=== PATIENT | male | born 1990 | race Hispanic/Latino ===

== ENCOUNTER 2018-04-24 15:06 | Inpatient (IN) | payer OTHER, SELFPAY ==
[~2018-04-24 15:06] MED LIST: ISOVUE-370 76%-LOCM 1 ML ONE
--- NOTE | 2018-04-24 16:54 | ULT ---
BILATERAL TESTICULAR ULTRASOUND WITH DOPPLER: History Right testicular pain. COMPARISON: None. FINDINGS: Real-time, kate scale, color Doppler, and spectral analysis of the testicles was performed. The left testicle measures 4.5 x 2.1 x 2.3 cm. The right testicle is felt to be posteriorly displace d and measures 4.5 x 3.3 x 2.7 cm. There appears to be a mass in the right inguinal canal seen into the scrotum which is felt to represent an incarcerated hernia vs a mass. There are large vessels wit hin this collection. IMPRESSION: Either a mass or incarcerated hernia in the right inguinal canal. CT would be more definitive if cli nically warranted. Surgical consultation is recommended. The patient was scanned in real-time by the radiologist in the emergency room. POS: [facility]
[2018-04-24 17:44] LABS: #Basophils 0.1 thou/uL (0.0-0.2); #Eosinphils 0.1 thou/uL (0.0-0.7); #Lymphocytes 1.5 thou/uL (1.20-3.40); #Monocytes 0.7 thou/uL (0.11-0.59); #Neutrophils 7.7 thou/uL (1.40-6.50); %Eosinophils 0.8 % (0.0-10.0); %Lymphocytes 15.3 % (21.0-51.0); %Monocytes 6.7 % (0.0-10.0); %Neutrophils 76.3 % (42.0-75.0); Mean Corpuscular HGB CONC 33.3 g/dL (32.0-36.0); Mean Corpuscular Hemoglobin 28.9 pg (27.0-31.0); Mean Corpuscular Volume 86.7 fL (78.0-98.0); Mean Platelet Volume 7.5 fL (7.4-10.4); Platelet Count 310 thou/uL (130-400); Red Blood Cell (RBC) Count 4.49 mill/uL (4.70-6.10)
[2018-04-24 18:11] LABS: ALT (SGPT) 14 U/L (8-55); AST (SGOT) 15 U/L (5-34); Albumin 4.1 g/dL (3.5-5.0); Alkaline Phosphatase 85 U/L (40-150); Anion Gap 15 mmol/L (10-20); BUN (Urea Nitrogen) 13 mg/dL (8.9-20.6); Bilirubin, Total 0.4 mg/dL (0.2-1.2); Calc. Creatinine Clearance 0 mL/min (70-130); Calcium 9.2 mg/dL (7.8-10.44); Carbon Dioxide 25 mmol/L (22-29); Chloride 100 mmol/L (98-107); Estimated GFR-MDRD Greater than 90; Globulin 3.6 g/dL (2.4-3.5); Glucose 92 mg/dL (70-105); Potassium 3.7 mmol/L (3.5-5.1); Protein, Total 7.7 g/dL (6.0-8.3); Sodium 136 mmol/L (136-145)
--- NOTE | 2018-04-24 18:26 | PDOC.FPRHP ---
- History of Present Illness Chief Complaint: Swollen testicle History of Present Illness: Mr. Kaur presents to the ED with a swollen testicle For the past 5 month he has had intermittent testicular pain and growth, he thought it was a hernia and was afraid to seek medical care. He reports recent weight loss and back pain 2/2 lifting a heavy object 4 weeks ago. He denies visual changes, focal weakness, memory loss, or syncope. Denies SOB, CP, abdominal pain or other symptoms. - History PMHx: none PSHx: none FHx: none Social: 10 pack year smoking history, daily marijuan use, no recent alcohol - Review of Systems General: reports: weight/appetite/sleep changes. denies: fever/chills, fatigue Eyes: denies: eye pain, vision changes ENT: denies: nasal congestion, rhinorrhea Respiratory: denies: cough, congestion, shortness of breath Cardiovascular: denies: chest pain, palpitation Gastrointestinal: reports: abdominal pain. denies: nausea, vomiting, diarrhea, constipation Genitourinary: reports: other (testicular mass). denies: incontinence, dysuria Skin: denies: rashes, lesions Musculoskeletal: reports: pain, tenderness Neurological: denies: numbness, syncope - Vital signs BP: 133/87 HR: 113 RR: 18 Tmax: 98.3 Pox: 97% on RA Wt: 81.65kg - Physical Exam Constitutional: NAD, awake, alert and oriented HEENT: normocephalic and atraumatic, grossly normal vision, grossly normal hearing, MMM Neck: supple, trachea midline Chest: no-tender to palpation, no lesions Heart: RRR, normal S1/S2, no murmurs/rubs/gallops Lungs: CTAB, no respiratory distress, good air movement Abdomen: soft, non-tender, bowel sounds present Musculoskeletal: normal structure, other (significant pain to palpation over L gluteus) Neurological: no focal deficit, CN II-XII intact Skin: other (engorged testicular veins and erythema) Heme/Lymphatic: no unusual bruising or bleeding, no purpura Additional comment: testicular exam: softball sized right testicle, firm with tense skin possibly adhered, erythema, venous engorgement, no hernia noted. FMR H&P: Results - Labs Result Diagrams: 04/24/18 17:30 04/24/18 17:30 Lab results: WBC 10.0 thou/uL (4.8-10.8) 04/24/18 17:30 Hgb 13.0 g/dL (14.0-18.0) L 04/24/18 17:30 Hct 39.0 % (42.0-52.0) L 04/24/18 17:30 MCV 86.7 fL (78.0-98.0) 04/24/18 17:30 Plt Count 310 thou/uL (130-400) 04/24/18 17:30 Neutrophils % 76.3 % (42.0-75.0) H 04/24/18 17:30 Sodium 136 mmol/L (136-145) 04/24/18 17:30 Potassium 3.7 mmol/L (3.5-5.1) 04/24/18 17:30 Chloride 100 mmol/L (98-107) 04/24/18 17:30 Carbon Dioxide 25 mmol/L (22-29) 04/24/18 17:30 BUN 13 mg/dL (8.9-20.6) 04/24/18 17:30 Creatinine 0.88 mg/dL (0.7-1.3) 04/24/18 17:30 Glucose 92 mg/dL (70-105) 04/24/18 17:30 Calcium 9.2 mg/dL (7.8-10.44) 04/24/18 17:30 Total Bilirubin 0.4 mg/dL (0.2-1.2) 04/24/18 17:30 AST 15 U/L (5-34) 04/24/18 17:30 ALT 14 U/L (8-55) 04/24/18 17:30 Alkaline Phosphatase 85 U/L (40-150) 04/24/18 17:30 Serum Total Protein 7.7 g/dL (6.0-8.3) 04/24/18 17:30 Albumin 4.1 g/dL (3.5-5.0) 04/24/18 17:30 FMR H&P: A/P - Problem List (1) Testicular mass Current Visit: Yes Status: Acute (2) Metastasis Current Visit: Yes Status: Acute Code(s): C79.9 - SECONDARY MALIGNANT NEOPLASM OF UNSPECIFIED SITE (3) Tobacco abuse Current Visit: Yes Status: Acute Code(s): Z72.0 - TOBACCO USE - Plan Testicular mass - most likely malignant, no skin necrosis - urology consulted, plan on removal on 04/25 - admit to surgical floor - AM CBC, CMP - case management consulted to evaluate need for support Metastasis - most likely lesions on sacrum, gluteus, iliac crest, and lungs. no brain lesions seen on CT - oncology consulted, appreciate recs - BHCG, AFP pending - norco 5 for pain control tobacco abuse - encourage cessation code: full ppx: hold lovenox for now Disposition/LOS: admit to surgical floor, removal of mass in AM FMR H&P: Upper Level - Pertinent history 27 yr old male with approx 7 month hx of swollen testicle that at times is painful. He reports not seeking medical care because he was scared. The testicle has continued to grow in size. He reports significant and severe back pain as well that has worsened over last couple months. He thought it started after bending over picking up 2 x 4's. He has smoked marijuana daily to help with the pain but does not take pain meds. Denies cough, SOB, chest pain, abdominal pain. Reports some weight loss as determined by looser fitting jeans. - Pertinent findings Abd CT/pelvis- right middle lobe mass (6.2 x 8.2 cm). Left middle lobe masses x 3 (2.6 x 1.4 cm), (1.2 x 1.6 cm), (2.0 x 1.4 cm) right iliac bone lytic lesion (2.4 x 4.7 cm) soft tissue attentuation in right gluteal muscles Chest CT- large necrotic mass occupying right upper hemithorax (6.9 8.8 cm) right upper lobe nodules (1.6 x 1.2 cm), (1.0 x 0.9 cm) subcentimeter nodules in right lower love Brain CT- no acute intracranial process Gen: worried, tearful upon notice of condition Heart: RRR, no M/R/G Lungs: CTAB, no wheezes, rhales, rhonchi, good air movement bilaterally Abd- soft - right scrotum enlarged significantly with vein engorgement MSK- right lumbar region swelling/mass enlargement as compared to left. mass tender to palpation Neuro- cranial nerve 2-12 grossly intact. gait normal - Plan Date/Time: 04/24/181823 I, [Emmie Wren], have evaluated this patient and agree with findings/plan as outlined by it intern resident. Pertinent changes/additions are listed here. Testicular mass -Suspected testicular cancer with soft tissue, bone, and lung metastasis -see imaging noted above -urology has been consulted from ER with plans to operate tomorrow, appreciate recs -will assist with pain control associated with suspected mets -will assist with any medical concerns during hospitalization multiple suspected metastasis -see above Tobacco abuse -smoking cessation provided -will provide nicotine patch PRN Drug use -cessation counseling provided Diet- reg and NPO after midnight DVT ppx- will hold lovenox tonight in anticipation of early childhood education instructor procedure, SCDs GI PPX- none PCP - none, [facility] call Code status: FULL Addendum - Attending - Attending Attestation Date/Time: 04/24/182213 I personally evaluated the patient and discussed the management with Dr. Ramos I agree with the History, Examination, Assessment and Plan documented above with any addition or exceptions noted below. Unfortunate 27 yo male with self intentional delay of care regarding large painful right testicular mass presumed cancer with evidence of osseous metastatic involvement sacrum, right iliac and pulmonary metastatic spread. CT of head negative for mass. Patient with two biological children history of heavy tobacco and marijuana use. Consults for Urology and Oncology placed, tumor markers drawn LDH 501. Patient to be NPO for anticipated surgery in am further tumor classification and staging pending surgery. Patient aware of diagnosis and defer further treatment pending further evaluation. Pain controlled with po medication at present.
--- NOTE | 2018-04-24 19:19 | CT ---
CT ABDOMEN WITH CONTRAST: CT PELVIS WITH CONTRAST: HISTORY: Possible right scrotal hernia. COMPARISON: None. TECHNIQUE: Abdomen and pelvis CT is performed with IV contrast. Enteric contrast is not administered. FINDINGS: There is incomplete evaluation of a chronic mass in the right middle lobe, measuring at least 6.2 x 8 .2 cm. There are three separate masses in the left lower lobe, measuring 2.6 x 1.4, 1.2 x 1.6, and 2 .0 x 1.4 cm. The portal vein and gallbladder are unremarkable. There are no enhancing masses in the liver. The s pleen, pancreas, and adrenal glands are unremarkable. Symmetric enhancement of the kidneys. No obst ructive uropathy. No gastrohepatic, retrocrural, or periportal lymphadenopathy. There is no mesenteric mass, lymphadenopathy, free air, or free fluid. There is no evidence of retro peritoneal mass, lymphadenopathy, free air, or free fluid. Symmetric attenuation of the psoas muscle. Limited evaluation of the alimentary canal by lack of oral contrast. Gastric mucosa, duodenum, and m ultiple normal caliber small bowel loops are noted. The ileocecal junction is normal. Normal calibe r appendix. No evidence of colonic obstruction. There is evidence of destructive change secondary to metastases involving the right lateral aspect of the sacrum, as well as the right iliac bone. There is a lytic focus in the right iliac bone, measur ing 2.4 x 4.7 cm. There is abnormal soft tissue attenuation in the region of the right gluteal muscl es, which may represent hematoma/metastases. There is also abnormal attenuation involving the logging worker ior right paraspinal muscles, at the level of the sacrum. There is an abnormal appearing right hemiscrotum with a large component of fluid and heterogeneous en hancement. Right testicular cancer is suspected until proven otherwise. IMPRESSION: 1. Multiple metastatic lesions in the lung parenchyma are suspected. 2. Probable right testicular cancer with osseous metastases involving the right aspect of the ilium and sacrum. There is also suggestion of possible metastases involving the right gluteal muscles. The results of the study were discussed with Dr. Ramirez on 04/24/2018 at 5:57 p.m. CODE CR POS: [facility]
[2018-04-24 19:25] LABS: Bilirubin Negative (Negative); Blood, Urine Trace (Negative); Clarity CLEAR (Clear); Glucose, Urine (Dipstick) Negative (Negative); Leukocyte Negative (Negative); Nitrite Negative (Negative); Protein, Urine (Dipstick) Negative (Neg-Trace)
[2018-04-24 19:27] LABS: Bacteria/HPF None Seen HPF (None Seen); Hyaline Casts/LPF 0-3 HYALINE CAST LPF (0-3 Hyaline); Pathc Cast-AUWi Flag 0.14 (0-2.49); Squamous Epithelial None Seen HPF (0-3); WBC/HPF None Seen HPF (0-3)
[2018-04-24 19:29] LABS: Specific Gravity, Urine Greater than 1.060 (1.002-1.036)
--- NOTE | 2018-04-24 19:34 | CT ---
CT CHEST WITHOUT CONTRAST: HISTORY: Palpable metastatic testicular cancer. FINDINGS: Slightly limited evaluation of the mediastinum due to lack of IV contrast. No mediastinal lymphadeno sylvester, or hematoma. Heart size is within normal limits. No pericardial effusion. The visualized ao rta has a normal caliber. No periaortic fat stranding. The trachea and central bronchi are patent. There is a large necrotic mass, likely occupying the chicho ority of the right upper hemithorax. Mass abuts the right upper lobe and abuts the right border of t he mediastinum and causes some mass effect upon the right atrium. This necrotic mass measures 6.9 x 8.8 cm. Nodules are noted in the right upper lobe, measuring 1.6 x 1.2 and 1.0 x 0.9 cm. Small subc entimeter nodules in the right lower lobe are noted. There are multiple nodules in the left lower lo be, which have been described above. Additional nodules are noted in the lingula and in the superior segment of the left lower lobe. No lytic or blastic lesions in the osseous structures. IMPRESSION: 1. Large necrotic mass in the right hemithorax, metastatic unthil proven otherwise. 2. Multifocal lung masses, presumed to be metastatic until proven otherwise. POS: EDWIGE
--- NOTE | 2018-04-24 19:45 | CT ---
NONCONTRAST HEAD CT: 04/24/18 HISTORY: Evaluate for possible intracranial metastases. COMPARISON: None. FINDINGS: No parenchymal hemorrhage. No extra-axial hematoma. No midline shift. Basilar cisterns are patent. Br ain volume, age appropriate. Cortical kate-white matter differentiation is preserved. No evidence of hydrocephalus. Calvarium is intact. Adequate aeration of the sinuses and mastoid air c ells. There is a small amount of contrast still present in the intracranial arterial system secondary to re cent IV contrast administration. IMPRESSION: No acute intracranial process. POS: [facility]
[2018-04-24] MEDS ORDERED: Nicotine 14 MG PATCH TOP SCH (21:15)
[2018-04-24] MEDS ORDERED: Ondansetron PF 4 MG/2 ML Vial IVP PRN ×2 (21:27→21:28)
[2018-04-24] MEDS ORDERED: Ondansetron ODT 4 MG TAB PO PRN (21:27)
[2018-04-24] MEDS ORDERED: Acetaminophen 325 MG TAB PO PRN (21:28)
[2018-04-24] MEDS ORDERED: Ondansetron ODT 4 MG TAB SL PRN (21:28)
[2018-04-24 23:34] VITALS: BMI 27.1
--- NOTE | 2018-04-25 06:26 | PDOC.FM ---
Addendum entered and electronically signed by Milli Diaz MD 04/25/18 08:10 : Elevated LDH suggests seminoma. Will repeat post surgery. HIV, syphilis, Hep panel, and TB pending. Original Note: - Subjective Subjective: No events overnight. Patient states that he continues to have back pain. Patient states he has not been seen by urology or oncology but that he is having a surgery today. Otherwise patient has no complaints. - Objective Vital Signs & Weight: Vital Signs (12 hours) Temp Pulse Resp BP Pulse Ox 04/24/18 21:27 98.4 F 91 20 127/78 96 Weight Weight 81 kg Result Diagrams: 04/25/18 05:39 04/25/18 05:39 Phys Exam - Physical Examination Constitutional: NAD HEENT: PERRLA, moist MMs, sclera anicteric Neck: no JVD, supple, full ROM Respiratory: clear to auscultation bilateral Cardiovascular: RRR, no significant murmur, no rub Gastrointestinal: soft, non-tender, no distention, positive bowel sounds Musculoskeletal: no edema Neurological: non-focal Psychiatric: normal affect, A&O x 3 Dx/Plan (1) Metastasis Code(s): C79.9 - SECONDARY MALIGNANT NEOPLASM OF UNSPECIFIED SITE Status: Acute (2) Testicular mass Status: Acute (3) Tobacco abuse Code(s): Z72.0 - TOBACCO USE Status: Acute - Plan Plan: Testicular mass - Suspected testicular cancer with soft tissue, bone, and lung metastasis - urology has been consulted from ER with plans to operate 04/25, appreciate recs - oncology has been consulted, appreciate recs - will assist with pain control associated with suspected mets; Patient on [place] 5/325. Not given meds overnight due to NPO status for surgery. Will give morphine for severe pain PRN. - BHCG, AFP pending - CM consulted to evaluate need for support Multiple suspected metastasis - see above Tobacco abuse - smoking cessation counseling provided - will provide nicotine patch PRN Drug use - cessation counseling provided Diet- patient NPO since midnight for procedure DVT ppx- will hold lovenox tonight in anticipation of plate former procedure, SCDs GI PPX- none PCP - none, city call Code status: FULL Addendum - Attending - Attending Attestation Date/Time: 04/25/18 5021 I personally evaluated the patient and discussed the management with Dr. Diaz I agree with the History, Examination, Assessment and Plan documented above with any addition or exceptions noted below. Appreciate marine engineering consultant recs for tissue diagnosis for further staging and rec note elevated AFP.
[2018-04-25 06:49] LABS: #Eosinphils 0.1 thou/uL (0.0-0.7); #Lymphocytes 1.8 thou/uL (1.20-3.40); #Monocytes 0.6 thou/uL (0.11-0.59); #Neutrophils 6.9 thou/uL (1.40-6.50); %Basophils 0.2 % (0.0-1.0); %Eosinophils 1.3 % (0.0-10.0); %Lymphocytes 18.7 % (21.0-51.0); %Monocytes 6.6 % (0.0-10.0); %Neutrophils 73.3 % (42.0-75.0); Hemoglobin 12.4 g/dL (14.0-18.0); Mean Corpuscular HGB CONC 33.9 g/dL (32.0-36.0); Mean Corpuscular Hemoglobin 29.5 pg (27.0-31.0); Mean Platelet Volume 7.9 fL (7.4-10.4); Platelet Count 297 thou/uL (130-400); White Blood Cell (WBC) Count 9.4 thou/uL (4.8-10.8)
[2018-04-25 07:01] LABS: Anion Gap 13 mmol/L (10-20); BUN (Urea Nitrogen) 10 mg/dL (8.9-20.6); Calc. Creatinine Clearance 159 mL/min (70-130); Calcium 9.4 mg/dL (7.8-10.44); Carbon Dioxide 28 mmol/L (22-29); Chloride 102 mmol/L (98-107); Estimated GFR-MDRD Greater than 90; Glucose 97 mg/dL (70-105); Potassium 3.8 mmol/L (3.5-5.1); Sodium 139 mmol/L (136-145)
[2018-04-25] MEDS ORDERED: Morphine 4 MG/ML VIAL ONE (07:57)
[2018-04-25 09:49] LABS: HBCM Index 0.05 S/CO (0-0.79); HBSAg Index 0.28 S/CO (0-0.99); HIV (1/2) Antibody/Antigen Non-Reactive (NonReactive); HIV 1/2 INDEX 0.17 S/CO (<1.00); Hep A IgM AB Non-Reactive (NonReactive); Hep A IgM S/CO 0.14 S/CO (0-0.79); Hep B Surf Ag Non-Reactive S/CO (NonReactive); Hep C IgG Ab Non-Reactive (NonReactive); Hep C Index 0.19 S/CO (0-0.79); Hepatitis B Core IgM Abs Non-Reactive (NonReactive); Syphilis Antibody Nonreactive (Nonreactive); Syphilis Antibody Index 0.47 S/CO (<1.00 Non-Reactive)
[2018-04-25] MEDS ORDERED: Lidocaine 1% (PF) 30 ML VIAL ONE ×2 (10:55→12:49)
[2018-04-25] MEDS ORDERED: Lidocaine 1% w/Epinephrine 1:200K 30 ML VIAL FS SCH (11:15)
[2018-04-25] MEDS: Morphine 4 MG/ML VIAL SLOW IVP PRN ×3 (11:25→22:26)
[2018-04-25] MEDS ORDERED: Lidocaine 1% (PF) 30 ML VIAL FS SCH (12:15)
[2018-04-25] MEDS: Nicotine 14 MG PATCH TD SCH (12:16)
--- NOTE | 2018-04-25 12:46 | CON ---
DATE OF CONSULTATION: 04/25/2018 REASON FOR CONSULTATION: Consultation was requested for right testicular mass. HISTORY OF PRESENT ILLNESS: The patient is a 27-year-old male, who noticed enlargement of his testicle approximately 5 to 7 months ago, but was too scared to come in and do anything about it. About 2 or 3 months ago, he bent over while working. He felt a pop in his back side and that area has been sore and painful ever since and he has required special maneuvering in order to avoid such pain. He denies any urinary issues to include UTIs, gross hematuria, kidney stones or retention. He normally has frequency q.2 to 3 hours and nocturia x1. PAST MEDICAL HISTORY: Insignificant. PAST SURGICAL HISTORY: None. MEDICATIONS: None. ALLERGIES: NONE. SOCIAL HISTORY: He smokes a pack a day and has for 10 years. He previously smoked marijuana for recreation, but now he has been smoking it daily for his significant pain both in the back and in his testicle if he stands too long and even more recently, he has had trouble with deep breaths and pain. He does not drink alcohol regularly, not even weekly, and he works as [employer] for the past 3 years, but is out of work currently. REVIEW OF SYSTEMS: Reveal he has probably lost about 20 pounds over the last few months. He has had a decreased appetite, but he has been trying to eat a good amount. He does have admits trouble with sleeping with the above-mentioned pain. He has had no fever or chills, and he denies any abdominal pain. He has had no nausea, vomiting, diarrhea, or constipation. He has had a new cough with some phlegm, but he has never coughed up any blood or tissue. A long time ago, he had blood after bowel movements, but that was several years ago and has not happened recently. Reviewed that this was more likely hemorrhoids. He has had recent shortness of breath and had the pace himself. He denies any trouble with diabetes, thyroid trouble, and he has never had a colonoscopy. FAMILY HISTORY: Insignificant for any cancers. PHYSICAL EXAMINATION: VITAL SIGNS: He has been afebrile, heart rate around 90, blood pressure 127/81 , and 98% on room air. His I's and O's have been recorded as urinal. GENERAL: He appears comfortable in the bed. HEENT: He has no scleral icterus. NECK: He has no JVD. HEART: Regular rhythm and rate. No murmurs, gallops, or rubs. LUNGS: Actually clear to auscultation at the bases. ABDOMEN: Soft, nondistended, and nontender with normoactive bowel sounds. GENITOURINARY: Right testicle was clearly significantly enlarged, larger than a grapefruit or softball and firm. Left was normal and soft. Phallus was circumcised without lesions. No meatal stenosis. His gluteus region was not obvious for mass. However, when you compared it to the left side, the right was much more indurated and firm along his iliac wing. DIAGNOSTIC DATA: Laboratory values reveal a normal CBC with H and H has gone down a little bit with hydration to 12.4 and 36.6. BUN and creatinine, which are good with last check of 0.79 for creatinine. LFTs are within normal limits. LDH was 501. Alpha-fetoprotein and beta-hCG are pending. Urinalysis showed no wbc's, 4 to 6 rbc's, no bacteria, and no squamous cells. The scrotal ultrasound on 04/24/2018 , revealed what appeared to be a significant right testicular mass that was difficult to appreciate definitive borders and measure. The left appeared normal. A CT scan of the abdomen, chest, and pelvis revealed multiple metastases including the right lateral sacrum with the right gluteal muscle involved and the right iliac involved, some posterior paraspinal muscle involvement. A large lesion in the right hemithorax and multiple other lung lesions. There was no pelvic lymphadenopathy. There was no retroperitoneal lymphadenopathy. The brain scan showed no lesions. His kidneys were normal without hydronephrosis, masses, or stones. No liver lesions. His bladder is normal and he had a small prostate. ASSESSMENT: We have a 27-year-old male with metastatic disease with an unknown primary, as it is unlikely that testicular cancer would result in obvious types of lesions without involving both the pelvic and retroperitoneal lymph nodes. I reviewed with him and Dr. Romo, however, I would not want to remove his testicle at this time if this is not a primary testicular cancer, which to me it does not appear to be in getting a biopsy from the testicle would be difficult as you would technically need to go to the groin to do it, so I think an easier spot would be the gluteal region and possibly bronchoscopy for the lung mass. I would still await his alpha-fetoprotein and beta-hCG and a definitive tissue sample, but at this time , I think primary testicular cancer is less likely. Dr. Romo spoke with Dr. Mendoza, who will evaluate to determine whether she could get a biopsy of the gluteal area. I will continue to follow along. Job ID: [id number] [facility]ALL[facility]ly[facility]
[2018-04-25] MEDS ORDERED: Bupivacaine 0.25% HCL 30 ML VIAL ONE (12:49)
--- NOTE | 2018-04-25 13:03 | CON ---
DATE OF CONSULTATION: REASON FOR CONSULTATION: Testicular mass and metastatic disease. HISTORY OF PRESENT ILLNESS: A 27-year-old male presenting to the hospital with increasing testicular mass and back pain. The patient says his right testicle started growing approximately 6 months ago and he was afraid to seek medical care. Approximately 3 months ago, he was lifting a heavy object at work and heard something pop in his back and has had severe back pain ever since. He smokes weed approximately 10 times a day to control his pain. He also smokes about a pack a day of cigarettes for most of his life. The patient developed cough and shortness of breath approximately a month ago and cough is productive of clear sputum along with some chest pain when he coughs. The patient also complains of drenching night sweats and unintentional weight loss, but cannot quantitate. He denies any fevers, any headaches, any change in vision, any extremity weakness, and has no nausea, vomiting, diarrhea, constipation, or blood in the stool. He states his back pain radiates to his right leg. He states that his right testicle and scrotum hurts more when he is standing up for long periods of time. He has a family history of colon cancer and lung cancer in his maternal great uncle, but otherwise no known family history of cancer. REVIEW OF SYSTEMS: Ten-point review of systems negative except as per HPI. PAST MEDICAL HISTORY: None. PAST SURGICAL HISTORY: None. FAMILY HISTORY: Colon cancer in maternal great uncle. SOCIAL HISTORY: One pack per day smoking for most of his life. Daily marijuana use. Social alcohol, but none recently. PHYSICAL EXAMINATION: VITAL SIGNS: Temperature 98.6, pulse 90, respirations 16, saturating 98% on room air, and blood pressure 127/81. GENERAL APPEARANCE: The patient lying in bed, in no acute distress and appears comfortable. HEENT: Normocephalic, atraumatic. No scleral icterus noted. NECK: Supple without lymphadenopathy. CARDIOVASCULAR: Normal S1 and S2 without murmurs, rubs, or gallops. Regular rhythm and rate. RESPIRATIONS: Clear to auscultation bilaterally without wheezing, rales, or rhonchi. ABDOMEN: Soft, nondistended, and nontender. LYMPHATICS: No palpable cervical, axillary, or inguinal lymphadenopathy. MUSCULOSKELETAL: No spinal tenderness. Moves all extremities. NEUROLOGIC: Cranial nerves II through XII are grossly intact. Strength is 5/5 in all extremities. GENITOURINARY: Large firm right testicular mass that is nontender to palpation and spreads up to the inguinal canal on the right side. Left testicle is normal. Right gluteus betty has a small 2 to 3-cm firm mass, that is, mildly tender to palpation. LABORATORY DATA: WBC 9.4, Hb 12.4, Plt 297, Sodium 139, Potassium 3.8, BUN 10, Creatinine 0.79, LDH 501, AFP 6730.5, Bilirubin 0.4 IMAGING DATA: Testicular ultrasound shows left testicle 4.5 x 2.1 x 2.3 cm and right testicle is felt to be posteriorly displaced measuring 4.5 x 3.3 x 2.7 cm with a mass in the right inguinal canal into the scrotum, which is felt to represent an incarcerated hernia and less likely a mass. CT abdomen and pelvis with contrast shows a chronic mass in the right middle lobe measuring 6.2 x 8.2 cm and 3 separate masses in the left lower lobe measuring 2.6 x 1.4, 1.2 x 1.6, and 2.0 x 1.4 cm. It also shows destructive change secondary to metastases involving the right lateral aspect of the sacrum as well as the right iliac bone. There is a lytic focus in the right iliac bone measuring 2.4 x 4.7 cm with an abnormal soft tissue attenuation in the region of the right gluteal muscles, which may represent hematoma or metastases. There is also abnormal attenuation involving the posterior right paraspinal muscles at the level of the sacrum. There was a normal-appearing right hemiscrotum with a large component of fluid in heterogeneous enhancement and right testicular cancer is suspected until proven otherwise. CT of the chest without contrast shows a large necrotic mass occupying majority of the right upper hemithorax and abutting the right border of the mediastinum causing some mass effect upon the right atrium. Necrotic mass measures 6.9 x 8.8 cm. Nodules are noted in the right upper lobe measuring 1.6 x 1.2 and 1.0 x 0.9 cm. Small subcentimeter nodules in the right lower lobe are also noted and there are multiple nodules in the left lower lobe. Additional nodules are noted in the lingula and superior segment of the left lower lobe. CT scan of the head without contrast shows no acute intracranial process. ASSESSMENT AND PLAN: A 27-year-old male, presenting with a large right testicular mass, multiple lung masses, lytic bone lesions, and a right gluteal mass. The patient could have a primary testicular cancer versus lymphoma versus other disease process. Testicular cancer typically spreads to the retroperitoneal lymph nodes and he has no lymphadenopathy seen on the CT scan. The patient's LDH is elevated, which can be seen in both lymphoma and testicular cancer. Beta-hCG and AFP are currently pending and will take a couple of days to return. A palpable right gluteal mass is firm and could be a hematoma, though it could also be a MET and I have asked Dr. Mendoza to evaluate for possible biopsy. If this lesion does not test and turn up technician to be cancerous, then I would ask Pulmonology for a bronchoscopy to biopsy the right upper lobe mass. I would not recommend biopsy of the testicular mass and surgery would not be done if this turns out to be a lymphoma. I have discussed this case with Dr. Casper in detail. We will follow up the biopsy results and formulate a plan afterward. The plan was discussed with the patient and his father in detail. Thank you for this consult. Job ID: [id number] [facility]FF[facility] HOSPITALLeslye
[2018-04-25] MEDS ORDERED: Midazolam HCl 2 mg/2 ml Vial ONE ×2 (13:19→13:23)
[2018-04-25] MEDS ORDERED: Fentanyl 100 MCG/2 ML VIAL ONE ×5 (13:19→15:35)
[2018-04-25] MEDS ORDERED: CEFAZOLIN 2 GM/50 ML BAG ONE (13:21)
[2018-04-25] MEDS ORDERED: Promethazine HCl 25 MG/ML VIAL SLOW IVP PRN (15:27)
[2018-04-25] MEDS ORDERED: Ondansetron HCl/PF 4 MG/2 ML Vial IVP PRN (15:27)
[2018-04-25] MEDS ORDERED: Promethazine HCl 25 MG/ML VIAL IM PRN (15:27)
--- NOTE | 2018-04-25 17:09 | PDOC.EVN ---
Event Note - Event Note Event Note: Patient had R orchiectomy with Dr. 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 Romo with visit the patient tomorrow to discuss treatment options
--- NOTE | 2018-04-25 20:53 | OP ---
DATE OF PROCEDURE: 04/25/2018 PREOPERATIVE DIAGNOSIS: Right testicular mass. POSTOPERATIVE DIAGNOSIS: Right testicular mass most consistent with testicular cancer. ANESTHESIA: General with endotracheal tube and local anesthetic using total of 30 mL of Marcaine. ESTIMATED BLOOD LOSS: Minimal. COMPLICATIONS: The testicle itself was significantly adherent to the scrotal wall and required significant dissection in order to remove it appropriately without buttonholing the skin as well as it was just exceedingly large and difficult to get through into the groin, but ultimately was successful in doing this and without compromising the scrotal skin. DRAINS REMAINING: None. SPECIMENS: Testicle and cord. INDICATIONS: The patient is a 27-year-old male who admitted with a testicular mass and obvious metastatic findings in the lung, pelvic bone, and gluteal muscle. So at this point, I was not suspicious for primary testicular cancer and asked them to biopsy the gluteal area. This was done at the bedside and showed something consistent with either a myxoid tumor, possibly sarcoma and also still germ- cell as potential etiology. At this time, his AFP came back and was 6730. In reviewing his CT scan and finding no concern for liver abnormalities, it was much more likely now that this was a primary testicular cancer and so I discussed with the patient and Dr. Romo the benefits of removing the testicle and we were all in agreement for this. I discussed all of this with the patient including how this procedure could decrease his fertility but is not likely to make him infertile. However, if he does have testicular cancer, then the medical treatment would likely make him infertile and he could freeze sperm. He reports he has two children and does not wish to have more--nor bank sperm. DESCRIPTION OF PROCEDURE: The patient was brought to the room by Anesthesia, laid on table in supine position. After receiving general anesthetic, he was prepped and draped in sterile fashion. Using a right inguinal incision, the skin was taken down to the cord. The cord was elevated, isolated, and then ligated. Tourniquet with a Marcel was placed. Then, approximately 30 minutes were spent trying to free the testicle from the scrotal wall before I was able to even get it to present through the incision. The incision had to be enlarged and at one point started to rip, so it was further incised to prevent further tearing. After about 45 minutes, the testicle was able to be delivered but was still significantly adherent to the scrotal skin as it was just inverted, so then care was taken to fully peel away the skin from that mass without buttonholing the skin. This was done with blunt dissection as well as electrocautery. Once this was finally freed, the testicle was elevated and three 0 silk sutures were used for ligation. The cord was then went across with the Bovie. No bleeding from the residual cord stump was noted and the specimen was sent for frozen, which ultimately confirmed testicular cancer as the primary with yolk sac being obviously found, but no other components at this time, but they were still investigating. Attention was turned back to the scrotum, where tedious amounts of electrocautery was used to ensure the scrotal wall was dry. Once this was performed, the cord was inspected again and there was no concern for any bleeding. The copious amounts of irrigation were used and then the Nghia's was closed with 3-0 Vicryl in interrupted fashion. The dermis was closed 3-0 Vicryl in interrupted fashion and skin was closed with 4-0 Monocryl in a subcuticular fashion. Steri-Strips and sterile dressing were applied and a scrotal support and fluffs were used. The patient tolerated the procedure well and was then awakened, transferred to PACU in stable condition. Job ID: [id number] [facility] CENTERLeslye
[2018-04-25] MEDS ORDERED: Ondansetron PF 4 MG/2 ML Vial ONE (20:54)
[2018-04-25] MEDS ORDERED: PROPOFOL 200 MG/20 ML VIAL ONE (20:54)
[2018-04-25] MEDS ORDERED: Glycopyrrolate 0.2 MG/ML 5 ML SYRINGE ONE (20:54)
[2018-04-25] MEDS ORDERED: Lidocaine 1% PF 5 ML VIAL ONE (20:54)
[2018-04-25] MEDS ORDERED: Dexamethasone 20 MG/5 ML VIAL ONE (20:54)
--- NOTE | 2018-04-25 21:46 | CON ---
DATE OF CONSULTATION: REASON FOR CONSULT: Soft-tissue mass biopsy. HISTORY OF PRESENT ILLNESS: Mr. Kaur is a 27-year-old man, who presented to the emergency room with a 4-month history of a painful right testicular mass. He also noted some swelling and pain in his right buttock area for the past 3 months. He does not think that either of them have changed much since he noticed it, although they have gotten slightly bigger. He was admitted to the hospital for workup of malignancy since CT showed multiple large masses through the mediastinum and scattered masses in the lungs as well as the buttock and scrotal mass. Dr. Casper was concerned about possibility of lymphoma or other malignancy, so a core biopsy of the right buttock lesion was requested. The patient reports no other significant past medical history. PAST SURGERY HISTORY: No past surgical history. FAMILY HISTORY: No family history. SOCIAL HISTORY: He does have a smoking history and uses marijuana, but does not drink or use other drugs. REVIEW OF SYSTEMS: Ten system review of systems was negative except per HPI. PHYSICAL EXAMINATION: VITAL SIGNS: The patient has been afebrile with normal vital signs. GENERAL: Reveals a healthy-appearing young man, in no acute distress. He is not flushed, toxic, jaundiced, or icteric. HEENT: Unremarkable. No palpable cervical or supraclavicular lymphadenopathy. HEART: Regular in its rate and rhythm without murmurs, rubs, or gallops. LUNGS: Clear to auscultation bilaterally. No palpable axillary lymphadenopathy. ABDOMEN: Soft, nontender, and nondistended. No palpable hepatosplenomegaly. EXTREMITIES: Warm and well perfused. : He has a firm mass in the right upper gluteal area. On ultrasound, this is heterogeneous with increased blood flow compared to the surrounding tissues. His right testicle is hard and enlarged and somewhat tender to palpation. LABORATORY DATA: White count is normal. Electrolytes normal. Urine clear. CT images are reviewed and I agree with the written report. The procedure of core needle biopsy was discussed with the patient and he wished to proceed. This was performed at the bedside using local anesthesia and direct ultrasound guidance. Five cores were obtained and taken for frozen section and adequacy testing. The patient was found to have a myxoid-appearing tumor which could be consistent with a germ cell tumor or sarcoma. Post biopsy wound check showed no evidence of bleeding or other problems. He can follow up with me on an as-needed basis. Job ID: [id number]
[2018-04-25] MEDS ORDERED: Enoxaparin Sodium 40 MG/0.4 ML SYRINGE SC SCH (22:30)
--- NOTE | 2018-04-26 06:27 | PDOC.FM ---
- Subjective Subjective: No overnight events. Patient complaining of moderate pain in lower back and genital area. Patient received morphine last night. No other complaints. - Objective Vital Signs & Weight: Vital Signs (12 hours) Temp Pulse Resp BP Pulse Ox 04/26/18 04:33 98.6 F 82 20 136/69 99 04/26/18 00:17 98.4 F 92 20 144/83 H 97 04/25/18 20:26 98.3 F 87 20 130/82 96 Weight Admit Weight 80.739 kg Weight 81 kg Result Diagrams: 04/25/18 05:39 04/25/18 05:39 Phys Exam - Physical Examination Constitutional: NAD HEENT: PERRLA, moist MMs, sclera anicteric Neck: supple, full ROM Respiratory: clear to auscultation bilateral Cardiovascular: RRR Gastrointestinal: soft, non-tender, no distention, positive bowel sounds Musculoskeletal: no edema Neurological: non-focal Psychiatric: normal affect, A&O x 3 Skin: no rash Dx/Plan (1) Metastasis Code(s): C79.9 - SECONDARY MALIGNANT NEOPLASM OF UNSPECIFIED SITE Status: Acute (2) Testicular mass Status: Acute (3) Tobacco abuse Code(s): Z72.0 - TOBACCO USE Status: Acute - Plan Plan: Testicular mass, 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 Performed right orchiectomy on with Dr. Casper. - Oncology has been consulted, appreciate recs. Dr. Romo to visit with patient today to discuss treatment options. - Will assist with pain control associated with suspected mets; [place] and morphine for pain. - BHCG pending. AFP and LDH elevated. 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 - CM consulted to evaluate need for support Multiple suspected metastasis - see above Tobacco abuse - smoking cessation counseling provided - will provide nicotine patch PRN Drug use - cessation counseling provided Diet- reg DVT ppx- lovenox GI PPX- none PCP - none, [facility] call Code status: FULL Addendum - Attending - Attending Attestation Date/Time: 04/26/18 3915 I personally evaluated the patient and discussed the management with Dr. Diaz I agree with the History, Examination, Assessment and Plan documented above with any addition or exceptions noted below.POD # 1 progressing well c/o pain for further rec regard CA treatment per Oncology.
[2018-04-26] MEDS: Morphine 4 MG/ML VIAL SLOW IVP PRN ×2 (08:05→17:47)
[2018-04-26] MEDS: HYDROcodone/Acetaminophen 5/325 mg Tablet PO PRN ×3 (08:34→22:13)
[2018-04-26] MEDS: Ketorolac Tromethamine 30 MG/ML VIAL IVP SCH ×3 (11:40→23:08)
[2018-04-26] MEDS ORDERED: Diazepam 5 MG TAB PO SCH (12:00)
[2018-04-26] MEDS ORDERED: CEFAZOLIN 2 GM/50 ML-DEXTROSE 2 GM in Premix Bag 1 BAG IVPB SCH (13:30)
--- NOTE | 2018-04-26 13:34 | PRG ---
DATE OF SERVICE: 04/26/2018 SUBJECTIVE: Mr. Kaur is an unfortunate 27-year-old gentleman who has already been seen by Dr. Mendoza. She apparently performed a biopsy of a buttock lesion. The patient subsequently underwent a right orchiectomy through an inguinal approach per Dr. Casper. His oncologist, Dr. Romo, has asked me to place a MediPort for chemotherapy administration. The patient complains of mild appropriate discomfort following his surgery yesterday. OBJECTIVE: VITAL SIGNS: On examination, he is afebrile. Vital signs within normal limits. LUNGS: Clear to auscultation. ABDOMEN: He has an appropriately healing right inguinal incision. ASSESSMENT: The patient with testicular cancer. Final pathology is still pending. PLAN: MediPort placement for chemotherapy per the request of Dr. Romo. I have discussed this with the patient as well as potential risks. He understands and agrees to proceed with surgery at this time and his surgery is being scheduled for tomorrow. Job ID: [id number]
[2018-04-26] MEDS ORDERED: Gadobenate Dimeglumine 529 MG/1 ML (20ML VIAL) ONE (14:38)
[2018-04-26] MEDS: Nicotine 14 MG PATCH TD SCH (16:41)
--- NOTE | 2018-04-26 17:52 | MRI ---
BRAIN MRI WITH AND WITHOUT CONTRAST: History: Testicular cancer. Recent ostectomy. Evaluate for intracranial metastases. Comparison: None. Correlation: Noncontrast head CT 04-24-18. FINDINGS: No hemorrhage on the axial gradient echo sequence. Calvarium has a normal T1 marrow signal intensity. Midline brain parenchymal structures are unremarka ble. No parenchymal mass, mass effect, or midline shift. Brain volume is age appropriate. Cortical kate wh ite matter differentiation is preserved. Ventricles and sulci are patent and symmetric. Central arterial flow voids are maintained. Absent restricted diffusion. No pathologic enhancement of the brain parenchyma. Adequate aeration of the sinuses and mastoid air cells. IMPRESSION: 1. No pathologic enhancement of the brain parenchyma. No MR evidence of brain parenchymal metastases. POS: OLIVIER
[2018-04-26] MEDS: Enoxaparin Sodium 40 MG/0.4 ML SYRINGE SC SCH (20:27)
[2018-04-26] MEDS: Lactated Ringer's 1,000 ML IV SCH (23:11)
[2018-04-27] MEDS: Ketorolac Tromethamine 30 MG/ML VIAL IVP SCH (06:07)
[2018-04-27] MEDS: Lactated Ringer's 1,000 ML IV SCH ×2 (06:31→17:32)
--- NOTE | 2018-04-27 06:43 | PDOC.FM ---
- Subjective Subjective: No acute overnight events. Patient states pain has been well controlled with the norco. He reports that the plan is for mediport placement today and discharge home later today. Patient states he discussed future treatment plans with Dr. Romo yesterday. - Objective Vital Signs & Weight: Vital Signs (12 hours) Temp Pulse Resp BP Pulse Ox 04/27/18 03:42 98.3 F 71 18 123/73 96 04/26/18 23:39 98.2 F 74 18 124/76 97 04/26/18 20:57 100 04/26/18 19:25 98.4 F 93 20 130/83 100 Weight Admit Weight 80.739 kg Weight 81 kg I&O: 04/25/18 04/26/18 04/27/18 06:59 06:59 06:59 Intake Total 1875 Balance 1875 Result Diagrams: 04/25/18 05:39 04/25/18 05:39 Phys Exam - Physical Examination Constitutional: NAD HEENT: PERRLA, moist MMs, sclera anicteric Neck: full ROM Respiratory: clear to auscultation bilateral Cardiovascular: RRR, no significant murmur, no rub Gastrointestinal: soft, non-tender, no distention, positive bowel sounds Musculoskeletal: no edema Neurological: non-focal Psychiatric: normal affect, A&O x 3 Dx/Plan (1) Metastasis Code(s): C79.9 - SECONDARY MALIGNANT NEOPLASM OF UNSPECIFIED SITE Status: Acute (2) Testicular mass Status: Acute (3) Tobacco abuse Code(s): Z72.0 - TOBACCO USE Status: Acute - Plan Plan: Testicular mass, 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 Performed right orchiectomy on with Dr. Casper. - Oncology has been consulted, appreciate recs. Dr. Romo discussed options with patient on 04/26. Patient agrees to move forward with mediport placement planned for 04/27. - Will assist with pain control associated with suspected mets; [place], toradol, and morphine for pain. - Soft tissue and testicle specimen surgical specimen pending. BHCG pending. AFP and LDH elevated. 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 - CM consulted to evaluate need for support Multiple suspected metastasis - see above - brain MRI on 04/26 showed no brain mets. Tobacco abuse - smoking cessation counseling provided - will provide nicotine patch PRN Drug use - cessation counseling provided DVT ppx- lovenox GI PPX- none PCP - none, [facility] call Code status: FULL DISPO: discharge later today w/ close f/u with oncology Addendum - Attending - Attending Attestation Date/Time: 04/27/18 [id number] I personally evaluated the patient and discussed the management with Dr. Diaz I agree with the History, Examination, Assessment and Plan documented above with any addition or exceptions noted below. Patient appears to be stable for dismissal later today continue NPO pending mediport placement prior to dismissal. Patient for f/u care with Oncology will RX [place] and set up our office as patient PCP.
[2018-04-27] MEDS: Morphine 4 MG/ML VIAL SLOW IVP PRN (09:47)
[2018-04-27] MEDS: HYDROcodone/Acetaminophen 5/325 mg Tablet PO PRN (11:20)
[2018-04-27] MEDS ORDERED: HYDROcodone/Acetaminophen 10/325 mg Tablet PO PRN (11:53)
[2018-04-27] MEDS ORDERED: HYDROcodone/Acetaminophen 5/325 mg Tablet PO PRN ×2 (11:55→16:00)
[2018-04-27] MEDS ORDERED: HYDROcodone/Acetaminophen 5/325 mg Tablet PO SCH (12:00)
--- NOTE | 2018-04-27 12:14 | PRG ---
DATE OF SERVICE: 04/27/2018 SUBJECTIVE: The patient resting, however, states the current pain management is suboptimal. Currently, provided [place] 5/325 one every 6 hours. He has finished his four courses of Toradol postop provided by [facility]. He is scheduled for MediPort today. OBJECTIVE: VITAL SIGNS: Stable. ABDOMEN: Soft, nontender, nondistended. : Steri-Strips are adequately in place. He does have some right scrotal edema as it anticipated as he had a large testicular mass, which was quite adherent to his dartos fascia per sign-out. IMPRESSION AND PLAN: Mr. Kaur is a 27-year-old male, postop day #2, status post right radical orchiectomy. He is scheduled for his MediPort today. His pain management has been adjusted, with [place] 10/325 one to two every 4 to 6 hours p.r.n. I do not recommend further Toradol, as there is a risk of significant scrotal hematoma as he had a large testicular mass. Scrotal support at home is advised. From Urologic perspective, the patient may be discharged later today or tomorrow morning. He states that he does not feel comfortable being discharged today, however, agrees to be discharged tomorrow. discharge patient w [place] 10/325, #30 per primary service He may call our office upon discharge to schedule followup with Dr. Casper. Job ID: [id number] MTDD
[2018-04-27] MEDS ORDERED: CEFAZOLIN 2 GM/50 ML BAG ONE (13:22)
[2018-04-27] MEDS: Ibuprofen 800 MG TAB PO SCH ×2 (13:55→18:42)
[2018-04-27] MEDS ORDERED: Bupivacaine/Epinephrine 0.25% 30 ML VIAL ONE (14:22)
[2018-04-27] MEDS ORDERED: Lidocaine 1% w/Epinephrine 1:100K 30 ML VIAL ONE (14:22)
[2018-04-27] MEDS ORDERED: Heparin 5,000 UNITS/ML VIAL ONE (14:22)
[2018-04-27] MEDS ORDERED: Iothalamate Meglumine 60% 50 ML VIAL FS ONE (14:25)
[2018-04-27] MEDS ORDERED: Fentanyl 100 MCG/2 ML VIAL ONE (14:34)
[2018-04-27] MEDS ORDERED: Midazolam HCl 2 mg/2 ml Vial ONE (14:35)
--- NOTE | 2018-04-27 15:01 | PRG ---
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 I reviewed this with the patient as well as Dr. Romo, who has already spoken with him about getting a port for chemotherapy and being discharged and following up for chemotherapy as an outpatient. With respect to his wound, he said he is having some significant pain, but is otherwise voiding without difficulty. PHYSICAL EXAMINATION: VITAL SIGNS: He has been afebrile at 98.6, heart rate 82, 94% on room air, and blood pressure of 134/92. GENITOURINARY: On exam, I removed the bandage, which had minimal blood on it and steri-strips are still clean, dry, and intact. There is mild swelling in the scrotum, more so consistent with scrotal wall edema as opposed to concern for any hematoma and we reviewed keeping this elevated at all times. LABORATORY DATA: Labs reveal as previously stated, his alpha fetoprotein was 6730.5. beta HCG has come back and is less than 1, so together with LDH of 501 those are his tumor markers. ASSESSMENT: We have a 27-year-old male with a very large testicular primary, status post right orchiectomy with a very unusual presentation and now pathology c/w yolk sac; who is getting set up for outpatient chemotherapy. From my standpoint , he does not require any antibiotics as an outpatient, but he may require a few more days of pain medicine from his incision standpoint as well as his overall metastatic disease. We reviewed how he can follow up with me as an outpatient after he has begun his chemotherapy process, and if there are further concerns as of tomorrow , Dr. Gomez will be available. Job ID: [id number] MTDD
[2018-04-27] MEDS: HYDROcodone/Acetaminophen 10/325 mg Tablet PO PRN ×2 (16:28→20:41)
[2018-04-27] MEDS: Nicotine 14 MG PATCH TD SCH (16:28)
[2018-04-27] MEDS: Enoxaparin Sodium 40 MG/0.4 ML SYRINGE SC SCH (20:41)
[2018-04-28] MEDS: HYDROcodone/Acetaminophen 10/325 mg Tablet PO PRN ×5 (00:58→23:52)
[2018-04-28] MEDS: Lactated Ringer's 1,000 ML IV SCH ×3 (00:59→14:23)
[2018-04-28] MEDS: Ibuprofen 800 MG TAB PO SCH ×2 (00:59→06:10)
--- NOTE | 2018-04-28 07:00 | PDOC.FM ---
- Subjective Subjective: No events overnight. Patient doing well this morning and has no complaints or concerns. States his pain has been mostly controlled but was starting to feel pain this morning in lower back. Patient states he talked with [place] last night and plan for mediport today. Patient states he feels prepared for the procedure today. - Objective Vital Signs & Weight: Vital Signs (12 hours) Temp Pulse Resp BP BP Pulse Ox 04/28/18 04:42 97.3 F L 75 15 109/67 99 04/27/18 23:58 98.1 F 90 18 137/78 97 04/27/18 21:14 100 04/27/18 20:00 98.1 F 89 18 120/87 100 Weight Admit Weight 80.739 kg Weight 81 kg I&O: 04/27/18 04/28/18 04/29/18 06:59 06:59 06:59 Intake Total 1875 1775 Balance 1875 1775 Result Diagrams: 04/25/18 05:39 04/25/18 05:39 Phys Exam - Physical Examination Constitutional: NAD HEENT: PERRLA, moist MMs, sclera anicteric Neck: full ROM Respiratory: clear to auscultation bilateral Cardiovascular: RRR Gastrointestinal: soft, non-tender, no distention, positive bowel sounds Musculoskeletal: no edema Neurological: non-focal, moves all 4 limbs Psychiatric: normal affect, A&O x 3 Skin: no rash Dx/Plan (1) Metastasis Code(s): C79.9 - SECONDARY MALIGNANT NEOPLASM OF UNSPECIFIED SITE Status: Acute (2) Testicular mass Status: Acute (3) Tobacco abuse Code(s): Z72.0 - TOBACCO USE Status: Acute - Plan Plan: Testicular mass, 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 Performed right orchiectomy on with Dr. Casper. - Oncology has been consulted, appreciate recs. Dr. Romo discussed options with patient on 04/26. Patient agrees to move forward with mediport placement planned for 04/28/18. Patient was not able to get mediport yesterday due to surgeon being called into level 1 trauma. Plan to get mediport placed today. - Will assist with pain control associated with suspected mets; pain medication adjusted to [place] 10/325 which patient will be sent home with. Morphine for breakthrough pain. - Soft tissue and testicle specimen surgical specimen pending. BHCG pending. AFP and LDH elevated. 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 - CM consulted to evaluate need for support Multiple suspected metastasis - see above - brain MRI on 04/26 showed no brain mets. Tobacco abuse - smoking cessation counseling provided - will provide nicotine patch PRN Drug use - cessation counseling provided DVT ppx- lovenox GI PPX- none PCP - none, [facility] call Code status: FULL DISPO: discharge later today after mediport placement w/ close f/u with oncology Addendum - Attending - Attending Attestation Date/Time: 04/28/18 0042 I personally evaluated the patient and discussed the management with Dr. Diaz I agree with the History, Examination, Assessment and Plan documented above with any addition or exceptions noted below. Dr Romo requesting PFTS in anticipation further treatment.
[2018-04-28] MEDS ORDERED: Bupivacaine/Epinephrine 0.25% 30 ML VIAL ONE (11:09)
[2018-04-28] MEDS ORDERED: Lidocaine 1% (PF) 30 ML VIAL ONE (11:09)
[2018-04-28] MEDS ORDERED: Sodium Chloride 0.9% 10 ML ONE (11:38)
--- NOTE | 2018-04-28 11:57 | PRG ---
DATE OF SERVICE: 04/28/2018 SUBJECTIVE: The patient is seen in preop for his MediPort. States that he is significantly better as far as pain control with [place] 10/325 was provided. The patient agrees to be discharged home after MediPort. OBJECTIVE: VITAL SIGNS: Stable. ABDOMEN: Soft, nontender, nondistended. : Right radical orchiectomy site incision is clean, dry, and intact, as expected stable scrotal edema. No significant fluctuance or hematoma of concern. IMPRESSION AND PLAN: A 27-year-old male status post right radical orchiectomy. MediPort today, discharged home today. The patient is to call our office to schedule followup appointment with Dr. Casper. will sign off. Job ID: [id number] [facility]
[2018-04-28] MEDS ORDERED: Midazolam HCl 2 mg/2 ml Vial ONE (12:02)
[2018-04-28] MEDS ORDERED: Fentanyl 100 MCG/2 ML VIAL ONE (12:02)
[2018-04-28] MEDS ORDERED: CEFAZOLIN 2 GM/50 ML BAG ONE (12:07)
[2018-04-28] MEDS ORDERED: Meperidine HCl/PF 25 MG/ML VIAL ONE (12:56)
[2018-04-28] MEDS: Nicotine 14 MG PATCH TD SCH (14:23)
--- NOTE | 2018-04-28 14:32 | RAD ---
PORTABLE AP CHEST XRAY: DATE: 04/28/2018. HISTORY: Chest mass, port placement. COMPARISON: 04/24/2018. FINDINGS: A right subclavian MediPort catheter has been placed since CT thorax on 04/24/2018. The tip of the c atheter overlies the expected location of the SVC. There is a large mass seen at the left lung base extending from the level of the right hilum to the right lung base, and a large heterogeneous mass wa s noted on recent CT exam with additional pulmonary nodules with one of the pulmonary nodules vaguely seen within the lateral right id lung zone. There is also a pulmonary nodule seen at the left lung base and in a retrocardiac region. Pulmonary vasculature is within normal limits. No pleural effusi on is seen. Osseous structures appear intact. IMPRESSION: 1. Large mass right mid lung zone and extending to the right lung base in a paramediastinal location . 2. Bilateral pulmonary nodules. 3. Interval placement of a right subclavian MediPort catheter without evidence of a pneumothorax. POS: [facility]
[2018-04-28] MEDS: Enoxaparin Sodium 40 MG/0.4 ML SYRINGE SC SCH (19:56)
[2018-04-28] MEDS ORDERED: Lidocaine 1% PF 5 ML VIAL ONE (21:18)
[2018-04-28] MEDS ORDERED: Ondansetron PF 4 MG/2 ML Vial ONE (21:18)
[2018-04-28] MEDS ORDERED: PROPOFOL 200 MG/20 ML VIAL ONE (21:18)
--- NOTE | 2018-04-29 00:14 | OP ---
DATE OF PROCEDURE: 04/28/2018 PREOPERATIVE DIAGNOSIS: Metastatic testicular cancer. POSTOPERATIVE DIAGNOSIS: Metastatic testicular cancer. OPERATION PERFORMED: Placement of a right subclavian low-profile power compatible MediPort. ANESTHESIA: General with laryngeal mask airway. INDICATIONS: The patient is a 27-year-old male who has recently undergone orchiectomy. He has a large right-sided chest mass consistent with a metastatic lesion. MediPort placement was requested for chemotherapy administration. DESCRIPTION OF OPERATION: Informed consent was obtained. The patient was taken to the operating room where total intravenous anesthesia was obtained with the patient in supine position. Right periclavicular area was prepped with ChloraPrep and draped in sterile fashion. Local anesthetic was infiltrated and a large-gauge needle was passed under the clavicle in the subclavian vein. Guidewire was passed through the needle and fluoroscopically confirmed to enter the superior vena cava. Additional local anesthetic was infiltrated and transverse incision was created based on needle insertion site. A subcutaneous pocket was dissected inferiorly. Introducer dilator was passed over the guidewire under fluoroscopic guidance. The guidewire and dilator were removed, and the catheter was passed through the introducer. The tip of the catheter was positioned at the atriocaval junction and the catheter was trimmed to the appropriate length and secured to the locking hub of the MediPort. The port was then placed in the subcutaneous pocket where it was secured to the pectoral fascia with 2 interrupted sutures of 3-0 Prolene. The incision was then closed in layers with 3-0 and 4-0 Monocryl. Additional local anesthetic was infiltrated. The port was cannulated with a Reyes needle and it aspirated blood freely and was flushed with heparinized saline. Dermabond was placed externally on the skin incision. There were no complications. Blood loss was negligible. The patient tolerated the procedure well and was taken to recovery room in stable condition. FINDINGS: The patient had usual anatomy externally and internally, except for the large mass that was visualized during fluoroscopy. This was inferior, near the diaphragm. A low-profile port was used and was placed in the right subclavian vein. BLOOD LOSS: Negligible blood loss. COMPLICATIONS: None. The patient tolerated the procedure well and was taken to recovery room in stable condition. Job ID: [id number]
[2018-04-29] MEDS: Lactated Ringer's 1,000 ML IV SCH ×2 (01:01→08:24)
--- NOTE | 2018-04-29 06:55 | PDOC.FM ---
- Subjective Subjective: No events overnight. Patient doing well s/p mediport placement yesterday. Patient states he has mild pain this morning - he missed his 0400 pain administration and received dose at 0700 with improvement in pain. Patient states he discussed with Dr. Romo doing lung tests today prior to discharge. - Objective Vital Signs & Weight: Vital Signs (12 hours) Temp Pulse Resp BP Pulse Ox 04/29/18 03:50 98.4 F 75 18 121/78 98 04/29/18 00:35 98.0 F 65 20 129/72 99 04/28/18 20:53 99 04/28/18 19:58 98.2 F 87 12 123/76 99 Weight Admit Weight 80.739 kg Weight 81 kg I&O: 04/27/18 04/28/18 04/29/18 06:59 06:59 06:59 Intake Total 1875 1775 600 Balance 1875 1775 600 Result Diagrams: 04/25/18 05:39 04/25/18 05:39 Phys Exam - Physical Examination Constitutional: NAD HEENT: PERRLA, moist MMs, sclera anicteric Neck: full ROM Respiratory: clear to auscultation bilateral Cardiovascular: RRR Gastrointestinal: soft, non-tender, no distention, positive bowel sounds Musculoskeletal: no edema Neurological: moves all 4 limbs Psychiatric: normal affect, A&O x 3 Dx/Plan (1) Metastasis Code(s): C79.9 - SECONDARY MALIGNANT NEOPLASM OF UNSPECIFIED SITE Status: Acute (2) Testicular mass Status: Acute (3) Tobacco abuse Code(s): Z72.0 - TOBACCO USE Status: Acute - Plan Plan: Testicular mass, 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 Performed right orchiectomy on with Dr. Casper. - Oncology has been consulted, appreciate recs. Dr. Romo discussed options with patient on 04/26. Mediport placed on 04/28/18. Dr. Romo is getting PFTs on patient today and can then be discharged. - Will assist with pain control associated with suspected mets; pain medication adjusted to [place] 10/325 which patient will be sent home with. Morphine for breakthrough pain. - Soft tissue and testicle specimen surgical specimen pending. BHCG pending. AFP and LDH elevated. 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 - CM consulted to evaluate need for support Multiple suspected metastasis - see above - brain MRI on 04/26 showed no brain mets. Tobacco abuse - smoking cessation counseling provided - will provide nicotine patch PRN Drug use - cessation counseling provided PCP - patient given information on health for all as was all [place] [facility] Code status: FULL DISPO: discharge today w/ close f/u with oncology Addendum - Attending - Attending Attestation Date/Time: 04/29/18 1110 I personally evaluated the patient and discussed the management with Dr. Diaz I agree with the History, Examination, Assessment and Plan documented above with any addition or exceptions noted below.
[2018-04-29] MEDS: HYDROcodone/Acetaminophen 10/325 mg Tablet PO PRN ×3 (07:07→15:19)
[2018-04-29] MEDS ORDERED: Polyethylene Glycol 3350 17 GM Packet PO SCH (10:30)
[2018-04-29] MEDS: Nicotine 14 MG PATCH TD SCH (10:51)
[2018-04-29 12:10] LABS: HIV-1 Quantitative, RNA PCR <20 copies/mL (.)
--- NOTE | 2018-04-29 14:12 | DIS ---
DATE OF ADMISSION: 04/24/2018 DATE OF DISCHARGE: 04/29/2018 RESIDENT: Milli Diaz MD. ADMITTING ATTENDING: Dr. Dao. DISCHARGE ATTENDING: Dr. Dao. CONSULTS: Case Management, Oncology, Urology. PROCEDURES: Right orchiectomy on 04/25/2018 and MediPort placement on 04/28/2018. PRIMARY DIAGNOSIS: Metastatic testicular cancer. SECONDARY DIAGNOSES: Tobacco abuse and drug use. DISCHARGE MEDICATIONS: [place] 10/325 one to two tablets every 4 hours as needed for pain. Discontinued medication: Ibuprofen, Toradol. HISTORY OF PRESENT ILLNESS/HOSPITAL COURSE: This is a 27-year-old male, who presented to the ED with a 5 to 6-month history of testicular pain and growth. The patient was afraid to seek medical care throughout that time. The patient also reports recent weight loss and back pain. The patient has a [id number] smoking history as well as daily marijuana use. The patient had a CT of the brain done in the ED that showed no acute intracranial process. The patient had a testicular ultrasound that showed either a mass or incarcerated hernia in the right inguinal canal. The patient had an abdominal/pelvis CT that showed multiple metastatic lesions in the lung parenchyma, right testicular cancer with osseous metastasis involving the right aspect of the ilium and sacrum, possible metastasis involving the right gluteal muscles. Chest CT showed large necrotic mass in the right hemithorax, likely metastatic, multifocal lung masses. At this point, Urology and Oncology were consulted. The patient was found to have an elevated LDH and AFP, beta hCG marker was less than 1. The patient underwent a biopsy of the gluteal mass. The surgical specimen from this biopsy is still pending at this time. Treatment options were discussed between Dr. Romo of Oncology and the patient. The patient underwent a right orchiectomy. Per Dr. Casper, likely yolk sac or a mixed germ cell testicular cancer. The patient had MediPort placement on 04/28/2018, procedure treatment. The patient got pulmonary lung function tests on day of discharge in preparation for treatment. The patient's pain was controlled with [place] 10/325, and the patient will be sent home with a 30-day supply. Per Urology, scrotal support at home advised. DISPOSITION: Stable. DISCHARGE INSTRUCTIONS: 1. Location: Home. 2. Diet: Regular. 3. Activity: Ad sb. 4. Follow up with Dr. Casper, Urology within 7 days; Dr. Romo of Oncology within 7 days; and PCP within 2 weeks. Job ID: [id number]
[2018-04-29 15:55] VITALS: BP 125/78; TEMP 98.4
[2018-04-29] MEDS ORDERED: Milk Of Magnesia 30 ML UDCUP PO PRN (16:02)
--- NOTE | 2018-04-29 17:44 | PRG ---
DATE OF SERVICE: 04/29/2018 SUBJECTIVE: The patient has done well. He got his port and I am not quite sure what else is being determined before he is ready for discharge other than adequate pain control. The patient has not had a bowel movement in the past couple of days and does feel like he could, but he has been passing gas without any nausea or vomiting. He has not been taking stool softeners that he is aware, so we reviewed this milk of magnesia and other things to help him as an outpatient. OBJECTIVE: He has been afebrile with vital signs stable and on exam, the incision is clean, dry, and intact with Steri-Strips. There is some scrotal wall edema and swelling, which is appropriate. Postoperative findings without any obvious redness, no crepitus and no significant tenderness other than that which is appropriate. ASSESSMENT: We have a 27-year-old male, admitted with large right testicular mass, status post right orchiectomy after being found to have an elevated AFP and testicular cancer to be most likely primary, who is now set up with a port in anticipation of outpatient chemotherapy. He can follow up with me in approximately a month and I gave him my card and my office will call to set this up. Job ID: [id number]
[2018-04-29] MEDS ORDERED: Docusate 100 MG CAP PO SCH (21:00)
== END 2018-04-29 16:56 | disposition home or self-care (01) | DRG 711 ==
LOC: ERS 15:06 → SURG A 18:21
PROVIDERS: ADMIT Family Medicine; ATTEND Family Medicine
PROC: 0VT90ZZ Resection of Right Testis, Open Approach (ICD-10-PCS; principal; 2018-04-25)
PROC: 0JB93ZX Excision of Buttock Subcutaneous Tissue and Fascia, Percutaneous Approach, Diagnostic (ICD-10-PCS; 2018-04-25)
PROC: 0JH63WZ Insertion of Totally Implantable Vascular Access Device into Chest Subcutaneous Tissue and Fascia, Percutaneous Approach (ICD-10-PCS; 2018-04-28)
PROC: 02HV33Z Insertion of Infusion Device into Superior Vena Cava, Percutaneous Approach (ICD-10-PCS; 2018-04-28)
DX: C62.11 Malignant neoplasm of descended right testis (principal); C79.51 Secondary malignant neoplasm of bone; C79.89 Secondary malignant neoplasm of other specified sites; C78.02 Secondary malignant neoplasm of left lung; C78.01 Secondary malignant neoplasm of right lung; F17.210 Nicotine dependence, cigarettes, uncomplicated; F12.90 Cannabis use, unspecified, uncomplicated
CPT/HCPCS: 36415; 70460; 70553; 71045; 71250; 74177; 76001; 76870; 80048; 80053; 80074; 81003; 81015; 82105; 83615; 84443; 84702; 85025; 86480; 86780; 87389; 87536; 88307; 88309; 88331; 88332; 88341; 88342; 90471; 90686; 93976; 94060; 94727; 94729; 96360; A9579; C1788; G0008; J1100; J1642; J1644; J1650; J1885; J2001; J2175; J2250; J2270; J2405; J2704; J3010; Q9961; S0020

== ENCOUNTER 2018-05-09 16:26 | Inpatient (IN) | payer MEDICAID, OTHER, SELFPAY ==
[2018-05-09] MEDS ORDERED: Fentanyl 100 MCG/2 ML VIAL ONE ×3 (17:04→18:40)
[2018-05-09] MEDS ORDERED: Ketorolac Tromethamine 30 MG/ML VIAL ONE (17:05)
[2018-05-09] MEDS ORDERED: Ondansetron PF 4 MG/2 ML Vial ONE (17:05)
[2018-05-09 17:25] LABS: #Basophils 0.1 thou/uL (0.0-0.2); #Eosinphils 0.2 thou/uL (0.0-0.7); #Lymphocytes 1.9 thou/uL (1.20-3.40); #Monocytes 0.6 thou/uL (0.11-0.59); #Neutrophils 8.7 thou/uL (1.40-6.50); %Basophils 0.6 % (0.0-1.0); %Eosinophils 1.4 % (0.0-10.0); %Lymphocytes 16.6 % (21.0-51.0); %Monocytes 5.4 % (0.0-10.0); Hemoglobin 12.5 g/dL (14.0-18.0); Mean Corpuscular HGB CONC 33.7 g/dL (32.0-36.0); Mean Corpuscular Hemoglobin 28.6 pg (27.0-31.0); Mean Corpuscular Volume 84.8 fL (78.0-98.0); Mean Platelet Volume 7.2 fL (7.4-10.4); Platelet Count 360 thou/uL (130-400); RBC Distribution Width 12.2 % (11.5-14.5); Red Blood Cell (RBC) Count 4.39 mill/uL (4.70-6.10); White Blood Cell (WBC) Count 11.5 thou/uL (4.8-10.8)
[2018-05-09 17:43] LABS: ALT (SGPT) 24 U/L (8-55); AST (SGOT) 27 U/L (5-34); Albumin 3.9 g/dL (3.5-5.0); Alkaline Phosphatase 90 U/L (40-150); Anion Gap 21 mmol/L (10-20); BUN (Urea Nitrogen) 8 mg/dL (8.9-20.6); Bilirubin, Total 0.6 mg/dL (0.2-1.2); Calc. Creatinine Clearance 0 mL/min (70-130); Calcium 9.6 mg/dL (7.8-10.44); Carbon Dioxide 18 mmol/L (22-29); Chloride 98 mmol/L (98-107); Estimated GFR-MDRD Greater than 90; Globulin 4.1 g/dL (2.4-3.5); Glucose 106 mg/dL (70-105); Sodium 133 mmol/L (136-145)
[2018-05-09] MEDS ORDERED: HYDROmorphone 0.5 MG/0.5 ML SYRINGE ONE (19:29)
[2018-05-09] MEDS ORDERED: Calcium Carbonate 500 MG ChewTAB PO PRN (22:05)
[2018-05-09] MEDS ORDERED: Senokot S 8.6-50 MG TAB PO PRN (22:05)
[2018-05-09] MEDS ORDERED: Bisacodyl 5 MG TAB PO PRN (22:05)
[2018-05-09] MEDS ORDERED: HYDROcodone/Acetaminophen 10/325 mg Tablet PO PRN (22:05)
[2018-05-09] MEDS ORDERED: Ondansetron PF 4 MG/2 ML Vial IVP PRN (22:05)
[2018-05-09] MEDS ORDERED: Ondansetron ODT 4 MG TAB PO PRN (22:05)
[2018-05-09] MEDS ORDERED: diphenhydrAMINE 50 MG/ML VIAL IVP PRN (22:30)
[2018-05-09] MEDS ORDERED: diphenhydrAMINE 25 MG CAP PO PRN (22:30)
[2018-05-09] MEDS ORDERED: Naloxone HCl 0.4 mg/ml Vial IV PRN (22:30)
[2018-05-09] MEDS ORDERED: diphenhydrAMINE 50 MG/ML VIAL IM PRN (22:30)
[2018-05-09] MEDS ORDERED: Promethazine HCl 25 MG/ML VIAL IM PRN (22:30)
[2018-05-09] MEDS ORDERED: Communication Order-Pharmacy FS SCH (22:30)
[2018-05-09] MEDS ORDERED: fentaNYL 50 mcg/hour Patch TD SCH (23:00)
--- NOTE | 2018-05-09 23:01 | HP ---
CHIEF COMPLAINT: Generalized pain. HISTORY OF PRESENT ILLNESS: This is a 27-year-old male with past medical history of bronchitis, testicular cancer with metastasis to the lungs, back, and bones, presenting with bilateral lower extremity and leg pain with associated tingling sensation. He was diagnosed with testicular cancer on 04/24, and the patient states that he has been having severe pain since then. The patient has metastasis to the lungs and to lower back. The patient currently started on chemotherapy and radiation on Friday and the patient states that since then his pain has increased and is unbearable. The patient takes multiple pain medications without any relief and the patient called his cancer physician, who told him to continue taking his current medications. However, the patient's pain was 10/10 and unbearable, so the patient came to the ED to further be evaluated and to be treated. At this point, the patient is endorsing severe sharp pain, 10/10 in sensation, and constant worsening. REVIEW OF SYSTEMS: Positive for malaise, generalized pain, and spasms with associated tingling, otherwise as documented in the HPI. All systems have been reviewed and are negative. PAST MEDICAL HISTORY: Bronchitis, testicular cancer with metastasis to the lungs, back, and bones. FAMILY HISTORY: Reviewed and noncontributory to this specific visit. PAST SURGICAL HISTORY: Right testicle removed. PSYCHIATRIC HISTORY: No previous psych history. SOCIAL HISTORY: The patient currently abuses marijuana. Denies alcohol use. Denies illicit drugs except for marijuana. The patient is a former tobacco user, smoked cigarettes. He used to smoke one pack per day. ALLERGIES: NO KNOWN DRUG ALLERGIES. CURRENT MEDICATIONS: The patient is on [place] 5/325 mg. PHYSICAL EXAMINATION: VITAL SIGNS: The patient's blood pressure is 171/112, pulse of 106, respiratory rate of 30, and temperature is 98.4. GENERAL: The patient is in pain, lying in bed, in mild distress. HEENT: Normocephalic and atraumatic. Pupils are equally round and reactive to light. Extraocular movements are intact. No scleral icterus. Mucous membranes are moist. NECK: Trachea is midline. Full range of motion. Supple. LUNGS: Clear to auscultation bilaterally. No wheezing, no rales, no rhonchi appreciated. CARDIAC: Positive S1 and S2. Regular rate and rhythm. ABDOMEN: Soft, nontender, and nondistended. Positive bowel sounds in all quadrants. No masses appreciated. No peritoneal signs. No rigidity. No guarding. EXTREMITIES: 5/5 upper extremity strength and 5/5 lower extremity strength. No edema noted at the upper extremity or lower extremities. The patient does have impaired sensation at the lower extremity bilaterally and the patient has some tingling sensation. NEUROLOGIC: Cranial nerves 2 through 12 grossly intact. No neurologic deficits noted. SKIN: Warm, dry, and intact. PSYCHIATRIC: Normal affect. LABORATORY DATA: WBC is 11.5, hemoglobin is 12.5, hematocrit is 37.2, and platelet count is 360. Sodium is 133, potassium is 4.0, chloride is 98, carbon dioxide of 18, anion gap of 21, BUN is 8, creatinine is 0.77, and glucose is 106. ASSESSMENT AND PLAN: This is a 27-year-old male being admitted for; 1. Intractable pain likely due to metastatic cancer. At this point, we will continue the patient on fentanyl for pain and we have consulted anesthesia for pain management. The patient's blood pressure is currently elevated and heart rate is elevated due to pain. We will continue to control the patient's pain and we will monitor the patient closely. 2. Testicular mass, status post metastasis. The patient is currently receiving chemo radiation. We will continue to monitor the patient at this time. 3. Deep venous thrombosis and gastrointestinal prophylaxis. Job ID: [id number]
[2018-05-09] MEDS: HYDROmorphone 10 mg/100 ml CADD IVPB PRN (23:10)
[2018-05-09] MEDS: Sodium Chloride 0.9% 1,000 ML IV SCH (23:17)
[2018-05-10] MEDS ORDERED: Ketorolac Tromethamine 30 MG/ML VIAL IVP SCH (01:45)
[2018-05-10] MEDS: Zolpidem Tartrate 5 MG TAB PO PRN ×2 (02:26→20:51)
[2018-05-10 04:43] VITALS: BMI 26.0
[2018-05-10 07:43] LABS: #Eosinphils 0.2 thou/uL (0.0-0.7); #Lymphocytes 1.8 thou/uL (1.20-3.40); #Monocytes 0.7 thou/uL (0.11-0.59); #Neutrophils 5.5 thou/uL (1.40-6.50); %Basophils 0.4 % (0.0-1.0); %Eosinophils 2.9 % (0.0-10.0); %Lymphocytes 22.2 % (21.0-51.0); %Monocytes 8.2 % (0.0-10.0); %Neutrophils 66.4 % (42.0-75.0); Hemoglobin 10.2 g/dL (14.0-18.0); Mean Corpuscular HGB CONC 33.5 g/dL (32.0-36.0); Mean Corpuscular Hemoglobin 28.5 pg (27.0-31.0); Mean Corpuscular Volume 85.3 fL (78.0-98.0); Mean Platelet Volume 7.5 fL (7.4-10.4); Platelet Count 277 thou/uL (130-400); RBC Distribution Width 12.3 % (11.5-14.5); Red Blood Cell (RBC) Count 3.58 mill/uL (4.70-6.10); White Blood Cell (WBC) Count 8.3 thou/uL (4.8-10.8)
[2018-05-10 08:07] LABS: Anion Gap 11 mmol/L (10-20); BUN (Urea Nitrogen) 7 mg/dL (8.9-20.6); Calc. Creatinine Clearance 189 mL/min (70-130); Calcium 8.8 mg/dL (7.8-10.44); Carbon Dioxide 26 mmol/L (22-29); Chloride 103 mmol/L (98-107); Estimated GFR-MDRD Greater than 90; Glucose 92 mg/dL (70-105); Sodium 136 mmol/L (136-145)
[2018-05-10] MEDS ORDERED: Prevnar 13-Val Conj/PF 0.5 ML SYRINGE IM ONE (09:00)
[2018-05-10] MEDS: HYDROmorphone 10 mg/100 ml CADD IVPB PRN ×2 (09:36→19:21)
[2018-05-10] MEDS: Ketorolac Tromethamine 30 MG/ML VIAL IVP SCH ×3 (10:29→20:50)
[2018-05-10] MEDS: Famotidine/PF 20 mg/2ml Vial SLOW IVP SCH ×2 (10:30→20:50)
[2018-05-10] MEDS: Famotidine 20 MG TAB PO SCH ×2 (10:30→20:50)
[2018-05-10] MEDS: Enoxaparin Sodium 40 MG/0.4 ML SYRINGE SC SCH (10:30)
[2018-05-10] MEDS: Sodium Chloride 0.9% 1,000 ML IV SCH ×2 (10:37→20:53)
--- NOTE | 2018-05-10 14:39 | PDOC.EVN ---
Event Note - Event Note Event Note: Pt was inadvertently admitted to hospitalist service on 05/09/18 but recently discharged by Litigation Services Manager service on 04/29/18. Will transfer care back to [facility] 05/10/[address] Ramos.
--- NOTE | 2018-05-10 14:42 | PDOC.FM ---
- Subjective Subjective: transfer care from hospitalist service 05/10 1430 hrs, Pt reports increased pain control, reported weakness in lower extremities. - Objective Vital Signs & Weight: Vital Signs (12 hours) Temp Pulse Resp BP Pulse Ox 05/10/18 11:36 98 F 87 18 138/80 97 05/10/18 08:00 97.9 F 86 18 142/81 H 93 L 05/10/18 04:00 98.2 F 87 18 133/81 94 L Weight Weight 77.791 kg I&O: 05/09/18 05/10/18 05/11/18 06:59 06:59 06:59 Intake Total 1450 Output Total 1450 Balance 0 Result Diagrams: 05/10/18 06:46 05/10/18 06:46 Phys Exam - Physical Examination Constitutional: NAD HEENT: moist MMs Neck: no JVD Respiratory: clear to auscultation bilateral Cardiovascular: RRR, no significant murmur Gastrointestinal: soft, non-tender, no distention Musculoskeletal: no edema, pulses present decreased ROM in LE d/t pain, possible weakness with dorsiflexion Psychiatric: normal affect Skin: no rash Dx/Plan (1) Testicular malignancy Code(s): C62.90 - MALIG NEOPLASM OF UNSP TESTIS, UNSP DESCENDED OR UNDESCENDED Status: Acute (2) Sciatic leg pain Code(s): M54.30 - SCIATICA, UNSPECIFIED SIDE Status: Acute (3) Bone metastases Code(s): C79.51 - SECONDARY MALIGNANT NEOPLASM OF BONE Status: Acute (4) Tobacco abuse Code(s): Z72.0 - TOBACCO USE Status: Acute - Plan Plan: stage IIIC nonseminoma with metastasis - s/p orchiectomy, soon to start chemotherapy and radiation treatment with Dr. Romo - oncology consulted, appreciate recs intractable pain with sciatica - desctructive metastatic lesions to gluteus and sacrum seen on previous scans - [place] 10/325 at home is not effective - anesthesiology consulted, HELP DESK ANALYST pump placed, appreciate recs - consider adding gabapentin for nerve pain tobacco abuse - encouraged cessation Code: full ppx: lovenox dispo: continue pain control Addendum - Attending - Attending Attestation Date/Time: 05/11/18 0838 I personally evaluated the patient and discussed the management with Dr. Ramos on 05/10/2018. I agree with and repeated the History, Examination, Assessment and Plan documented above with any addition or exceptions noted below. On exam his LE seem to be 5/5 on motor. I would follow this closely for any decompensation. Proceed with radiation tomorrow. Continue HELP DESK ANALYST.
[2018-05-10] MEDS: Acetaminophen 325 MG TAB PO PRN ×2 (14:53→20:50)
--- NOTE | 2018-05-10 15:44 | CON ---
DATE OF CONSULTATION: REASON FOR CONSULT: Testicular cancer. HISTORY OF PRESENT ILLNESS: Mr. 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 He initially presented with a grossly enlarged right testicle. Scans showed metastatic disease in the lung bone. He had a destructive lesion involving the right lateral aspect of the sacrum and the right iliac bone. There was a soft tissue mass measuring 2.4 x 4.7 in the region of the right gluteus muscle. The patient had a right radical orchiectomy on April 25. Biopsy was consistent with nonseminoma. The patient is undergoing the workup required prior to beginning of bleomycin chemotherapy treatment. He is due to start next week. He was started on [place] for pain. He presented to the emergency room today with intractable right hip and gluteal pain. He was admitted and started on a Dilaudid DONOR SERVICES MANAGER with tramadol which provides some relief. PAST MEDICAL HISTORY: Newly diagnosed testicular carcinoma. PAST SURGICAL HISTORY: 1. Right radical orchiectomy. 2. MediPort placement. ALLERGIES: NO KNOWN DRUG ALLERGIES. HOME MEDICATIONS: 1. Zofran and Compazine p.r.n. 2. [place] 5/325 p.r.n. pain. FAMILY HISTORY: He has an uncle with colon cancer. No other family history of cancer. SOCIAL HISTORY: Single. No children. Lives alone. Former smoker. Former alcohol use. Marijuana daily. REVIEW OF SYSTEMS: CONSTITUTIONAL: No fever, chills, or night sweats. EYES: No blurred or double vision. ENT: No pain, hoarseness, sore throat, or dysphagia. CV: No chest pain, palpitations, or syncope. RESPIRATORY: No shortness of breath or cough. GI: No nausea, vomiting, diarrhea, constipation, or abdominal pain. : No dysuria or hematuria. MUSCULOSKELETAL: Positive for back and bilateral leg pain. SKIN: No rash or pruritus. HEMATOLOGIC: No bleeding, bruising, or clotting. NEUROLOGIC: Positive for weakness. No headache, numbness, tingling, or seizure activity. PSYCH: Positive for anxiety. PHYSICAL EXAMINATION: VITAL SIGNS: Temperature is 98.0, pulse is 87, respiratory rate 18, BP is 138/ 80, and he has 97% on room air. GENERAL: Well-developed, well-nourished male in mild distress. HEENT: Normocephalic and atraumatic. Pupils are equal and reactive to light. NECK: Supple. CVS: Regular rate and rhythm. LUNGS: Clear to auscultation. ABDOMEN: Soft and nontender. Bowel sounds are positive. EXTREMITIES: No clubbing, cyanosis, or edema. SKIN: No rash. HEMATOLOGIC: No petechiae or purpura. NEUROLOGIC: The patient has bilateral lower extremity weakness; however, his gross motor is intact. GENITOURINARY: He has a right inguinal surgical scar, which has healed. PERTINENT LABS AND X-RAYS: Current WBCs are 8.3, hemoglobin 10.2, hematocrit 30.6, and platelet count is 277,000, 66% neutrophils and 22% lymphocytes. Sodium 136, potassium 4.0, chloride 103, CO2 is 26, BUN is 7, creatinine 0.64, calcium 8.8, total bilirubin is 0.6, AST 27, ALT is 24, alkaline phosphatase is 90, serum total protein is 8.0, albumin 3.9, and globulin 4.1. ASSESSMENT: 1. 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 2. Intractable pain with lower extremity weakness secondary to destructive lesion in the right hip. DISCUSSION: The patient has been placed on a DONOR SERVICES MANAGER and taking tramadol with good relief in discomfort. He is to start chemotherapy this week consisting of bleomycin, etoposide, and cisplatin. However, his pain in his right hip has significantly increased over the last week. We will discuss with Dr. Romo and Dr. Lyons whether radiation to this area would be indicated prior to chemotherapy. He will likely have his first dose of chemotherapy with this hospitalization. In the interim, we will continue pain infusion. Thank you for the consult. Job ID: [id number] MTDD
[2018-05-10] MEDS: Gabapentin 100 MG CAP PO SCH (20:50)
[2018-05-11] MEDS: Acetaminophen 325 MG TAB PO PRN ×2 (01:19→11:57)
[2018-05-11] MEDS: Ketorolac Tromethamine 30 MG/ML VIAL IVP SCH ×5 (04:08→21:01)
[2018-05-11] MEDS: Sodium Chloride 0.9% 1,000 ML IV SCH ×2 (04:15→14:27)
[2018-05-11] MEDS: Famotidine/PF 20 mg/2ml Vial SLOW IVP SCH ×2 (07:56→21:04)
[2018-05-11] MEDS: Enoxaparin Sodium 40 MG/0.4 ML SYRINGE SC SCH (08:12)
[2018-05-11] MEDS: Famotidine 20 MG TAB PO SCH ×2 (08:13→20:52)
[2018-05-11] MEDS: Gabapentin 100 MG CAP PO SCH ×2 (08:13→14:41)
--- NOTE | 2018-05-11 08:25 | PDOC.FM ---
- Subjective Subjective: Pt complaining of pain this morning as COMPUTER DISCOVERY TEACHER was turned off. Nursing staff reports only off for 5-10min before restarted but again pain is uncontrolled now. He reports no improvement with Gabapentin. Otherwise is in good spirits , reports no CP, SAMANO, n/v/c/d, and normal urination. - Objective MAR Reviewed: Yes Vital Signs & Weight: Vital Signs (12 hours) Temp Pulse Resp BP Pulse Ox 05/11/18 07:38 98.2 F 87 18 137/74 94 L 05/11/18 04:00 97.9 F 74 18 129/79 92 L 05/10/18 23:38 97.9 F 99 18 161/79 H 94 L Weight Weight 77.791 kg I&O: 05/10/18 05/11/18 05/12/18 06:59 06:59 06:59 Intake Total 1450 2960 Output Total 1450 675 Balance 0 2285 Result Diagrams: 05/10/18 06:46 05/10/18 06:46 Phys Exam - Physical Examination Constitutional: NAD HEENT: moist MMs Respiratory: no wheezing, no rales, clear to auscultation bilateral Cardiovascular: RRR, no significant murmur Gastrointestinal: soft, non-tender Musculoskeletal: no edema Neurological: non-focal, moves all 4 limbs 4/5 weakness b/l LE likely 2/2 pain, + SLR on R Dx/Plan (1) Intractable pain Code(s): R52 - PAIN, UNSPECIFIED Status: Acute (2) Testicular malignancy Code(s): C62.90 - MALIG NEOPLASM OF UNSP TESTIS, UNSP DESCENDED OR UNDESCENDED Status: Acute (3) Sciatic leg pain Code(s): M54.30 - SCIATICA, UNSPECIFIED SIDE Status: Acute (4) Metastasis Code(s): C79.9 - SECONDARY MALIGNANT NEOPLASM OF UNSPECIFIED SITE Status: Acute (5) Tobacco abuse Code(s): Z72.0 - TOBACCO USE Status: Acute - Plan Plan: stage IIIC nonseminoma with metastasis - s/p orchiectomy, soon to start chemotherapy and radiation treatment with Dr. Romo - oncology consulted, appreciate recs intractable pain with sciatica - desctructive metastatic lesions to gluteus and sacrum seen on previous scans, norco 10/325 at home is not effective - anesthesiology consulted, COMPUTER DISCOVERY TEACHER pump placed with dilaudid and toradol, currently pain not well controlled, COMPUTER DISCOVERY TEACHER restarted. - onc considering radiation of area for pain relief and plans to start chemo here in the hospital. - Increase gabapentin to 300mg TID for nerve pain tobacco abuse - encouraged cessation Code: full ppx: lovenox dispo: continue pain control
[2018-05-11] MEDS: HYDROmorphone 10 mg/100 ml CADD IVPB PRN ×2 (09:36→18:43)
[2018-05-11] MEDS ORDERED: HYDROmorphone 10 mg/100 ml CADD IVPB PRN (12:03)
[2018-05-11] MEDS: HYDROcodone/Acetaminophen 5/325 mg Tablet PO PRN (13:47)
[2018-05-11] MEDS: Gabapentin 300 MG CAP PO SCH (20:52)
[2018-05-12] MEDS: Sodium Chloride 0.9% 1,000 ML IV SCH ×3 (01:22→20:50)
[2018-05-12] MEDS: Zolpidem Tartrate 5 MG TAB PO PRN (01:24)
[2018-05-12] MEDS: Ketorolac Tromethamine 30 MG/ML VIAL IVP SCH ×5 (03:07→20:48)
[2018-05-12] MEDS: HYDROmorphone 10 mg/100 ml CADD IVPB PRN ×3 (04:23→20:12)
--- NOTE | 2018-05-12 07:22 | PDOC.FM ---
- Subjective Subjective: Pt is lying in bed, complains of pain again. Required prn [place] overnight but there was a delay in restarting FIRE CODE INSPECTOR with room transfer. Reports small BM yesterday but complains of constipation. Pain exacerbated by any movement. - Objective MAR Reviewed: Yes Vital Signs & Weight: Vital Signs (12 hours) Temp Pulse Resp BP Pulse Ox 05/12/18 04:19 98.1 F 87 18 134/74 92 L 05/12/18 01:00 98.1 F 83 18 138/71 95 05/11/18 19:41 98.8 F 97 18 140/88 95 Weight Weight 77.791 kg I&O: 05/11/18 05/12/18 05/13/18 06:59 06:59 06:59 Intake Total 2960 Output Total 675 400 Balance 2285 -400 Result Diagrams: 05/10/18 06:46 05/10/18 06:46 Phys Exam - Physical Examination Constitutional: NAD HEENT: moist MMs Neck: no nodes Respiratory: no wheezing, no rales, clear to auscultation bilateral Cardiovascular: RRR, no significant murmur Gastrointestinal: soft, non-tender inguinal pain with hard dense mass at inguinal and R testicular area Musculoskeletal: no edema, pulses present Neurological: non-focal, moves all 4 limbs ROM limited d/t pain Psychiatric: A&O x 3 Deviation from normal: depressed affect. Dx/Plan (1) Intractable pain Code(s): R52 - PAIN, UNSPECIFIED Status: Acute (2) Testicular malignancy Code(s): C62.90 - MALIG NEOPLASM OF UNSP TESTIS, UNSP DESCENDED OR UNDESCENDED Status: Acute (3) Sciatic leg pain Code(s): M54.30 - SCIATICA, UNSPECIFIED SIDE Status: Acute (4) Metastasis Code(s): C79.9 - SECONDARY MALIGNANT NEOPLASM OF UNSPECIFIED SITE Status: Acute (5) Tobacco abuse Code(s): Z72.0 - TOBACCO USE Status: Acute - Plan Plan: stage IIIC nonseminoma with metastasis - s/p orchiectomy, soon to start chemotherapy and radiation treatment with Dr. Romo - oncology consulted, appreciate recs intractable pain with sciatica - desctructive metastatic lesions to gluteus and sacrum seen on previous scans, norco 10/325 at home is not effective - anesthesiology consulted, FIRE CODE INSPECTOR pump placed with dilaudid and toradol, currently pain not well controlled, FIRE CODE INSPECTOR restarted-anesthesia elevating pain regimen - onc plans for chemo inpatient. - Increase gabapentin to 300mg TID for nerve pain - place on daily bowel regimen tobacco abuse - encouraged cessation Code: full ppx: lovenox dispo: continue pain control
[2018-05-12] MEDS: HYDROcodone/Acetaminophen 5/325 mg Tablet PO PRN (08:33)
[2018-05-12] MEDS: Famotidine 20 MG TAB PO SCH ×2 (08:34→20:49)
[2018-05-12] MEDS: Gabapentin 300 MG CAP PO SCH ×3 (08:34→20:50)
[2018-05-12] MEDS: Enoxaparin Sodium 40 MG/0.4 ML SYRINGE SC SCH (08:34)
[2018-05-12] MEDS ORDERED: Morphine 4 MG/ML VIAL SLOW IVP SCH (09:45)
--- NOTE | 2018-05-12 11:52 | PRG ---
DATE OF SERVICE: 05/12/2018 SUBJECTIVE: Mr. Kaur is still in a great deal of pain despite multiple parenteral pain medications. It is hoped that we can soon begin chemotherapy, hoping that this will shrink the tumor and help alleviate his pain. Job ID: [id number]
[2018-05-12] MEDS ORDERED: CISPLATIN IV SCH (12:30)
[2018-05-12] MEDS ORDERED: SODIUM CHLORIDE 0.9% IV SCH (12:30)
[2018-05-12] MEDS ORDERED: Dexamethasone 10 MG, Ondansetron 2MG/ML MDV 15 MG in Sodium Chloride 0.9% 50 ML IVPB SCH (12:30)
[2018-05-12] MEDS ORDERED: Potassium Chloride 10 MEQ, Admixture Fee 1 EACH in Sodium Chloride 0.9% 500 ML IV SCH (12:30)
[2018-05-12] MEDS ORDERED: MANNITOL IV SCH (12:30)
[2018-05-12] MEDS ORDERED: Dexamethasone 10 MG/ML VIAL SLOW IVP SCH (12:45)
[2018-05-12] MEDS ORDERED: PALONOSETRON HCL 0.05 MG/ML 5 ML VIAL IVP SCH (13:00)
[2018-05-12] MEDS ORDERED: Bleomycin Sulfate 30 UNIT in Sodium Chloride 0.9% 50 ML IVPB SCH (13:00)
--- NOTE | 2018-05-12 13:40 | HP ---
ADDENDUM: This is an addendum to the note of Dr. Bertha Hughes. Mr. Kaur is a very pleasant 27-year-old male admitted with metastatic testicular cancer. He is having exquisite pain in his back and was admitted for pain control. We have also consulted Oncology, and we appreciate their input. His pain control has improved and we will also add some gabapentin as he does seem to be having some nerve pain as well. We will continue to follow with Oncology. Job ID: [id number]
[2018-05-12] MEDS: Docusate 100 MG CAP PO SCH (20:50)
[2018-05-13] MEDS: HYDROcodone/Acetaminophen 5/325 mg Tablet PO PRN (00:19)
[2018-05-13] MEDS: Ketorolac Tromethamine 30 MG/ML VIAL IVP SCH ×5 (03:27→21:23)
--- NOTE | 2018-05-13 05:56 | PDOC.FM ---
- Subjective Subjective: Patient required [place] overnight for pain. Patient reports this morning that he is feeling much better and was even able to ambulate w/ assistance to the bathroom. He reports that his pain has been well controlled over the last 12 hours. He states after adjusting his pump, the pain has been much better. He states he also had a bowel movement yesterday. - Objective MAR Reviewed: Yes Vital Signs & Weight: Vital Signs (12 hours) Temp Pulse Resp BP Pulse Ox 05/13/18 00:08 97.7 F 102 H 20 159/85 H 93 L 05/12/18 19:58 98.3 F 107 H 18 156/87 H 94 L Weight Weight 77.791 kg I&O: 05/11/18 05/12/18 05/13/18 06:59 06:59 06:59 Intake Total 2960 2550 Output Total 286 714 0080 Balance 2285 -400 -450 Result Diagrams: 05/10/18 06:46 05/10/18 06:46 Phys Exam - Physical Examination Constitutional: NAD HEENT: PERRLA, moist MMs, sclera anicteric Neck: full ROM Respiratory: clear to auscultation bilateral Cardiovascular: RRR Gastrointestinal: soft, non-tender, no distention, positive bowel sounds Musculoskeletal: no edema Neurological: non-focal Psychiatric: normal affect, A&O x 3 Dx/Plan (1) Bone metastases Code(s): C79.51 - SECONDARY MALIGNANT NEOPLASM OF BONE Status: Acute (2) Intractable pain Code(s): R52 - PAIN, UNSPECIFIED Status: Acute (3) Sciatic leg pain Code(s): M54.30 - SCIATICA, UNSPECIFIED SIDE Status: Acute (4) Testicular malignancy Code(s): C62.90 - MALIG NEOPLASM OF UNSP TESTIS, UNSP DESCENDED OR UNDESCENDED Status: Acute (5) Metastasis Code(s): C79.9 - SECONDARY MALIGNANT NEOPLASM OF UNSPECIFIED SITE Status: Acute (6) Tobacco abuse Code(s): Z72.0 - TOBACCO USE Status: Acute - Plan Plan: Stage IIIC nonseminoma with metastasis - s/p orchiectomy, soon to start chemotherapy and radiation treatment with Dr. Romo - oncology consulted, appreciate recs Intractable pain with sciatica - destructive metastatic lesions to gluteus and sacrum seen on previous scans, norco 10/325 at home is not effective - anesthesiology consulted, LIEUTENANT BALLISTICS pump placed with dilaudid and toradol, currently pain improved, LIEUTENANT BALLISTICS restarted-anesthesia elevating pain regimen. Will attempt to wean as tolerated - onc plans for chemo inpatient - given first dose yesterday of bleomycin. Likely 5 day course of inpt chemo. - Increase gabapentin to 300mg TID for nerve pain - place on daily bowel regimen tobacco abuse - encouraged cessation Code: full ppx: lovenox dispo: continue pain control while pt stay for inpt chemo Addendum - Attending - Attending Attestation Date/Time: 05/13/182006 I personally evaluated the patient and discussed the management with Dr. Diaz I agree with the History, Examination, Assessment and Plan documented above with any addition or exceptions noted below.
[2018-05-13] MEDS: Sodium Chloride 0.9% 1,000 ML IV SCH ×2 (07:37→17:20)
[2018-05-13] MEDS ORDERED: MANNITOL IV SCH (09:00)
[2018-05-13] MEDS ORDERED: SODIUM CHLORIDE 0.9% IV SCH (09:00)
[2018-05-13] MEDS ORDERED: CISPLATIN IV SCH (09:00)
[2018-05-13] MEDS ORDERED: Dexamethasone 10 MG, Ondansetron 2MG/ML MDV 15 MG in Sodium Chloride 0.9% 50 ML IVPB SCH (09:00)
[2018-05-13] MEDS: Docusate 100 MG CAP PO SCH ×2 (09:18→21:24)
[2018-05-13] MEDS: Polyethylene Glycol 3350 17 GM Packet PO SCH (09:18)
[2018-05-13] MEDS: Gabapentin 300 MG CAP PO SCH ×3 (09:18→21:24)
[2018-05-13] MEDS: Enoxaparin Sodium 40 MG/0.4 ML SYRINGE SC SCH (09:18)
[2018-05-13] MEDS: Famotidine 20 MG TAB PO SCH ×2 (09:18→21:24)
[2018-05-13] MEDS: HYDROmorphone 10 mg/100 ml CADD IVPB PRN ×2 (09:23→17:21)
[2018-05-13] MEDS: fentaNYL 50 mcg/hour Patch TD SCH (10:48)
[2018-05-14] MEDS: Sodium Chloride 0.9% 1,000 ML IV SCH ×3 (02:15→22:15)
[2018-05-14] MEDS: Ketorolac Tromethamine 30 MG/ML VIAL IVP SCH ×4 (03:33→17:01)
--- NOTE | 2018-05-14 06:22 | PDOC.FM ---
- Subjective Subjective: Patient resting comfortably, no overnight events. Patient states pain is well controlled. States he has had two great nights of sleep. Patient feels as if he has not pushed his button for TERMITE EXTERMINATOR pump as much. He feels as if the fentanyl patch has worked well for his pain. Patient reports he feels stronger and was able to ambulate w/ assistance. - Objective MAR Reviewed: Yes Vital Signs & Weight: Vital Signs (12 hours) Temp Pulse Resp BP Pulse Ox 05/14/18 04:00 98.3 F 91 18 136/73 93 L 05/14/18 00:00 97.9 F 97 18 139/63 95 05/13/18 20:00 95 05/13/18 19:52 97.8 F 89 18 143/75 H 94 L Weight Weight 77.791 kg I&O: 05/12/18 05/13/18 05/14/18 06:59 06:59 06:59 Intake Total 3030 2875 Output Total 400 5600 1700 Balance -400 -2570 1175 Result Diagrams: 05/10/18 06:46 05/10/18 06:46 Phys Exam - Physical Examination Constitutional: NAD HEENT: moist MMs, sclera anicteric Neck: supple, full ROM Respiratory: clear to auscultation bilateral Cardiovascular: RRR Gastrointestinal: soft, non-tender, no distention, positive bowel sounds fentanyl patch in RUQ of abdomen Musculoskeletal: no edema, pulses present Neurological: non-focal, moves all 4 limbs Psychiatric: normal affect, A&O x 3 Skin: no rash Dx/Plan (1) Bone metastases Code(s): C79.51 - SECONDARY MALIGNANT NEOPLASM OF BONE Status: Acute (2) Intractable pain Code(s): R52 - PAIN, UNSPECIFIED Status: Acute (3) Sciatic leg pain Code(s): M54.30 - SCIATICA, UNSPECIFIED SIDE Status: Acute (4) Testicular malignancy Code(s): C62.90 - MALIG NEOPLASM OF UNSP TESTIS, UNSP DESCENDED OR UNDESCENDED Status: Acute (5) Metastasis Code(s): C79.9 - SECONDARY MALIGNANT NEOPLASM OF UNSPECIFIED SITE Status: Acute (6) Tobacco abuse Code(s): Z72.0 - TOBACCO USE Status: Acute - Plan Plan: Stage IIIC nonseminoma with metastasis - s/p orchiectomy, soon to start chemotherapy and radiation treatment with Dr. Romo - oncology consulted, appreciate recs - pt receiving inpt chemo Intractable pain with sciatica - destructive metastatic lesions to gluteus and sacrum seen on previous scans, norco 10/325 at home is not effective - anesthesiology consulted, TERMITE EXTERMINATOR pump placed with dilaudid and toradol, TERMITE EXTERMINATOR restarted-anesthesia elevating pain regimen. Will attempt to wean as tolerated. Pain has improved, but w/ decreased use of TERMITE EXTERMINATOR. Will consider adding long acting agent such as MS contin after discussion with anesthesia for long-term pain control vs fentanyl patch. - Patient on day 3/5 of in patient chemo. Patient given bleomycin, cisplatin, and etoposide. - Increased gabapentin to 300mg TID for nerve pain - placed on daily bowel regimen tobacco abuse - encouraged cessation Code: full ppx: lovenox dispo: continue pain control while pt stay for inpt chemo Addendum - Attending - Attending Attestation Date/Time: 05/14/18 1530 I personally evaluated the patient and discussed the management with Dr. Diaz I agree with the History, Examination, Assessment and Plan documented above with any addition or exceptions noted below.
[2018-05-14] MEDS: Polyethylene Glycol 3350 17 GM Packet PO SCH (08:26)
[2018-05-14] MEDS: Docusate 100 MG CAP PO SCH ×2 (08:26→21:04)
[2018-05-14] MEDS: Famotidine 20 MG TAB PO SCH ×2 (08:27→21:04)
[2018-05-14] MEDS: Gabapentin 300 MG CAP PO SCH ×3 (08:27→21:04)
[2018-05-14] MEDS: Enoxaparin Sodium 40 MG/0.4 ML SYRINGE SC SCH (08:29)
[2018-05-14] MEDS ORDERED: Dexamethasone 10 MG, Ondansetron 2MG/ML MDV 15 MG in Sodium Chloride 0.9% 50 ML IVPB SCH (09:00)
[2018-05-14] MEDS ORDERED: Potassium Chloride 10 MEQ, Admixture Fee 1 EACH in Sodium Chloride 0.9% 500 ML IV SCH (09:00)
[2018-05-14] MEDS ORDERED: CISPLATIN IV SCH (09:00)
[2018-05-14] MEDS ORDERED: MANNITOL IV SCH (09:00)
[2018-05-14] MEDS ORDERED: SODIUM CHLORIDE 0.9% IV SCH (09:00)
[2018-05-14] MEDS ORDERED: Acetaminophen 325 MG TAB PO PRN (10:32)
[2018-05-14] MEDS: HYDROcodone/Acetaminophen 10/325 mg Tablet PO PRN (12:57)
[2018-05-14] MEDS ORDERED: Naloxone HCl 0.4 mg/ml Vial ONE (18:07)
[2018-05-14] MEDS: HYDROmorphone 10 mg/100 ml CADD IVPB PRN (21:06)
--- NOTE | 2018-05-15 06:26 | PDOC.FM ---
- Subjective Subjective: Overnight patient had an episode where was nauseated, pale, and lethargic. Patient was examined and found to have pinpoint pupils. Anesthesia came to adjust patient's CLIENT ASSOCIATE pump. This morning on exam, the patient is resting comfortably in bed. Patient states that he feels better this morning. Patient endorses mild nausea. He states that he does feel like he could eat breakfast this morning. Patient states his pain is controlled even after the adjustment by anesthesia, patient states he has not been using CLIENT ASSOCIATE pump as he feels this is the cause of his nausea. Denies SOB , chest pain, abdominal pain, vomiting, or diarrhea. - Objective MAR Reviewed: Yes Vital Signs & Weight: Vital Signs (12 hours) Temp Pulse Resp BP Pulse Ox 05/14/18 20:00 96 05/14/18 19:19 98.1 F 81 18 144/76 H 96 Weight Weight 77.791 kg I&O: 05/13/18 05/14/18 05/15/18 06:59 06:59 06:59 Intake Total 3030 2875 1100 Output Total 5600 1700 4000 Balance -2570 1175 -2900 Result Diagrams: 05/15/18 10:12 05/15/18 10:12 Phys Exam - Physical Examination Constitutional: NAD HEENT: PERRLA, moist MMs, sclera anicteric Neck: full ROM Respiratory: clear to auscultation bilateral Cardiovascular: RRR Gastrointestinal: soft, non-tender, no distention, positive bowel sounds Musculoskeletal: no edema Neurological: non-focal, moves all 4 limbs Psychiatric: normal affect, A&O x 3 Deviation from normal: pale Dx/Plan (1) Bone metastases Code(s): C79.51 - SECONDARY MALIGNANT NEOPLASM OF BONE Status: Acute (2) Intractable pain Code(s): R52 - PAIN, UNSPECIFIED Status: Acute (3) Sciatic leg pain Code(s): M54.30 - SCIATICA, UNSPECIFIED SIDE Status: Acute (4) Testicular malignancy Code(s): C62.90 - MALIG NEOPLASM OF UNSP TESTIS, UNSP DESCENDED OR UNDESCENDED Status: Acute (5) Metastasis Code(s): C79.9 - SECONDARY MALIGNANT NEOPLASM OF UNSPECIFIED SITE Status: Acute (6) Tobacco abuse Code(s): Z72.0 - TOBACCO USE Status: Acute - Plan Plan: Stage IIIC nonseminoma with metastasis - s/p orchiectomy, soon to start chemotherapy and radiation treatment with Dr. Romo - oncology consulted, appreciate recs - pt receiving inpt chemo Intractable pain with sciatica - destructive metastatic lesions to gluteus and sacrum seen on previous scans, norco 10/325 at home is not effective - anesthesiology consulted, CLIENT ASSOCIATE pump placed with dilaudid and toradol. After last night, anesthesia adjusted CLIENT ASSOCIATE pump - titrated CLIENT ASSOCIATE Dilaudid pumt to 0.2 mg , q10 minute with 1.2 mg hour lockout - Will consider adding long acting agent such as MS contin after discussion with anesthesia for dairy equipment specialist pain control vs fentanyl patch. - Patient on day 4/5 of in patient chemo. Patient given bleomycin, cisplatin, and etoposide. - Increased gabapentin to 300mg TID for nerve pain - placed on daily bowel regimen - PT/OT consulted tobacco abuse - encouraged cessation Code: full ppx: lovenox dispo: continue pain control while pt stay for inpt chemo Addendum - Attending - Attending Attestation Date/Time: 05/15/18 1431 I personally evaluated the patient and discussed the management with Dr. Diaz I agree with the History, Examination, Assessment and Plan documented above with any addition or exceptions noted below.Pain well controlled with current regimen ,day 4/5 daily chemo will arrange PT advance activity and transition to outpt pain rx with fentanyl patch plus norco for breakthrough pain. Currently resting comfortably.
[2018-05-15] MEDS: Polyethylene Glycol 3350 17 GM Packet PO SCH (08:41)
[2018-05-15] MEDS: Gabapentin 300 MG CAP PO SCH ×3 (08:42→19:45)
[2018-05-15] MEDS: Famotidine 20 MG TAB PO SCH ×2 (08:43→19:45)
[2018-05-15] MEDS: Docusate 100 MG CAP PO SCH ×2 (08:43→19:45)
[2018-05-15] MEDS: Enoxaparin Sodium 40 MG/0.4 ML SYRINGE SC SCH (08:43)
[2018-05-15] MEDS ORDERED: CISPLATIN IV SCH (09:00)
[2018-05-15] MEDS ORDERED: MANNITOL IV SCH (09:00)
[2018-05-15] MEDS ORDERED: Potassium Chloride 10 MEQ, Admixture Fee 1 EACH in Sodium Chloride 0.9% 500 ML IV SCH (09:00)
[2018-05-15] MEDS ORDERED: Dexamethasone 10 MG/ML VIAL SLOW IVP SCH (09:00)
[2018-05-15] MEDS ORDERED: SODIUM CHLORIDE 0.9% IV SCH (09:00)
[2018-05-15] MEDS: Sodium Chloride 0.9% 1,000 ML IV SCH ×2 (09:25→15:45)
[2018-05-15 11:19] LABS: #Lymphocytes 1.9 thou/uL (1.20-3.40); #Monocytes 0.1 thou/uL (0.11-0.59); #Neutrophils 7.1 thou/uL (1.40-6.50); %Basophils 0.3 % (0.0-1.0); %Eosinophils 0.3 % (0.0-10.0); %Lymphocytes 20.4 % (21.0-51.0); %Monocytes 0.8 % (0.0-10.0); %Neutrophils 78.2 % (42.0-75.0); Hemoglobin 9.7 g/dL (14.0-18.0); Mean Corpuscular HGB CONC 32.9 g/dL (32.0-36.0); Mean Corpuscular Hemoglobin 28.1 pg (27.0-31.0); Mean Corpuscular Volume 85.3 fL (78.0-98.0); Mean Platelet Volume 7.6 fL (7.4-10.4); Platelet Count 277 thou/uL (130-400); RBC Distribution Width 12.1 % (11.5-14.5); Red Blood Cell (RBC) Count 3.44 mill/uL (4.70-6.10); White Blood Cell (WBC) Count 9.1 thou/uL (4.8-10.8)
[2018-05-15 11:40] LABS: Anion Gap 13 mmol/L (10-20); BUN (Urea Nitrogen) 10 mg/dL (8.9-20.6); Calc. Creatinine Clearance 181 mL/min (70-130); Calcium 8.4 mg/dL (7.8-10.44); Carbon Dioxide 25 mmol/L (22-29); Chloride 100 mmol/L (98-107); Estimated GFR-MDRD Greater than 90; Glucose 95 mg/dL (70-105); Potassium 3.4 mmol/L (3.5-5.1); Sodium 135 mmol/L (136-145)
[2018-05-15] MEDS ORDERED: Potassium Chloride 20 MEQ TAB PO SCH (12:15)
[2018-05-15] MEDS ORDERED: Dexamethasone 10 MG, Ondansetron 2MG/ML MDV 15 MG in Sodium Chloride 0.9% 50 ML IVPB SCH (13:00)
[2018-05-15] MEDS: HYDROcodone/Acetaminophen 10/325 mg Tablet PO PRN (17:39)
[2018-05-15] MEDS: Ondansetron PF 4 MG/2 ML Vial IVP PRN (19:44)
[2018-05-16] MEDS: Sodium Chloride 0.9% 1,000 ML IV SCH ×3 (00:11→21:49)
[2018-05-16] MEDS: Ondansetron PF 4 MG/2 ML Vial IVP PRN (04:04)
[2018-05-16] MEDS: HYDROcodone/Acetaminophen 10/325 mg Tablet PO PRN ×2 (04:05→10:04)
[2018-05-16] MEDS: Zolpidem Tartrate 5 MG TAB PO PRN (04:10)
--- NOTE | 2018-05-16 06:20 | PDOC.FM ---
Addendum entered and electronically signed by Reina Chandler MD 05/16/18 10:26 : Drowsy this morning. D/c ambien, decrease norco 5mg, atarax prn anxiety. Will inc. sertraline to 50 mg daily Original Note: - Subjective Subjective: Tired this morning. Endorsed control of pain with fentanyl patch with norco breakthrough. Chemo session 08/30 today. No other complaints at this time. - Objective MAR Reviewed: Yes Vital Signs & Weight: Vital Signs (12 hours) Temp Pulse Resp BP Pulse Ox 05/15/18 20:00 96 05/15/18 19:26 98.1 F 83 18 137/77 95 Weight Weight 77.791 kg I&O: 05/14/18 05/15/18 05/16/18 06:59 06:59 06:59 Intake Total 2875 1640 2950 Output Total 1700 5400 2700 Balance 1175 -3760 250 Result Diagrams: 05/16/18 09:10 05/16/18 09:10 Phys Exam - Physical Examination Constitutional: NAD (resting comfortably) HEENT: moist MMs, sclera anicteric Neck: supple, full ROM Respiratory: no wheezing, clear to auscultation bilateral Cardiovascular: RRR, no significant murmur Gastrointestinal: soft, non-tender Psychiatric: normal affect, A&O x 3 Dx/Plan (1) Bone metastases Code(s): C79.51 - SECONDARY MALIGNANT NEOPLASM OF BONE Status: Acute (2) Intractable pain Code(s): R52 - PAIN, UNSPECIFIED Status: Acute (3) Testicular malignancy Code(s): C62.90 - MALIG NEOPLASM OF UNSP TESTIS, UNSP DESCENDED OR UNDESCENDED Status: Acute (4) Tobacco abuse Code(s): Z72.0 - TOBACCO USE Status: Acute - Plan Plan: 27 yo M with nonseminoma testicular CA wtih mets to gluetus and scarm Stage IIIC nonseminoma with metastasis - s/p orchiectomy, soon to start chemotherapy and radiation treatment with Dr. Romo - oncology consulted, appreciate recs - pt receiving inpt chemo session 08/30 today Intractable pain with sciatica - destructive metastatic lesions to gluteus and sacrum seen on previous scans, norco 10/325 at home is not effective - anesthesiology consulted, PILOT PLANT RESEARCH TECHNICIAN pump placed with dilaudid and toradol. After last night, anesthesia adjusted PILOT PLANT RESEARCH TECHNICIAN pump - titrated PILOT PLANT RESEARCH TECHNICIAN Dilaudid pump to 0.2 mg , q10 minute with 1.2 mg hour lockout - Will consider adding long acting agent such as MS contin after discussion with anesthesia for custodial pain control vs fentanyl patch. - Patient completed 5/5 days of inpatient chemo. Patient given bleomycin, cisplatin, and etoposide. - Increased gabapentin to 300mg TID for nerve pain - placed on daily bowel regimen - PT/OT consulted - Pain controlled with fentanyl patch with norco for breakthrough tobacco abuse - encouraged cessation Code: full ppx: lovenox dispo: pain controlled, will send rx for fentanyl with norco for breakthrough pain. chemo session 08/30 today. encourage ambulation and working with physical therapy. Addendum - Attending - Attending Attestation Date/Time: 05/16/18 1907 I personally evaluated the patient and discussed the management with Dr. Chandler I agree with the History, Examination, Assessment and Plan documented above with any addition or exceptions noted below. Patient despondent this am discussed d/c plans and increasing ambulation in anticipation of dismissal.
[2018-05-16] MEDS ORDERED: Potassium Chloride 10 MEQ, Admixture Fee 1 EACH in Sodium Chloride 0.9% 500 ML IV SCH ×2 (09:00)
[2018-05-16] MEDS ORDERED: MANNITOL IV SCH (09:00)
[2018-05-16] MEDS ORDERED: Palonosetron HCl 0.25 MG in Sodium Chloride 0.9% 50 ML IVPB SCH (09:00)
[2018-05-16] MEDS ORDERED: CISPLATIN IV SCH (09:00)
[2018-05-16] MEDS ORDERED: PALONOSETRON HCL 0.05 MG/ML 5 ML VIAL IVP SCH (09:00)
[2018-05-16] MEDS ORDERED: Dexamethasone 10 MG/ML VIAL SLOW IVP SCH (09:00)
[2018-05-16] MEDS ORDERED: SODIUM CHLORIDE 0.9% IV SCH (09:00)
[2018-05-16 09:33] LABS: #Lymphocytes 1.4 thou/uL (1.20-3.40); #Monocytes 0.1 thou/uL (0.11-0.59); #Neutrophils 8.1 thou/uL (1.40-6.50); %Basophils 0.3 % (0.0-1.0); %Eosinophils 0.5 % (0.0-10.0); %Lymphocytes 14.4 % (21.0-51.0); %Monocytes 0.5 % (0.0-10.0); %Neutrophils 84.3 % (42.0-75.0); Hemoglobin 10.5 g/dL (14.0-18.0); Mean Corpuscular HGB CONC 32.9 g/dL (32.0-36.0); Mean Corpuscular Hemoglobin 28.5 pg (27.0-31.0); Mean Corpuscular Volume 86.6 fL (78.0-98.0); Mean Platelet Volume 7.1 fL (7.4-10.4); Platelet Count 262 thou/uL (130-400); RBC Distribution Width 12.2 % (11.5-14.5); Red Blood Cell (RBC) Count 3.66 mill/uL (4.70-6.10); White Blood Cell (WBC) Count 9.6 thou/uL (4.8-10.8)
[2018-05-16] MEDS: Famotidine 20 MG TAB PO SCH ×2 (09:44→20:43)
[2018-05-16] MEDS: Enoxaparin Sodium 40 MG/0.4 ML SYRINGE SC SCH (09:44)
[2018-05-16] MEDS: Gabapentin 300 MG CAP PO SCH ×3 (09:44→20:44)
[2018-05-16] MEDS: Docusate 100 MG CAP PO SCH ×2 (09:44→20:44)
[2018-05-16] MEDS: Polyethylene Glycol 3350 17 GM Packet PO SCH (09:47)
[2018-05-16 09:52] LABS: Anion Gap 14 mmol/L (10-20); BUN (Urea Nitrogen) 11 mg/dL (8.9-20.6); Calc. Creatinine Clearance 186 mL/min (70-130); Calcium 8.7 mg/dL (7.8-10.44); Carbon Dioxide 26 mmol/L (22-29); Chloride 97 mmol/L (98-107); Estimated GFR-MDRD Greater than 90; Glucose 96 mg/dL (70-105); Potassium 3.6 mmol/L (3.5-5.1); Sodium 133 mmol/L (136-145)
[2018-05-16] MEDS ORDERED: HYDROcodone/Acetaminophen 5/325 mg Tablet PO PRN (10:16)
[2018-05-16] MEDS ORDERED: hydrOXYzine 10 MG TAB PO PRN (10:17)
[2018-05-16] MEDS: fentaNYL 50 mcg/hour Patch TD SCH (10:25)
--- NOTE | 2018-05-17 05:24 | PDOC.FM ---
- Subjective Subjective: NAEO. Patient reports pain controlled with fentanyl and norco 5 for breakthrough. Able to walk yesterday with 4WW. Talked with brother, Celia, yesterday who can take care of him at discharge. - Objective MAR Reviewed: Yes Vital Signs & Weight: Vital Signs (12 hours) Temp Pulse Resp BP Pulse Ox 05/16/18 20:40 95 05/16/18 20:00 98.7 F 95 12 128/71 95 Weight Weight 77.791 kg I&O: 05/15/18 05/16/18 05/17/18 06:59 06:59 06:59 Intake Total 1640 2950 3290 Output Total 5400 2700 3000 Balance -3760 250 290 Result Diagrams: 05/16/18 09:10 05/16/18 09:10 Phys Exam - Physical Examination depressed affect, mildy slepy HEENT: moist MMs, TM's clear Neck: no JVD, full ROM Respiratory: no wheezing, clear to auscultation bilateral Cardiovascular: RRR, no significant murmur Musculoskeletal: no edema Neurological: non-focal, moves all 4 limbs Psychiatric: A&O x 3 Deviation from normal: anxious/depressed affect Dx/Plan (1) Bone metastases Code(s): C79.51 - SECONDARY MALIGNANT NEOPLASM OF BONE Status: Acute (2) Intractable pain Code(s): R52 - PAIN, UNSPECIFIED Status: Acute (3) Testicular malignancy Code(s): C62.90 - MALIG NEOPLASM OF UNSP TESTIS, UNSP DESCENDED OR UNDESCENDED Status: Acute (4) Tobacco abuse Code(s): Z72.0 - TOBACCO USE Status: Acute - Plan Plan: Plan: 27 yo M with 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 Stage IIIC nonseminoma with metastasis - s/p orchiectomy, soon to start chemotherapy and radiation treatment with Dr. Romo - oncology consulted, appreciate recs - pt completed chemo 5/ yesterday - plans for chemo on Thursday 05/18 Intractable pain with sciatica - destructive metastatic lesions to gluteus and sacrum seen on previous scans, norco 10/325 at home is not effective - anesthesiology consulted, BUSINESS ANALYST INTERN pump placed with dilaudid and toradol. After last night, anesthesia adjusted BUSINESS ANALYST INTERN pump - titrated BUSINESS ANALYST INTERN Dilaudid pump to 0.2 mg , q10 minute with 1.2 mg hour lockout - Will consider adding long acting agent such as MS contin after discussion with anesthesia for terminologist pain control vs fentanyl patch. - Patient completed 5/5 days of inpatient chemo. Patient given bleomycin, cisplatin, and etoposide. - Increased gabapentin to 300mg TID for nerve pain - placed on daily bowel regimen - PT/OT consulted - Pain controlled with fentanyl 50 patch with norco 5 for breakthrough - No ambien, no norco 10 Depression -Inc. sertraline to 50mg daily tobacco abuse - encouraged cessation Code: full ppx: lovenox dispo: pain controlled, will send rx for fentanyl with norco for breakthrough pain. completed chemo session 08/30 yesterday. chemo friday per onc recs. Encourage ambulation and working with physical therapy. plans to go home with brother Celia Addendum - Attending - Attending Attestation Date/Time: 05/17/18 [id number] I personally evaluated the patient and discussed the management with Dr. Chandler I agree with the History, Examination, Assessment and Plan documented above with any addition or exceptions noted below.
[2018-05-17] MEDS ORDERED: Senokot S 8.6-50 MG TAB PO SCH (09:00)
[2018-05-17] MEDS: Sodium Chloride 0.9% 1,000 ML IV SCH (09:01)
[2018-05-17] MEDS: Docusate 100 MG CAP PO SCH (09:02)
[2018-05-17] MEDS: Polyethylene Glycol 3350 17 GM Packet PO SCH (09:02)
[2018-05-17 09:03] VITALS: BP 133/78; TEMP 98.1
[2018-05-17] MEDS: Famotidine 20 MG TAB PO SCH (09:03)
[2018-05-17] MEDS: Gabapentin 300 MG CAP PO SCH (09:03)
[2018-05-17] MEDS: Enoxaparin Sodium 40 MG/0.4 ML SYRINGE SC SCH (09:03)
[2018-05-17] MEDS ORDERED: Magnesium Citrate 300 ML BOT PO SCH (09:30)
[2018-05-17] MEDS: Ondansetron PF 4 MG/2 ML Vial IVP PRN (12:23)
--- NOTE | 2018-05-17 18:11 | DIS ---
DATE OF ADMISSION: 05/09/2018 DATE OF DISCHARGE: 05/17/2018 ADMITTING ATTENDING: Mac Irizarry with a transfer of care to [facility] service. DISCHARGE ATTENDING: Stone Dao MD RESIDENT: Reina Chandler MD, PGY-1 CONSULT: 1. Anesthesiology on 05/09. 2. Oncology on 05/09. PRIMARY DIAGNOSES: 1. Intractable pain with lower extremity weakness secondary to destructive lesion in right hip. 2. 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 SECONDARY DIAGNOSIS: None. DISCHARGE MEDICATIONS: 1. [place] 5/325 one tablet p.o. q.4 hours p.r.n. for breakthrough pain. 2. Tylenol regular strength 650 mg p.o. q.6 hours p.r.n. for pain. 3. Tums 1000 mg p.o. q.4 hours p.r.n. 4. Benadryl 25 mg p.o. q.3 hours p.r.n. 5. Colace 100 mg p.o. b.i.d. 6. Pepcid 20 mg p.o. b.i.d. 7. Fentanyl 50 mcg patch 1 month refill. 8. Gabapentin 300 mg p.o. t.i.d. 9. Atarax 10 mg p.o. at bedtime p.r.n. for anxiety. 10. Zofran 4 mg p.o. q.6 hours p.r.n. for nausea. 11. MiraLAX 17 g p.o. daily. 12. Sertraline 50 mg p.o. daily. 13. Narcan 4 mg spray q.5 minutes p.r.n. if the patient is unresponsive, obtunded, respiratory rate less than 8 breaths a minute. 14. Prescription for four wheeled walker. DISCONTINUE MEDICATIONS: None. HISTORY OF PRESENT ILLNESS/HOSPITAL COURSE: A 27-year-old male with stage 3 nonseminomatous testicular cancer with metastases to lung, bone, and soft tissue status post right orchiectomy, presents as a bounce back for intractable back pain. The patient was recently discharged a few weeks ago with a new diagnosis of testicular cancer and received orchiectomy with adequate pain control on norco 5. Howevere due to inc. severity of pain, the patient presented to the ED. In hospital patient's pain was difficult to control even with opiates and was place on a ASSURANCE ENGINEER pump. Eventually, ASSURANCE ENGINEER pump was discontinued and the patient's pain was ultimately controlled with a fentanyl 50 mcg transdermal patch q.3 daily with [place] 5 for breakthrough pain. The patient's oncologist, Dr. Romo was consulted and while inpatient, went ahead and received 5 days worth of chemotherapy in an attempt to decrease cancer burden and pain. He received cisplatin, etoposide, and the palonosetron. The patient had instructions to be scheduled for his next chemotherapy course on 05/19/2018 at the [facility]. Due to the intractable back pain from the medications, the patient had severe lower leg weakness. Physical Therapy worked with him and the patient was able to ambulate down the hallway 30 feet after working with physical therapy with the aid of a four-wheel walker. Instructions were made to continue outpatient physical therapy as needed. Ultimately, the patient's social situation was precarious. He was previously living with his sister, but due to reasons, he would not state, could not go back to live with her. The patient's uncle, Mookie, agreed to taking the patient and help in continued chemotherapy treatment. The patient became very despondent during his course and did not want to further communicate with our team in regard to making arrangements for continued care. His sertraline was increased from 25 to 50 mg. He was advised to follow up with water restoration technician/oncologist and with the PCP at our clinic in order to be able to continue to receive appropriate care for the cancer and for general medical issues. The patient expressed understanding of this. It is as mentioned above, the patient is despondent given the nature of his diagnosis. He could have very much benefit from counseling and further up titration of his antidepressant if needed. After the nurse talked to the on-call team visit, he will be in good hands and able to receive the home care and support that is needed. Due to physical instability and increased risk of fall, the patient was not started on anticoagulation. He also did not come in on anticoagulation as well. He was counseled on the risk of developing a blood clot. Should he not continue to be mobile multiple times a day. The patient and patient's brother, who was present in the room, understood understanding of this. Please follow up with Dr. Romo for further recommendations in regard to whether or not anticoagulation is needed. DISPOSITION: Stable. DISCHARGE INSTRUCTIONS: 1. Location. Home with uncle Mookie. 2. Diet. Regular diet. 3. Activity. As tolerated. Please continue to work with physical therapy and use for walker. FOLLOWUP: 1. Please follow up with Dr. Romo. 2. Please follow up for next chemotherapy session on 05/19/2018. 3. Please follow up with PCP at [facility]. Job ID: [id number] [facility] HOSPITALLeslye
== END 2018-05-17 12:58 | disposition home or self-care (01) | DRG 948 ==
LOC: ERS 16:26 → OBSVTOIN 22:11 → T4-A 22:11 → INTOOBSV 22:11 → ONC 05-11 16:52
PROVIDERS: ADMIT Internal Medicine; ATTEND Internal Medicine
DX: G89.3 Neoplasm related pain (acute) (chronic) (principal); C78.00 Secondary malignant neoplasm of unspecified lung; C79.89 Secondary malignant neoplasm of other specified sites; C79.51 Secondary malignant neoplasm of bone; C62.90 Malignant neoplasm of unspecified testis, unspecified whether descended or undescended; F41.9 Anxiety disorder, unspecified; M54.30 Sciatica, unspecified side; F17.210 Nicotine dependence, cigarettes, uncomplicated; F12.90 Cannabis use, unspecified, uncomplicated
CPT/HCPCS: 36415; 80048; 80053; 82105; 82248; 83615; 84100; 84550; 84702; 85025; 94760; 96361; 96374; 96375; 96376; J1100; J1170; J1200; J1453; J1650; J1885; J2150; J2270; J2310; J2405; J2469; J2550; J3010; J7050; J9040; J9060; J9181; S0028

== ENCOUNTER 2018-05-19 09:36 | Day surgery (SDC) | payer OTHER, SELFPAY ==
[~2018-05-19 09:36] MED LIST changes: +Bleomycin Sulfate 30 UNIT in Sodium Chloride 0.9% 50 ML IVPB SCH; -ISOVUE-370 76%-LOCM 1 ML ONE
[2018-05-19] MEDS ORDERED: Sodium Chloride 0.9% 20 ML ONE (09:43)
[2018-05-19] MEDS ORDERED: Dexamethasone 10 MG/ML VIAL SLOW IVP SCH (09:45)
[2018-05-19 09:57] VITALS: BP 100/57; TEMP 97.7
== END 2018-05-19 16:37 | disposition home or self-care (01) ==
LOC: ONC/OP 09:36
PROVIDERS: ATTEND Internal Medicine Hematology & Oncology
DX: Z51.11 Encounter for antineoplastic chemotherapy (principal); C62.11 Malignant neoplasm of descended right testis; C79.51 Secondary malignant neoplasm of bone; C78.00 Secondary malignant neoplasm of unspecified lung; C79.89 Secondary malignant neoplasm of other specified sites; Z87.891 Personal history of nicotine dependence; Z90.79 Acquired absence of other genital organ(s)
CPT/HCPCS: 96375; 96409; J1100; J1642; J7050; J9040

== ENCOUNTER 2018-05-26 09:50 | Day surgery (SDC) | payer SELFPAY ==
[2018-05-26] MEDS ORDERED: Sodium Chloride 0.9% 20 ML ONE (10:03)
[2018-05-26] MEDS ORDERED: Dexamethasone 10 MG/ML VIAL SLOW IVP SCH (10:30)
[2018-05-26] MEDS ORDERED: Bleomycin Sulfate 30 UNIT in Sodium Chloride 0.9% 50 ML IVPB SCH (10:30)
[2018-05-26 11:14] VITALS: BP 113/61; TEMP 98.5
== END 2018-05-26 18:35 | disposition home or self-care (01) ==
LOC: ONC/OP 09:50
PROVIDERS: ATTEND Internal Medicine Hematology & Oncology
DX: Z51.11 Encounter for antineoplastic chemotherapy (principal); C62.11 Malignant neoplasm of descended right testis; Z90.79 Acquired absence of other genital organ(s); Z79.899 Other long term (current) drug therapy; Z98.890 Other specified postprocedural states
CPT/HCPCS: 96375; 96409; J1100; J1642; J7050; J9040

== ENCOUNTER 2018-05-27 08:27 | Day surgery (SDC) | payer SELFPAY ==
[2018-05-27 09:23] VITALS: BP 119/76; TEMP 98.2
== END 2018-05-27 09:23 | disposition home or self-care (01) ==
LOC: ONC/OP 08:27
PROVIDERS: ATTEND Internal Medicine Hematology & Oncology
DX: C62.11 Malignant neoplasm of descended right testis (principal)
CPT/HCPCS: 96372; J1447

== ENCOUNTER 2018-05-28 09:29 | Day surgery (SDC) | payer OTHER, SELFPAY | END 2018-05-28 10:18 | disposition home or self-care (01) | LOC: ONC/OP 09:29 | PROVIDERS: ATTEND Internal Medicine Hematology & Oncology | DX: Z51.11 Encounter for antineoplastic chemotherapy (principal); C62.11 Malignant neoplasm of descended right testis; Z79.899 Other long term (current) drug therapy | CPT/HCPCS: 96372; J1447 ==

== ENCOUNTER 2018-05-29 06:59 | Day surgery (SDC) | payer OTHER, SELFPAY ==
[2018-05-29 11:46] VITALS: BP 133/67; TEMP 98.4
== END 2018-05-29 15:49 | disposition home or self-care (01) ==
LOC: ONC/OP 06:59
PROVIDERS: ATTEND Internal Medicine Hematology & Oncology
DX: Z51.11 Encounter for antineoplastic chemotherapy (principal); C62.11 Malignant neoplasm of descended right testis
CPT/HCPCS: 96372; J1447

== ENCOUNTER 2018-06-01 10:27 | Day surgery (SDC) | payer OTHER, SELFPAY ==
[2018-06-01] MEDS ORDERED: Sodium Chloride 0.9% 500 ML IV SCH (10:45)
[2018-06-01] MEDS ORDERED: PALONOSETRON HCL 0.05 MG/ML 5 ML VIAL IVP SCH (10:45)
[2018-06-01] MEDS ORDERED: Dexamethasone 20 MG/5 ML VIAL SLOW IVP SCH (10:45)
[2018-06-01] MEDS ORDERED: MANNITOL IV SCH (11:30)
[2018-06-01] MEDS ORDERED: SODIUM CHLORIDE 0.9% IV SCH (11:30)
[2018-06-01] MEDS ORDERED: Bleomycin Sulfate 30 UNIT in Sodium Chloride 0.9% 50 ML IVPB SCH (11:30)
[2018-06-01] MEDS ORDERED: CISPLATIN IV SCH (11:30)
[2018-06-01 11:37] VITALS: BP 122/75; TEMP 98.8
[2018-06-01] MEDS ORDERED: Dexamethasone 10 MG/ML VIAL SLOW IVP SCH (11:45)
== END 2018-06-01 15:38 | disposition home or self-care (01) ==
LOC: ONC/OP 10:27
PROVIDERS: ATTEND Internal Medicine Hematology & Oncology
DX: Z51.11 Encounter for antineoplastic chemotherapy (principal); C62.11 Malignant neoplasm of descended right testis; Z87.891 Personal history of nicotine dependence; Z79.899 Other long term (current) drug therapy; Z98.890 Other specified postprocedural states
CPT/HCPCS: 96361; 96366; 96367; 96411; 96413; 96417; J1453; J2150; J2469; J3480; J7050; J9040; J9060; J9181

== ENCOUNTER 2018-06-02 09:05 | Day surgery (SDC) | payer OTHER, SELFPAY ==
[~2018-06-02 09:05] MED LIST changes: -Bleomycin Sulfate 30 UNIT in Sodium Chloride 0.9% 50 ML IVPB SCH; +CISPLATIN IV SCH; +Dexamethasone 10 MG/ML VIAL SLOW IVP SCH; +MANNITOL IV SCH; +Ondansetron HCl/PF 15 MG in Sodium Chloride 0.9% 50 ML IVPB PRN; +SODIUM CHLORIDE 0.9% IV SCH; +Sodium Chloride 0.9% 500 ML IVPB SCH
[2018-06-02] MEDS ORDERED: Sodium Chloride 0.9% 20 ML ONE (09:10)
[2018-06-02 09:42] VITALS: BP 132/76; TEMP 97.8
== END 2018-06-02 14:03 | disposition home or self-care (01) ==
LOC: ONC/OP 09:05
PROVIDERS: ATTEND Internal Medicine Hematology & Oncology
DX: Z51.11 Encounter for antineoplastic chemotherapy (principal); C62.11 Malignant neoplasm of descended right testis
CPT/HCPCS: 96361; 96366; 96375; 96413; 96417; J1100; J1642; J2150; J2405; J3480; J7050; J9060; J9181

== ENCOUNTER 2018-06-03 08:54 | Day surgery (SDC) | payer OTHER, SELFPAY ==
[~2018-06-03 08:54] MED LIST changes: +Ondansetron 2MG/ML MDV 15 MG in Sodium Chloride 0.9% 50 ML IVPB SCH; -Ondansetron HCl/PF 15 MG in Sodium Chloride 0.9% 50 ML IVPB PRN; +Ondansetron PF 4 MG/2 ML Vial SLOW IVP SCH; +Sodium Chloride 0.9% 500 ML IV SCH; -Sodium Chloride 0.9% 500 ML IVPB SCH
[2018-06-03] MEDS ORDERED: Sodium Chloride 0.9% 20 ML ONE (09:04)
[2018-06-03 10:51] VITALS: BP 138/90; TEMP 98.7
== END 2018-06-03 12:49 | disposition home or self-care (01) ==
LOC: ONC/OP 08:54
PROVIDERS: ATTEND Internal Medicine Hematology & Oncology
DX: Z51.11 Encounter for antineoplastic chemotherapy (principal); C62.11 Malignant neoplasm of descended right testis
CPT/HCPCS: 96361; 96367; 96375; 96413; 96417; J1100; J1642; J2150; J2405; J7050; J9060; J9181

== ENCOUNTER 2018-06-04 09:09 | Day surgery (SDC) | payer OTHER, SELFPAY ==
[~2018-06-04 09:09] MED LIST changes: -Ondansetron 2MG/ML MDV 15 MG in Sodium Chloride 0.9% 50 ML IVPB SCH; +Ondansetron HCl/PF 15 MG in Sodium Chloride 0.9% 50 ML IVPB SCH; -Ondansetron PF 4 MG/2 ML Vial SLOW IVP SCH; -Sodium Chloride 0.9% 500 ML IV SCH; +Sodium Chloride 0.9% 500 ML IVPB SCH; +manNITOL 12.5 GM in Sodium Chloride 0.9% 50 ML IV SCH
[2018-06-04] MEDS ORDERED: Sodium Chloride 0.9% 20 ML ONE (09:19)
[2018-06-04 09:24] VITALS: BP 128/82; TEMP 97.5
== END 2018-06-04 12:27 | disposition home or self-care (01) ==
LOC: ONC/OP 09:09
PROVIDERS: ATTEND Internal Medicine Hematology & Oncology
DX: C62.11 Malignant neoplasm of descended right testis (principal)
CPT/HCPCS: 96361; 96367; 96375; 96413; 96417; J1100; J1642; J2150; J2405; J3480; J7050; J9060; J9181

== ENCOUNTER 2018-06-05 09:06 | Day surgery (SDC) | payer SELFPAY ==
[~2018-06-05 09:06] MED LIST changes: -Ondansetron HCl/PF 15 MG in Sodium Chloride 0.9% 50 ML IVPB SCH; +PALONOSETRON HCL 0.05 MG/ML 5 ML VIAL IVP SCH; +Sodium Chloride 0.9% 30 ML ONE; +Sodium Chloride 0.9% 500 ML IV SCH; -Sodium Chloride 0.9% 500 ML IVPB SCH
[2018-06-05 11:56] VITALS: BP 128/88; TEMP 98.3
== END 2018-06-05 14:08 | disposition home or self-care (01) ==
LOC: ONC/OP 09:06
PROVIDERS: ATTEND Internal Medicine Hematology & Oncology
DX: Z51.11 Encounter for antineoplastic chemotherapy (principal); C62.11 Malignant neoplasm of descended right testis
CPT/HCPCS: 96361; 96367; 96375; 96413; 96417; J1100; J1642; J2150; J2469; J3480; J7050; J9060; J9181

== ENCOUNTER 2018-06-08 09:53 | Day surgery (SDC) | payer OTHER, SELFPAY ==
[~2018-06-08 09:53] MED LIST changes: +Bleomycin Sulfate 30 UNIT in Sodium Chloride 0.9% 50 ML IVPB SCH; -CISPLATIN IV SCH; -Dexamethasone 10 MG/ML VIAL SLOW IVP SCH; +Dexamethasone 20 MG/5 ML VIAL SLOW IVP SCH; -MANNITOL IV SCH; -PALONOSETRON HCL 0.05 MG/ML 5 ML VIAL IVP SCH; -SODIUM CHLORIDE 0.9% IV SCH; -Sodium Chloride 0.9% 30 ML ONE; -Sodium Chloride 0.9% 500 ML IV SCH; -manNITOL 12.5 GM in Sodium Chloride 0.9% 50 ML IV SCH
[2018-06-08] MEDS ORDERED: Dexamethasone 10 MG/ML VIAL SLOW IVP SCH (10:15)
[2018-06-08] MEDS ORDERED: Lorazepam 2 MG/ML VIAL ONE (10:31)
[2018-06-08] MEDS ORDERED: Sodium Chloride 0.9% 30 ML ONE (10:31)
[2018-06-08] MEDS ORDERED: Ondansetron 2MG/ML MDV 10 MG in Sodium Chloride 0.9% 50 ML IVPB PRN (10:37)
[2018-06-08] MEDS ORDERED: Lorazepam 2 MG/ML VIAL SLOW IVP SCH (10:45)
== END 2018-06-08 12:11 | disposition home or self-care (01) ==
LOC: ONC/OP 09:53
PROVIDERS: ATTEND Internal Medicine Hematology & Oncology
DX: Z51.11 Encounter for antineoplastic chemotherapy (principal); C62.11 Malignant neoplasm of descended right testis; Z87.891 Personal history of nicotine dependence
CPT/HCPCS: 96375; 96413; J1100; J1642; J2060; J2405; J7050; J9040

== ENCOUNTER 2018-06-15 01:03 | Day surgery (SDC) | payer OTHER, SELFPAY ==
[2018-06-15] MEDS ORDERED: Bleomycin Sulfate 30 UNIT in Sodium Chloride 0.9% 50 ML IVPB SCH (01:30)
[2018-06-15] MEDS ORDERED: Dexamethasone 10 MG/ML VIAL SLOW IVP SCH (01:30)
[2018-06-15] MEDS ORDERED: Sodium Chloride 0.9% 20 ML ONE (09:26)
[2018-06-15 10:04] VITALS: BP 137/79; TEMP 98.4
== END 2018-06-15 11:03 | disposition home or self-care (01) ==
LOC: ONC/OP 01:03
PROVIDERS: ATTEND Internal Medicine Hematology & Oncology
DX: Z51.11 Encounter for antineoplastic chemotherapy (principal); C62.11 Malignant neoplasm of descended right testis; C79.51 Secondary malignant neoplasm of bone; Z87.891 Personal history of nicotine dependence
CPT/HCPCS: 96375; 96409; J1100; J1642; J7050; J9040

== ENCOUNTER 2018-06-22 00:14 | Day surgery (SDC) | payer OTHER ==
[2018-06-22] MEDS ORDERED: Bleomycin Sulfate 30 UNIT in Sodium Chloride 0.9% 50 ML IVPB SCH (01:45)
[2018-06-22] MEDS ORDERED: Dexamethasone 10 MG/ML VIAL SLOW IVP SCH (01:45)
[2018-06-22] MEDS ORDERED: SODIUM CHLORIDE 0.9% IV SCH (02:15)
[2018-06-22] MEDS ORDERED: Sodium Chloride 0.9% 500 ML IV SCH ×2 (02:15)
[2018-06-22] MEDS ORDERED: CISPLATIN IV SCH (02:15)
[2018-06-22] MEDS ORDERED: MANNITOL IV SCH (02:15)
[2018-06-22] MEDS ORDERED: PALONOSETRON HCL 0.05 MG/ML 5 ML VIAL IVP SCH (02:15)
[2018-06-22] MEDS ORDERED: Sodium Chloride 0.9% 20 ML ONE (10:31)
[2018-06-22 12:19] VITALS: BP 117/74; TEMP 97.8
[2018-06-23] MEDS ORDERED: CISPLATIN IV SCH (02:00)
[2018-06-23] MEDS ORDERED: Ondansetron HCl/PF 15 MG in Sodium Chloride 0.9% 50 ML IVPB SCH (02:00)
[2018-06-23] MEDS ORDERED: MANNITOL IV SCH (02:00)
[2018-06-23] MEDS ORDERED: SODIUM CHLORIDE 0.9% IV SCH (02:00)
[2018-06-23] MEDS ORDERED: Dexamethasone 10 MG in Sodium Chloride 0.9% 50 ML IVPB SCH (02:00)
[2018-06-23] MEDS ORDERED: Sodium Chloride 0.9% 500 ML IVPB SCH ×3 (02:00)
== END 2018-06-22 15:41 | disposition home or self-care (01) ==
LOC: ONC/OP 00:14
PROVIDERS: ATTEND Internal Medicine Hematology & Oncology
DX: Z51.11 Encounter for antineoplastic chemotherapy (principal); C62.11 Malignant neoplasm of descended right testis; Z87.891 Personal history of nicotine dependence; Z79.899 Other long term (current) drug therapy
CPT/HCPCS: 96361; 96367; 96375; 96413; 96417; J1100; J1453; J1642; J2150; J2469; J3480; J7050; J9040; J9060; J9181

== ENCOUNTER 2018-06-23 09:20 | Day surgery (SDC) | payer OTHER ==
[~2018-06-23 09:20] MED LIST changes: -Bleomycin Sulfate 30 UNIT in Sodium Chloride 0.9% 50 ML IVPB SCH; +CISPLATIN IV SCH; +Dexamethasone 10 MG in Sodium Chloride 0.9% 50 ML IVPB SCH; -Dexamethasone 20 MG/5 ML VIAL SLOW IVP SCH; +MANNITOL IV SCH; +Ondansetron HCl/PF 15 MG in Sodium Chloride 0.9% 50 ML IVPB SCH; +Ondansetron HCl/PF 15 MG, Dexamethasone Sod Phosphate 10 MG in Sodium Chloride 0.9% 50 ML IVPB SCH; +SODIUM CHLORIDE 0.9% IV SCH; +Sodium Chloride 0.9% 500 ML IVPB SCH
[2018-06-23] MEDS ORDERED: Sodium Chloride 0.9% 20 ML ONE (09:23)
[2018-06-23 10:42] VITALS: BP 131/71; TEMP 98.4
== END 2018-06-23 12:57 | disposition home or self-care (01) ==
LOC: ONC/OP 09:20
PROVIDERS: ATTEND Internal Medicine Hematology & Oncology
DX: Z51.11 Encounter for antineoplastic chemotherapy (principal); C62.11 Malignant neoplasm of descended right testis
CPT/HCPCS: 96361; 96367; 96375; 96413; 96417; J1100; J1642; J2150; J2405; J3480; J7050; J9060; J9181

== ENCOUNTER 2018-06-24 00:15 | Day surgery (SDC) | payer OTHER ==
[2018-06-24] MEDS ORDERED: Sodium Chloride 0.9% 500 ML IVPB SCH ×2 (02:15→02:30)
[2018-06-24] MEDS ORDERED: Ondansetron HCl/PF 15 MG in Sodium Chloride 0.9% 50 ML IVPB SCH (02:30)
[2018-06-24] MEDS ORDERED: Dexamethasone 10 MG in Sodium Chloride 0.9% 50 ML IVPB SCH (02:30)
[2018-06-24] MEDS ORDERED: SODIUM CHLORIDE 0.9% IV SCH (02:30)
[2018-06-24] MEDS ORDERED: CISPLATIN IV SCH (02:30)
[2018-06-24] MEDS ORDERED: MANNITOL IV SCH (02:30)
[2018-06-24] MEDS ORDERED: Ondansetron 2MG/ML MDV 15 MG, Dexamethasone Sod Phosphate 10 MG in Sodium Chloride 0.9%... IVPB SCH (07:00)
[2018-06-24] MEDS ORDERED: Sodium Chloride 0.9% 20 ML ONE (09:29)
[2018-06-24 09:41] VITALS: BP 141/80; TEMP 98
== END 2018-06-24 14:17 | disposition home or self-care (01) ==
LOC: ONC/OP 00:15
PROVIDERS: ATTEND Internal Medicine Hematology & Oncology
DX: Z51.11 Encounter for antineoplastic chemotherapy (principal); C62.11 Malignant neoplasm of descended right testis
CPT/HCPCS: 96361; 96375; 96413; 96417; J1100; J1642; J2150; J2405; J3480; J7050; J9060; J9181

== ENCOUNTER 2018-06-25 09:23 | Day surgery (SDC) | payer OTHER ==
[~2018-06-25 09:23] MED LIST changes: -Dexamethasone 10 MG in Sodium Chloride 0.9% 50 ML IVPB SCH; +Dexamethasone 10 MG/ML VIAL SLOW IVP SCH; +Ondansetron 2MG/ML MDV 15 MG in Sodium Chloride 0.9% 50 ML IVPB SCH; -Ondansetron HCl/PF 15 MG in Sodium Chloride 0.9% 50 ML IVPB SCH; -Ondansetron HCl/PF 15 MG, Dexamethasone Sod Phosphate 10 MG in Sodium Chloride 0.9% 50 ML IVPB SCH; +Sodium Chloride 0.9% 500 ML IV SCH; -Sodium Chloride 0.9% 500 ML IVPB SCH; +manNITOL 12.5 GM in Sodium Chloride 0.9% 50 ML IV SCH
[2018-06-25] MEDS ORDERED: Sodium Chloride 0.9% 30 ML ONE (09:58)
[2018-06-25 13:08] VITALS: BP 128/73; TEMP 97.9
== END 2018-06-25 13:10 | disposition home or self-care (01) ==
LOC: ONC/OP 09:23
PROVIDERS: ATTEND Internal Medicine Hematology & Oncology
DX: Z51.11 Encounter for antineoplastic chemotherapy (principal); C62.11 Malignant neoplasm of descended right testis
CPT/HCPCS: 96361; 96367; 96375; 96413; 96417; J1100; J1642; J2150; J2405; J3480; J7050; J9060; J9181

== ENCOUNTER 2018-06-26 08:56 | Day surgery (SDC) | payer OTHER ==
[~2018-06-26 08:56] MED LIST changes: -Ondansetron 2MG/ML MDV 15 MG in Sodium Chloride 0.9% 50 ML IVPB SCH; +PALONOSETRON HCL 0.05 MG/ML 5 ML VIAL IVP SCH; -manNITOL 12.5 GM in Sodium Chloride 0.9% 50 ML IV SCH
[2018-06-26] MEDS ORDERED: Sodium Chloride 0.9% 20 ML ONE (08:59)
[2018-06-26 09:40] VITALS: BP 132/88; TEMP 99.1
== END 2018-06-26 12:19 | disposition home or self-care (01) ==
LOC: ONC/OP 08:56
PROVIDERS: ATTEND Internal Medicine Hematology & Oncology
DX: Z51.11 Encounter for antineoplastic chemotherapy (principal); C62.11 Malignant neoplasm of descended right testis
CPT/HCPCS: 96367; 96375; 96413; 96417; J1100; J1642; J2150; J2469; J3480; J7050; J9060; J9181

== ENCOUNTER → 2018-06-29 | Day surgery (SDC) | payer OTHER ==
[~2018-06-29] MED LIST changes: +Bleomycin Sulfate 30 UNIT in Sodium Chloride 0.9% 50 ML IVPB SCH; -CISPLATIN IV SCH; +Dexamethasone 10 MG in Sodium Chloride 0.9% 50 ML IVPB SCH; -MANNITOL IV SCH; -PALONOSETRON HCL 0.05 MG/ML 5 ML VIAL IVP SCH; -SODIUM CHLORIDE 0.9% IV SCH; +Sodium Chloride 0.9% 20 ML ONE; -Sodium Chloride 0.9% 500 ML IV SCH
[2018-06-29 10:19] VITALS: BP 117/71; TEMP 97.9
== END ==
LOC: ONC/OP 02:02
PROVIDERS: ATTEND Internal Medicine Hematology & Oncology
DX: Z51.11 Encounter for antineoplastic chemotherapy (principal); C62.11 Malignant neoplasm of descended right testis; Z87.891 Personal history of nicotine dependence; Z98.890 Other specified postprocedural states; Z79.899 Other long term (current) drug therapy
CPT/HCPCS: 96375; 96409; J1100; J1642; J7050; J9040

== ENCOUNTER 2018-07-06 09:40 | Day surgery (SDC) | payer OTHER ==
[~2018-07-06 09:40] MED LIST changes: -Dexamethasone 10 MG in Sodium Chloride 0.9% 50 ML IVPB SCH; -Sodium Chloride 0.9% 20 ML ONE
[2018-07-06] MEDS ORDERED: Sodium Chloride 0.9% 20 ML ONE (09:49)
[2018-07-06 12:11] VITALS: BP 151/70; TEMP 98.3
== END 2018-07-06 12:14 | disposition home or self-care (01) ==
LOC: ONC/OP 09:40
PROVIDERS: ATTEND Internal Medicine Hematology & Oncology
DX: Z51.11 Encounter for antineoplastic chemotherapy (principal); C62.11 Malignant neoplasm of descended right testis; Z87.891 Personal history of nicotine dependence
CPT/HCPCS: 96375; 96409; J1100; J1642; J7050; J9040

== ENCOUNTER 2018-07-13 10:25 | Day surgery (SDC) | payer OTHER ==
[~2018-07-13 10:25] MED LIST changes: +CISPLATIN IV SCH; +MANNITOL IV SCH; +PALONOSETRON HCL 0.05 MG/ML 5 ML VIAL IVP SCH; +SODIUM CHLORIDE 0.9% IV SCH; +Sodium Chloride 0.9% 500 ML IV SCH
[2018-07-13 10:52] VITALS: BP 123/74; TEMP 98.4
[2018-07-13] MEDS ORDERED: Sodium Chloride 0.9% 20 ML ONE (11:08)
== END 2018-07-13 14:57 | disposition home or self-care (01) ==
LOC: ONC/OP 10:25
PROVIDERS: ATTEND Internal Medicine Hematology & Oncology
DX: Z51.11 Encounter for antineoplastic chemotherapy (principal); C62.11 Malignant neoplasm of descended right testis; Z87.891 Personal history of nicotine dependence; Z79.899 Other long term (current) drug therapy; Z98.890 Other specified postprocedural states
CPT/HCPCS: 96361; 96367; 96375; 96411; 96413; 96417; J1100; J1453; J2150; J2469; J3480; J7050; J9040; J9060; J9181

== ENCOUNTER 2018-07-14 09:29 | Day surgery (SDC) | payer OTHER ==
[~2018-07-14 09:29] MED LIST changes: -Bleomycin Sulfate 30 UNIT in Sodium Chloride 0.9% 50 ML IVPB SCH; +ETOPOSIDE IVPB SCH; +Ondansetron HCl/PF 15 MG in Sodium Chloride 0.9% 50 ML IVPB SCH; -PALONOSETRON HCL 0.05 MG/ML 5 ML VIAL IVP SCH; +SODIUM CHLORIDE 0.9% IVPB SCH
[2018-07-14] MEDS ORDERED: Sodium Chloride 0.9% 30 ML ONE (09:40)
[2018-07-14 11:31] VITALS: BP 133/72; TEMP 97.8
== END 2018-07-14 14:21 | disposition home or self-care (01) ==
LOC: ONC/OP 09:29
PROVIDERS: ATTEND Internal Medicine Hematology & Oncology
DX: Z51.11 Encounter for antineoplastic chemotherapy (principal); C62.11 Malignant neoplasm of descended right testis; Z79.899 Other long term (current) drug therapy
CPT/HCPCS: 96361; 96367; 96375; 96413; 96417; J1100; J1642; J2150; J2405; J3480; J7050; J9060; J9181

== ENCOUNTER 2018-07-15 09:51 | Day surgery (SDC) | payer OTHER ==
[~2018-07-15 09:51] MED LIST changes: -ETOPOSIDE IVPB SCH; -SODIUM CHLORIDE 0.9% IVPB SCH; +Sodium Chloride 0.9% 20 ML ONE
== END 2018-07-15 14:50 | disposition home or self-care (01) ==
LOC: ONC/OP 09:51
PROVIDERS: ATTEND Internal Medicine Hematology & Oncology
DX: Z51.11 Encounter for antineoplastic chemotherapy (principal); C62.11 Malignant neoplasm of descended right testis
CPT/HCPCS: 96361; 96367; 96375; 96413; 96417; J1100; J1642; J2150; J2405; J3480; J7050; J9060; J9181

== ENCOUNTER 2018-07-16 09:28 | Day surgery (SDC) | payer OTHER ==
[~2018-07-16 09:28] MED LIST changes: +Dexamethasone 10 MG in Sodium Chloride 0.9% 50 ML IVPB SCH; -Dexamethasone 10 MG/ML VIAL SLOW IVP SCH; +ETOPOSIDE IVPB SCH; +Ondansetron 2MG/ML MDV 15 MG in Sodium Chloride 0.9% 50 ML IVPB SCH; +Ondansetron 2MG/ML MDV 15 MG, Dexamethasone Sod Phosphate 10 MG in Sodium Chloride 0.9%... IVPB SCH; -Ondansetron HCl/PF 15 MG in Sodium Chloride 0.9% 50 ML IVPB SCH; +SODIUM CHLORIDE 0.9% IVPB SCH; -Sodium Chloride 0.9% 20 ML ONE
[2018-07-16] MEDS ORDERED: Sodium Chloride 0.9% 20 ML ONE (09:34)
[2018-07-16 11:29] VITALS: BP 121/68; TEMP 97.8
== END 2018-07-16 13:26 | disposition home or self-care (01) ==
LOC: ONC/OP 09:28
PROVIDERS: ATTEND Internal Medicine Hematology & Oncology
DX: Z51.11 Encounter for antineoplastic chemotherapy (principal); C62.11 Malignant neoplasm of descended right testis
CPT/HCPCS: 96361; 96366; 96375; 96413; 96417; J1100; J1642; J2150; J2405; J3480; J7050; J9060; J9181

== ENCOUNTER 2018-07-17 09:45 | Day surgery (SDC) | payer OTHER ==
[~2018-07-17 09:45] MED LIST changes: -Dexamethasone 10 MG in Sodium Chloride 0.9% 50 ML IVPB SCH; +Dexamethasone 10 MG/ML VIAL SLOW IVP SCH; -Ondansetron 2MG/ML MDV 15 MG in Sodium Chloride 0.9% 50 ML IVPB SCH; -Ondansetron 2MG/ML MDV 15 MG, Dexamethasone Sod Phosphate 10 MG in Sodium Chloride 0.9%... IVPB SCH; +PALONOSETRON HCL 0.05 MG/ML 5 ML VIAL IVP SCH; +Palonosetron HCl 0.25 MG in Sodium Chloride 0.9% 50 ML IVPB SCH
[2018-07-17] MEDS ORDERED: Sodium Chloride 0.9% 30 ML ONE (09:51)
[2018-07-17 14:08] VITALS: BP 119/71; TEMP 98
== END 2018-07-17 14:11 | disposition home or self-care (01) ==
LOC: ONC/OP 09:45
PROVIDERS: ATTEND Internal Medicine Hematology & Oncology
DX: Z51.11 Encounter for antineoplastic chemotherapy (principal); C62.11 Malignant neoplasm of descended right testis; Z79.899 Other long term (current) drug therapy
CPT/HCPCS: 96361; 96367; 96375; 96413; 96417; J1100; J1642; J2150; J2469; J3480; J7050; J9060; J9181

== ENCOUNTER 2018-07-21 09:33 | Day surgery (SDC) | payer OTHER ==
[~2018-07-21 09:33] MED LIST changes: +Bleomycin Sulfate 30 UNIT in Sodium Chloride 0.9% 50 ML IVPB SCH; -CISPLATIN IV SCH; +Dexamethasone 10 MG in Sodium Chloride 0.9% 50 ML IVPB SCH; -Dexamethasone 10 MG/ML VIAL SLOW IVP SCH; -ETOPOSIDE IVPB SCH; -MANNITOL IV SCH; -PALONOSETRON HCL 0.05 MG/ML 5 ML VIAL IVP SCH; -Palonosetron HCl 0.25 MG in Sodium Chloride 0.9% 50 ML IVPB SCH; -SODIUM CHLORIDE 0.9% IV SCH; -SODIUM CHLORIDE 0.9% IVPB SCH; +Sodium Chloride 0.9% 20 ML ONE; -Sodium Chloride 0.9% 500 ML IV SCH
[2018-07-21] MEDS ORDERED: Dexamethasone 10 MG in Sodium Chloride 0.9% 50 ML SLOW IVP SCH (09:45)
[2018-07-21 09:54] VITALS: BP 108/65; TEMP 97.5
[2018-07-21] MEDS ORDERED: Dexamethasone 10 MG/ML VIAL SLOW IVP SCH (10:15)
[2018-07-21] MEDS ORDERED: Sodium Chloride 0.9% 30 ML ONE (10:19)
== END 2018-07-21 12:27 | disposition home or self-care (01) ==
LOC: ONC/OP 09:33
PROVIDERS: ATTEND Internal Medicine Hematology & Oncology
DX: Z51.11 Encounter for antineoplastic chemotherapy (principal); C62.11 Malignant neoplasm of descended right testis; Z79.899 Other long term (current) drug therapy
CPT/HCPCS: 96375; 96409; J1100; J1642; J7050; J9040

== ENCOUNTER 2018-07-27 10:23 | Day surgery (SDC) | payer OTHER ==
[~2018-07-27 10:23] MED LIST changes: -Dexamethasone 10 MG in Sodium Chloride 0.9% 50 ML IVPB SCH; +Dexamethasone 10 MG/ML VIAL SLOW IVP SCH; -Sodium Chloride 0.9% 20 ML ONE
[2018-07-27] MEDS ORDERED: Sodium Chloride 0.9% 30 ML ONE (10:25)
== END 2018-07-27 14:01 | disposition home or self-care (01) ==
LOC: ONC/OP 10:23
PROVIDERS: ATTEND Internal Medicine Hematology & Oncology
DX: Z51.11 Encounter for antineoplastic chemotherapy (principal); C62.11 Malignant neoplasm of descended right testis
CPT/HCPCS: 96375; 96409; J1100; J1642; J7050; J9040

== ENCOUNTER 2018-09-07 08:36 | Outpatient (CLI) | payer OTHER ==
--- NOTE | 2018-09-07 09:46 | CT ---
CT Chest Abd Pelvis W Con History: [Testicular cancer.] Comparison: CT chest abdomen pelvis April 24, 2018 Findings: The left lower lobe pulmonary nodules have nearly completely regressed with only a small ar ea of scar remaining. The left lower lobe pulmonary nodule abutting the mediastinal pleura and measured 2.5 cm in greatest dimension, now measures 5 mm in greatest dimension. Peripheral left lower lobe pulmonary nodule had measured 19 mm in greatest dimension, now 5 mm. The large necrotic mass of the right upper lobe measures 4.3 cm in greatest dimension, previously of proximal 12 cm. No new suspicious pulmonary nodules. The smaller right upper lobe pulmonary nodules are absent. No pneumothorax. Small right effusion. No mediastinal adenopathy. Spleen is unremarkable. Liver is unremarkable. Pancreas unremarkable. No retroperitoneal adenopathy. No definite soft tissue component of the destructive right iliac mass is appreciated. There is perios teal new bone formation ileum suggesting healing. There is a pathologic fracture of L1 from a lytic process in a sagittal orientation. There is also a new superior endplate Schmorl's node of L3 with peripheral sclerosis. Clavicles are intact. The sternum and manubrium are intact. Ribs are intact. The scapular intact. Impression: 1. Marked interval improvement of pulmonary metastatic disease as well as size decrease right iliac m ass indicating positive response to therapy. 2. Pathologic healing fracture of L1 vertebral body and superior endplate fracture of L3.
[2018-09-07] MEDS ORDERED: Iopamidol 370 76% 100 ML VIAL ONE (09:52)
== END 2018-09-07 08:37 | disposition home or self-care (01) ==
LOC: BICCT 08:36
PROVIDERS: ATTEND Internal Medicine Hematology & Oncology
DX: C62.11 Malignant neoplasm of descended right testis (principal); C78.00 Secondary malignant neoplasm of unspecified lung; M84.48XD Pathological fracture, other site, subsequent encounter for fracture with routine healing
CPT/HCPCS: 71260; 74177; Q9967

== ENCOUNTER 2018-09-30 10:15 | Outpatient (CLI) | payer OTHER ==
--- NOTE | 2018-09-30 13:58 | NM ---
Exam: Nuclear medicine bone scan: HISTORY: Malignant neoplasm of distended right testes COMPARISON: CT, 09/07/2018 Patient was injected with 33 mCi technetium 99m MDP intravenously. Whole body images are performed. There is some generalized abnormal increased activity in the region of the right ilium in close proximity to the right SI joint. There is also some minimal subtle increased activity involving the L3 vertebral body. There is also some subtle increased activity in t he L1 vertebral body region. Minimal focal increased activity in the anterior left second rib at the costosternal junction. The area of abnormal activity in the right ilium, L1, and L3 vertebral bod ies correspond to prior findings on CT. Review of prior CT with attention to the anterior left second rib demonstrates some nonspecific thickening and sclerosis of the anterior second left rib. IMPRESSION: Multiple focal areas of abnormal increased activity as above the most extensive but which noted invol ving the right ilium. These are consistent with multiple metastasis and varying degrees of probable healing.
== END 2018-09-30 10:16 | disposition home or self-care (01) ==
LOC: NM 10:15
PROVIDERS: ATTEND Internal Medicine Hematology & Oncology
DX: C62.11 Malignant neoplasm of descended right testis (principal); C79.51 Secondary malignant neoplasm of bone; R93.7 Abnormal findings on diagnostic imaging of other parts of musculoskeletal system
CPT/HCPCS: 78306; A9503

== ENCOUNTER 2018-10-05 11:15 | Inpatient (IN) | payer SELFPAY ==
[2018-10-05 11:50] LABS: Hemoglobin 12.7 g/dL (14.0-18.0); Mean Corpuscular HGB CONC 34.9 g/dL (32.0-36.0); Mean Corpuscular Hemoglobin 32.4 pg (27.0-31.0); Mean Corpuscular Volume 92.9 fL (78.0-98.0); Mean Platelet Volume 8.2 fL (7.4-10.4); Platelet Count 191 thou/uL (130-400); RBC Distribution Width 11.1 % (11.5-14.5); Red Blood Cell (RBC) Count 3.94 mill/uL (4.70-6.10); White Blood Cell (WBC) Count 7.1 thou/uL (4.8-10.8)
[2018-10-05 12:20] LABS: Anion Gap 12 mmol/L (10-20); BUN (Urea Nitrogen) 14 mg/dL (8.9-20.6); Calc. Creatinine Clearance 0 mL/min (70-130); Calcium 9.2 mg/dL (7.8-10.44); Carbon Dioxide 26 mmol/L (22-29); Chloride 105 mmol/L (98-107); Estimated GFR-MDRD Greater than 90; Glucose 122 mg/dL (70-105); Potassium 3.9 mmol/L (3.5-5.1); Sodium 139 mmol/L (136-145)
[2018-10-06] MEDS ORDERED: Midazolam HCl 2 mg/2 ml Vial ONE ×2 (06:30→07:03)
[2018-10-06] MEDS ORDERED: Fentanyl 100 MCG/2 ML VIAL ONE (06:30)
[2018-10-06] MEDS ORDERED: Famotidine/PF 20 mg/2ml Vial ONE (07:03)
[2018-10-06] MEDS ORDERED: Ondansetron PF 4 MG/2 ML Vial ONE ×2 (07:04→13:22)
[2018-10-06] MEDS ORDERED: Scopolamine 1.5 mg/72 hour Patch ONE (07:04)
[2018-10-06] MEDS ORDERED: HYDROmorphone 2 MG/ML VIAL ONE ×2 (07:14→10:24)
[2018-10-06] MEDS ORDERED: Dexmedetomidine 200 MCG/2 ML VIAL ONE (07:54)
[2018-10-06] MEDS ORDERED: Ketamine 50 MG/ML (10ML VIAL) ONE (07:55)
[2018-10-06] MEDS ORDERED: Bupivacaine/Epinephrine 0.25% 30 ML VIAL ONE (09:17)
[2018-10-06] MEDS ORDERED: HYDROmorphone 2 MG/ML VIAL SLOW IVP PRN (10:20)
[2018-10-06] MEDS ORDERED: Promethazine HCl 25 MG/ML VIAL SLOW IVP PRN ×2 (10:20→15:30)
[2018-10-06] MEDS ORDERED: Ondansetron HCl/PF 4 MG/2 ML Vial IVP PRN (10:20)
[2018-10-06] MEDS ORDERED: Promethazine HCl 25 MG/ML VIAL IM PRN ×2 (10:20→10:22)
[2018-10-06] MEDS ORDERED: diphenhydrAMINE 50 MG/ML VIAL IM PRN (10:22)
[2018-10-06] MEDS ORDERED: Ondansetron PF 4 MG/2 ML Vial IVP PRN ×2 (10:22→15:30)
[2018-10-06] MEDS ORDERED: diphenhydrAMINE 50 MG/ML VIAL IVP PRN (10:22)
[2018-10-06] MEDS ORDERED: Naloxone HCl 0.4 mg/ml Vial IV PRN (10:22)
[2018-10-06] MEDS ORDERED: Zolpidem Tartrate 5 MG TAB PO PRN (10:22)
[2018-10-06] MEDS ORDERED: Communication Order-Pharmacy FS SCH (10:30)
--- NOTE | 2018-10-06 12:02 | RAD ---
Frontal radiograph chest: 10/06/2018 COMPARISON: 04/28/2018 HISTORY: Evaluate chest following thoracotomy FINDINGS: There is a CT injectable right Port-A-Cath, distal tip overlying the cavoatrial junction. There is a chest tube in place on the right. There is minimal subcutaneous emphysema at the chest tub e insertion site. There is mild increased linear density in the mid right lung zone/right perihilar region and within the medial aspect of the right lung base. Findings suggest volume loss. There is no pneumothorax or focal consolidation. No alveolar edema. There are postoperative clips in the right hilar region. IMPRESSION: Postoperative changes on the right, consistent with recent right thoracotomy.
--- NOTE | 2018-10-06 12:32 | OP ---
DATE OF PROCEDURE: 10/06/2018 PREOPERATIVE DIAGNOSIS: Mediastinal mass. POSTOPERATIVE DIAGNOSIS: Mediastinal mass. PROCEDURE PERFORMED: Right thoracotomy anterior with resection of mediastinal mass and portion of right upper lobe that was densely adherent. ANESTHESIA: General. ESTIMATED BLOOD LOSS: Less than 100. DESCRIPTION OF PROCEDURE: After adequate anesthesia had been obtained, the patient was prepped and draped. Incision was made in the second intercostal space. Eventually extended slightly laterally. Pectoralis major fibers were divided in line with their orientation, intercostal muscles divided. Internal mammary artery was double clipped and divided. Third rib was transected near the sternum and the chest was entered. There were adhesions between the lung and chest wall. The tumor was identified and using sharp and blunt dissection, it was mobilized medially initially. The lung was densely adherent posteriorly and laterally. This was begun to be taken down; however, at some point, it was elected to go ahead and take out portion of the lung using 4 firings of a stapler. This removed the specimen in total. Following this, the thoracoscope was placed into the chest cavity and filmy adhesions were taken down. Some fluid was aspirated for cytology. There were no evidence of any implants in the parietal pleura or visceral pleura. A #28 chest tube was then placed under direct vision, following which 0 Vicryl suture x2 was used to reapproximate the divided third costal cartilage. Following this, a single pericostal suture was placed around the second and third ribs. Muscle layers were closed with interrupted [id number] Vicryl sutures. Subcutaneous tissue and skin were closed in layers. Job ID: [id number]
[2018-10-06] MEDS ORDERED: Esmolol 100 MG/10 ML VIAL ONE (13:22)
[2018-10-06] MEDS ORDERED: Lidocaine 1% PF 5 ML VIAL ONE (13:22)
[2018-10-06] MEDS ORDERED: diphenhydrAMINE 50 MG/ML VIAL ONE (13:22)
[2018-10-06] MEDS ORDERED: PROPOFOL 200 MG/20 ML VIAL ONE (13:22)
[2018-10-06] MEDS ORDERED: Metoclopramide HCl 10 MG/2 ML VIAL ONE (13:22)
[2018-10-06] MEDS ORDERED: Glycopyrrolate 0.2 MG/ML 5 ML SYRINGE ONE (13:22)
[2018-10-06] MEDS ORDERED: Dexamethasone 20 MG/5 ML VIAL ONE (13:22)
[2018-10-06] MEDS ORDERED: Rocuronium Bromide 10 MG/ML (10ML VIAL) ONE (13:22)
[2018-10-06] MEDS ORDERED: hydrALAZINE 20 MG/ML VIAL SLOW IVP PRN (15:30)
[2018-10-06] MEDS ORDERED: HYDROcodone/Acetaminophen 5/325 mg Tablet PO PRN ×2 (15:30)
[2018-10-06] MEDS ORDERED: Fentanyl 100 MCG/2 ML VIAL SLOW IVP PRN (15:30)
[2018-10-06] MEDS ORDERED: Phenylephrine 10 MG/NS 250 ML 250 ML IVPB PRN (15:30)
[2018-10-06] MEDS ORDERED: fentaNYL 50 mcg/hour Patch TD SCH (15:30)
[2018-10-06 15:34] VITALS: BMI 27.2
[2018-10-06] MEDS ORDERED: Gabapentin 300 MG CAP PO SCH (16:30)
[2018-10-06] MEDS: CEFAZOLIN 2 GM in Premix Bag 1 BAG IVPB SCH (16:31)
[2018-10-06] MEDS: Sodium Chloride 0.9% 1,000 ML IV SCH (16:31)
--- NOTE | 2018-10-06 17:19 | CON ---
DATE OF CONSULTATION: 10/06/2018 SERVICE: Pulmonary Medicine. REASON FOR CONSULTATION: ICU patient. HISTORY OF PRESENT ILLNESS: The patient is a very pleasant 28-year-old white male with past medical history significant for testicular cancer that is widely metastatic. Ultimately, he was discovered to have an anterior mediastinal mass. He is presenting for an elective thoracotomy from the outpatient setting. Prior to this event, he was not having any significant dyspnea on exertion or shortness of breath. He is postop day #0 from this procedure. He had an anterior mediastinal lesion excised. The portion of the right lung had also be removed because this mass was densely adherent to it. His pain is currently under good control. He is breathing comfortably and has no specific complaints currently. PAST MEDICAL HISTORY: Testicular cancer, widely metastatic. PAST SURGICAL HISTORY: 1. Orchiectomy on the right. 2. Thoracotomy with excision of anterior mediastinal mass and partial lobectomy of the right upper lobe. SOCIAL HISTORY: He uses marijuana. Denies any alcohol or other illicit drugs. He has a remote history of smoking, but it was less than 10 pack-years. Denies any exposure to chemicals, dust, asbestos, or tuberculosis. FAMILY HISTORY: Noncontributory. ALLERGIES: NO KNOWN DRUG ALLERGIES. MEDICATIONS: List of his inpatient medications was reviewed. No specific updates were made at this time. REVIEW OF SYSTEMS: General; head, ears, eyes, nose, throat; cardiovascular; respiratory; GI; ; musculoskeletal; neurologic; and skin are negative except as mentioned is the HPI. PHYSICAL EXAMINATION: VITAL SIGNS: Afebrile, pulse 98, blood pressure 108/65, respirations 20, and saturation 97% on 2 L nasal cannula. GENERAL: The patient is awake and alert, in no apparent distress. LUNGS: Decent air entry. There is no prolonged expiratory phase. Rhonchi are present on the right. No wheezing or crackles are appreciated. HEART: Normal rate and regular. ABDOMEN: Soft, nontender, and nondistended. Bowel sounds are positive. MUSCULOSKELETAL: No cyanosis or clubbing. No pitting in the bilateral lower extremities. NEUROLOGIC: Grossly nonfocal. : Bryant catheter is in place. Status post right orchiectomy. LABORATORY DATA: WBC 7.1, hemoglobin 12.7, platelets 191,000. Basic metabolic profile is unremarkable from yesterday. IMAGING STUDIES: Chest x-ray shows postoperative changes on the right, consistent with recent thoracotomy. The right-sided chest tube in place. [id number] is in good position and terminates at cavoatrial junction. ASSESSMENT: 1. Testicular cancer, widely metastatic. 2. Anterior mediastinal mass, status post thoracotomy with excision and partial right upper lobectomy. DISCUSSION AND PLAN: The patient is doing wonderful in the postoperative period. I will continue to follow along while he remains in the ICU. His pain is under excellent control with the BOX CHIPPER. Currently, he is not having any respiratory issues. I will continue to follow in this location. 70 minutes have been devoted to this patient in various activities. I personally reviewed all imaging studies and laboratory data noted within this document. For fifty percent of this time, I was interacting with the patient at the bedside or coordinating care with the care team. For the remainder of the time I was immediately available to the patient in the hospital unit. Job ID: [id number] MTDD
[2018-10-06] MEDS ORDERED: Prevnar 13-Val Conj/PF 0.5 ML SYRINGE IM ONE (18:00)
[2018-10-06] MEDS: Gabapentin 300 MG CAP PO SCH (20:21)
[2018-10-06] MEDS: Famotidine 20 MG TAB PO SCH (20:21)
[2018-10-06] MEDS: HYDROmorphone 10 mg/100 ml CADD IVPB PRN (21:41)
[2018-10-07] MEDS: CEFAZOLIN 2 GM in Premix Bag 1 BAG IVPB SCH ×2 (01:18→08:24)
[2018-10-07 04:54] LABS: #Lymphocytes 1.7 thou/uL (1.20-3.40); #Monocytes 1.2 thou/uL (0.11-0.59); #Neutrophils 9.8 thou/uL (1.40-6.50); %Basophils 0.2 % (0.0-1.0); %Eosinophils 0.1 % (0.0-10.0); %Lymphocytes 13.1 % (21.0-51.0); %Monocytes 9.5 % (0.0-10.0); %Neutrophils 77.1 % (42.0-75.0); Hemoglobin 11.9 g/dL (14.0-18.0); Mean Corpuscular Hemoglobin 30.8 pg (27.0-31.0); Mean Corpuscular Volume 93.1 fL (78.0-98.0); Mean Platelet Volume 7.9 fL (7.4-10.4); Platelet Count 207 thou/uL (130-400); RBC Distribution Width 11.4 % (11.5-14.5); Red Blood Cell (RBC) Count 3.87 mill/uL (4.70-6.10); White Blood Cell (WBC) Count 12.7 thou/uL (4.8-10.8)
[2018-10-07] MEDS: Sodium Chloride 0.9% 1,000 ML IV SCH (05:00)
[2018-10-07 05:13] LABS: Anion Gap 13 mmol/L (10-20); BUN (Urea Nitrogen) 10 mg/dL (8.9-20.6); Calc. Creatinine Clearance 161 mL/min (70-130); Calcium 9.5 mg/dL (7.8-10.44); Carbon Dioxide 27 mmol/L (22-29); Chloride 100 mmol/L (98-107); Estimated GFR-MDRD Greater than 90; Glucose 98 mg/dL (70-105); Potassium 3.7 mmol/L (3.5-5.1); Sodium 136 mmol/L (136-145)
--- NOTE | 2018-10-07 07:47 | RAD ---
Portable frontal chest radiograph 10/07/2018 COMPARISON: 10/06/2018 HISTORY: Evaluate chest following thoracotomy FINDINGS: Stable CT injectable right Port-A-Cath. Postoperative clips overlie right hilar region. Sta ble right chest tube. No pneumothorax on either side. Linear density in the right perihilar region and medial right lung base noted, stable and nonspecific. Aeration in the left lung base has improved . IMPRESSION: Portable chest radiograph as detailed above.
[2018-10-07] MEDS: Polyethylene Glycol 3350 17 GM Packet PO SCH (08:24)
[2018-10-07] MEDS: Gabapentin 300 MG CAP PO SCH ×3 (08:24→20:20)
[2018-10-07] MEDS: Famotidine 20 MG TAB PO SCH ×2 (08:24→20:20)
[2018-10-07] MEDS: HYDROmorphone 10 mg/100 ml CADD IVPB PRN (10:56)
--- NOTE | 2018-10-07 15:28 | PRG ---
DATE OF SERVICE: 10/07/2018 SERVICE: Pulmonary Medicine. INTERVAL HISTORY: The patient is doing fine from a respiratory standpoint. He has chest tubes out this morning. He continues to have ongoing discomfort, albeit it is much improved. He is tolerating p.o. and actually ate everything off his plate for both breakfast and lunch today. PHYSICAL EXAMINATION: VITAL SIGNS: Afebrile with a T-max of 99.3. Pulse is 80, blood pressure 139/83, respirations 16, and saturation 92% on room air. GENERAL: The patient is awake and alert, in no apparent distress. LUNGS: Excellent air entry. There is some crackles present, particularly on the right. There is no prolonged expiratory phase or wheezing present. HEART: Normal rate and regular. ABDOMEN: Soft, nontender, and nondistended. Bowel sounds are positive. MUSCULOSKELETAL: No cyanosis or clubbing. There is no pitting in the bilateral lower extremities. NEUROLOGIC: Grossly nonfocal. LABORATORY DATA: WBC 12.7, hemoglobin 11.9, and platelets 207,000. Basic metabolic profile is completely unremarkable. IMAGING STUDIES: Chest x-ray shows interval removal of the chest tube. Port catheter remains in place. Right perihilar linear density is present. ASSESSMENT: 1. Testicular cancer, widely metastatic. 2. Anterior mediastinal mass, status post thoracotomy with excision of mass and partial removal of right upper lobe. DISCUSSION AND PLAN: The patient is doing fine. I will have the walking program work with him. Pathology is currently pending. At this point, he has no further requirements for inpatient Pulmonary Critical Care opinion, and I will sign off. Please call with additional questions or concerns through time. Job ID: [id number]
[2018-10-07] MEDS ORDERED: Sodium Chloride 0.9% 1,000 ML IV SCH (16:45)
[2018-10-07] MEDS: Acetaminophen 325 MG TAB PO PRN ×2 (18:30→22:57)
[2018-10-07] MEDS: diphenhydrAMINE 25 MG CAP PO PRN (22:57)
[2018-10-08] MEDS: HYDROmorphone 10 mg/100 ml CADD IVPB PRN (08:35)
[2018-10-08] MEDS: Famotidine 20 MG TAB PO SCH ×2 (08:59→19:49)
[2018-10-08] MEDS: Polyethylene Glycol 3350 17 GM Packet PO SCH (08:59)
[2018-10-08] MEDS: Gabapentin 300 MG CAP PO SCH ×3 (08:59→19:49)
[2018-10-08] MEDS ORDERED: HYDROcodone/Acetaminophen 10/325 mg Tablet PO PRN ×2 (11:23)
[2018-10-08] MEDS ORDERED: Ibuprofen 800 MG TAB PO PRN (11:25)
[2018-10-08] MEDS ORDERED: traMADol HCl 50 MG TAB PO PRN (11:25)
[2018-10-08] MEDS ORDERED: fentaNYL 75 mcg/hour Patch TD SCH (12:00)
[2018-10-08] MEDS: diphenhydrAMINE 25 MG CAP PO PRN (22:56)
[2018-10-08] MEDS ORDERED: HYDROmorphone 10 mg/100 ml CADD IVPB PRN (23:00)
[2018-10-09] MEDS ORDERED: Bisacodyl 10 MG SUPP PR PRN (06:12)
[2018-10-09] MEDS ORDERED: Bisacodyl 5 MG TAB PO PRN (06:12)
[2018-10-09] MEDS: Famotidine 20 MG TAB PO SCH (08:51)
[2018-10-09] MEDS: Gabapentin 300 MG CAP PO SCH (08:51)
[2018-10-09] MEDS: Polyethylene Glycol 3350 17 GM Packet PO SCH (08:52)
[2018-10-09] MEDS ORDERED: Enoxaparin Sodium 30 MG/0.3 ML SYRINGE SC SCH (09:00)
--- NOTE | 2018-10-09 09:18 | DIS ---
DATE OF ADMISSION: 10/06/2018 DATE OF DISCHARGE: 10/09/2018 HOSPITAL COURSE: The patient was admitted on 10/06, where he underwent anterior thoracotomy with resection of a mediastinal mass. At the time of surgery, the mass was all grossly excised. A portion of the upper lobe was also taken with the mass due to dense adherence. Thoracoscopy was performed to assist with lysis of adhesions and no other disease was noted in the pleural space on the right. Postoperatively, he did well with postoperative discomfort as anticipated and will be discharged home with his fentanyl patch as well as [place] prescription and I have asked Case Management to assist him with purchasing his [place]. His incision is doing well. Pathology returned with some microscopic viable tumor, but predominantly it was necrotic tumor. The patient will follow up and meet with me in 2 to 3 weeks. Job ID: [id number]
[2018-10-09 11:40] VITALS: BP 131/78; TEMP 98.3
== END 2018-10-09 12:20 | disposition home or self-care (01) | DRG 165 ==
LOC: SURG A 10-06 05:58 → CCU 10-06 15:30 → SURG B 10-07 08:10
PROVIDERS: ADMIT Thoracic Surgery (Cardiothoracic Vascular Surgery); ATTEND Thoracic Surgery (Cardiothoracic Vascular Surgery)
PROC: 0WBC0ZZ Excision of Mediastinum, Open Approach (ICD-10-PCS; principal; 2018-10-06)
PROC: 0BNC0ZZ Release Right Upper Lung Lobe, Open Approach (ICD-10-PCS; 2018-10-06)
PROC: 0W994ZX Drainage of Right Pleural Cavity, Percutaneous Endoscopic Approach, Diagnostic (ICD-10-PCS; 2018-10-06)
DX: C78.1 Secondary malignant neoplasm of mediastinum (principal); C62.90 Malignant neoplasm of unspecified testis, unspecified whether descended or undescended
CPT/HCPCS: 36415; 36416; 71045; 80048; 85025; 85027; 86850; 86900; 86901; 88112; 88305; 88307; 88341; 88342; 90471; 90670; G0009; J0690; J1170; J1642; J1650; J2250; J2405; J3010; Q0163; S0028

== ENCOUNTER 2018-11-05 12:05 | Outpatient (CLI) | payer OTHER ==
--- NOTE | 2018-11-05 14:29 | RAD ---
TWO VIEW CHEST: INDICATION: Dyspnea. Known testicular cancer with lung mass. COMPARISON: 10/07/[address] 09/07/2018. FINDINGS: Right MediPort catheter appears in adequate position. Clips overlie the anterior right chest. Densi ty overlying the right hilum is stable consistent with known anterior right chest mass. No infiltrat e or vascular congestion. Sharp blunting of the right CP angle appears stable. IMPRESSION: No acute interval change. POS: [id number]
== END 2018-11-05 12:06 | disposition home or self-care (01) ==
LOC: RAD 12:05
PROVIDERS: ATTEND Thoracic Surgery (Cardiothoracic Vascular Surgery)
DX: C62.90 Malignant neoplasm of unspecified testis, unspecified whether descended or undescended (principal)
CPT/HCPCS: 71046

== ENCOUNTER 2018-11-23 09:47 | Day surgery (SDC) | payer SELFPAY ==
[~2018-11-23 09:47] MED LIST changes: -Bleomycin Sulfate 30 UNIT in Sodium Chloride 0.9% 50 ML IVPB SCH; +CISPLATIN IV SCH; +DEXAMETHASONE SOD PHOSPHATE IVPB SCH; -Dexamethasone 10 MG/ML VIAL SLOW IVP SCH; +ETOPOSIDE IVPB SCH; +MANNITOL IV SCH; +ONDANSETRON IVPB SCH; +SODIUM CHLORIDE 0.9% IV SCH; +SODIUM CHLORIDE 0.9% IVPB SCH; +Sodium Chloride 0.9% 1,000 ML IV SCH; +Sodium Chloride 0.9% 250 ML 250 ML IVPB SCH; +[UNRECOGNIZED DRUG - OTHER] IVPB SCH
[2018-11-23] MEDS ORDERED: Sodium Chloride 0.9% 20 ML ONE (09:55)
[2018-11-23 10:07] VITALS: BP 120/67; TEMP 97.7
== END 2018-11-23 14:51 | disposition home or self-care (01) ==
LOC: ONC/OP 09:47
PROVIDERS: ATTEND Internal Medicine Hematology & Oncology
DX: Z51.11 Encounter for antineoplastic chemotherapy (principal); C62.11 Malignant neoplasm of descended right testis
CPT/HCPCS: 96361; 96366; 96375; 96413; 96417; J1100; J1453; J1642; J2150; J2405; J3480; J3490; J7050; J9060; J9181

== ENCOUNTER 2018-11-24 13:27 | Day surgery (SDC) | payer OTHER ==
[~2018-11-24 13:27] MED LIST changes: -Sodium Chloride 0.9% 1,000 ML IV SCH; +Sodium Chloride 0.9% 500 ML IVPB SCH
[2018-11-24] MEDS ORDERED: Sodium Chloride 0.9% 20 ML ONE (13:30)
[2018-11-24 13:38] VITALS: BP 144/90
== END 2018-11-24 16:29 | disposition home or self-care (01) ==
LOC: ONC/OP 13:27
PROVIDERS: ATTEND Internal Medicine Hematology & Oncology
DX: Z51.11 Encounter for antineoplastic chemotherapy (principal); C62.11 Malignant neoplasm of descended right testis
CPT/HCPCS: 96361; 96367; 96375; 96413; 96417; J1100; J1642; J2150; J2405; J3480; J7050; J9060; J9181

== ENCOUNTER 2018-11-25 08:48 | Day surgery (SDC) | payer OTHER ==
[2018-11-25] MEDS ORDERED: Sodium Chloride 0.9% 20 ML ONE (08:55)
[2018-11-25 09:18] VITALS: BP 126/71; TEMP 97.7
== END 2018-11-25 14:37 | disposition home or self-care (01) ==
LOC: ONC/OP 08:48
PROVIDERS: ATTEND Internal Medicine Hematology & Oncology
DX: Z51.11 Encounter for antineoplastic chemotherapy (principal); C62.11 Malignant neoplasm of descended right testis
CPT/HCPCS: 96367; 96375; 96413; 96417; J1100; J1642; J2150; J2405; J3480; J7050; J9060; J9181

== ENCOUNTER 2018-11-26 08:52 | Day surgery (SDC) | payer OTHER ==
[~2018-11-26 08:52] MED LIST changes: -Sodium Chloride 0.9% 500 ML IVPB SCH
[2018-11-26] MEDS ORDERED: Sodium Chloride 0.9% 20 ML ONE (09:07)
== END 2018-11-26 13:14 | disposition home or self-care (01) ==
LOC: ONC/OP 08:52
PROVIDERS: ATTEND Internal Medicine Hematology & Oncology
DX: Z51.11 Encounter for antineoplastic chemotherapy (principal); C62.11 Malignant neoplasm of descended right testis
CPT/HCPCS: 96361; 96367; 96375; 96413; 96417; J1100; J1642; J2150; J2405; J3480; J7050; J9060; J9181

== ENCOUNTER 2018-11-27 09:38 | Day surgery (SDC) | payer MEDICAID, OTHER ==
[~2018-11-27 09:38] MED LIST changes: +Palonosetron HCl 0.25 MG in Sodium Chloride 0.9% 50 ML IVPB SCH; -Sodium Chloride 0.9% 250 ML 250 ML IVPB SCH; +Sodium Chloride 0.9% 500 ML IVPB SCH
[2018-11-27] MEDS ORDERED: Sodium Chloride 0.9% 20 ML ONE (09:42)
[2018-11-27 10:44] VITALS: BP 115/71; TEMP 98.2
== END 2018-11-27 13:08 | disposition home or self-care (01) ==
LOC: ONC/OP 09:38
PROVIDERS: ATTEND Internal Medicine Hematology & Oncology
DX: Z51.11 Encounter for antineoplastic chemotherapy (principal); C62.11 Malignant neoplasm of descended right testis
CPT/HCPCS: 96361; 96367; 96375; 96413; 96417; J1100; J1642; J2150; J2469; J3480; J7050; J9060; J9181

== ENCOUNTER 2018-12-14 10:47 | Day surgery (SDC) | payer MEDICAID ==
[~2018-12-14 10:47] MED LIST changes: -Palonosetron HCl 0.25 MG in Sodium Chloride 0.9% 50 ML IVPB SCH; +Sodium Chloride 0.9% 250 ML 250 ML IVPB SCH
[2018-12-14 11:03] VITALS: BP 106/66; TEMP 97.9
[2018-12-14] MEDS ORDERED: Sodium Chloride 0.9% 20 ML ONE (11:13)
== END 2018-12-14 16:13 | disposition home or self-care (01) ==
LOC: ONC/OP 10:47
PROVIDERS: ATTEND Internal Medicine Hematology & Oncology
DX: Z51.11 Encounter for antineoplastic chemotherapy (principal); C62.11 Malignant neoplasm of descended right testis
CPT/HCPCS: 36415; 80053; 82105; 82248; 83615; 84100; 84550; 84702; 96361; 96367; 96375; 96413; 96417; J1100; J1453; J1642; J2150; J2405; J3480; J3490; J7050; J9060; J9181

== ENCOUNTER 2018-12-15 08:45 | Day surgery (SDC) | payer MEDICAID, OTHER ==
[~2018-12-15 08:45] MED LIST changes: -Sodium Chloride 0.9% 250 ML 250 ML IVPB SCH
[2018-12-15] MEDS ORDERED: Sodium Chloride 0.9% 20 ML ONE (08:54)
[2018-12-15 09:38] VITALS: BP 117/79; TEMP 97.9
== END 2018-12-15 13:08 | disposition home or self-care (01) ==
LOC: ONC/OP 08:45
PROVIDERS: ATTEND Internal Medicine Hematology & Oncology
DX: Z51.11 Encounter for antineoplastic chemotherapy (principal); C62.11 Malignant neoplasm of descended right testis
CPT/HCPCS: 96361; 96367; 96375; 96413; 96417; J1100; J1642; J2150; J2405; J3480; J7050; J9060; J9181

== ENCOUNTER 2018-12-16 08:48 | Day surgery (SDC) | payer OTHER ==
[~2018-12-16 08:48] MED LIST changes: +Sodium Chloride 0.9% 250 ML 250 ML IVPB SCH
[2018-12-16] MEDS ORDERED: Sodium Chloride 0.9% 20 ML ONE (08:53)
[2018-12-16 09:12] VITALS: BP 129/71; TEMP 98
== END 2018-12-16 13:07 | disposition home or self-care (01) ==
LOC: ONC/OP 08:48
PROVIDERS: ATTEND Internal Medicine Hematology & Oncology
DX: Z51.11 Encounter for antineoplastic chemotherapy (principal); C62.11 Malignant neoplasm of descended right testis
CPT/HCPCS: 96361; 96367; 96375; 96413; 96417; J1100; J1642; J2150; J2405; J3480; J7050; J9060; J9181

== ENCOUNTER 2018-12-17 08:54 | Day surgery (SDC) | payer MEDICAID, OTHER ==
[2018-12-17] MEDS ORDERED: Sodium Chloride 0.9% 20 ML ONE (08:59)
[2018-12-17 09:31] VITALS: BP 112/67; TEMP 98.1
== END 2018-12-17 13:15 | disposition home or self-care (01) ==
LOC: ONC/OP 08:54
PROVIDERS: ATTEND Internal Medicine Hematology & Oncology
DX: Z51.11 Encounter for antineoplastic chemotherapy (principal); C62.11 Malignant neoplasm of descended right testis
CPT/HCPCS: 96366; 96375; 96413; 96417; J1100; J1642; J2150; J2405; J3480; J7050; J9060; J9181

== ENCOUNTER 2019-03-09 10:32 | Outpatient (CLI) | payer OTHER ==
--- NOTE | 2019-03-09 13:00 | CT ---
EXAM: CT chest, abdomen, and pelvis with IV contrast: HISTORY: Testicular cancer with lung, bone, and soft tissue metastatic disease. COMPARISON: 09/07/2018 FINDINGS: CT THORAX: Lungs: The left lower lobe pulmonary nodules have now resolved. There is suture material present in t he right middle lobe in the region of the previously noted large necrotic appearing mass abutting the mediastinum. There is residual nodular density in this region measuring 2.4 cm x 1.1 cm. This may be related to either residual or recurrent pulmonary nodule or possibly secondary to nodular area of scarring. No additional pulmonary nodule or mass is seen in the lungs bilaterally. Pleura: The small right pleural effusion has resolved. No pleural effusion is seen on today's exam. Lymph nodes: No enlarged lymph nodes are seen by CT size criteria. Mediastinum: A right subclavian Mediport catheter remains in place. Chest wall: No abnormalities CT ABDOMEN AND PELVIS: Liver: Within normal limits. Gallbladder: Within normal limits. \ Pancreas: Within normal limits. Spleen: Within normal limits. Adrenal glands: Within normal limits. Kidneys: Within normal limits. Urinary Bladder: Decompressed but normal in appearance. Reproductive organs: Within normal limits for patient's age. Bowel: Normal in caliber. Adenopathy:No enlarged lymph nodes are seen within the abdomen or pelvis by CT size criteria. Peritoneum: No free fluid or fluid collection is seen. No free intraperitoneal gas is identified. Abdominal wall: No abnormalities seen. Osseous structures: There is a stable compression fracture likely due to prior pathological compressi on fracture of the L1 vertebral body. Prominent Schmorl's node in the L3 vertebral body superior endplate is again seen. Destructive right iliac bone mass with periosteal reaction present. This is n ot significantly changed when compared to the prior exam. No new lytic or sclerotic osseous lesions are seen. There are a few stable sclerotic lesions within the left iliac bone measuring less than 1 c m. IMPRESSION: 1. Resolution of previously noted left lower lobe residual pulmonary nodules noted on the prior exam. 2. Interval postsurgical changes involving the large necrotic masslike lesion at the anteromedial asp ect of the right middle lobe. There is suture material now present in this region. There is a residual hypodense nodule present measuring 2.4 cm x 1.1 cm. This may represent either nodular area o f scarring or residual versus recurrent pulmonary nodule. No additional pulmonary nodule is seen within the lungs bilaterally. 3. Stable appearance of the destructive lesion involving the right iliac bone with stable subcentimet er sclerotic densities in the left iliac bone. No new osseous metastatic lesions are seen. 4. Stable appearance of healing pathologic fracture L1 vertebral body
== END 2019-03-09 10:33 | disposition home or self-care (01) ==
LOC: SCSCT 10:32
PROVIDERS: ATTEND Radiology Radiation Oncology
DX: C62.11 Malignant neoplasm of descended right testis (principal); C79.31 Secondary malignant neoplasm of brain; R91.8 Other nonspecific abnormal finding of lung field; Z98.890 Other specified postprocedural states
CPT/HCPCS: 71260; 74177

== ENCOUNTER 2019-04-04 00:09 | Emergency (ER) | payer OTHER ==
[2019-04-04] MEDS ORDERED: Ketorolac Tromethamine 30 MG/ML VIAL ONE (01:11)
== END 2019-04-04 01:38 | disposition home or self-care (01) ==
LOC: ERS 00:09
DX: M54.16 Radiculopathy, lumbar region (principal); Z87.891 Personal history of nicotine dependence
CPT/HCPCS: 96372; 99283; J1885

== ENCOUNTER 2019-04-24 04:38 | Emergency (ER) | payer OTHER, SELFPAY ==
[2019-04-24] MEDS ORDERED: Ketorolac Tromethamine 30 MG/ML VIAL ONE (05:47)
[2019-04-24] MEDS ORDERED: Dexamethasone 10 MG/ML VIAL ONE (05:47)
== END 2019-04-24 06:10 | disposition home or self-care (01) ==
LOC: ERS 04:38
DX: M54.41 Lumbago with sciatica, right side (principal); Z87.891 Personal history of nicotine dependence
CPT/HCPCS: 96372; 99283; J1100; J1885

== ENCOUNTER 2019-04-27 08:44 | Inpatient (IN) | payer OTHER, SELFPAY ==
[2019-04-27] MEDS ORDERED: Morphine 4 MG/ML VIAL ONE (09:15)
[2019-04-27] MEDS ORDERED: Morphine 4 MG/ML VIAL SLOW IVP PRN (09:26)
[2019-04-27 09:45] VITALS: BMI 27.0
[2019-04-27] MEDS ORDERED: PEGFILGRASTIM-JMDB 6 MG/0.6 ML SYRINGE SQ SCH (10:30)
[2019-04-27] MEDS ORDERED: ADMIXTURE FEE IV SCH (10:45)
[2019-04-27] MEDS ORDERED: Dexamethasone 4 MG TAB PO SCH ×2 (10:45→22:00)
[2019-04-27] MEDS ORDERED: SODIUM CHLORIDE 0.9% IVPB SCH ×5 (10:45→13:15)
[2019-04-27] MEDS ORDERED: Famotidine 40 MG/4 ML VIAL SLOW IVP SCH (10:45)
[2019-04-27] MEDS ORDERED: MESNA IV SCH (10:45)
[2019-04-27] MEDS ORDERED: CISPLATIN IV SCH ×2 (10:45→13:15)
[2019-04-27] MEDS ORDERED: ONDANSETRON HCL IVPB SCH (10:45)
[2019-04-27] MEDS ORDERED: diphenhydrAMINE 50 MG/ML VIAL IVP SCH (10:45)
[2019-04-27] MEDS ORDERED: DEXAMETHASONE IVPB SCH (10:45)
[2019-04-27] MEDS ORDERED: SODIUM CHLORIDE 0.9% IV SCH ×2 (10:45→13:15)
[2019-04-27] MEDS ORDERED: IFOSFAMIDE IVPB SCH ×2 (10:45→13:15)
[2019-04-27] MEDS ORDERED: Palonosetron HCl 0.25 MG in Sodium Chloride 0.9% 50 ML IVPB SCH (11:00)
[2019-04-27] MEDS ORDERED: PACLITAXEL IVPB SCH ×2 (11:00→12:30)
[2019-04-27] MEDS ORDERED: Guaifenesin DM 100-10/5 ML UDCUP PO PRN (11:07)
[2019-04-27] MEDS ORDERED: Ondansetron ODT 4 MG TAB PO PRN (11:07)
[2019-04-27] MEDS ORDERED: Acetaminophen 650 MG Suppository PR PRN (11:07)
[2019-04-27] MEDS ORDERED: HYDROcodone/Acetaminophen 10/325 mg Tablet PO PRN ×2 (11:07)
[2019-04-27] MEDS ORDERED: Acetaminophen 325 MG TAB PO PRN (11:07)
[2019-04-27] MEDS ORDERED: Famotidine/PF 20 mg/2ml Vial SLOW IVP SCH (11:15)
[2019-04-27] MEDS ORDERED: Morphine 4 MG/ML VIAL SLOW IVP SCH (11:15)
[2019-04-27] MEDS ORDERED: Bisacodyl 5 MG TAB PO PRN (11:31)
--- NOTE | 2019-04-27 12:14 | HP ---
PRIMARY CARE PHYSICIAN: [facility]. CHIEF COMPLAINT: Low back and radicular right leg pain. HISTORY OF PRESENT ILLNESS: This is a 28-year-old male with a known history of metastatic testicular cancer diagnosed last year, status post chemotherapy at that time. He also had a resection of a large necrotic metastatic mass to his lungs in about six months ago. The patient has not had recent medical care as the pain has been getting worse and worse in his low back and radiating down his right leg. He also has a little bit of weakness in his right leg. He ambulates with a cane. He started going to the ER multiple times recently for pain control. However, [place] and morphine that were given were not effective at all. Eventually, he decided to start getting medical care again and he went to [facility] and he also went back to see Dr. Romo. Dr. Romo has recommended that he try a course of chemotherapies to see if shrinking the tumors around his back will help decrease his pain, and is admitting to the hospital to start chemotherapy. Of note, when I first went to go see the patient, he was very angry about having to answer questions, very upset and that his pain had not been improved even though he did have a dose of 4 mg of morphine from Dr[address] Romo that caused no improvement. He actually got very agitated and angry and in little aggressive and then walked out of the room. No woman was with him when they got him and brought him back and then after speaking with the nurse, he did calm down and apologized. He stays he has been in a lot of pain for a long time and getting frustrated with it. However, he is willing to cooperate with history and physical and talking to different doctors and consultants that are necessary in order to get his pain taken care of. The patient does report that he has been constipated recently. No bowel movement in the last 3 days and no other associated symptoms. REVIEW OF SYSTEMS: CONSTITUTIONAL: No fevers. No chills. EYES: No double vision or blurred vision. ENT: No congestion, drainage, or sore throat. PULMONARY: No coughing or wheezing. CARDIOVASCULAR: No chest pain. No palpitations or racing heart. GASTROINTESTINAL: No abdominal pain. No nausea or vomiting. He does have constipation as per HPI. GENITOURINARY: No dysuria or hematuria. MUSCULOSKELETAL: He has pain as reported in the HPI. No other specific complaints. SKIN: No rashes or lesions. NEUROLOGIC: The patient reports weakness into his right leg and inability to spread his right toes. PAST MEDICAL HISTORY: 1. 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 2. Bronchitis. PAST SURGICAL HISTORY: 1. Right testicle removal. 2. Right thoracoscopy with removal of bulky tumor. 3. Chemo port placement. SOCIAL HISTORY: The patient has a longstanding smoking history. Previously used regular marijuana. No alcohol or other illicit drugs. FAMILY HISTORY: No significant family history. ALLERGIES: NO KNOWN DRUG ALLERGIES. CURRENT MEDICATIONS: 1. Gabapentin 300 mg 3 times a day. 2. Fentanyl patch 50 mcg transdermal q.3 days started yesterday. 3. Hydrocodone 5/325, taking two of them every 4 hours until he ran out without much improvement in pain. PHYSICAL EXAMINATION: VITAL SIGNS: Respiratory rate and heart rate within normal limits. Remainder of vital signs not have been taken. GENERAL: This is a well-developed, well-nourished male, in moderate distress from pain. HEENT: Pupils are equal, round, and reactive to light. Oropharynx is clear without lesions, erythema, or exudate. NECK: Supple. No lymphadenopathy. No thyroid nodules or enlargement. No JVD. HEART: Regular rate and rhythm. No murmurs, rubs, or gallops. LUNGS: Clear to auscultation bilaterally. No wheezes, crackles, or rhonchi. ABDOMEN: Soft, nontender to palpation. Normoactive bowel sounds. No hepatosplenomegaly or other masses. EXTREMITIES: No clubbing, cyanosis, or edema. SKIN: No rashes or lesions noted. NEUROLOGIC: The patient has some numbness and weakness in his right lower extremity. He is unable to flare his right toes. He is able to flex some though. He has intact dorsiflexion and plantar flexion of his ankle and has intact movement in the rest of his leg and most of his right lower extremity is just generalized weak. PSYCHIATRIC: Alert and oriented x3, now his affect has come down as normal. His mood is normal. LABORATORY DATA: Most recent complete metabolic panel was done on the 11th of this month and was normal except for a BUN of 22 and globulin of 2.3. His AFP at that time was elevated at 692. His HCG was normal. ASSESSMENT: 1. Metastatic testicular cancer. Plan is for chemotherapy done by Dr. Romo, who was already put orders in. 2. Intractable pain from metastases to the patient's spine. We will give a large dose of morphine, it has been about 2 hours since his last dose. We will try an 8 mg dose IV now and we will consult anesthesia to see if they can come and put him on a GRAPHIC ARTS INSTRUCTOR pump that has worked well in the past. Of note, he was on a Dilaudid GRAPHIC ARTS INSTRUCTOR pump about a year ago and did get some respiratory suppression from it. 3. Constipation. We will start the patient on Senokot 2 tabs each evening and Colace twice a day, and we will titrate up as needed to get regular soft bowel movements on the opiates. 4. Deep venous thrombosis prophylaxis. We will put the patient on enoxaparin daily and encourage ambulation as he is able. 5. Gastrointestinal prophylaxis. Put the patient on Pepcid twice a day. CODE STATUS: I did discuss this with the patient, he is a full code, should he be incapacitated. He states that he would like his aunt, Madalyn Watts to be his medical decision maker. They previously talked about her becoming his medical power of commercial attorney, however, they did not fill any paperwork and he would like to do that now. His uncle's phone number to contact her is [phone]. We will get Palliative Care involved to help with setting up the medical power of commercial attorney along with determining goals of care. Job ID: [id number]
[2019-04-27] MEDS ORDERED: MANNITOL IV SCH (13:15)
[2019-04-27] MEDS: Dexamethasone 10 MG in Sodium Chloride 0.9% 50 ML IVPB SCH (13:52)
[2019-04-27] MEDS: Gabapentin 300 MG CAP PO SCH ×2 (14:06→21:25)
[2019-04-27] MEDS ORDERED: diphenhydrAMINE 50 MG/ML VIAL IM/IV PRN (14:17)
[2019-04-27] MEDS ORDERED: diphenhydrAMINE 25 MG CAP PO PRN (14:17)
[2019-04-27] MEDS ORDERED: Promethazine HCl 25 MG/ML VIAL IM PRN (14:17)
[2019-04-27] MEDS ORDERED: Naloxone HCl 0.4 mg/ml Vial IV PRN (14:17)
[2019-04-27] MEDS ORDERED: Zolpidem Tartrate 5 MG TAB PO PRN (14:17)
[2019-04-27] MEDS ORDERED: Ondansetron PF 4 MG/2 ML Vial IVP PRN (14:17)
[2019-04-27] MEDS: HYDROmorphone 10 mg/100 ml CADD IV PRN (15:37)
[2019-04-27] MEDS ORDERED: Communication Order-Pharmacy FS PRN (19:00)
[2019-04-27] MEDS: Docusate 100 MG CAP PO SCH (21:25)
[2019-04-27] MEDS: Senokot 8.6 MG TAB PO SCH (21:25)
[2019-04-28 04:08] LABS: #Lymphocytes 0.8 thou/uL (1.20-3.40); #Neutrophils 7.2 thou/uL (1.40-6.50); %Basophils 0.2 % (0.0-1.0); %Eosinophils 0.1 % (0.0-10.0); %Lymphocytes 9.5 % (21.0-51.0); %Monocytes 0.3 % (0.0-10.0); %Neutrophils 89.9 % (42.0-75.0); Hemoglobin 15.3 g/dL (14.0-18.0); Mean Corpuscular HGB CONC 34.7 g/dL (32.0-36.0); Mean Corpuscular Hemoglobin 31.9 pg (27.0-31.0); Mean Corpuscular Volume 91.9 fL (78.0-98.0); Mean Platelet Volume 8.8 fL (7.4-10.4); Platelet Count 211 thou/uL (130-400); RBC Distribution Width 11.2 % (11.5-14.5); Red Blood Cell (RBC) Count 4.79 mill/uL (4.70-6.10)
[2019-04-28 04:33] LABS: ALT (SGPT) 22 U/L (8-55); AST (SGOT) 18 U/L (5-34); Albumin 5.1 g/dL (3.5-5.0); Alkaline Phosphatase 82 U/L (40-110); Anion Gap 13 mmol/L (10-20); BUN (Urea Nitrogen) 16 mg/dL (8.9-20.6); Bilirubin, Total 1.1 mg/dL (0.2-1.2); Calc. Creatinine Clearance 121 mL/min (70-130); Calcium 9.8 mg/dL (7.8-10.44); Carbon Dioxide 29 mmol/L (22-29); Chloride 99 mmol/L (98-107); Estimated GFR-MDRD 85; Glucose 139 mg/dL (70-105); Potassium 3.6 mmol/L (3.5-5.1); Protein, Total 8.1 g/dL (6.0-8.3); Sodium 137 mmol/L (136-145)
--- NOTE | 2019-04-28 07:22 | PDOC.HOSPP ---
- Subjective Encounter Date: 04/28/19 Encounter Time: 14:40 Subjective: Pain a little better controlled with the Dilaudid ELEVATED GUARD, still with continued persistent pain. Laxatives relieved the constipation, large soft BM. - Objective Vital Signs & Weight: Vital Signs (12 hours) Temp Pulse Resp BP Pulse Ox 04/28/19 04:00 97.8 F 101 H 20 138/87 98 04/27/19 23:55 98.2 F 109 H 16 160/96 H 94 L 04/27/19 20:00 100 Weight Weight 177 lb 12.8 oz I&O: 04/27/19 04/28/19 04/29/19 06:59 06:59 06:59 Intake Total 1050 Balance 1050 Result Diagrams: 04/28/19 03:46 04/28/19 03:46 Hospitalist ROS - Review of Systems Constitutional: denies: fever, chills Respiratory: denies: cough, shortness of breath Cardiovascular: denies: chest pain, palpitations Gastrointestinal: denies: nausea, vomiting, abdominal pain Musculoskeletal: reports: back pain, leg pain - Medication Medications: Active Medications Generic Name Dose Route Start Last Admin Trade Name Freq PRN Reason Stop Dose Admin Bisacodyl 10 mg 04/27/19 11:31 04/27/19 14:04 Dulcolax PO 10 mg DAILYPRN PRN Administration Constipation Diphenhydramine HCl 50 mg 04/27/19 10:45 04/27/19 14:09 Benadryl IVP 50 mg WILLCALL KIKE Administration Docusate Sodium 100 mg 04/27/19 21:00 04/27/19 21:25 Colace PO 100 mg BID KIKE Administration Famotidine 20 mg 04/27/19 11:15 04/27/19 14:09 Pepcid SLOW IVP 20 mg WILLCALL KIKE Administration Gabapentin 300 mg 04/27/19 15:00 04/27/19 21:25 Neurontin PO 300 mg TID KIKE Administration Hydromorphone HCl 0 mg 04/27/19 14:17 04/27/19 15:37 Dilaudid Cadd IV 10 mg INF PRN Administration Pain Paclitaxel 492.5 mg/ Sodium 582.0833 mls @ 0 mls/hr 04/27/19 12:30 04/27/19 15:42 Chloride IVPB 582.0833 mls WILLCALL KIKE Administration As Directed Dexamethasone 10 mg/ Sodium 51 mls @ 153 mls/hr 04/27/19 12:45 04/27/19 13:52 Chloride IVPB 51 mls WILLCALL KIKE Administration Senna 2 tab 04/27/19 21:00 04/27/19 21:25 Senokot PO 2 tab HS KIKE Administration - Exam General Appearance: NAD, awake alert Eye: anicteric sclera ENT: moist mucosa Heart: RRR, no murmur, no gallops, no rubs Respiratory: CTAB, no wheezes, no rales, no ronchi Gastrointestinal: soft, non-tender, non-distended, normal bowel sounds Psychiatric: normal affect, normal behavior, A&O x 3 Hosp A/P (1) Testicular malignancy Code(s): C62.90 - MALIG NEOPLASM OF UNSP TESTIS, UNSP DESCENDED OR UNDESCENDED Status: Chronic Qualifiers: Laterality: right (2) Bone metastases Code(s): C79.51 - SECONDARY MALIGNANT NEOPLASM OF BONE Status: Chronic (3) Intractable pain Code(s): R52 - PAIN, UNSPECIFIED Status: Chronic (4) Sciatic leg pain Code(s): M54.30 - SCIATICA, UNSPECIFIED SIDE Status: Chronic - Plan out of bed/ambulate Patient on Dilaudid ELEVATED GUARD, appreciate anesthesia assistance Starting Platinol chemotherapy DVT prophylaxis- Lovenox
[2019-04-28] MEDS: Docusate 100 MG CAP PO SCH ×2 (09:10→21:03)
[2019-04-28] MEDS: Gabapentin 300 MG CAP PO SCH ×3 (09:10→21:03)
[2019-04-28] MEDS: Enoxaparin Sodium 40 MG/0.4 ML SYRINGE SC SCH (09:11)
--- NOTE | 2019-04-28 10:46 | PDOC.MOPN ---
Interval History: complains of pain 8/10 when sitting/walking. Appears comfortable at this time. Dilaudid house worker on. - Vital Signs Vital Signs: Vital Signs (12 hours) Temp Pulse Resp BP Pulse Ox 04/28/19 07:50 98.3 F 85 16 133/87 96 04/28/19 07:40 98 04/28/19 04:00 97.8 F 101 H 20 138/87 98 04/27/19 23:55 98.2 F 109 H 16 160/96 H 94 L Weight Weight 177 lb 12.8 oz - Physical Exam General: Alert, Oriented x3, No acute distress HEENT: Atraumatic, PERRLA, EOMI, Mucous membr. moist/pink Lungs: Clear to auscultation, Normal air movement Cardiovascular: Regular rate, Normal S1, Normal S2, No murmurs, Gallops, Rubs Abdomen: Normal bowel sounds, Soft, No tenderness, No hepatospenomegaly, No masses Extremities: No clubbing, No cyanosis, No edema, Normal pulses, No tenderness/ swelling Skin: No rashes, No breakdown, No significant lesion Neurological: Normal gait, Normal speech, Strength at 5/5 X4 ext, Normal tone, Sensation intact, Cranial nerves 3-12 NL, Reflexes 2+ Psych/Mental Status: Mental status NL, Mood NL - Labs Result Diagrams: 04/28/19 03:46 04/28/19 03:46 Lab results: Laboratory Results - last 24 hr 04/28/19 03:46: Tumor Marker AFP 995.1 H 04/28/19 03:46: Sodium 137, Potassium 3.6, Chloride 99, Carbon Dioxide 29, Anion Gap 13, BUN 16, Creatinine 1.03, Estimated GFR (MDRD) 85, Glucose 139 H, Calcium 9.8, Total Bilirubin 1.1, AST 18, ALT 22, Alkaline Phosphatase 82, Serum Total Protein 8.1, Albumin 5.1 H, Globulin 3.0, Albumin/Globulin Ratio 1.7 04/28/19 03:46: WBC 8.0, RBC 4.79, Hgb 15.3, Hct 44.0, MCV 91.9, MCH 31.9 H, MCHC 34.7, RDW 11.2 L, Plt Count 211, MPV 8.8, Neutrophils % 89.9 H, Lymphocytes % 9.5 L, Monocytes % 0.3, Eosinophils % 0.1, Basophils % 0.2, Neutrophils # 7.2 H, Lymphocytes # 0.8 L, Monocytes # 0.0 L, Eosinophils # 0.0, Basophils # 0.0 Status: lab reviewed by me A/P - Problem (1) Testicular malignancy Current Visit: No Code(s): C62.90 - MALIG NEOPLASM OF UNSP TESTIS, UNSP DESCENDED OR UNDESCENDED Status: Chronic Qualifiers: Laterality: right - Plan Plan: C1D2 chemo. Neuro checks q4h. No changes in neuro status noted. Pain management per Anesthesia
[2019-04-28] MEDS ORDERED: SODIUM CHLORIDE 0.9% IV SCH ×3 (12:30→13:15)
[2019-04-28] MEDS ORDERED: MESNA IV SCH ×3 (12:30→13:15)
[2019-04-28] MEDS ORDERED: IFOSFAMIDE IVPB SCH ×2 (13:15→13:45)
[2019-04-28] MEDS ORDERED: SODIUM CHLORIDE 0.9% IVPB SCH ×2 (13:15→13:45)
[2019-04-28] MEDS ORDERED: MESNA IVPB SCH (13:45)
[2019-04-28] MEDS: Ondansetron PF 4 MG/2 ML Vial IVP PRN (16:24)
[2019-04-28] MEDS: Dexamethasone 10 MG in Sodium Chloride 0.9% 50 ML IVPB SCH (17:47)
--- NOTE | 2019-04-28 19:03 | PDOC.EVN ---
Event Note - Event Note Event Note: Called by nurse with report that patient was speaking on the phone to someone, planning to arrange gun to kill himself with once he gets out of the hospital. He became very agitated and aggressive. Declaring that he was going to leave the hospital right now. Security called. Patient is receiving chemotherapy to try and help control pain. Not in any urgent medical danger. Since refusing to stay in the hospital and expressing suicidal ideation, will need to have [facility] come evaluate him. He is medically clear from our standpoint for psych eval and institutionalization if he is refusing treatment and declaring intention to go home and commit suicide. I spoke with Dr. Romo and he agrees.
[2019-04-28] MEDS: Senokot 8.6 MG TAB PO SCH (21:03)
[2019-04-28] MEDS: Sodium Chloride 0.9% 250 ML 250 ML IVPB SCH ×2 (21:34→23:41)
[2019-04-28] MEDS: SODIUM CHLORIDE 0.9% IV SCH (22:15)
[2019-04-28] MEDS: MANNITOL IV SCH (22:15)
[2019-04-28] MEDS: CISPLATIN IV SCH (22:15)
[2019-04-29] MEDS: SODIUM CHLORIDE 0.9% IV SCH ×3 (05:30→17:59)
[2019-04-29] MEDS: MESNA IV SCH ×2 (05:30→09:21)
--- NOTE | 2019-04-29 07:16 | PDOC.HOSPP ---
- Subjective Encounter Date: 04/29/19 Encounter Time: 12:00 Subjective: Patient sleeping in bed. Easily arousable. Doesn't want to talk but denies any current suicidal ideations. Had episode of threatening to leave last night and speaking to someone on the phone about needing a gun to kill himself. [facility] came by and he calmed down, willing to stay for chemotherapy and pain control, no active SI. States he was just upset and spoke rashly about it. Cleared by [facility] to stay and receive treatments, f/u with [facility] outpatient after discharge. Vomited some yesterday, no problem today. - Objective Vital Signs & Weight: Vital Signs (12 hours) Temp Pulse Resp BP BP Pulse Ox 04/29/19 04:00 98.3 F 83 16 125/72 97 04/29/19 00:00 97.9 F 83 18 139/95 H 97 04/28/19 20:44 98.6 F 100 20 137/96 H 98 04/28/19 20:00 98.6 F 100 20 137/96 H 98 Weight Weight 177 lb 12.8 oz I&O: 04/28/19 04/29/19 04/30/19 06:59 06:59 06:59 Intake Total 1050 257.0 Balance 1050 257.0 Result Diagrams: 04/28/19 03:46 04/28/19 03:46 Hospitalist ROS - Review of Systems Constitutional: denies: fever, chills Respiratory: denies: cough, shortness of breath Cardiovascular: denies: chest pain, palpitations, orthopnea Gastrointestinal: reports: vomiting. denies: nausea, abdominal pain Musculoskeletal: reports: back pain, leg pain - Medication Medications: Active Medications Generic Name Dose Route Start Last Admin Trade Name Freq PRN Reason Stop Dose Admin Bisacodyl 10 mg 04/27/19 11:31 04/27/19 14:04 Dulcolax PO 10 mg DAILYPRN PRN Administration Constipation Diphenhydramine HCl 50 mg 04/27/19 10:45 04/27/19 14:09 Benadryl IVP 50 mg WILLCALL KIKE Administration Docusate Sodium 100 mg 04/27/19 21:00 04/28/19 21:03 Colace PO 100 mg BID KIKE Administration Enoxaparin Sodium 40 mg 04/28/19 09:00 04/28/19 09:11 Lovenox SC 40 mg 0900 KIKE Administration Famotidine 20 mg 04/27/19 11:15 04/27/19 14:09 Pepcid SLOW IVP 20 mg WILLCALL KIKE Administration Gabapentin 300 mg 04/27/19 15:00 04/28/19 21:03 Neurontin PO 300 mg TID KIKE Administration Hydromorphone HCl 0 mg 04/27/19 14:17 04/27/19 15:37 Dilaudid Cadd IV 10 mg INF PRN Administration Pain Sodium Chloride 250 mls @ 0 mls/hr 04/27/19 10:45 04/28/19 23:41 Normal Saline 0.9% 250 Ml Bag IVPB 250 mls WILLCALL KIKE Administration As Directed Palonosetron 0.25 mg/ Sodium 55 mls @ 165 mls/hr 04/27/19 11:00 04/28/19 17: 06 Chloride IVPB 55 mls WILLCALL KIKE Administration Fosaprepitant 150 mg/ Sodium 145 mls @ 290 mls/hr 04/27/19 11:00 04/28/19 18: 11 Chloride IVPB 145 mls WILLCALL KIKE Administration Paclitaxel 492.5 mg/ Sodium 582.0833 mls @ 0 mls/hr 04/27/19 12:30 04/27/19 15:42 Chloride IVPB 582.0833 mls WILLCALL KIKE Administration As Directed Dexamethasone 10 mg/ Sodium 51 mls @ 153 mls/hr 04/27/19 12:45 04/28/19 17:47 Chloride IVPB 51 mls WILLCALL KIKE Administration Cisplatin 49 mg/ Mannitol 12.5 349 mls @ 349 mls/hr 04/28/19 13:15 04/28/19 22:15 gm/ Sodium Chloride IV 05/01/19 23:30 349 mls WILLCALL KIKE Administration Mesna 0.985 gm/ Sodium 59.85 mls @ 0 mls/hr 04/28/19 13:30 04/29/19 05:30 Chloride IV 05/01/19 23:00 59.85 mls WILLCALL KIKE Administration As Directed Ifosfamide 2,955 mg/ Mesna 0. 1,068.95 mls @ 1,068.95 mls/hr 04/28/19 13:45 04/29/19 00:16 985 gm/ Sodium Chloride IVPB 05/01/19 23:00 1,068.95 mls WILLCALL KIKE Administration Ondansetron HCl 4 mg 04/27/19 11:07 04/28/19 16:24 Zofran IVP 4 mg Q6H PRN Administration Nausea/Vomiting Senna 2 tab 04/27/19 21:00 04/28/19 21:03 Senokot PO 2 tab HS KIKE Administration - Exam General Appearance: NAD Eye: anicteric sclera ENT: moist mucosa Heart: RRR, no murmur, no gallops, no rubs Respiratory: CTAB, no wheezes, no rales, no ronchi Gastrointestinal: soft, non-tender Psychiatric - other findings: sleeping, not talkative today Hosp A/P (1) Testicular malignancy Code(s): C62.90 - MALIG NEOPLASM OF UNSP TESTIS, UNSP DESCENDED OR UNDESCENDED Status: Chronic Qualifiers: Laterality: right (2) Bone metastases Code(s): C79.51 - SECONDARY MALIGNANT NEOPLASM OF BONE Status: Chronic (3) Intractable pain Code(s): R52 - PAIN, UNSPECIFIED Status: Chronic (4) Sciatic leg pain Code(s): M54.30 - SCIATICA, UNSPECIFIED SIDE Status: Chronic (5) Depression Code(s): F32.9 - MAJOR DEPRESSIVE DISORDER, SINGLE EPISODE, UNSPECIFIED Status : Acute Qualifiers: Depression Type: reactive depression Qualified Code(s): F32.9 - Major depressive disorder, single episode, unspecified - Plan Patient on Dilaudid 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 DVT prophylaxis- Lovenox
--- NOTE | 2019-04-29 07:48 | PDOC.MOPN ---
Interval History: The full Consult Dictation was not published by dictating company. Will be re- dictated. In brief, pt has stage IIIC testicular cancer with mets to lung and bone. He received BEP x 4 cycles followed by lung resection of a residual mass, followed by EP x 2 cycles, was planned for XRT to residual bone met but pt no- showed to treatment and then declined. His AFP has dramatically increased and pt has now agreed to salvage chemotherapy, TIP. He c/o severe back and leg pain , has not been on anything at home because he says he could not afford it. He has no other complaints. He is very frustrated with "the system" and says all doctors and nurses are only seeing him for the money and don't care about him at all. - Vital Signs Vital Signs: Vital Signs (12 hours) Temp Pulse Resp BP BP Pulse Ox 04/29/19 04:00 98.3 F 83 16 125/72 97 04/29/19 00:00 97.9 F 83 18 139/95 H 97 04/28/19 20:44 98.6 F 100 20 137/96 H 98 04/28/19 20:00 98.6 F 100 20 137/96 H 98 Weight Weight 177 lb 12.8 oz - Physical Exam General: Alert, Oriented x3, Moderate distress Lungs: Normal air movement Cardiovascular: Regular rate Abdomen: Soft, No tenderness Neurological: Cranial nerves 3-12 NL Psych/Mental Status: Other (angry, in pain) - Labs Result Diagrams: 04/28/19 03:46 04/28/19 03:46 Lab results: Laboratory Results - last 24 hr 04/29/19 05:40: Tumor Marker AFP 926.9 H A/P - Problem (1) Depression Current Visit: Yes Code(s): F32.9 - MAJOR DEPRESSIVE DISORDER, SINGLE EPISODE , UNSPECIFIED Status: Acute Qualifiers: Depression Type: reactive depression Qualified Code(s): F32.9 - Major depressive disorder, single episode, unspecified (2) Bone metastases Current Visit: No Code(s): C79.51 - SECONDARY MALIGNANT NEOPLASM OF BONE Status: Chronic (3) Testicular malignancy Current Visit: No Code(s): C62.90 - MALIG NEOPLASM OF UNSP TESTIS, UNSP DESCENDED OR UNDESCENDED Status: Chronic Qualifiers: Laterality: right - Plan Plan: start TIP, Fulphila day after completing chemotherapy fentanyl, morphine for pain - consider FLORIST HELPER bowel regimen neuro checks q4h, including hand writing and tremors
--- NOTE | 2019-04-29 08:42 | PDOC.MOPN ---
Interval History: Pt feeling better today after depressive/suicidal ideation episode last night. He was evaluated by [facility] last night and cleared to remain alone in his room and cont treatment. His pain is better controlled on the CONSTRUCTION FOREMAN and he is sleeping better. No more constipation. No new neurologic deficits. Vomited twice yesterday. - Vital Signs Vital Signs: Vital Signs (12 hours) Temp Pulse Resp BP BP Pulse Ox 04/29/19 04:00 98.3 F 83 16 125/72 97 04/29/19 00:00 97.9 F 83 18 139/95 H 97 04/28/19 20:44 98.6 F 100 20 137/96 H 98 Weight Weight 177 lb 12.8 oz - Physical Exam General: Alert, Oriented x3, Cooperative HEENT: EOMI Lungs: Normal air movement Cardiovascular: Regular rate Neurological: Cranial nerves 3-12 NL, Other (no tremords) Psych/Mental Status: Other (depressed) - Labs Result Diagrams: 04/28/19 03:46 04/28/19 03:46 Lab results: Laboratory Results - last 24 hr 04/29/19 05:40: Tumor Marker AFP 926.9 H A/P - Problem (1) Depression Current Visit: Yes Code(s): F32.9 - MAJOR DEPRESSIVE DISORDER, SINGLE EPISODE , UNSPECIFIED Status: Acute Qualifiers: Depression Type: reactive depression Qualified Code(s): F32.9 - Major depressive disorder, single episode, unspecified (2) Bone metastases Current Visit: No Code(s): C79.51 - SECONDARY MALIGNANT NEOPLASM OF BONE Status: Chronic (3) Testicular malignancy Current Visit: No Code(s): C62.90 - MALIG NEOPLASM OF UNSP TESTIS, UNSP DESCENDED OR UNDESCENDED Status: Chronic Qualifiers: Laterality: right - Plan Plan: Cont chemotherapy with neurochecks q4h including writing names and check for tremors cont CONSTRUCTION FOREMAN cont bowel regimen Has received premedication anti-emetics: zofran prn monitor for depression/suicidal ideations
--- NOTE | 2019-04-29 09:14 | CON ---
DATE OF CONSULTATION: REASON FOR CONSULTATION: Testicular cancer. HISTORY OF PRESENT ILLNESS: A 28-year-old male, with testicular cancer, presenting to the hospital for chemotherapy. The patient was initially diagnosed in teen with stage IIIC metastatic disease and had orchiectomy followed by BEP chemotherapy x 4 cycles with very good response with limited residual disease in lung and bone. He had an excision of a right mediastinal mass in September followed by EP x 2 cycles and was planned to have radiation to his residual bone disease; however, the patient no- showed to his treatment. The patient has progressed further with large increased tumor markers. He has severe back and leg pain from pathologic fracture and bone mets and has been unable to afford this medicine. He has constipation, which he states is from being unable to push due to severe pain. He has no other complaints including vomiting, fevers, shortness of breath, cough. REVIEW OF SYSTEMS: Ten-point review of systems negative except as per HPI. PAST MEDICAL HISTORY: caner of testicle. PAST SURGICAL HISTORY: Right orchiectomy, right thoracoscopy, and MediPort placement. SOCIAL HISTORY: Tobacco and marijuana. FAMILY HISTORY: No cancer. ALLERGIES: NO KNOWN DRUG ALLERGIES. CURRENT MEDS: Reviewed PHYSICAL EXAMINATION: VITAL SIGNS: Stable. GENERAL: The patient is lying in bed, in distress from pain. HEENT: Normocephalic and atraumatic. NECK: Supple. CARDIAC: S1S2, RRR. ABDOMEN: Soft and distended. NEUROLOGIC: The patient is walking with a cane and moves very slowly in both extremities secondary to pain. PSYCHIATRIC: Alert and oriented x3. LABORATORY DATA: Most recent blood work from the cancer clinic on April 07 showed white blood cells 8.3, hemoglobin 13.6, and platelets 230. BUN 22, creatinine 0.91, and an AFP of 692.6, which had increased from 50.9 on February 10. ASSESSMENT AND PLAN: A 28-year-old male with metastatic testicular cancer, being admitted to the hospital for TIP chemotherapy, which consists of Taxol, Ifex, and cisplatin. The patient will receive Taxol 24-hour infusion on day 1 and days 2 through 5 will receive cisplatin, Mesna, and Ifex. He will need regular neurological checks including hand writing daily to evaluate for potential neurologic toxicity including cerebellar toxicity. We will continue his fentanyl patch and start him on IV morphine for pain control. He received premedication with Benadryl, steroids, Pepcid, or Taxol and antiemetics including Aloxi and p.r.n. Zofran. The patient will receive Fulphila the day after finishing chemotherapy. If everything is okay at that point, he can be discharged home and will repeat this in another three weeks. Job ID: [id number] [id number]
[2019-04-29] MEDS: Gabapentin 300 MG CAP PO SCH ×4 (09:19→21:00)
[2019-04-29] MEDS: Enoxaparin Sodium 40 MG/0.4 ML SYRINGE SC SCH (09:19)
[2019-04-29] MEDS: Docusate 100 MG CAP PO SCH ×3 (09:21→21:00)
--- NOTE | 2019-04-29 13:05 | NM ---
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 No suspicious scintigraphic evidence to suggest new osseous metastatic lesions. IMPRESSION: Findings most consistent with response to therapy. No residual abnormal radiotracer accum ulation is seen within the foci of osseous metastatic disease involving the right iliac bone, left second rib, L1 vertebral level and L3 vertebral level.
[2019-04-29] MEDS: fentaNYL 50 mcg/hour Patch TD SCH (13:25)
[2019-04-29] MEDS: Dexamethasone 10 MG in Sodium Chloride 0.9% 50 ML IVPB SCH (16:17)
[2019-04-29] MEDS: Ondansetron 2MG/ML MDV 8 MG in Sodium Chloride 0.9% 50 ML IVPB SCH (16:40)
[2019-04-29] MEDS: Sodium Chloride 0.9% 250 ML 250 ML IVPB SCH ×2 (17:19→19:10)
[2019-04-29] MEDS: MANNITOL IV SCH (17:59)
[2019-04-29] MEDS: CISPLATIN IV SCH (17:59)
[2019-04-29] MEDS: SODIUM CHLORIDE 0.9% IVPB SCH (19:57)
[2019-04-29] MEDS: IFOSFAMIDE IVPB SCH (19:57)
[2019-04-29] MEDS: MESNA IVPB SCH (19:57)
[2019-04-29] MEDS: Senokot 8.6 MG TAB PO SCH ×2 (20:01→21:00)
[2019-04-30] MEDS: SODIUM CHLORIDE 0.9% IV SCH ×4 (01:31→22:46)
[2019-04-30] MEDS: MESNA IV SCH ×3 (01:31→22:46)
[2019-04-30 05:54] LABS: #Lymphocytes 1.3 thou/uL (1.20-3.40); #Monocytes 0.1 thou/uL (0.11-0.59); #Neutrophils 5.7 thou/uL (1.40-6.50); %Basophils 0.1 % (0.0-1.0); %Eosinophils 0.1 % (0.0-10.0); %Lymphocytes 18.7 % (21.0-51.0); %Monocytes 1.4 % (0.0-10.0); %Neutrophils 79.7 % (42.0-75.0); Hemoglobin 11.8 g/dL (14.0-18.0); Mean Corpuscular HGB CONC 34.4 g/dL (32.0-36.0); Mean Corpuscular Hemoglobin 31.2 pg (27.0-31.0); Mean Corpuscular Volume 90.7 fL (78.0-98.0); Mean Platelet Volume 9.8 fL (7.4-10.4); Platelet Count 135 thou/uL (130-400); RBC Distribution Width 11.1 % (11.5-14.5); Red Blood Cell (RBC) Count 3.79 mill/uL (4.70-6.10); White Blood Cell (WBC) Count 7.2 thou/uL (4.8-10.8)
[2019-04-30 06:30] LABS: ALT (SGPT) 21 U/L (8-55); AST (SGOT) 17 U/L (5-34); Albumin 3.8 g/dL (3.5-5.0); Alkaline Phosphatase 53 U/L (40-110); Anion Gap 10 mmol/L (10-20); BUN (Urea Nitrogen) 16 mg/dL (8.9-20.6); Bilirubin, Total 0.9 mg/dL (0.2-1.2); Calc. Creatinine Clearance 166 mL/min (70-130); Calcium 8.4 mg/dL (7.8-10.44); Carbon Dioxide 24 mmol/L (22-29); Chloride 106 mmol/L (98-107); Estimated GFR-MDRD Greater than 90; Glucose 88 mg/dL (70-105); Potassium 3.9 mmol/L (3.5-5.1); Protein, Total 5.8 g/dL (6.0-8.3); Sodium 136 mmol/L (136-145)
[2019-04-30] MEDS: Enoxaparin Sodium 40 MG/0.4 ML SYRINGE SC SCH (09:38)
[2019-04-30] MEDS: Gabapentin 300 MG CAP PO SCH ×3 (09:38→19:54)
[2019-04-30] MEDS: Docusate 100 MG CAP PO SCH ×2 (09:38→19:57)
--- NOTE | 2019-04-30 11:08 | PDOC.HOSPP ---
- Subjective Encounter Date: 04/30/19 Encounter Time: 07:30 Subjective: c/o pain.. - Objective Vital Signs & Weight: Vital Signs (12 hours) Temp Pulse Resp BP Pulse Ox 04/30/19 10:51 98.4 F 77 16 138/84 04/30/19 04:00 97.9 F 80 16 137/79 98 04/30/19 00:00 98.2 F 75 16 160/83 H 98 Weight Admit Weight 177 lb 12.8 oz Weight 177 lb 12.8 oz I&O: 04/29/19 04/30/19 05/01/19 06:59 06:59 06:59 Intake Total 257.0 1990 Output Total 2450 Balance 257.0 -460 Result Diagrams: 04/30/19 05:14 04/30/19 05:14 Hospitalist ROS - Medication Medications: Active Medications Generic Name Dose Route Start Last Admin Trade Name Freq PRN Reason Stop Dose Admin Bisacodyl 10 mg 04/27/19 11:31 04/27/19 14:04 Dulcolax PO 10 mg DAILYPRN PRN Administration Constipation Diphenhydramine HCl 50 mg 04/27/19 10:45 04/27/19 14:09 Benadryl IVP 50 mg WILLCALL KIKE Administration Docusate Sodium 100 mg 04/27/19 21:00 04/30/19 09:38 Colace PO 100 mg BID KIKE Administration Enoxaparin Sodium 40 mg 04/28/19 09:00 04/30/19 09:38 Lovenox SC 40 mg 0900 KIKE Administration Famotidine 20 mg 04/27/19 11:15 04/27/19 14:09 Pepcid SLOW IVP 20 mg WILLCALL KIKE Administration Fentanyl 50 mcg 04/29/19 13:00 04/29/19 13:25 Duragesic TD 50 mcg Q3D KIKE Administration Gabapentin 300 mg 04/27/19 15:00 04/30/19 09:38 Neurontin PO 300 mg TID KIKE Administration Hydromorphone HCl 0 mg 04/27/19 14:17 04/27/19 15:37 Dilaudid Cadd IV 10 mg INF PRN Administration Pain Sodium Chloride 250 mls @ 0 mls/hr 04/27/19 10:45 04/29/19 19:10 Normal Saline 0.9% 250 Ml Bag IVPB 250 mls WILLCALL KIKE Administration As Directed Palonosetron 0.25 mg/ Sodium 55 mls @ 165 mls/hr 04/27/19 11:00 04/28/19 17: 06 Chloride IVPB 55 mls WILLCALL KIKE Administration Fosaprepitant 150 mg/ Sodium 145 mls @ 290 mls/hr 04/27/19 11:00 04/28/19 18: 11 Chloride IVPB 145 mls WILLCALL KIKE Administration Paclitaxel 492.5 mg/ Sodium 582.0833 mls @ 0 mls/hr 04/27/19 12:30 04/27/19 15:42 Chloride IVPB 582.0833 mls WILLCALL KIKE Administration As Directed Dexamethasone 10 mg/ Sodium 51 mls @ 153 mls/hr 04/27/19 12:45 04/29/19 16:17 Chloride IVPB 51 mls WILLCALL KIKE Administration Cisplatin 49 mg/ Mannitol 12.5 349 mls @ 349 mls/hr 04/28/19 13:15 04/29/19 17:59 gm/ Sodium Chloride IV 05/01/19 23:30 349 mls WILLCALL KIKE Administration Ondansetron HCl 8 mg/ Sodium 54 mls @ 108 mls/hr 04/29/19 13:45 04/29/19 16: 40 Chloride IVPB 05/01/19 23:30 54 mls WILLCALL KIKE Administration [place] 0.985 gm/ Sodium 59.85 mls @ 0 mls/hr 04/28/19 13:30 04/30/19 05:32 Chloride IV 05/01/19 23:00 59.85 mls WILLCALL KIKE Administration As Directed Ifosfamide 2.955 gm/ [place] 0. 1,068.95 mls @ 1,068.95 mls/hr 04/29/19 14:30 04/29/19 19:57 985 gm/ Sodium Chloride IVPB 1,068.95 mls WILLCALL KIKE Administration Ondansetron HCl 4 mg 04/27/19 11:07 04/28/19 16:24 Zofran IVP 4 mg Q6H PRN Administration Nausea/Vomiting [place] 2 tab 04/27/19 21:00 04/29/19 21:00 Senokot PO Not Given HS KIKE - Exam General Appearance: NAD Neck: no JVD Heart: RRR Respiratory: CTAB Gastrointestinal: soft Extremities: no edema Neurological: no weakness Psychiatric: A&O x 3 (Depressed,) Hosp A/P (1) Depression Code(s): F32.9 - MAJOR DEPRESSIVE DISORDER, SINGLE EPISODE, UNSPECIFIED Status : Acute Qualifiers: Depression Type: reactive depression Qualified Code(s): F32.9 - Major depressive disorder, single episode, unspecified (2) Bone metastases Code(s): C79.51 - SECONDARY MALIGNANT NEOPLASM OF BONE Status: Chronic (3) Intractable pain Code(s): R52 - PAIN, UNSPECIFIED Status: Chronic (4) Sciatic leg pain Code(s): M54.30 - SCIATICA, UNSPECIFIED SIDE Status: Chronic (5) Testicular malignancy Code(s): C62.90 - MALIG NEOPLASM OF UNSP TESTIS, UNSP DESCENDED OR UNDESCENDED Status: Chronic Qualifiers: Laterality: right - Plan Continue chemotherapy, IV fluids, narcotics... Was seen by psych.
[2019-04-30] MEDS: Ondansetron 2MG/ML MDV 8 MG in Sodium Chloride 0.9% 50 ML IVPB SCH (12:24)
[2019-04-30] MEDS: Dexamethasone 10 MG in Sodium Chloride 0.9% 50 ML IVPB SCH (13:01)
[2019-04-30] MEDS: Sodium Chloride 0.9% 250 ML 250 ML IVPB SCH ×2 (13:29→15:58)
--- NOTE | 2019-04-30 13:42 | PDOC.MOPN ---
Interval History: sleeping. Nurse states had nausea earlier. Pain controlled. - Vital Signs Vital Signs: Vital Signs (12 hours) Temp Pulse Resp BP Pulse Ox 04/30/19 10:51 98.4 F 77 16 138/84 04/30/19 08:00 98.4 F 77 16 138/84 04/30/19 04:00 97.9 F 80 16 137/79 98 Weight Admit Weight 177 lb 12.8 oz Weight 177 lb 12.8 oz - Physical Exam General: Alert, Oriented x3, No acute distress HEENT: Atraumatic, PERRLA, EOMI, Mucous membr. moist/pink Lungs: Clear to auscultation, Normal air movement Cardiovascular: Regular rate, Normal S1, Normal S2, No murmurs, Gallops, Rubs Abdomen: Normal bowel sounds, Soft, No tenderness, No hepatospenomegaly, No masses Extremities: No clubbing, No cyanosis, No edema, Normal pulses, No tenderness/ swelling Skin: No rashes, No breakdown, No significant lesion Neurological: Normal gait, Normal speech, Strength at 5/5 X4 ext, Normal tone, Sensation intact, Cranial nerves 3-12 NL, Reflexes 2+ - Labs Result Diagrams: 04/30/19 05:14 04/30/19 05:14 Lab results: Laboratory Results - last 24 hr 04/30/19 05:14: Sodium 136, Potassium 3.9, Chloride 106, Carbon Dioxide 24, Anion Gap 10, BUN 16, Creatinine 0.75, Estimated GFR (MDRD) Greater than 90, Glucose 88, Calcium 8.4, Total Bilirubin 0.9, AST 17, ALT 21, Alkaline Phosphatase 53, Serum Total Protein 5.8 L, Albumin 3.8, Globulin 2.0 L, Albumin/ Globulin Ratio 1.9 04/30/19 05:14: WBC 7.2, RBC 3.79 L, Hgb 11.8 L, Hct 34.4 L, MCV 90.7, MCH 31.2 H, MCHC 34.4, RDW 11.1 L, Plt Count 135, MPV 9.8, Neutrophils % 79.7 H, Lymphocytes % 18.7 L, Monocytes % 1.4, Eosinophils % 0.1, Basophils % 0.1, Neutrophils # 5.7, Lymphocytes # 1.3, Monocytes # 0.1 L, Eosinophils # 0.0, Basophils # 0.0 A/P - Problem (1) Testicular malignancy Current Visit: No Code(s): C62.90 - MALIG NEOPLASM OF UNSP TESTIS, UNSP DESCENDED OR UNDESCENDED Status: Chronic Qualifiers: Laterality: right - Plan Plan: C1D5 chemo, tolerating well. Continue fluid, antiemetics, neuro checks Fulphila after chemo [employer] for pain per anesthesia.
[2019-04-30] MEDS: CISPLATIN IV SCH (14:29)
[2019-04-30] MEDS: MANNITOL IV SCH (14:29)
[2019-04-30] MEDS: SODIUM CHLORIDE 0.9% IVPB SCH (16:27)
[2019-04-30] MEDS: IFOSFAMIDE IVPB SCH (16:27)
[2019-04-30] MEDS: MESNA IVPB SCH (16:27)
[2019-04-30] MEDS: Ondansetron PF 4 MG/2 ML Vial IVP PRN (19:54)
[2019-04-30] MEDS: Senokot 8.6 MG TAB PO SCH (19:57)
[2019-05-01] MEDS: Ondansetron PF 4 MG/2 ML Vial IVP PRN (01:46)
[2019-05-01 02:08] LABS: #Eosinphils 0.1 thou/uL (0.0-0.7); #Monocytes 0.1 thou/uL (0.11-0.59); #Neutrophils 11.3 thou/uL (1.40-6.50); %Basophils 0.1 % (0.0-1.0); %Eosinophils 0.6 % (0.0-10.0); %Lymphocytes 14.6 % (21.0-51.0); %Monocytes 0.4 % (0.0-10.0); %Neutrophils 84.3 % (42.0-75.0); Hemoglobin 13.1 g/dL (14.0-18.0); Mean Corpuscular HGB CONC 34.7 g/dL (32.0-36.0); Mean Corpuscular Hemoglobin 31.2 pg (27.0-31.0); Mean Platelet Volume 9.4 fL (7.4-10.4); Platelet Count 151 thou/uL (130-400); RBC Distribution Width 11.1 % (11.5-14.5); Red Blood Cell (RBC) Count 4.19 mill/uL (4.70-6.10); White Blood Cell (WBC) Count 13.4 thou/uL (4.8-10.8)
[2019-05-01] MEDS: Promethazine HCl 25 MG/ML VIAL IM/IV PRN ×3 (02:25→19:13)
[2019-05-01 02:30] LABS: ALT (SGPT) 25 U/L (8-55); AST (SGOT) 20 U/L (5-34); Albumin 4.3 g/dL (3.5-5.0); Alkaline Phosphatase 62 U/L (40-110); Anion Gap 14 mmol/L (10-20); BUN (Urea Nitrogen) 13 mg/dL (8.9-20.6); Bilirubin, Total 1.2 mg/dL (0.2-1.2); Calc. Creatinine Clearance 153 mL/min (70-130); Carbon Dioxide 26 mmol/L (22-29); Chloride 100 mmol/L (98-107); Estimated GFR-MDRD Greater than 90; Globulin 2.4 g/dL (2.4-3.5); Glucose 90 mg/dL (70-105); Potassium 3.1 mmol/L (3.5-5.1); Protein, Total 6.7 g/dL (6.0-8.3); Sodium 137 mmol/L (136-145)
[2019-05-01] MEDS: MESNA IV SCH ×2 (02:58→22:30)
[2019-05-01] MEDS: SODIUM CHLORIDE 0.9% IV SCH ×3 (02:58→22:30)
[2019-05-01] MEDS: Enoxaparin Sodium 40 MG/0.4 ML SYRINGE SC SCH (10:32)
[2019-05-01] MEDS: PARoxetine 20 MG TAB PO SCH (10:32)
[2019-05-01] MEDS: Docusate 100 MG CAP PO SCH ×2 (10:32→20:04)
[2019-05-01] MEDS: Gabapentin 300 MG CAP PO SCH ×3 (10:32→20:04)
--- NOTE | 2019-05-01 10:41 | PDOC.HOSPP ---
- Subjective Encounter Date: 05/01/19 Encounter Time: 07:35 Subjective: +Vomiting, Pain.. - Objective Vital Signs & Weight: Vital Signs (12 hours) Temp Pulse Resp BP Pulse Ox 05/01/19 08:00 98.6 F 86 16 133/80 100 05/01/19 00:11 97.8 F 90 18 159/97 H 100 Weight Admit Weight 177 lb 12.8 oz Weight 177 lb 12.8 oz I&O: 04/30/19 05/01/19 05/02/19 06:59 06:59 06:59 Intake Total 1989 2249 Output Total 24490 Balance -460 -100 Result Diagrams: 05/01/19 01:51 05/01/19 01:51 Hospitalist ROS - Medication Medications: Active Medications Generic Name Dose Route Start Last Admin Trade Name Freq PRN Reason Stop Dose Admin Bisacodyl 10 mg 04/27/19 11:31 04/27/19 14:04 Dulcolax PO 10 mg DAILYPRN PRN Administration Constipation Diphenhydramine HCl 50 mg 04/27/19 10:45 04/27/19 14:09 Benadryl IVP 50 mg WILLCALL KIKE Administration Docusate Sodium 100 mg 04/27/19 21:00 05/01/19 10:32 Colace PO Not Given BID KIKE Enoxaparin Sodium 40 mg 04/28/19 09:00 05/01/19 10:32 Lovenox SC 40 mg 0900 KIKE Administration Famotidine 20 mg 04/27/19 11:15 04/27/19 14:09 Pepcid SLOW IVP 20 mg WILLCALL KIKE Administration Fentanyl 50 mcg 04/29/19 13:00 04/29/19 13:25 Duragesic TD 50 mcg Q3D KIKE Administration Gabapentin 300 mg 04/27/19 15:00 05/01/19 10:32 Neurontin PO 300 mg TID KIKE Administration Hydromorphone HCl 0 mg 04/27/19 14:17 04/27/19 15:37 Dilaudid Cadd IV 10 mg INF PRN Administration Pain Sodium Chloride 250 mls @ 0 mls/hr 04/27/19 10:45 04/30/19 15:58 Normal Saline 0.9% 250 Ml Bag IVPB 250 mls WILLCALL KIKE Administration As Directed Palonosetron 0.25 mg/ Sodium 55 mls @ 165 mls/hr 04/27/19 11:00 04/28/19 17: 06 Chloride IVPB 55 mls WILLCALL KIKE Administration Fosaprepitant 150 mg/ Sodium 145 mls @ 290 mls/hr 04/27/19 11:00 04/28/19 18: 11 Chloride IVPB 145 mls WILLCALL KIKE Administration Paclitaxel 492.5 mg/ Sodium 582.0833 mls @ 0 mls/hr 04/27/19 12:30 04/27/19 15:42 Chloride IVPB 582.0833 mls WILLCALL KIKE Administration As Directed Dexamethasone 10 mg/ Sodium 51 mls @ 153 mls/hr 04/27/19 12:45 04/30/19 13:01 Chloride IVPB 51 mls WILLCALL KIKE Administration Cisplatin 49 mg/ Mannitol 12.5 349 mls @ 349 mls/hr 04/28/19 13:15 04/30/19 14:29 gm/ Sodium Chloride IV 05/01/19 23:30 349 mls WILLCALL KIKE Administration Ondansetron HCl 8 mg/ Sodium 54 mls @ 108 mls/hr 04/29/19 13:45 04/30/19 12: 24 Chloride IVPB 05/01/19 23:30 54 mls WILLCALL KIKE Administration [place] 0.985 gm/ Sodium 59.85 mls @ 0 mls/hr 04/28/19 13:30 05/01/19 02:58 Chloride IV 05/01/19 23:00 59.85 mls WILLCALL KIKE Administration As Directed Ifosfamide 2.955 gm/ [place] 0. 1,068.95 mls @ 1,068.95 mls/hr 04/29/19 14:30 04/30/19 16:27 985 gm/ Sodium Chloride IVPB 1,068.95 mls WILLCALL KIKE Administration Ondansetron HCl 4 mg 04/27/19 14:17 04/30/19 22:40 Zofran IVP 4 mg Q6H PRN Administration Nausea/Vomiting Paroxetine HCl 20 mg 05/01/19 09:00 05/01/19 10:32 Paxil PO Not Given DAILY KIKE Promethazine HCl 25 mg 05/01/19 02:18 05/01/19 07:21 Phenergan IM/IV 25 mg Q6H PRN Administration Nausea/Vomiting Senna 2 tab 04/27/19 21:00 04/30/19 19:57 Senokot PO Not Given HS KIKE - Exam Neck: no JVD Heart: RRR Respiratory: CTAB Gastrointestinal: soft Extremities: no edema Psychiatric: flat affect Hosp A/P (1) Depression Code(s): F32.9 - MAJOR DEPRESSIVE DISORDER, SINGLE EPISODE, UNSPECIFIED Status : Acute Qualifiers: Depression Type: reactive depression Qualified Code(s): F32.9 - Major depressive disorder, single episode, unspecified (2) Bone metastases Code(s): C79.51 - SECONDARY MALIGNANT NEOPLASM OF BONE Status: Chronic (3) Intractable pain Code(s): R52 - PAIN, UNSPECIFIED Status: Chronic (4) Sciatic leg pain Code(s): M54.30 - SCIATICA, UNSPECIFIED SIDE Status: Chronic (5) Testicular malignancy Code(s): C62.90 - MALIG NEOPLASM OF UNSP TESTIS, UNSP DESCENDED OR UNDESCENDED Status: Chronic Qualifiers: Laterality: right - Plan Continue chemotherapy, IV fluids, narcotics... Was seen by psychSonia Suero.
[2019-05-01] MEDS: Ondansetron 2MG/ML MDV 8 MG in Sodium Chloride 0.9% 50 ML IVPB SCH (11:21)
[2019-05-01] MEDS: Dexamethasone 10 MG in Sodium Chloride 0.9% 50 ML IVPB SCH (11:52)
[2019-05-01] MEDS: Sodium Chloride 0.9% 250 ML 250 ML IVPB SCH ×2 (13:23→15:42)
[2019-05-01] MEDS: MANNITOL IV SCH (14:35)
[2019-05-01] MEDS: CISPLATIN IV SCH (14:35)
[2019-05-01] MEDS: Ondansetron PF 4 MG/2 ML Vial IVPB SCH ×2 (15:41→23:07)
[2019-05-01] MEDS: IFOSFAMIDE IVPB SCH (16:15)
[2019-05-01] MEDS: MESNA IVPB SCH (16:15)
[2019-05-01] MEDS: SODIUM CHLORIDE 0.9% IVPB SCH (16:15)
[2019-05-01] MEDS: Senokot 8.6 MG TAB PO SCH (20:04)
[2019-05-01] MEDS: HYDROmorphone 10 mg/100 ml CADD IV PRN (21:54)
[2019-05-02] MEDS: Promethazine HCl 25 MG/ML VIAL IM/IV PRN (00:47)
[2019-05-02] MEDS: MESNA IV SCH (02:34)
[2019-05-02] MEDS: SODIUM CHLORIDE 0.9% IV SCH (02:34)
[2019-05-02 02:49] LABS: #Eosinphils 0.1 thou/uL (0.0-0.7); #Lymphocytes 0.9 thou/uL (1.20-3.40); #Neutrophils 5.4 thou/uL (1.40-6.50); %Basophils 0.4 % (0.0-1.0); %Eosinophils 0.8 % (0.0-10.0); %Lymphocytes 14.6 % (21.0-51.0); %Monocytes 0.3 % (0.0-10.0); %Neutrophils 83.9 % (42.0-75.0); Hemoglobin 12.4 g/dL (14.0-18.0); Mean Corpuscular Hemoglobin 31.3 pg (27.0-31.0); Mean Corpuscular Volume 89.5 fL (78.0-98.0); Mean Platelet Volume 9.7 fL (7.4-10.4); Platelet Count 129 thou/uL (130-400); Red Blood Cell (RBC) Count 3.95 mill/uL (4.70-6.10); White Blood Cell (WBC) Count 6.4 thou/uL (4.8-10.8)
[2019-05-02 03:33] LABS: ALT (SGPT) 40 U/L (8-55); AST (SGOT) 28 U/L (5-34); Albumin 4.2 g/dL (3.5-5.0); Alkaline Phosphatase 58 U/L (40-110); Anion Gap 15 mmol/L (10-20); BUN (Urea Nitrogen) 12 mg/dL (8.9-20.6); Bilirubin, Total 0.7 mg/dL (0.2-1.2); Calc. Creatinine Clearance 148 mL/min (70-130); Calcium 8.9 mg/dL (7.8-10.44); Carbon Dioxide 23 mmol/L (22-29); Chloride 99 mmol/L (98-107); Estimated GFR-MDRD Greater than 90; Globulin 2.2 g/dL (2.4-3.5); Glucose 86 mg/dL (70-105); Potassium 3.2 mmol/L (3.5-5.1); Protein, Total 6.4 g/dL (6.0-8.3); Sodium 134 mmol/L (136-145)
[2019-05-02] MEDS ORDERED: Potassium Chloride 10 MEQ in Premix Bag 1 BAG IVPB SCH (07:45)
[2019-05-02] MEDS ORDERED: Promethazine HCl 25 MG, Admixture Fee 1 EACH in Sodium Chloride 0.9% 50 ML IVPB PRN (07:53)
[2019-05-02] MEDS: Ondansetron PF 4 MG/2 ML Vial IVPB SCH ×2 (08:01→15:48)
[2019-05-02 08:21] VITALS: BP 136/92; TEMP 98.6
[2019-05-02] MEDS: PARoxetine 20 MG TAB PO SCH (09:01)
[2019-05-02] MEDS: Gabapentin 300 MG CAP PO SCH ×2 (09:01→16:53)
[2019-05-02] MEDS: Enoxaparin Sodium 40 MG/0.4 ML SYRINGE SC SCH (09:08)
[2019-05-02] MEDS: Docusate 100 MG CAP PO SCH (09:09)
--- NOTE | 2019-05-02 09:58 | DIS ---
DATE OF ADMISSION: 04/27/2019 DATE OF DISCHARGE: 05/02/2019 ADMITTING DIAGNOSES: Metastatic testicular cancer, intractable pain, and severe constipation. DISCHARGE DIAGNOSES: Metastatic testicular cancer, intractable pain, and severe constipation. [employer] DECK HAND: Dr. Luis Romo. PROCEDURES: Bone scan, IV administration of chemotherapeutic agent. COURSE OF HOSPITALIZATION: The patient was complicated by the persistence of nausea, vomiting associated with the chemotherapeutic agent. The patient over the 2 days, feeling much better. His nausea is less and he is being discharged home. He is to follow up with his primary care physician and also with Dr. Romo as outpatient. He is clinically stable at this time. His serum potassium was noticed to be low. Potassium is being supplemented. PHYSICAL EXAMINATION: GENERAL: Today, he is alert, responsive, in no distress. VITAL SIGNS: His latest vital signs show a temperature of 98.7, pulse rate 103, respiratory rate 18, and blood pressure 135/81. HEAD AND NECK: Normal. He has regular S1 and S2. LUNGS: Clear. ABDOMEN: Benign. EXTREMITIES: Limbs show no edema. NEUROLOGICAL: He moves all extremities. LABORATORY DATA: His chemistry and lytes and CBC were reviewed. DISCHARGE TIME: 31 minutes. DISCHARGE MEDICATION: Please see discharge medication reconciliation sheet. Job ID: [id number]
[2019-05-02] MEDS: fentaNYL 50 mcg/hour Patch TD SCH (13:19)
== END 2019-05-02 17:55 | disposition home or self-care (01) | DRG 847 ==
LOC: ONC 08:44
PROVIDERS: ADMIT Internal Medicine Hematology & Oncology; ATTEND Emergency Medicine
DX: Z51.11 Encounter for antineoplastic chemotherapy (principal); C79.51 Secondary malignant neoplasm of bone; C78.02 Secondary malignant neoplasm of left lung; C78.01 Secondary malignant neoplasm of right lung; K59.00 Constipation, unspecified; F32.9 Major depressive disorder, single episode, unspecified; C62.91 Malignant neoplasm of right testis, unspecified whether descended or undescended; M54.30 Sciatica, unspecified side; T45.1X5A Adverse effect of antineoplastic and immunosuppressive drugs, initial encounter; R11.2 Nausea with vomiting, unspecified; Z79.899 Other long term (current) drug therapy
CPT/HCPCS: 36415; 78306; 80053; 82105; 85025; A9503; J1100; J1200; J1453; J1642; J1650; J2150; J2270; J2405; J2469; J2550; J3480; J3490; J7050; J8540; J9060; J9208; J9209; J9267; Q5108; S0028

== ENCOUNTER 2019-05-13 07:51 | Inpatient (IN) | payer SELFPAY ==
[2019-05-18 18:28] VITALS: BMI 27.5
[2019-05-18] MEDS ORDERED: Senokot S 8.6-50 MG TAB PO PRN (20:08)
[2019-05-18] MEDS ORDERED: Ondansetron PF 4 MG/2 ML Vial IVP PRN (20:08)
[2019-05-18] MEDS ORDERED: Acetaminophen 325 MG TAB PO PRN (20:08)
[2019-05-18] MEDS ORDERED: HYDROcodone/Acetaminophen 5/325 mg Tablet PO PRN (20:08)
--- NOTE | 2019-05-18 20:13 | PDOC.HHP ---
Hospitalist HPI - History of Present Illness Metastatic testicular Ca History of Present Illness: 28 YO M with a diagnosis of metastatic testicular CA in mar 2018 who has been undergoing chemo. Pt was sent to the hospital for direct admission for the 3rd round of his current regimen. Besides chr pain in his back, and gen body pain. Pt denies any acute issues. Hospitalist ROS - Review of Systems Constitutional: denies: fever, chills, sweats, weakness, malaise, other Eyes: denies: pain, vision change, conjunctivae inflammation, eyelid inflammation, redness, other ENT: denies: ear pain, ear discharge, nose pain, nose discharge, nose congestion , mouth pain, mouth swelling, throat pain, throat swelling, other Respiratory: denies: cough, dry, shortness of breath, hemoptysis, SOB with excertion, pleuritic pain, sputum, wheezing, other Cardiovascular: denies: chest pain, palpitations, orthopnea, paroxysmal noc. dyspnea, edema, light headedness, other Gastrointestinal: denies: nausea, vomiting, abdominal pain, diarrhea, constipation, melena, hematochezia, other Genitourinary: denies: dysuria, frequency, incontinence, hematuria, retention, other Musculoskeletal: reports: back pain Skin: denies: rash, lesions, georgina, bruising, other Neurological: denies: weakness, numbness, incoordination, change in speech, confusion, seizures, other Hospitalist History - Past Medical History Heme/Onc: reports: Cancer (Metastatic testicular CA) - Exam General Appearance: NAD, awake alert Eye: PERRL, anicteric sclera ENT: normocephalic atraumatic, no oropharyngeal lesions, moist mucosa Neck: supple, symmetric, no JVD, no thyromegaly, no lymphadenopathy Heart: RRR, no murmur, no gallops, no rubs, normal peripheral pulses Respiratory: CTAB, no wheezes, no rales, no ronchi Gastrointestinal: soft, non-tender, non-distended, normal bowel sounds Extremities: no clubbing, no edema Skin: normal turgor, no lesions, no rashes Neurological: cranial nerve grossly intact, no focal deficits Musculoskeletal: normal tone, normal strength, no muscle wasting Psychiatric: normal affect, normal behavior, A&O x 3 Hospitalist H&P A/P - Problem (1) Testicular malignancy Code(s): C62.90 - MALIG NEOPLASM OF UNSP TESTIS, UNSP DESCENDED OR UNDESCENDED Status: Chronic Qualifiers: Laterality: right Assessment and Plan: Cont inpt chemo per pts' Oncologist. (2) Intractable pain Code(s): R52 - PAIN, UNSPECIFIED Status: Chronic Assessment and Plan: Cont pain meds as needed. - Plan Plan: PPx: Pepcid and Lovenox. CODE: FULL. Dispo: Admit as inpt.
[2019-05-18] MEDS ORDERED: PACLITAXEL IVPB SCH (20:15)
[2019-05-18] MEDS ORDERED: SODIUM CHLORIDE 0.9% IVPB SCH ×3 (20:15→20:45)
[2019-05-18] MEDS ORDERED: ONDANSETRON HCL IVPB SCH ×2 (20:15→20:45)
[2019-05-18] MEDS ORDERED: DEXAMETHASONE IVPB SCH ×2 (20:15→20:45)
[2019-05-18] MEDS ORDERED: Famotidine/PF 20 mg/2ml Vial SLOW IVP SCH (20:15)
[2019-05-18] MEDS ORDERED: diphenhydrAMINE 50 MG/ML VIAL IVP SCH (20:15)
[2019-05-18] MEDS ORDERED: Promethazine HCl 25 MG SUPP PR PRN (20:17)
[2019-05-18] MEDS: Famotidine 20 MG TAB PO SCH (21:33)
[2019-05-18] MEDS: Gabapentin 300 MG CAP PO SCH (22:26)
[2019-05-19] MEDS ORDERED: SODIUM CHLORIDE 0.9% IVPB SCH ×2 (04:51→04:54)
[2019-05-19] MEDS ORDERED: Dexamethasone 10 MG in Sodium Chloride 0.9% 50 ML IVPB SCH ×2 (04:51→05:00)
[2019-05-19] MEDS ORDERED: IFOSFAMIDE IVPB SCH ×2 (04:51→04:54)
[2019-05-19] MEDS ORDERED: MANNITOL IV SCH (04:51)
[2019-05-19] MEDS ORDERED: MESNA IV SCH (04:51)
[2019-05-19] MEDS ORDERED: MESNA IVPB SCH (04:51)
[2019-05-19] MEDS ORDERED: Sodium Chloride 0.9% 250 ML 250 ML IVPB SCH ×2 (04:51→05:00)
[2019-05-19] MEDS ORDERED: Palonosetron HCl 0.25 MG in Sodium Chloride 0.9% 50 ML IVPB SCH ×2 (04:51→05:00)
[2019-05-19] MEDS ORDERED: CISPLATIN IV SCH ×3 (04:51→05:00)
[2019-05-19] MEDS ORDERED: SODIUM CHLORIDE 0.9% IV SCH ×4 (04:51→05:00)
[2019-05-19 05:41] LABS: Anion Gap 9 mmol/L (10-20); BUN (Urea Nitrogen) 13 mg/dL (8.9-20.6); Calc. Creatinine Clearance 138 mL/min (70-130); Calcium 9.6 mg/dL (7.8-10.44); Carbon Dioxide 29 mmol/L (22-29); Chloride 105 mmol/L (98-107); Estimated GFR-MDRD Greater than 90; Glucose 170 mg/dL (70-105); Potassium 5.7 mmol/L (3.5-5.1); Sodium 137 mmol/L (136-145)
[2019-05-19 06:03] LABS: #Basophils 0.1 thou/uL (0.0-0.2); #Lymphocytes 0.2 thou/uL (1.20-3.40); #Neutrophils 4.6 thou/uL (1.40-6.50); %Eosinophils 0.1 % (0.0-10.0); %Lymphocytes 4.5 % (21.0-51.0); %Monocytes 0.3 % (0.0-10.0); %Neutrophils 93.1 % (42.0-75.0); Hemoglobin 11.7 g/dL (14.0-18.0); Mean Corpuscular Hemoglobin 31.7 pg (27.0-31.0); Mean Corpuscular Volume 93.4 fL (78.0-98.0); Mean Platelet Volume 7.4 fL (7.4-10.4); Platelet Count 274 thou/uL (130-400); RBC Distribution Width 13.3 % (11.5-14.5); Red Blood Cell (RBC) Count 3.69 mill/uL (4.70-6.10)
[2019-05-19] MEDS: Enoxaparin Sodium 40 MG/0.4 ML SYRINGE SC SCH (08:26)
[2019-05-19] MEDS: Gabapentin 300 MG CAP PO SCH ×3 (08:27→20:33)
[2019-05-19] MEDS: Famotidine 20 MG TAB PO SCH ×2 (08:27→20:33)
[2019-05-19] MEDS: Ondansetron ODT 4 MG TAB PO PRN (12:12)
--- NOTE | 2019-05-19 15:15 | PDOC.HOSPP ---
- Subjective Subjective: Seen and examined. Patient in good spirits. Numbness, tingling, and leg weakness have improved since initiation of chemotherapy. Patient breathing comfortably on room air. Time was given for questions, All questions answered in detail. - Objective Vital Signs & Weight: Vital Signs (12 hours) Temp Pulse Resp BP BP BP Pulse Ox 05/19/19 12:00 98.0 F 110 H 18 135/85 100 05/19/19 07:50 98.3 F 94 18 143/95 H 100 05/19/19 04:00 97.8 F 79 16 104/64 99 Weight Weight 180 lb 15.992 oz I&O: 05/18/19 05/19/19 05/20/19 06:59 06:59 06:59 Intake Total 240 250 Output Total 300 800 Balance -60 -550 Result Diagrams: 05/19/19 05:56 05/19/19 05:07 Radiology Reviewed by me: Yes Hospitalist ROS - Review of Systems All other systems reviewed; all pertinent +/- noted in HPI/Subj - Medication Medications: Active Medications Generic Name Dose Route Start Last Admin Trade Name Freq PRN Reason Stop Dose Admin Enoxaparin Sodium 40 mg 05/19/19 09:00 05/19/19 08:26 Lovenox SC 40 mg 0900 KIKE Administration Famotidine 20 mg 05/18/19 21:00 05/19/19 08:27 Pepcid PO 20 mg BID KIKE Administration Gabapentin 300 mg 05/18/19 21:00 05/19/19 08:27 Neurontin PO 300 mg TID KIKE Administration Paclitaxel 492.5 mg/ Sodium 582.0833 mls @ 0 mls/hr 05/18/19 20:15 05/18/19 22:58 Chloride IVPB 582.0833 mls WILLCALL KIKE Administration As Directed Ondansetron HCl 8 mg 05/18/19 20:17 05/19/19 12:12 Zofran Odt PO 8 mg TID PRN Administration Nausea/Vomiting - Exam General Appearance: NAD, awake alert Eye: PERRL ENT: normocephalic atraumatic, moist mucosa Neck: supple, symmetric, no JVD Heart: RRR, no murmur, no gallops, no rubs Respiratory: CTAB, no wheezes, no rales, no ronchi, normal chest expansion Gastrointestinal: soft, non-tender, no guarding, no rigidity Extremities: no edema Skin: no lesions, no rashes Neurological: cranial nerve grossly intact, no new deficit Musculoskeletal: generalized weakness Psychiatric: normal affect, normal behavior, A&O x 3 Hosp A/P (1) Depression Code(s): F32.9 - MAJOR DEPRESSIVE DISORDER, SINGLE EPISODE, UNSPECIFIED Status : Acute Qualifiers: Depression Type: reactive depression Qualified Code(s): F32.9 - Major depressive disorder, single episode, unspecified (2) Metastasis Code(s): C79.9 - SECONDARY MALIGNANT NEOPLASM OF UNSPECIFIED SITE Status: Acute (3) Testicular mass Status: Acute (4) Tobacco abuse Code(s): Z72.0 - TOBACCO USE Status: Acute (5) Bone metastases Code(s): C79.51 - SECONDARY MALIGNANT NEOPLASM OF BONE Status: Chronic (6) Intractable pain Code(s): R52 - PAIN, UNSPECIFIED Status: Chronic (7) Sciatic leg pain Code(s): M54.30 - SCIATICA, UNSPECIFIED SIDE Status: Chronic (8) Testicular malignancy Code(s): C62.90 - MALIG NEOPLASM OF UNSP TESTIS, UNSP DESCENDED OR UNDESCENDED Status: Chronic Qualifiers: Laterality: right - Plan Plan: oncology unit oncology consultation, recommendations appreciated chemotherapy per oncologist pain control replace electrolytes as needed high side of normal potassium, recommended additional potassium replacement an adequate oral intake of fluids today. Continue home medications as able G.I. prophylaxis DVT prophylaxis
[2019-05-19] MEDS: fentaNYL 50 mcg/hour Patch TD SCH (15:17)
--- NOTE | 2019-05-19 16:13 | CON ---
DATE OF CONSULTATION: REASON FOR CONSULTATION: Testicular cancer. HISTORY OF PRESENT ILLNESS: A 28-year-old male with metastatic testicular cancer, status post chemotherapy and lung surgery, now with recurrent disease, receiving salvage TIP chemotherapy, being admitted for cycle 2 of treatment. Today is cycle 2, day 1. The patient is feeling very well today and states that his excruciating hip and sciatic pain is much better since his first cycle of chemotherapy. He still has mild aches and pains, but nothing like before. He is using fentanyl patches at home, but ran out of his [place] and has not felt like he has needed it. Last week, he had visual changes or he had blackening in his peripheral vision and excruciating headache. These episodes would come and go every couple hours and last couple hours. They have since resolved. He had noticed a tremor, that resolved after eating. No other neurologic complaints at this time. Denies any nausea, vomiting, or diarrhea, and has a good appetite. REVIEW OF SYSTEMS: Ten-point review of systems is negative except as per HPI. PAST MEDICAL HISTORY: Testicular cancer. CURRENT MEDICATIONS: Reviewed. SOCIAL HISTORY: Former smoker, marijuana. CURRENT MEDICATIONS: Reviewed. PHYSICAL EXAMINATION: VITAL SIGNS: Temperature 98.3, pulse 94, respirations 18, saturating 100% on room air, blood pressure 143/95. GENERAL APPEARANCE: The patient is lying in bed, in no acute distress. HEENT: Normocephalic and atraumatic. RESPIRATORY: Clear to auscultation. CARDIAC: S1 and S2. Regular rhythm and rate. GASTROINTESTINAL: Abdomen; soft, nondistended, and nontender. NEUROLOGIC: Cranial nerves 2 through 12 are grossly intact. No tremors noted. Moves all extremities. PSYCHIATRIC: Awake, alert, and oriented x3. LABORATORY DATA: White blood cells 5.0, hemoglobin 11.7, platelets 274. Sodium 137, potassium 5.7, BUN 13, creatinine 0.92, glucose 170, calcium 9.6. ASSESSMENT AND PLAN: A 28-year-old male with metastatic testicular cancer, being admitted for cycle 2 of TIP chemotherapy. Monitor the patient on chemotherapy with q.4 hour neuro checks to monitor for ifosfamide neurotoxicity. We will monitor daily blood counts and BMP. We will continue fentanyl patch and have [place] p.r.n. for pain. Encourage ambulation while in the hospital. The patient will receive Neulasta 24 hours after his last chemotherapy dose, and if he is stable, he can be discharged home with outpatient followup with me in clinic. We will follow along with you during hospitalization. Job ID: [id number]
[2019-05-20] MEDS ORDERED: diphenhydrAMINE 25 MG CAP PO SCH (01:15)
[2019-05-20] MEDS: Sodium Chloride 0.9% 250 ML IVPB SCH ×3 (02:10→20:49)
[2019-05-20] MEDS: MANNITOL IV SCH ×2 (02:46→22:09)
[2019-05-20] MEDS: SODIUM CHLORIDE 0.9% IV SCH ×4 (02:46→22:09)
[2019-05-20] MEDS: CISPLATIN IV SCH ×2 (02:46→22:09)
[2019-05-20] MEDS: MESNA IVPB SCH ×2 (04:26→23:24)
[2019-05-20] MEDS: IFOSFAMIDE IVPB SCH ×2 (04:26→23:24)
[2019-05-20] MEDS: SODIUM CHLORIDE 0.9% IVPB SCH ×2 (04:26→23:24)
[2019-05-20 04:55] LABS: #Lymphocytes 0.3 thou/uL (1.20-3.40); #Monocytes 0.2 thou/uL (0.11-0.59); #Neutrophils 2.5 thou/uL (1.40-6.50); %Basophils 0.2 % (0.0-1.0); %Eosinophils 0.2 % (0.0-10.0); %Lymphocytes 10.6 % (21.0-51.0); %Monocytes 5.6 % (0.0-10.0); %Neutrophils 83.4 % (42.0-75.0); Hemoglobin 9.9 g/dL (14.0-18.0); Mean Corpuscular HGB CONC 34.7 g/dL (32.0-36.0); Mean Corpuscular Hemoglobin 31.7 pg (27.0-31.0); Mean Corpuscular Volume 91.3 fL (78.0-98.0); Mean Platelet Volume 8.2 fL (7.4-10.4); Platelet Count 210 thou/uL (130-400); RBC Distribution Width 13.4 % (11.5-14.5); Red Blood Cell (RBC) Count 3.11 mill/uL (4.70-6.10)
[2019-05-20 05:13] LABS: ALT (SGPT) 72 U/L (8-55); AST (SGOT) 47 U/L (5-34); Albumin 3.9 g/dL (3.5-5.0); Alkaline Phosphatase 99 U/L (40-110); Anion Gap 13 mmol/L (10-20); BUN (Urea Nitrogen) 16 mg/dL (8.9-20.6); Bilirubin, Total 0.5 mg/dL (0.2-1.2); Calc. Creatinine Clearance 158 mL/min (70-130); Calcium 8.5 mg/dL (7.8-10.44); Carbon Dioxide 23 mmol/L (22-29); Chloride 105 mmol/L (98-107); Estimated GFR-MDRD Greater than 90; Globulin 2.3 g/dL (2.4-3.5); Glucose 115 mg/dL (70-105); Potassium 4.1 mmol/L (3.5-5.1); Protein, Total 6.2 g/dL (6.0-8.3); Sodium 137 mmol/L (136-145)
[2019-05-20] MEDS ORDERED: Ondansetron 2MG/ML MDV 8 MG in Sodium Chloride 0.9% 50 ML IVPB SCH (08:00)
[2019-05-20] MEDS: Gabapentin 300 MG CAP PO SCH ×3 (08:30→20:45)
[2019-05-20] MEDS: Famotidine 20 MG TAB PO SCH ×2 (08:34→20:45)
[2019-05-20] MEDS: Enoxaparin Sodium 40 MG/0.4 ML SYRINGE SC SCH (08:35)
--- NOTE | 2019-05-20 09:47 | PDOC.MOPN ---
Interval History: Pain controlled with fentanyl. Walking hallways with cane. Feels good. - Vital Signs Vital Signs: Vital Signs (12 hours) Temp Pulse Resp BP BP BP Pulse Ox 05/20/19 08:00 98.1 F 78 18 119/68 100 05/20/19 03:35 98.4 F 95 16 128/70 99 05/20/19 00:00 98.8 F 97 16 127/73 100 Weight Weight 180 lb 15.992 oz - Physical Exam General: Alert, Oriented x3, No acute distress HEENT: Atraumatic, PERRLA, EOMI, Mucous membr. moist/pink Lungs: Clear to auscultation, Normal air movement Cardiovascular: Regular rate, Normal S1, Normal S2, No murmurs, Gallops, Rubs Abdomen: Normal bowel sounds, Soft, No tenderness, No hepatospenomegaly, No masses Extremities: No clubbing, No cyanosis, No edema, Normal pulses, No tenderness/ swelling Skin: No rashes, No breakdown, No significant lesion Neurological: Normal speech, Strength at 5/5 X4 ext, Normal tone, Sensation intact, Cranial nerves 3-12 NL, Reflexes 2+ Psych/Mental Status: Mental status NL - Labs Result Diagrams: 05/20/19 04:20 05/20/19 04:20 Lab results: Laboratory Results - last 24 hr 05/20/19 04:20: Tumor Marker AFP 527.4 H 05/20/19 04:20: WBC 3.0 L, RBC 3.11 L, Hgb 9.9 L, Hct 28.4 L, MCV 91.3, MCH 31.7 H, MCHC 34.7, RDW 13.4, Plt Count 210, MPV 8.2, Neutrophils % 83.4 H, Lymphocytes % 10.6 L, Monocytes % 5.6, Eosinophils % 0.2, Basophils % 0.2, Neutrophils # 2.5, Lymphocytes # 0.3 L, Monocytes # 0.2, Eosinophils # 0.0, Basophils # 0.0 05/20/19 04:20: Sodium 137, Potassium 4.1, Chloride 105, Carbon Dioxide 23, Anion Gap 13, BUN 16, Creatinine 0.80, Estimated GFR (MDRD) Greater than 90, Glucose 115 H, Calcium 8.5, Total Bilirubin 0.5, AST 47 H, ALT 72 H, Alkaline Phosphatase 99, Serum Total Protein 6.2, Albumin 3.9, Globulin 2.3 L, Albumin/ Globulin Ratio 1.7 Status: lab reviewed by me A/P - Problem (1) Testicular mass Current Visit: No Status: Acute (2) Bone metastases Current Visit: No Code(s): C79.51 - SECONDARY MALIGNANT NEOPLASM OF BONE Status: Chronic - Plan Plan: Pain improved after cycle 1 tolerating chemo well, no n/v/d continue treatment and monitor labs daily.
[2019-05-20] MEDS: MESNA IV SCH ×2 (09:53→14:10)
--- NOTE | 2019-05-20 14:43 | PDOC.HOSPP ---
- Subjective Subjective: Seen and examined in oncology unit. Tolerating chemotherapy. No nausea or vomiting. Walking the halls with his cane. His strength is coming back. Numbness and tingling to the leg is improving. Time was given for questions, all answered in detail. - Objective Vital Signs & Weight: Vital Signs (12 hours) Temp Pulse Resp BP BP BP Pulse Ox 05/20/19 12:00 97.5 F L 92 18 125/69 100 05/20/19 08:00 98.1 F 78 18 119/68 100 05/20/19 03:35 98.4 F 95 16 128/70 99 Weight Weight 180 lb 15.992 oz I&O: 05/19/19 05/20/19 05/21/19 06:59 06:59 06:59 Intake Total 240 4112 Output Total 300 3925 Balance -60 187 Result Diagrams: 05/20/19 04:20 05/20/19 04:20 Radiology Reviewed by me: Yes Hospitalist ROS - Review of Systems All other systems reviewed; all pertinent +/- noted in HPI/Subj - Medication Medications: Active Medications Generic Name Dose Route Start Last Admin Trade Name Freq PRN Reason Stop Dose Admin Enoxaparin Sodium 40 mg 05/19/19 09:00 05/20/19 08:35 Lovenox SC 40 mg 0900 KIKE Administration Famotidine 20 mg 05/18/19 21:00 05/20/19 08:34 Pepcid PO 20 mg BID KIKE Administration Fentanyl 50 mcg 05/19/19 15:00 05/19/19 15:17 Duragesic TD 50 mcg Q3D KIKE Administration Gabapentin 300 mg 05/18/19 21:00 05/20/19 14:22 Neurontin PO 300 mg TID KIKE Administration Paclitaxel 492.5 mg/ Sodium 582.0833 mls @ 0 mls/hr 05/18/19 20:15 05/18/19 22:58 Chloride IVPB 582.0833 mls WILLCALL KIKE Administration As Directed [place] 0.985 gm/ Sodium 59.85 mls @ 0 mls/hr 05/19/19 05:00 05/20/19 14:10 Chloride IV 59.85 mls WILLCALL KIKE Administration As Directed Cisplatin 49 mg/ Mannitol 12.5 349 mls @ 698 mls/hr 05/19/19 07:15 05/20/19 02:46 gm/ Sodium Chloride IV 349 mls WILLCALL KIKE Administration Ifosfamide 2.955 gm/ [place] 0. 1,068.95 mls @ 1,068.95 mls/hr 05/19/19 08:45 05/20/19 04:26 985 gm/ Sodium Chloride IVPB 1,068.95 mls WILLCALL KIKE Administration Sodium Chloride 250 mls @ 0 mls/hr 05/19/19 23:15 05/20/19 03:34 Normal Saline 0.9% IVPB 250 mls WILLCALL KIKE Administration As Directed Sodium Chloride 250 mls @ 0 mls/hr 05/19/19 23:15 05/20/19 02:10 Normal Saline 0.9% IVPB 250 mls WILLCALL KIKE Administration As Directed Ondansetron HCl 8 mg 05/18/19 20:17 05/19/19 12:12 Zofran Odt PO 8 mg TID PRN Administration Nausea/Vomiting Sodium Chloride 10 ml 05/20/19 09:00 05/20/19 14:23 Flush - Normal Saline IVF 10 ml Q12HR KIKE Administration Sodium Chloride 10 ml 05/20/19 00:34 05/20/19 00:39 Flush - Normal Saline IVF 10 ml PRN PRN Administration Saline Flush - Exam General Appearance: NAD, awake alert Eye: PERRL ENT: normocephalic atraumatic, moist mucosa Neck: supple, symmetric, no lymphadenopathy Heart: RRR, no murmur, no gallops, no rubs Respiratory: CTAB, no wheezes, no rales, no ronchi, normal chest expansion, no tachypnea Gastrointestinal: soft, non-tender, no guarding Extremities: no edema Skin: no lesions, no rashes Neurological: cranial nerve grossly intact, no new deficit Neurological - other findings: Mild LE weakness. Some subjective numbness and tingling Musculoskeletal: generalized weakness Psychiatric: normal affect, normal behavior, A&O x 3 Hosp A/P (1) Depression Code(s): F32.9 - MAJOR DEPRESSIVE DISORDER, SINGLE EPISODE, UNSPECIFIED Status : Acute Qualifiers: Depression Type: reactive depression Qualified Code(s): F32.9 - Major depressive disorder, single episode, unspecified (2) Metastasis Code(s): C79.9 - SECONDARY MALIGNANT NEOPLASM OF UNSPECIFIED SITE Status: Acute (3) Testicular mass Status: Acute (4) Tobacco abuse Code(s): Z72.0 - TOBACCO USE Status: Acute (5) Bone metastases Code(s): C79.51 - SECONDARY MALIGNANT NEOPLASM OF BONE Status: Chronic (6) Intractable pain Code(s): R52 - PAIN, UNSPECIFIED Status: Chronic (7) Sciatic leg pain Code(s): M54.30 - SCIATICA, UNSPECIFIED SIDE Status: Chronic (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 prophylaxis DVT prophylaxis
[2019-05-20] MEDS ORDERED: diphenhydrAMINE 25 MG CAP PO PRN (20:39)
[2019-05-20] MEDS ORDERED: Acetaminophen 650 MG/20.3 ML UDCUP PO PRN (20:45)
[2019-05-20] MEDS ORDERED: Acetaminophen 325 MG TAB PO PRN (20:45)
[2019-05-20] MEDS: DEXAMETHASONE SOD PHOSPHATE IVPB SCH (20:52)
[2019-05-20] MEDS: ONDANSETRON IVPB SCH (20:52)
[2019-05-20] MEDS: [UNRECOGNIZED DRUG - OTHER] IVPB SCH (20:52)
[2019-05-21] MEDS: MESNA IV SCH ×2 (05:14→09:02)
[2019-05-21] MEDS: SODIUM CHLORIDE 0.9% IV SCH ×3 (05:14→19:32)
[2019-05-21 05:30] LABS: #Lymphocytes 0.2 thou/uL (1.20-3.40); #Monocytes 0.1 thou/uL (0.11-0.59); #Neutrophils 4.6 thou/uL (1.40-6.50); %Eosinophils 0.3 % (0.0-10.0); %Monocytes 1.5 % (0.0-10.0); %Neutrophils 93.2 % (42.0-75.0); Hemoglobin 9.6 g/dL (14.0-18.0); Mean Corpuscular HGB CONC 34.2 g/dL (32.0-36.0); Mean Corpuscular Hemoglobin 31.7 pg (27.0-31.0); Mean Corpuscular Volume 92.6 fL (78.0-98.0); Mean Platelet Volume 8.3 fL (7.4-10.4); Platelet Count 189 thou/uL (130-400); RBC Distribution Width 13.2 % (11.5-14.5); Red Blood Cell (RBC) Count 3.04 mill/uL (4.70-6.10); White Blood Cell (WBC) Count 4.9 thou/uL (4.8-10.8)
[2019-05-21 05:50] LABS: ALT (SGPT) 67 U/L (8-55); AST (SGOT) 28 U/L (5-34); Albumin 3.8 g/dL (3.5-5.0); Alkaline Phosphatase 79 U/L (40-110); Anion Gap 11 mmol/L (10-20); BUN (Urea Nitrogen) 14 mg/dL (8.9-20.6); Bilirubin, Total 0.6 mg/dL (0.2-1.2); Calc. Creatinine Clearance 160 mL/min (70-130); Calcium 8.6 mg/dL (7.8-10.44); Carbon Dioxide 24 mmol/L (22-29); Chloride 105 mmol/L (98-107); Estimated GFR-MDRD Greater than 90; Globulin 2.1 g/dL (2.4-3.5); Glucose 120 mg/dL (70-105); Potassium 4.4 mmol/L (3.5-5.1); Protein, Total 5.9 g/dL (6.0-8.3); Sodium 136 mmol/L (136-145)
[2019-05-21] MEDS: Famotidine 20 MG TAB PO SCH ×2 (09:01→20:25)
[2019-05-21] MEDS: Gabapentin 300 MG CAP PO SCH ×3 (09:01→20:25)
[2019-05-21] MEDS: Enoxaparin Sodium 40 MG/0.4 ML SYRINGE SC SCH (09:01)
[2019-05-21] MEDS ORDERED: Activase 2 MG VIAL CATH SCH (11:00)
--- NOTE | 2019-05-21 13:48 | PDOC.HOSPP ---
- Subjective Subjective: Remained in good spirits. Nausea controlled with symptomatic medications and peppermint lozenges. Walking halls with his cane. Patient tolerating chemotherapy. - Objective Vital Signs & Weight: Vital Signs (12 hours) Temp Pulse Resp BP BP Pulse Ox 05/21/19 12:00 98.4 F 114 H 18 119/79 100 05/21/19 08:00 97.8 F 70 16 125/72 100 05/21/19 04:00 97.7 F 73 16 139/80 100 Weight Weight 180 lb 15.992 oz I&O: 05/20/19 05/21/19 05/22/19 06:59 06:59 06:59 Intake Total 4112 4144 Output Total 3929 8605 Balance 187 1469 Result Diagrams: 05/21/19 05:12 05/21/19 03:30 Radiology Reviewed by me: Yes Hospitalist ROS - Review of Systems All other systems reviewed; all pertinent +/- noted in HPI/Subj - Medication Medications: Active Medications Generic Name Dose Route Start Last Admin Trade Name Stewartq PRN Reason Stop Dose Admin Enoxaparin Sodium 40 mg 05/19/19 09:00 05/21/19 09:01 Lovenox SC 40 mg 0900 KIKE Administration Famotidine 20 mg 05/18/19 21:00 05/21/19 09:01 Pepcid PO 20 mg BID KIKE Administration Fentanyl 50 mcg 05/19/19 15:00 05/19/19 15:17 Duragesic TD 50 mcg Q3D KIKE Administration Gabapentin 300 mg 05/18/19 21:00 05/21/19 09:01 Neurontin PO 300 mg TID KIKE Administration Paclitaxel 492.5 mg/ Sodium 582.0833 mls @ 0 mls/hr 05/18/19 20:15 05/18/19 22:58 Chloride IVPB 582.0833 mls WILLCALL KIKE Administration As Directed [place] 0.985 gm/ Sodium 59.85 mls @ 0 mls/hr 05/19/19 05:00 05/21/19 09:02 Chloride IV 59.85 mls WILLCALL KIKE Administration As Directed Cisplatin 49 mg/ Mannitol 12.5 349 mls @ 698 mls/hr 05/19/19 07:15 05/20/19 22:09 gm/ Sodium Chloride IV 349 mls WILLCALL KIKE Administration Ifosfamide 2.955 gm/ [place] 0. 1,068.95 mls @ 1,068.95 mls/hr 05/19/19 08:45 05/20/19 23:24 985 gm/ Sodium Chloride IVPB 1,068.95 mls WILLCALL KIKE Administration Sodium Chloride 250 mls @ 0 mls/hr 05/19/19 23:15 05/20/19 20:49 Normal Saline 0.9% IVPB 250 mls WILLCALL KIKE Administration As Directed Sodium Chloride 250 mls @ 0 mls/hr 05/19/19 23:15 05/20/19 02:10 Normal Saline 0.9% IVPB 250 mls WILLCALL KIKE Administration As Directed Dexamethasone Sodium Phosphate 55 mls @ 165 mls/hr 05/20/19 14:30 05/20/19 20 :52 10 mg/ Ondansetron HCl 8 mg/ IVPB 55 mls Sodium Chloride WILLCALL KIKE Administration Ondansetron HCl 8 mg 05/18/19 20:17 05/19/19 12:12 Zofran Odt PO 8 mg TID PRN Administration Nausea/Vomiting Sodium Chloride 10 ml 05/20/19 09:00 05/20/19 20:47 Flush - Normal Saline IVF 10 ml Q12HR KIKE Administration Sodium Chloride 10 ml 05/20/19 00:34 05/20/19 00:39 Flush - Normal Saline IVF 10 ml PRN PRN Administration Saline Flush - Exam General Appearance: NAD Eye: anicteric sclera ENT: normocephalic atraumatic, moist mucosa Neck: symmetric Heart: RRR, no murmur, no gallops, no rubs Respiratory: CTAB, no wheezes, no rales, no ronchi, no tachypnea Gastrointestinal: soft, non-tender, no splenomegaly Neurological: no new deficit Musculoskeletal: generalized weakness Psychiatric: normal affect, A&O x 3 Hosp A/P (1) Depression Code(s): F32.9 - MAJOR DEPRESSIVE DISORDER, SINGLE EPISODE, UNSPECIFIED Status : Acute Qualifiers: Depression Type: reactive depression Qualified Code(s): F32.9 - Major depressive disorder, single episode, unspecified (2) Metastasis Code(s): C79.9 - SECONDARY MALIGNANT NEOPLASM OF UNSPECIFIED SITE Status: Acute (3) Testicular mass Status: Acute (4) Tobacco abuse Code(s): Z72.0 - TOBACCO USE Status: Acute (5) Bone metastases Code(s): C79.51 - SECONDARY MALIGNANT NEOPLASM OF BONE Status: Chronic (6) Intractable pain Code(s): R52 - PAIN, UNSPECIFIED Status: Chronic (7) Sciatic leg pain Code(s): M54.30 - SCIATICA, UNSPECIFIED SIDE Status: Chronic (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 prophylaxis DVT prophylaxis
--- NOTE | 2019-05-21 14:44 | PDOC.MOPN ---
Interval History: Patient ambulatory in hospital. Doing well. - Vital Signs Vital Signs: Vital Signs (12 hours) Temp Pulse Resp BP BP Pulse Ox 05/21/19 12:00 98.4 F 114 H 18 119/79 100 05/21/19 08:00 97.8 F 70 16 125/72 100 05/21/19 04:00 97.7 F 73 16 139/80 100 Weight Weight 180 lb 15.992 oz - Physical Exam General: Alert, Oriented x3, No acute distress Neurological: Normal gait, Normal speech, Strength at 5/5 X4 ext, Normal tone, Sensation intact, Cranial nerves 3-12 NL, Reflexes 2+ - Labs Result Diagrams: 05/21/19 05:12 05/21/19 03:30 Lab results: Laboratory Results - last 24 hr 05/21/19 05:12: WBC 4.9, RBC 3.04 L, Hgb 9.6 L, Hct 28.1 L, MCV 92.6, MCH 31.7 H , MCHC 34.2, RDW 13.2, Plt Count 189, MPV 8.3, Neutrophils % 93.2 H, Lymphocytes % 5.0 L, Monocytes % 1.5, Eosinophils % 0.3, Basophils % 0.0, Neutrophils # 4.6, Lymphocytes # 0.2 L, Monocytes # 0.1 L, Eosinophils # 0.0, Basophils # 0.0 05/21/19 03:30: Sodium 136, Potassium 4.4, Chloride 105, Carbon Dioxide 24, Anion Gap 11, BUN 14, Creatinine 0.79, Estimated GFR (MDRD) Greater than 90, Glucose 120 H, Calcium 8.6, Total Bilirubin 0.6, AST 28, ALT 67 H, Alkaline Phosphatase 79, Serum Total Protein 5.9 L, Albumin 3.8, Globulin 2.1 L, Albumin/ Globulin Ratio 1.8 Status: lab reviewed by me A/P - Problem (1) Testicular mass Current Visit: No Status: Acute (2) Bone metastases Current Visit: No Code(s): C79.51 - SECONDARY MALIGNANT NEOPLASM OF BONE Status: Chronic - Plan Plan: Continue treatment. Monitor neuro status including handwriting.
[2019-05-21] MEDS: ONDANSETRON IVPB SCH (17:30)
[2019-05-21] MEDS: DEXAMETHASONE SOD PHOSPHATE IVPB SCH (17:30)
[2019-05-21] MEDS: [UNRECOGNIZED DRUG - OTHER] IVPB SCH (17:30)
[2019-05-21] MEDS: CISPLATIN IV SCH (19:32)
[2019-05-21] MEDS: MANNITOL IV SCH (19:32)
[2019-05-21] MEDS: Sodium Chloride 0.9% 250 ML IVPB SCH (20:21)
[2019-05-21] MEDS: SODIUM CHLORIDE 0.9% IVPB SCH (20:54)
[2019-05-21] MEDS: MESNA IVPB SCH (20:54)
[2019-05-21] MEDS: IFOSFAMIDE IVPB SCH (20:54)
[2019-05-22] MEDS ORDERED: diphenhydrAMINE 25 MG CAP PO PRN (01:37)
[2019-05-22] MEDS: SODIUM CHLORIDE 0.9% IV SCH ×4 (02:50→23:30)
[2019-05-22] MEDS: MESNA IV SCH ×3 (02:50→23:30)
[2019-05-22 06:53] LABS: #Lymphocytes 0.6 thou/uL (1.20-3.40); #Neutrophils 3.2 thou/uL (1.40-6.50); %Eosinophils 0.1 % (0.0-10.0); %Monocytes 0.7 % (0.0-10.0); %Neutrophils 84.3 % (42.0-75.0); Hemoglobin 9.9 g/dL (14.0-18.0); Mean Corpuscular HGB CONC 34.5 g/dL (32.0-36.0); Mean Corpuscular Hemoglobin 32.3 pg (27.0-31.0); Mean Corpuscular Volume 93.7 fL (78.0-98.0); Mean Platelet Volume 8.2 fL (7.4-10.4); Platelet Count 175 thou/uL (130-400); RBC Distribution Width 13.4 % (11.5-14.5); Red Blood Cell (RBC) Count 3.05 mill/uL (4.70-6.10); White Blood Cell (WBC) Count 3.8 thou/uL (4.8-10.8)
[2019-05-22 07:14] LABS: ALT (SGPT) 52 U/L (8-55); AST (SGOT) 14 U/L (5-34); Albumin 3.9 g/dL (3.5-5.0); Alkaline Phosphatase 75 U/L (40-110); Anion Gap 10 mmol/L (10-20); BUN (Urea Nitrogen) 9 mg/dL (8.9-20.6); Bilirubin, Total 1.1 mg/dL (0.2-1.2); Calc. Creatinine Clearance 171 mL/min (70-130); Calcium 8.6 mg/dL (7.8-10.44); Carbon Dioxide 28 mmol/L (22-29); Chloride 102 mmol/L (98-107); Estimated GFR-MDRD Greater than 90; Glucose 96 mg/dL (70-105); Potassium 3.8 mmol/L (3.5-5.1); Protein, Total 5.9 g/dL (6.0-8.3); Sodium 136 mmol/L (136-145)
[2019-05-22] MEDS: Enoxaparin Sodium 40 MG/0.4 ML SYRINGE SC SCH (09:53)
[2019-05-22] MEDS: Gabapentin 300 MG CAP PO SCH ×3 (09:53→19:46)
[2019-05-22] MEDS: Famotidine 20 MG TAB PO SCH ×2 (09:53→19:46)
--- NOTE | 2019-05-22 13:44 | PDOC.HOSPP ---
- Subjective Subjective: No significant changes. Nausea controlled with medications and oral peppermint. Continues to walk the halls with his cane. Tolerating therapy well. - Objective Vital Signs & Weight: Vital Signs (12 hours) Temp Pulse Resp BP BP BP Pulse Ox 05/22/19 11:38 98 F 108 H 16 132/90 99 05/22/19 08:00 100 05/22/19 07:32 98 F 90 13 127/69 100 05/22/19 04:00 99.2 F 80 16 126/75 100 Weight Weight 180 lb 15.992 oz I&O: 05/21/19 05/22/19 05/23/19 06:59 06:59 06:59 Intake Total 4141 1120 Output Total 1016 2600 Balance 1469 -1480 Result Diagrams: 05/22/19 06:43 05/22/19 06:43 Hospitalist ROS - Review of Systems All other systems reviewed; all pertinent +/- noted in HPI/Subj - Medication Medications: Active Medications Generic Name Dose Route Start Last Admin Trade Name Freq PRN Reason Stop Dose Admin Diphenhydramine HCl 25 mg 05/22/19 01:37 05/22/19 01:39 Benadryl PO 25 mg Q6H PRN Administration Itching & Insomnia Enoxaparin Sodium 40 mg 05/19/19 09:00 05/22/19 09:53 Lovenox SC 40 mg 0900 KIKE Administration Famotidine 20 mg 05/18/19 21:00 05/22/19 09:53 Pepcid PO 20 mg BID KIKE Administration Fentanyl 50 mcg 05/19/19 15:00 05/19/19 15:17 Duragesic TD 50 mcg Q3D KIKE Administration Gabapentin 300 mg 05/18/19 21:00 05/22/19 09:53 Neurontin PO 300 mg TID KIKE Administration Paclitaxel 492.5 mg/ Sodium 582.0833 mls @ 0 mls/hr 05/18/19 20:15 05/18/19 22:58 Chloride IVPB 582.0833 mls WILLCALL KIKE Administration As Directed [place] 0.985 gm/ Sodium 59.85 mls @ 0 mls/hr 05/19/19 05:00 05/22/19 06:40 Chloride IV 59.85 mls WILLCALL KIKE Administration As Directed Cisplatin 49 mg/ Mannitol 12.5 349 mls @ 698 mls/hr 05/19/19 07:15 05/21/19 19:32 gm/ Sodium Chloride IV 349 mls WILLCALL KIKE Administration Ifosfamide 2.955 gm/ [place] 0. 1,068.95 mls @ 1,068.95 mls/hr 05/19/19 08:45 05/21/19 20:54 985 gm/ Sodium Chloride IVPB 1,068.95 mls WILLCALL KIKE Administration Sodium Chloride 250 mls @ 0 mls/hr 05/19/19 23:15 05/21/19 20:21 Normal Saline 0.9% IVPB 250 mls WILLCALL KIKE Administration As Directed Sodium Chloride 250 mls @ 0 mls/hr 05/19/19 23:15 05/20/19 02:10 Normal Saline 0.9% IVPB 250 mls WILLCALL KIKE Administration As Directed Dexamethasone Sodium Phosphate 55 mls @ 165 mls/hr 05/20/19 14:30 05/21/19 17 :30 10 mg/ Ondansetron HCl 8 mg/ IVPB 55 mls Sodium Chloride WILLCALL KIKE Administration Ondansetron HCl 8 mg 05/18/19 20:17 05/19/19 12:12 Zofran Odt PO 8 mg TID PRN Administration Nausea/Vomiting Sodium Chloride 10 ml 05/20/19 09:00 05/21/19 20:25 Flush - Normal Saline IVF 10 ml Q12HR KIKE Administration Sodium Chloride 10 ml 05/20/19 00:34 05/20/19 00:39 Flush - Normal Saline IVF 10 ml PRN PRN Administration Saline Flush - Exam General Appearance: NAD, awake alert Eye: PERRL ENT: normocephalic atraumatic, moist mucosa Neck: supple, symmetric Heart: RRR, no murmur, no gallops, no rubs Respiratory: CTAB, no wheezes, no rales, normal chest expansion, no tachypnea Gastrointestinal: soft, non-tender, no guarding, no rigidity Extremities: no edema Skin: no lesions, no rashes Neurological: cranial nerve grossly intact, no focal deficits Musculoskeletal: generalized weakness Psychiatric: normal affect, A&O x 3 Hosp A/P (1) Depression Code(s): F32.9 - MAJOR DEPRESSIVE DISORDER, SINGLE EPISODE, UNSPECIFIED Status : Acute Qualifiers: Depression Type: reactive depression Qualified Code(s): F32.9 - Major depressive disorder, single episode, unspecified (2) Metastasis Code(s): C79.9 - SECONDARY MALIGNANT NEOPLASM OF UNSPECIFIED SITE Status: Acute (3) Testicular mass Status: Acute (4) Tobacco abuse Code(s): Z72.0 - TOBACCO USE Status: Acute (5) Bone metastases Code(s): C79.51 - SECONDARY MALIGNANT NEOPLASM OF BONE Status: Chronic (6) Intractable pain Code(s): R52 - PAIN, UNSPECIFIED Status: Chronic (7) Sciatic leg pain Code(s): M54.30 - SCIATICA, UNSPECIFIED SIDE Status: Chronic (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 prophylaxis DVT prophylaxis
--- NOTE | 2019-05-22 13:45 | PDOC.MOPN ---
Interval History: doing well. No neurological changes. - Vital Signs Vital Signs: Vital Signs (12 hours) Temp Pulse Resp BP BP BP Pulse Ox 05/22/19 11:38 98 F 108 H 16 132/90 99 05/22/19 08:00 100 05/22/19 07:32 98 F 90 13 127/69 100 05/22/19 04:00 99.2 F 80 16 126/75 100 Weight Weight 180 lb 15.992 oz - Physical Exam General: Alert, Oriented x3, No acute distress HEENT: Atraumatic, PERRLA, EOMI, Mucous membr. moist/pink Lungs: Clear to auscultation, Normal air movement Cardiovascular: Regular rate, Normal S1, Normal S2, No murmurs, Gallops, Rubs Abdomen: Normal bowel sounds, Soft, No tenderness, No hepatospenomegaly, No masses Extremities: No clubbing, No cyanosis, No edema, Normal pulses, No tenderness/ swelling Skin: No rashes, No breakdown, No significant lesion Neurological: Normal gait, Normal speech, Strength at 5/5 X4 ext, Normal tone, Sensation intact, Cranial nerves 3-12 NL, Reflexes 2+ Psych/Mental Status: Mental status NL, Mood NL - Labs Result Diagrams: 05/22/19 06:43 05/22/19 06:43 Lab results: Laboratory Results - last 24 hr 05/22/19 06:43: Sodium 136, Potassium 3.8, Chloride 102, Carbon Dioxide 28, Anion Gap 10, BUN 9, Creatinine 0.74, Estimated GFR (MDRD) Greater than 90, Glucose 96, Calcium 8.6, Total Bilirubin 1.1, AST 14, ALT 52, Alkaline Phosphatase 75, Serum Total Protein 5.9 L, Albumin 3.9, Globulin 2.0 L, Albumin/ Globulin Ratio 2.0 05/22/19 06:43: WBC 3.8 L, RBC 3.05 L, Hgb 9.9 L, Hct 28.6 L, MCV 93.7, MCH 32.3 H, MCHC 34.5, RDW 13.4, Plt Count 175, MPV 8.2, Neutrophils % 84.3 H, Lymphocytes % 15.0 L, Monocytes % 0.7, Eosinophils % 0.1, Basophils % 0.0, Neutrophils # 3.2, Lymphocytes # 0.6 L, Monocytes # 0.0 L, Eosinophils # 0.0, Basophils # 0.0 Status: lab reviewed by me A/P - Problem (1) Testicular mass Current Visit: No Status: Acute (2) Bone metastases Current Visit: No Code(s): C79.51 - SECONDARY MALIGNANT NEOPLASM OF BONE Status: Chronic - Plan Plan: No complaints. Doing well on treatment. Ok to go home after Fulphila tomorrow. Follow-up as scheduled.
[2019-05-22] MEDS: fentaNYL 50 mcg/hour Patch TD SCH (14:10)
[2019-05-22] MEDS: DEXAMETHASONE SOD PHOSPHATE IVPB SCH (14:14)
[2019-05-22] MEDS: [UNRECOGNIZED DRUG - OTHER] IVPB SCH (14:14)
[2019-05-22] MEDS: ONDANSETRON IVPB SCH (14:14)
[2019-05-22] MEDS: Sodium Chloride 0.9% 250 ML IVPB SCH ×2 (14:48→16:48)
[2019-05-22] MEDS: CISPLATIN IV SCH (15:33)
[2019-05-22] MEDS: MANNITOL IV SCH (15:33)
[2019-05-22] MEDS: MESNA IVPB SCH (17:21)
[2019-05-22] MEDS: SODIUM CHLORIDE 0.9% IVPB SCH (17:21)
[2019-05-22] MEDS: IFOSFAMIDE IVPB SCH (17:21)
[2019-05-22] MEDS: Ondansetron ODT 4 MG TAB PO PRN (19:46)
[2019-05-23] MEDS ORDERED: Promethazine HCl 25 MG/ML VIAL SLOW IVP PRN (00:13)
[2019-05-23] MEDS ORDERED: Promethazine HCl 25 MG in Sodium Chloride 0.9% 50 ML IVPB PRN (00:20)
[2019-05-23 03:58] LABS: #Lymphocytes 0.7 thou/uL (1.20-3.40); #Neutrophils 3.4 thou/uL (1.40-6.50); %Basophils 1.1 % (0.0-1.0); %Eosinophils 0.6 % (0.0-10.0); %Lymphocytes 16.9 % (21.0-51.0); %Monocytes 0.3 % (0.0-10.0); %Neutrophils 81.1 % (42.0-75.0); Mean Corpuscular HGB CONC 33.4 g/dL (32.0-36.0); Mean Corpuscular Hemoglobin 31.1 pg (27.0-31.0); Mean Corpuscular Volume 93.2 fL (78.0-98.0); Mean Platelet Volume 8.1 fL (7.4-10.4); Platelet Count 180 thou/uL (130-400); RBC Distribution Width 13.5 % (11.5-14.5); Red Blood Cell (RBC) Count 3.52 mill/uL (4.70-6.10); White Blood Cell (WBC) Count 4.2 thou/uL (4.8-10.8)
[2019-05-23] MEDS: MESNA IV SCH (04:05)
[2019-05-23] MEDS: SODIUM CHLORIDE 0.9% IV SCH (04:05)
[2019-05-23 04:19] LABS: ALT (SGPT) 127 U/L (8-55); AST (SGOT) 57 U/L (5-34); Albumin 4.4 g/dL (3.5-5.0); Alkaline Phosphatase 79 U/L (40-110); Anion Gap 12 mmol/L (10-20); BUN (Urea Nitrogen) 11 mg/dL (8.9-20.6); Bilirubin, Total 1.1 mg/dL (0.2-1.2); Calc. Creatinine Clearance 160 mL/min (70-130); Calcium 9.1 mg/dL (7.8-10.44); Carbon Dioxide 26 mmol/L (22-29); Chloride 101 mmol/L (98-107); Estimated GFR-MDRD Greater than 90; Globulin 2.3 g/dL (2.4-3.5); Glucose 107 mg/dL (70-105); Potassium 3.2 mmol/L (3.5-5.1); Protein, Total 6.7 g/dL (6.0-8.3); Sodium 136 mmol/L (136-145)
[2019-05-23] MEDS ORDERED: Potassium Chloride 20 MEQ TAB PO SCH (07:15)
[2019-05-23] MEDS ORDERED: PEGFILGRASTIM-JMDB 6 MG/0.6 ML SYRINGE SQ SCH (08:00)
[2019-05-23] MEDS: Gabapentin 300 MG CAP PO SCH ×2 (09:44→15:47)
[2019-05-23] MEDS: Famotidine 20 MG TAB PO SCH (09:44)
[2019-05-23] MEDS: Enoxaparin Sodium 40 MG/0.4 ML SYRINGE SC SCH (09:54)
[2019-05-23] MEDS ORDERED: Potassium Chloride 40 MEQ in Premix Bag 1 BAG IVPB SCH (10:00)
[2019-05-23] MEDS: Potassium Chloride 20 MEQ in Premix Bag 1 BAG IVPB SCH ×2 (11:05→12:52)
[2019-05-23 13:25] VITALS: BP 128/88; TEMP 97.9
--- NOTE | 2019-05-23 13:33 | PDOC.HOSPP ---
- Subjective Subjective: Patient clinically unchanged. Tolerating chemotherapy. Nausea persists though it is controlled with symptomatic medications and peppermint. No acute complaints this a.m. This potassium is minorly low and I'm replacing it. Patient stable for discharge when okay with oncology. - Objective Vital Signs & Weight: Vital Signs (12 hours) Temp Pulse Resp BP Pulse Ox 05/23/19 11:35 97.9 F 94 16 128/88 98 05/23/19 08:30 97.7 F 95 18 129/82 100 05/23/19 04:08 98.4 F 85 16 129/90 99 Weight Weight 180 lb 15.992 oz I&O: 05/22/19 05/23/19 05/24/19 06:59 06:59 06:59 Intake Total 1120 3433 Output Total 2600 3050 Balance -1480 383 Result Diagrams: 05/23/19 03:45 05/23/19 03:45 Radiology Reviewed by me: Yes Hospitalist ROS - Review of Systems All other systems reviewed; all pertinent +/- noted in HPI/Subj - Medication Medications: Active Medications Generic Name Dose Route Start Last Admin Trade Name Freq PRN Reason Stop Dose Admin Acetaminophen 650 mg 05/20/19 20:45 05/22/19 23:35 Tylenol PO 650 mg Q4H PRN Administration Headache/Fever/Mild Pain (1-3) Hydrocodone Bitart/Acetaminophen 1 tab 05/18/19 20:08 05/22/19 19:46 [place] 5/325 PO 1 tab Q4H PRN Administration Moderate Pain (4-6) Diphenhydramine HCl 25 mg 05/22/19 01:37 05/22/19 01:39 Benadryl PO 25 mg Q6H PRN Administration Itching & Insomnia Enoxaparin Sodium 40 mg 05/19/19 09:00 05/23/19 09:54 Lovenox SC Not Given 09 KIKE Famotidine 20 mg 05/18/19 21:00 05/23/19 09:44 Pepcid PO 20 mg BID KIKE Administration Fentanyl 50 mcg 05/19/19 15:00 05/22/19 14:10 Duragesic TD 50 mcg Q3D KIKE Administration Gabapentin 300 mg 05/18/19 21:00 05/23/19 09:44 Neurontin PO 300 mg TID KIKE Administration Paclitaxel 492.5 mg/ Sodium 582.0833 mls @ 0 mls/hr 05/18/19 20:15 05/18/19 22:58 Chloride IVPB 582.0833 mls WILLCALL KIKE Administration As Directed [place] 0.985 gm/ Sodium 59.85 mls @ 0 mls/hr 05/19/19 05:00 05/23/19 04:05 Chloride IV 59.85 mls WILLCALL KIKE Administration As Directed Cisplatin 49 mg/ Mannitol 12.5 349 mls @ 698 mls/hr 05/19/19 07:15 05/22/19 15:33 gm/ Sodium Chloride IV 349 mls WILLCALL KIKE Administration Ifosfamide 2.955 gm/ [place] 0. 1,068.95 mls @ 1,068.95 mls/hr 05/19/19 08:45 05/22/19 17:21 985 gm/ Sodium Chloride IVPB 1,068.95 mls WILLCALL KIKE Administration Sodium Chloride 250 mls @ 0 mls/hr 05/19/19 23:15 05/22/19 14:48 Normal Saline 0.9% IVPB 250 mls WILLCALL KIKE Administration As Directed Sodium Chloride 250 mls @ 0 mls/hr 05/19/19 23:15 05/22/19 16:48 Normal Saline 0.9% IVPB 250 mls WILLCALL KIKE Administration As Directed Dexamethasone Sodium Phosphate 55 mls @ 165 mls/hr 05/20/19 14:30 05/22/19 14 :14 10 mg/ Ondansetron HCl 8 mg/ IVPB 55 mls Sodium Chloride WILLCALL KIKE Administration Potassium Chloride 20 meq/ 100 mls @ 50 mls/hr 05/23/19 11:00 05/23/19 12:52 Device IVPB 05/23/19 14:59 100 mls Q2H KIKE Administration Ondansetron HCl 4 mg 05/18/19 20:08 05/23/19 03:48 Zofran IVP 4 mg Q6H PRN Administration Nausea/Vomiting Ondansetron HCl 8 mg 05/18/19 20:17 05/22/19 19:46 Zofran Odt PO 8 mg TID PRN Administration Nausea/Vomiting Sodium Chloride 10 ml 05/20/19 09:00 05/23/19 09:45 Flush - Normal Saline IVF 10 ml Q12HR KIKE Administration Sodium Chloride 10 ml 05/20/19 00:34 05/20/19 00:39 Flush - Normal Saline IVF 10 ml PRN PRN Administration Saline Flush - Exam General Appearance: NAD, awake alert Eye: anicteric sclera ENT: normocephalic atraumatic, moist mucosa Neck: supple, symmetric Heart: no murmur, no gallops, no rubs Respiratory: no wheezes, no rales, no ronchi Gastrointestinal: soft, non-tender, no guarding, no rigidity Extremities: no clubbing, no edema Skin: no lesions Neurological: cranial nerve grossly intact, no new deficit Musculoskeletal: generalized weakness Psychiatric: A&O x 3 Hosp A/P (1) Depression Code(s): F32.9 - MAJOR DEPRESSIVE DISORDER, SINGLE EPISODE, UNSPECIFIED Status : Acute Qualifiers: Depression Type: reactive depression Qualified Code(s): F32.9 - Major depressive disorder, single episode, unspecified (2) Metastasis Code(s): C79.9 - SECONDARY MALIGNANT NEOPLASM OF UNSPECIFIED SITE Status: Acute (3) Testicular mass Status: Acute (4) Tobacco abuse Code(s): Z72.0 - TOBACCO USE Status: Acute (5) Bone metastases Code(s): C79.51 - SECONDARY MALIGNANT NEOPLASM OF BONE Status: Chronic (6) Intractable pain Code(s): R52 - PAIN, UNSPECIFIED Status: Chronic (7) Sciatic leg pain Code(s): M54.30 - SCIATICA, UNSPECIFIED SIDE Status: Chronic (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 prophylaxis DVT prophylaxis Disposition: stable for D/c when ok with Oncology
[2019-05-23] MEDS: Ondansetron ODT 4 MG TAB PO PRN (17:10)
--- NOTE | 2019-05-24 13:44 | DIS ---
DATE OF ADMISSION: 05/18/2019 DATE OF DISCHARGE: 05/23/2019 REASON FOR HOSPITALIZATION: Metastatic cancer of testicular origin. 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 PROCEDURES PERFORMED AND TREATMENTS RENDERED: Mr. Kaur is a 28-year-old gentleman with known testicular cancer, who has undergone chemotherapy in the past. The patient with metastatic disease with diffusion lesions throughout the body. The patient has had one cycle of chemotherapy already and is admitted for cycle two treatment. Chemotherapy was administered appropriately by oncologist, please see full consultation notes, progress notes and all medication administration reports for details. The patient tolerated chemotherapy well. He did have some expected nausea and vomiting throughout his hospitalization, though this was controlled mainly on oral medications and symptomatic therapy. After a full course of chemotherapy, the patient was recommended safe for discharge by Oncology with close followup in the outpatient setting. CONDITION ON DISCHARGE: Stable. SPECIFIC INSTRUCTIONS FOR THE PATIENT/FAMILY: 1. The patient is recommended to take all medications as directed, to be re-evaluated by primary care physician and Oncology in the upcoming appointments. 2. The patient is recommended to follow up with primary care physician in the next 5 to 7 days. 3. The patient is recommended to follow up with Oncology in the next 1 to 2 weeks at upcoming appointment. 4. The patient is recommended to have all appropriate chemotherapy coordinated in the outpatient setting. 5. The patient is recommended to return to acute care hospital immediately if signs or symptoms return, worsen, or any other new symptoms occur. DISCHARGE MEDICATIONS: No new medications were generated. Chronic medications were continued without prescriptions. 1. Fentanyl 50 mcg transdermal q.3 days. 2. Promethazine 25 mg p.o. and per rectal q.6 hours p.r.n. nausea and vomiting. 3. Zofran 8 mg p.o. t.i.d. p.r.n. nausea and vomiting. 4. Gabapentin 300 mg p.o. t.i.d. Greater than 35 minutes spent coordinating care and discharge process for this patient. Job ID: [id number]
== END 2019-05-23 19:37 | disposition home or self-care (01) | DRG 847 ==
LOC: ONC 05-18 17:44
PROVIDERS: ADMIT Internal Medicine Hematology & Oncology; ATTEND Internal Medicine Hematology & Oncology
PROC: 3E03305 Introduction of Other Antineoplastic into Peripheral Vein, Percutaneous Approach (ICD-10-PCS; principal; 2019-05-18)
PROC: 30233N1 Transfusion of Nonautologous Red Blood Cells into Peripheral Vein, Percutaneous Approach (ICD-10-PCS; 2019-05-18)
DX: Z51.11 Encounter for antineoplastic chemotherapy (principal); C79.51 Secondary malignant neoplasm of bone; C62.91 Malignant neoplasm of right testis, unspecified whether descended or undescended; Z87.891 Personal history of nicotine dependence; F32.9 Major depressive disorder, single episode, unspecified; M54.30 Sciatica, unspecified side
CPT/HCPCS: 36415; 80048; 80053; 82105; 85025; J1100; J1200; J1453; J1642; J1650; J2150; J2405; J2469; J2550; J2997; J3480; J3490; J7050; J9060; J9208; J9209; J9267; Q0162; Q0163; Q5108; S0028

== ENCOUNTER 2019-06-08 12:46 | Inpatient (IN) | payer OTHER ==
[2019-06-08] MEDS ORDERED: Famotidine/PF 20 mg/2ml Vial SLOW IVP SCH (13:15)
[2019-06-08] MEDS ORDERED: DEXAMETHASONE IVPB SCH ×2 (13:15→14:00)
[2019-06-08] MEDS ORDERED: ONDANSETRON IVPB SCH ×3 (13:15→14:00)
[2019-06-08] MEDS ORDERED: SODIUM CHLORIDE 0.9% IVPB SCH ×3 (13:15→14:00)
[2019-06-08] MEDS ORDERED: diphenhydrAMINE 50 MG/ML VIAL IVP SCH (13:15)
[2019-06-08] MEDS ORDERED: PACLITAXEL IVPB SCH (13:30)
[2019-06-08 13:32] VITALS: BMI 27.2
[2019-06-08] MEDS ORDERED: PALONOSETRON HCL 0.05 MG/ML 5 ML VIAL IVP SCH (13:45)
[2019-06-08] MEDS ORDERED: DEXAMETHASONE SOD PHOSPHATE IVPB SCH (14:00)
[2019-06-08] MEDS ORDERED: [UNRECOGNIZED DRUG - OTHER] IVPB SCH (14:00)
[2019-06-08] MEDS ORDERED: FLU VACC QS2019-20(6MOS UP)/PF 60 MCG/0.5 ML SYRINGE IM ONE (14:30)
[2019-06-08] MEDS: Lorazepam 1 MG TAB PO PRN (19:37)
[2019-06-08] MEDS ORDERED: Acetaminophen 325 MG TAB PO PRN (19:44)
[2019-06-08] MEDS: Morphine 4 MG/ML VIAL SLOW IVP PRN (20:00)
--- NOTE | 2019-06-08 20:02 | PDOC.HHP ---
Hospitalist HPI - History of Present Illness History of Present Illness: Mr. Kaur is a 28-year-old gentleman with past medical history of metastatic testicular cancer status post chemotherapy and along surgery, who presents for chemotherapy directly admitted by the oncologist. He has frequent admissions here since 2018 where he has been receiving chemotherapy treatments. This is his third round of chemo. He is going to be receiving Taxel, cisplatin,and Ifex. Medicine has been called for admission and management of pain, nausea and any other medical comorbidities. At this time, Mr. Kaur has no complaints and will undergo his second session tomorrow. He is to receive a total of 5 days of chemotherapy. Hospitalist ROS - Review of Systems Constitutional: denies: fever, chills, sweats, weakness, malaise, other Eyes: denies: pain, vision change, conjunctivae inflammation, eyelid inflammation, redness, other ENT: denies: ear pain, ear discharge, nose pain, nose discharge, nose congestion , mouth pain, mouth swelling, throat pain, throat swelling, other Respiratory: denies: cough, dry, shortness of breath, hemoptysis, SOB with excertion, pleuritic pain, sputum, wheezing, other Cardiovascular: denies: chest pain, palpitations, orthopnea, paroxysmal noc. dyspnea, edema, light headedness, other Gastrointestinal: denies: nausea, vomiting, abdominal pain, diarrhea, constipation, melena, hematochezia, other Genitourinary: denies: dysuria, frequency, incontinence, hematuria, retention, other Musculoskeletal: denies: neck pain, shoulder pain, arm pain, back pain, hand pain, leg pain, foot pain, other Skin: denies: rash, lesions, georgina, bruising, other - Medication Medications: Active Medications Generic Name Dose Route Start Last Admin Trade Name Freq PRN Reason Stop Dose Admin Famotidine 20 mg 06/08/19 13:15 06/08/19 18:52 Pepcid SLOW IVP 06/08/19 21:00 20 mg ONE KIKE Administration Lorazepam 1 mg 06/08/19 13:10 06/08/19 19:37 Ativan PO 1 mg Q8H PRN Administration Anxiety Hospitalist History - Past Medical History Cardiac: reports: no pertinent history Pulmonary: reports: no pertinent history [employer] 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: reports: no pertinent history Gastrointestinal: reports: no pertinent history Heme/Onc: reports: Cancer (Metastatic testicular CA) Hepatobiliary: reports: no pertinent history Psych: reports: no pertinent history Musculoskeletal: reports: no pertinent history Rheumatologic: reports: no pertinent history Infectious Disease: reports: no pertinent history ENT: reports: no pertinent history Renal/: reports: no pertinent history Endocrine: reports: no pertinent history Dermatology: reports: no pertinent history - Past Surgical History Past Surgical History: reports: no pertinent history - Family History Family History: reports: no pertinent history - Social History Alcohol: reports: Occassional Drugs: reports: none Living Situation: Alone Activity level: independent ambulation - Exam General Appearance: NAD, awake alert Eye: PERRL, anicteric sclera ENT: normocephalic atraumatic, no oropharyngeal lesions, moist mucosa Neck: supple, symmetric, no JVD, no thyromegaly, no lymphadenopathy, no carotid bruit Heart: RRR, no murmur, no gallops, no rubs, normal peripheral pulses Respiratory: CTAB, no wheezes, no rales, no ronchi, normal chest expansion, no tachypnea, normal percussion Gastrointestinal: soft, non-tender, non-distended, normal bowel sounds, no palpable masses, no hepatomegaly, no splenomegaly, no bruit Extremities: no cyanosis, no clubbing, no edema Skin: normal turgor, no lesions, no rashes Neurological: cranial nerve grossly intact, normal sensation to touch, no weakness, no focal deficits, no new deficit Musculoskeletal: normal tone, normal strength, no muscle wasting Psychiatric: normal affect, normal behavior, A&O x 3 Hospitalist Results - Labs Lab results: Sodium 140, potassium 4.6 chloride 107 BUN 10 creatinine 1.78 glucose 113 calcium 9.1 total bilirubin 0.3 AST 13 ALT 20 ALP 129 albumin 4.4 Hospitalist H&P A/P - Problem (1) Bone metastases Code(s): C79.51 - SECONDARY MALIGNANT NEOPLASM OF BONE Status: Chronic (2) Testicular malignancy Code(s): C62.90 - MALIG NEOPLASM OF UNSP TESTIS, UNSP DESCENDED OR UNDESCENDED Status: Chronic Qualifiers: Laterality: right - Plan Plan: Will admit under medicine services Oncology on board, will receive his first dose of chemotherapy today for a total of 5 sessions Triple phase PRN pain regimen including Tylenol, [place], and morphine for mild, moderate, and severe pain Zofran PRN for nausea Regular diet DVT prophylaxis: Ambulation and SCDs CODE STATUS: Full code ACP: Patient did not wish to name a surrogate decision-maker Disposition: Admit for chemotherapy. Continue other supportive care pain and nausea.
[2019-06-08] MEDS: HYDROcodone/Acetaminophen 10/325 mg Tablet PO PRN (20:53)
[2019-06-09] MEDS: Morphine 4 MG/ML VIAL SLOW IVP PRN ×2 (00:08→17:56)
[2019-06-09 04:04] LABS: #Lymphocytes 0.5 thou/uL (1.20-3.40); #Neutrophils 5.9 thou/uL (1.40-6.50); %Basophils 0.2 % (0.0-1.0); %Eosinophils 0.1 % (0.0-10.0); %Lymphocytes 7.4 % (21.0-51.0); %Monocytes 0.3 % (0.0-10.0); Mean Corpuscular HGB CONC 34.7 g/dL (32.0-36.0); Mean Corpuscular Hemoglobin 33.9 pg (27.0-31.0); Mean Corpuscular Volume 97.6 fL (78.0-98.0); Mean Platelet Volume 7.3 fL (7.4-10.4); Platelet Count 274 thou/uL (130-400); RBC Distribution Width 15.9 % (11.5-14.5); Red Blood Cell (RBC) Count 2.94 mill/uL (4.70-6.10); White Blood Cell (WBC) Count 6.5 thou/uL (4.8-10.8)
[2019-06-09 04:31] LABS: Anion Gap 12 mmol/L (10-20); BUN (Urea Nitrogen) 9 mg/dL (8.9-20.6); Calc. Creatinine Clearance 156 mL/min (70-130); Calcium 9.5 mg/dL (7.8-10.44); Carbon Dioxide 23 mmol/L (22-29); Chloride 105 mmol/L (98-107); Estimated GFR-MDRD Greater than 90; Glucose 144 mg/dL (70-105); Potassium 5.4 mmol/L (3.5-5.1); Sodium 135 mmol/L (136-145)
[2019-06-09] MEDS: fentaNYL 50 mcg/hour Patch TD SCH (09:35)
[2019-06-09] MEDS: Lorazepam 1 MG TAB PO PRN ×2 (09:37→17:21)
[2019-06-09] MEDS: HYDROcodone/Acetaminophen 10/325 mg Tablet PO PRN (09:41)
[2019-06-09] MEDS ORDERED: Sodium Chloride 0.9% 250 ML 250 ML IVPB SCH ×2 (12:00→13:45)
[2019-06-09] MEDS ORDERED: Dexamethasone 10 MG/ML VIAL SLOW IVP SCH (12:00)
[2019-06-09] MEDS ORDERED: PALONOSETRON HCL 0.05 MG/ML 5 ML VIAL IVP SCH (12:00)
--- NOTE | 2019-06-09 13:00 | PDOC.HOSPP ---
- Subjective Encounter Date: 06/09/19 Encounter Time: 09:50 Subjective: comfortable, able to give me some info; has mediport on r.chest since 03/2018. 3rd round of chemos. apprehensive. - Objective Vital Signs & Weight: Vital Signs (12 hours) Temp Pulse Resp BP Pulse Ox 06/09/19 09:55 98.1 F 89 16 120/77 100 Weight Weight 179 lb I&O: 06/08/19 06/09/19 06/10/19 06:59 06:59 06:59 Intake Total 290 Balance 290 Result Diagrams: 06/09/19 03:40 06/09/19 03:40 Hospitalist ROS - Medication Medications: Active Medications Generic Name Dose Route Start Last Admin Trade Name Freq PRN Reason Stop Dose Admin Hydrocodone Bitart/Acetaminophen 1 tab 06/08/19 19:44 06/09/19 09:41 [place] 10/325 PO 1 tab Q4H PRN Administration Moderate Pain (4-6) Fentanyl 50 mcg 06/09/19 09:00 06/09/19 09:35 Duragesic TD 50 mcg Q3D KIKE Administration Paclitaxel 492.5 mg/ Sodium 582 mls @ 24.25 mls/hr 06/08/19 13:30 06/08/19 20 :54 Chloride IVPB 06/09/19 14:00 582 mls ONE KIKE Administration Lorazepam 1 mg 06/08/19 13:10 06/09/19 09:37 Ativan PO 1 mg Q8H PRN Administration Anxiety Morphine Sulfate 4 mg 06/08/19 19:46 06/09/19 00:08 Morphine SLOW IVP 4 mg Q4H PRN Administration Severe Pain (7-10) Sodium Chloride 10 ml 06/09/19 09:00 06/09/19 09:37 Flush - Normal Saline IVF 10 ml Q12HR KIKE Administration - Exam General Appearance: NAD, awake alert Eye: PERRL ENT: normocephalic atraumatic Neck: supple Heart: RRR Respiratory: CTAB Gastrointestinal: normal bowel sounds Skin: normal turgor Hosp A/P - Plan Metastatic testicular cancer metastatic bone disease Immunocompromised --3rd round of chemo of 5 cycles during this admission -analgesics and antiemetics and stool softeners -am labs.
[2019-06-09] MEDS ORDERED: Senokot S 8.6-50 MG TAB PO PRN (13:02)
[2019-06-09] MEDS ORDERED: Ondansetron PF 4 MG/2 ML Vial SLOW IVP SCH (14:00)
[2019-06-09] MEDS: Prochlorperazine 10 MG/2 ML VIAL IVP PRN (17:23)
[2019-06-09] MEDS ORDERED: Palonosetron HCl 0.25 MG in Sodium Chloride 0.9% 50 ML IVPB SCH (19:45)
[2019-06-09] MEDS: Sodium Chloride 0.9% 250 ML IVPB SCH (23:33)
[2019-06-10] MEDS: SODIUM CHLORIDE 0.9% IV SCH ×2 (00:15→21:01)
[2019-06-10] MEDS: MANNITOL IV SCH ×2 (00:15→21:01)
[2019-06-10] MEDS: CISPLATIN IV SCH ×2 (00:15→21:01)
[2019-06-10] MEDS: Sodium Chloride 0.9% 250 ML IVPB SCH ×3 (00:54→21:41)
[2019-06-10] MEDS: MESNA IVPB SCH ×4 (01:38→22:28)
[2019-06-10] MEDS: SODIUM CHLORIDE 0.9% IVPB SCH ×4 (01:38→22:28)
[2019-06-10] MEDS: IFOSFAMIDE IVPB SCH ×2 (01:38→22:28)
[2019-06-10 05:59] LABS: #Lymphocytes 0.2 thou/uL (1.20-3.40); #Neutrophils 2.1 thou/uL (1.40-6.50); %Eosinophils 0.1 % (0.0-10.0); %Lymphocytes 9.2 % (21.0-51.0); %Monocytes 1.7 % (0.0-10.0); %Neutrophils 89.1 % (42.0-75.0); Hemoglobin 9.6 g/dL (14.0-18.0); Mean Corpuscular HGB CONC 34.6 g/dL (32.0-36.0); Mean Corpuscular Hemoglobin 33.3 pg (27.0-31.0); Mean Corpuscular Volume 96.2 fL (78.0-98.0); Mean Platelet Volume 7.2 fL (7.4-10.4); Platelet Count 257 thou/uL (130-400); RBC Distribution Width 15.3 % (11.5-14.5); Red Blood Cell (RBC) Count 2.89 mill/uL (4.70-6.10); White Blood Cell (WBC) Count 2.4 thou/uL (4.8-10.8)
[2019-06-10] MEDS: Lorazepam 1 MG TAB PO PRN ×2 (08:22→19:11)
[2019-06-10] MEDS: HYDROcodone/Acetaminophen 10/325 mg Tablet PO PRN ×2 (08:29→19:12)
--- NOTE | 2019-06-10 08:34 | PDOC.MOPN ---
Interval History: Pt had an episode of N/V yesterday during Taxol and received compazine and ativan which helped. None today thus far. Has continued leg and hip pain, neuropathy in legs, and occasional uncomfortable feeling in his arms hat comes and goes. No other complaints today. Is walking around whenever he gets unhooked from his IVs. - Vital Signs Vital Signs: Vital Signs (12 hours) Temp Pulse Resp BP Pulse Ox 06/09/19 21:00 98.2 F 81 16 102/61 97 Weight Weight 179 lb - Physical Exam General: Alert, Oriented x3, Cooperative HEENT: EOMI Lungs: Clear to auscultation Cardiovascular: Regular rate Abdomen: Soft Psych/Mental Status: Mood NL - Labs Result Diagrams: 06/10/19 05:49 06/09/19 03:40 Lab results: Laboratory Results - last 24 hr 06/10/19 05:49: WBC 2.4 L, RBC 2.89 L, Hgb 9.6 L, Hct 27.8 L, MCV 96.2, MCH 33.3 H, MCHC 34.6, RDW 15.3 H, Plt Count 257, MPV 7.2 L, Neutrophils % 89.1 H, Lymphocytes % 9.2 L, Monocytes % 1.7, Eosinophils % 0.1, Basophils % 0.0, Neutrophils # 2.1, Lymphocytes # 0.2 L, Monocytes # 0.0 L, Eosinophils # 0.0, Basophils # 0.0 A/P - Problem (1) Bone metastases Current Visit: No Code(s): C79.51 - SECONDARY MALIGNANT NEOPLASM OF BONE Status: Chronic (2) Testicular malignancy Current Visit: No Code(s): C62.90 - MALIG NEOPLASM OF UNSP TESTIS, UNSP DESCENDED OR UNDESCENDED Status: Chronic Qualifiers: Laterality: right - Plan Plan: Cont chemotherapy, C3D3 today Ativan prn anxiety, nausea neuro checks pt will be discharged Friday night and return on Friday for [facility]
[2019-06-10 08:56] LABS: Anion Gap 12 mmol/L (10-20); BUN (Urea Nitrogen) 12 mg/dL (8.9-20.6); Calc. Creatinine Clearance 167 mL/min (70-130); Calcium 8.8 mg/dL (7.8-10.44); Carbon Dioxide 24 mmol/L (22-29); Chloride 102 mmol/L (98-107); Estimated GFR-MDRD Greater than 90; Glucose 135 mg/dL (70-105); Sodium 134 mmol/L (136-145)
--- NOTE | 2019-06-10 13:12 | PDOC.HOSPP ---
- Subjective Encounter Date: 06/10/19 Encounter Time: 09:15 Subjective: little apprehensive, family at bedside. chemo; onc. note reviewed. - Objective Vital Signs & Weight: Vital Signs (12 hours) Temp Pulse Resp BP Pulse Ox 06/10/19 08:00 97.4 F L 108 H 18 130/73 97 Weight Weight 179 lb I&O: 06/09/19 06/10/19 06/11/19 06:59 06:59 06:59 Intake Total 290 2369 Output Total 700 Balance 290 1669 Result Diagrams: 06/10/19 05:49 06/10/19 Unknown Hospitalist ROS - Medication Medications: Active Medications Generic Name Dose Route Start Last Admin Trade Name Freq PRN Reason Stop Dose Admin Hydrocodone Bitart/Acetaminophen 1 tab 06/08/19 19:44 06/10/19 08:29 [place] 10/325 PO 1 tab Q4H PRN Administration Moderate Pain (4-6) Fentanyl 50 mcg 06/09/19 09:00 06/09/19 09:35 Duragesic TD 50 mcg Q3D KIKE Administration Cisplatin 49 mg/ Mannitol 12.5 349 mls @ 698 mls/hr 06/09/19 14:00 06/10/19 00:15 gm/ Sodium Chloride IV 06/12/19 21:00 349 mls 1400 KIKE Administration [place] 0.985 gm/ Ifosfamide 2. 1,068.95 mls @ 0 mls/hr 06/09/19 14:00 01:38 955 gm/ Sodium Chloride IVPB 06/12/19 21:00 1,068.95 mls .Q0M KIKE Administration As Directed [place] 0.985 gm/ Sodium 59.85 mls @ 0 mls/hr 06/09/19 14:00 06/10/19 10:55 Chloride IVPB 06/12/19 23:30 59.85 mls WILLCALL KIKE Administration As Directed Dexamethasone Sodium Phosphate 51 mls @ 102 mls/hr 06/09/19 19:45 06/09/19 22 :46 10 mg/ Sodium Chloride IVPB 51 mls WILLCALL KIKE Administration Sodium Chloride 250 mls @ 0 mls/hr 06/09/19 23:45 06/10/19 00:54 Normal Saline 0.9% IVPB 06/12/19 23:59 250 mls ASDIR KIKE Administration Lorazepam 1 mg 06/08/19 13:10 06/10/19 08:22 Ativan PO 1 mg Q8H PRN Administration Anxiety Morphine Sulfate 4 mg 06/08/19 19:46 06/09/19 17:56 Morphine SLOW IVP 4 mg Q4H PRN Administration Severe Pain (7-10) Prochlorperazine Edisylate 10 mg 06/08/19 13:10 06/09/19 17:23 Compazine IVP 10 mg Q8H PRN Administration Nausea Sodium Chloride 10 ml 06/09/19 09:00 06/09/19 22:06 Flush - Normal Saline IVF 10 ml Q12HR KIKE Administration - Exam General Appearance: NAD, awake alert Eye: PERRL, anicteric sclera ENT: normocephalic atraumatic, no oropharyngeal lesions Neck: symmetric Heart: RRR, no murmur Respiratory: CTAB Gastrointestinal: soft, non-tender Hosp A/P - Plan Metastatic testicular cancer metastatic bone disease Immunocompromised --3rd round of chemo of 5 cycles during this admission -analgesics and antiemetics and stool softeners -am labs. Leukopenia and anemia, chemo induced. --plts around 257K --close monitor.
[2019-06-10] MEDS ORDERED: Ondansetron PF 4 MG/2 ML Vial SLOW IVP SCH (14:00)
[2019-06-10] MEDS: Prochlorperazine 10 MG/2 ML VIAL IVP PRN (15:11)
[2019-06-10] MEDS: Ondansetron HCl/PF 8 MG in Sodium Chloride 0.9% 50 ML IVPB SCH (18:40)
[2019-06-11] MEDS: SODIUM CHLORIDE 0.9% IVPB SCH ×3 (04:43→20:10)
[2019-06-11] MEDS: MESNA IVPB SCH ×3 (04:43→20:10)
[2019-06-11 05:10] LABS: #Lymphocytes 0.4 thou/uL (1.20-3.40); #Monocytes 0.1 thou/uL (0.11-0.59); #Neutrophils 3.8 thou/uL (1.40-6.50); %Eosinophils 0.2 % (0.0-10.0); %Lymphocytes 8.4 % (21.0-51.0); %Monocytes 3.2 % (0.0-10.0); %Neutrophils 88.2 % (42.0-75.0); Hemoglobin 9.2 g/dL (14.0-18.0); Mean Corpuscular HGB CONC 35.1 g/dL (32.0-36.0); Mean Corpuscular Hemoglobin 33.9 pg (27.0-31.0); Mean Corpuscular Volume 96.7 fL (78.0-98.0); Mean Platelet Volume 8.1 fL (7.4-10.4); Platelet Count 240 thou/uL (130-400); RBC Distribution Width 15.4 % (11.5-14.5); White Blood Cell (WBC) Count 4.3 thou/uL (4.8-10.8)
[2019-06-11] MEDS: Dexamethasone 10 MG/ML VIAL SLOW IVP SCH ×2 (05:14→17:19)
[2019-06-11 05:39] LABS: Anion Gap 13 mmol/L (10-20); BUN (Urea Nitrogen) 11 mg/dL (8.9-20.6); Calc. Creatinine Clearance 176 mL/min (70-130); Calcium 8.7 mg/dL (7.8-10.44); Carbon Dioxide 24 mmol/L (22-29); Chloride 104 mmol/L (98-107); Estimated GFR-MDRD Greater than 90; Glucose 113 mg/dL (70-105); Potassium 4.5 mmol/L (3.5-5.1); Sodium 136 mmol/L (136-145)
[2019-06-11] MEDS: HYDROcodone/Acetaminophen 10/325 mg Tablet PO PRN ×4 (07:40→23:29)
[2019-06-11] MEDS: Prochlorperazine 10 MG/2 ML VIAL IVP PRN ×2 (07:41→18:50)
--- NOTE | 2019-06-11 08:37 | PDOC.MOPN ---
Interval History: Pt feels well today, pain is improved with Fentanyl, he is walking around during the day, denies any further episodes of N/V. Normal BMs. No tremors. Handwriting hasn't changed. - Vital Signs Vital Signs: Vital Signs (12 hours) Temp Pulse Resp BP BP Pulse Ox 06/11/19 07:58 98.7 F 90 18 135/65 100 06/11/19 03:49 97.7 F 86 16 96/53 L 99 06/10/19 23:47 98.5 F 80 16 113/65 99 Weight Weight 179 lb - Physical Exam General: Alert, Oriented x3, Cooperative HEENT: Atraumatic, EOMI Lungs: Normal air movement Cardiovascular: Regular rate - Labs Result Diagrams: 06/11/19 04:40 06/11/19 04:40 Lab results: Laboratory Results - last 24 hr 06/11/19 04:40: Sodium 136, Potassium 4.5, Chloride 104, Carbon Dioxide 24, Anion Gap 13, BUN 11, Creatinine 0.71, Estimated GFR (MDRD) Greater than 90, Glucose 113 H, Calcium 8.7 06/11/19 04:40: WBC 4.3 L, RBC 2.70 L, Hgb 9.2 L, Hct 26.1 L, MCV 96.7, MCH 33.9 H, MCHC 35.1, RDW 15.4 H, Plt Count 240, MPV 8.1, Neutrophils % 88.2 H, Lymphocytes % 8.4 L, Monocytes % 3.2, Eosinophils % 0.2, Basophils % 0.0, Neutrophils # 3.8, Lymphocytes # 0.4 L, Monocytes # 0.1 L, Eosinophils # 0.0, Basophils # 0.0 06/10/19 : Sodium 134 L, Potassium 4.0, Chloride 102, Carbon Dioxide 24, Anion Gap 12, BUN 12, Creatinine 0.75, Estimated GFR (MDRD) Greater than 90, Glucose 135 H, Calcium 8.8 A/P - Problem (1) Bone metastases Current Visit: No Code(s): C79.51 - SECONDARY MALIGNANT NEOPLASM OF BONE Status: Chronic (2) Testicular malignancy Current Visit: No Code(s): C62.90 - MALIG NEOPLASM OF UNSP TESTIS, UNSP DESCENDED OR UNDESCENDED Status: Chronic Qualifiers: Laterality: right - Plan Plan: Cont chemotherapy, C3D4 today Ativan prn anxiety, nausea Fentanyl, [place] prn pain neuro checks q4h pt will be discharged Friday night and return on Friday for [facility]
--- NOTE | 2019-06-11 10:22 | PDOC.HOSPP ---
- Subjective Encounter Date: 06/11/19 Encounter Time: 08:40 Subjective: getting chemo, c3d4, no acute events, wbcs slight improvement. - Objective Vital Signs & Weight: Vital Signs (12 hours) Temp Pulse Resp BP BP Pulse Ox 06/11/19 08:00 100 06/11/19 07:58 98.7 F 90 18 135/65 100 06/11/19 03:49 97.7 F 86 16 96/53 L 99 06/10/19 23:47 98.5 F 80 16 113/65 99 Weight Weight 179 lb I&O: 06/10/19 06/11/19 06/12/19 06:59 06:59 06:59 Intake Total 2369 3142 Output Total 700 2250 550 Balance 1669 892 -550 Result Diagrams: 06/11/19 04:40 06/11/19 04:40 Hospitalist ROS - Medication Medications: Active Medications Generic Name Dose Route Start Last Admin Trade Name Freq PRN Reason Stop Dose Admin Hydrocodone Bitart/Acetaminophen 1 tab 06/08/19 19:44 06/11/19 07:40 [place] 10/325 PO 1 tab Q4H PRN Administration Moderate Pain (4-6) Dexamethasone 10 mg 06/10/19 14:00 06/11/19 05:14 Decadron SLOW IVP 06/12/19 21:00 Not Given 1400 KIKE Fentanyl 50 mcg 06/09/19 09:00 06/09/19 09:35 Duragesic TD 50 mcg Q3D KIKE Administration Cisplatin 49 mg/ Mannitol 12.5 349 mls @ 698 mls/hr 06/09/19 14:00 06/10/19 21:01 gm/ Sodium Chloride IV 06/12/19 21:00 349 mls 1400 KIKE Administration [place] 0.985 gm/ Ifosfamide 2. 1,068.95 mls @ 0 mls/hr 06/09/19 14:00 22:28 955 gm/ Sodium Chloride IVPB 06/12/19 21:00 1,068.95 mls .Q0M KIKE Administration As Directed [place] 0.985 gm/ Sodium 59.85 mls @ 0 mls/hr 06/09/19 14:00 06/11/19 09:03 Chloride IVPB 06/12/19 23:30 59.85 mls WILLCALL KIKE Administration As Directed Dexamethasone Sodium Phosphate 51 mls @ 102 mls/hr 06/09/19 19:45 06/10/19 18 :49 10 mg/ Sodium Chloride IVPB 51 mls WILLCALL KIKE Administration Sodium Chloride 250 mls @ 0 mls/hr 06/09/19 23:45 06/10/19 21:41 Normal Saline 0.9% IVPB 06/12/19 23:59 250 mls ASDIR KIKE Administration Ondansetron HCl 8 mg/ Sodium 54 mls @ 108 mls/hr 06/10/19 16:15 06/10/19 18: 40 Chloride IVPB 06/12/19 23:59 54 mls WILLCALL KIKE Administration Lorazepam 1 mg 06/08/19 13:10 06/10/19 19:11 Ativan PO 1 mg Q8H PRN Administration Anxiety Morphine Sulfate 4 mg 06/08/19 19:46 06/09/19 17:56 Morphine SLOW IVP 4 mg Q4H PRN Administration Severe Pain (7-10) Prochlorperazine Edisylate 10 mg 06/08/19 13:10 06/11/19 07:41 Compazine IVP 10 mg Q8H PRN Administration Nausea Sodium Chloride 10 ml 06/09/19 09:00 06/11/19 07:42 Flush - Normal Saline IVF 10 ml Q12HR KIKE Administration - Exam General Appearance: NAD, awake alert Eye: PERRL ENT: normocephalic atraumatic Neck: supple, symmetric Heart: RRR Respiratory: CTAB Gastrointestinal: normal bowel sounds Neurological: cranial nerve grossly intact, no focal deficits Psychiatric: A&O x 3 Hosp A/P - Plan Metastatic testicular cancer metastatic bone disease Immunocompromised --3rd round of chemo of 5 cycles during this admission -ced4 today -analgesics and antiemetics and stool softeners -am labs. Leukopenia and anemia, chemo induced. --plts around 257K -labile wbcs count --close monitor. plan for dc on friday after chemo completed and back on friday for [facility].
[2019-06-11] MEDS: Lorazepam 2 MG/ML VIAL SLOW IVP PRN (14:06)
[2019-06-11] MEDS ORDERED: Sterile Water 10 ML VIAL FS SCH (14:46)
[2019-06-11] MEDS ORDERED: Activase 2 MG VIAL CATH SCH (14:46)
[2019-06-11] MEDS: Ondansetron HCl/PF 8 MG in Sodium Chloride 0.9% 50 ML IVPB SCH (16:14)
[2019-06-11] MEDS: Sodium Chloride 0.9% 250 ML IVPB SCH ×2 (17:31→19:32)
[2019-06-11] MEDS: MANNITOL IV SCH (18:16)
[2019-06-11] MEDS: SODIUM CHLORIDE 0.9% IV SCH (18:16)
[2019-06-11] MEDS: CISPLATIN IV SCH (18:16)
[2019-06-11] MEDS: IFOSFAMIDE IVPB SCH (20:10)
[2019-06-11] MEDS: Lorazepam 1 MG TAB PO PRN (23:29)
[2019-06-12] MEDS: MESNA IVPB SCH ×5 (01:46→20:49)
[2019-06-12] MEDS: SODIUM CHLORIDE 0.9% IVPB SCH ×5 (01:46→20:49)
[2019-06-12] MEDS: HYDROcodone/Acetaminophen 10/325 mg Tablet PO PRN ×3 (04:33→21:27)
[2019-06-12 04:49] LABS: #Lymphocytes 0.6 thou/uL (1.20-3.40); #Neutrophils 2.1 thou/uL (1.40-6.50); %Basophils 0.4 % (0.0-1.0); %Eosinophils 0.2 % (0.0-10.0); %Lymphocytes 22.3 % (21.0-51.0); %Monocytes 0.9 % (0.0-10.0); %Neutrophils 76.1 % (42.0-75.0); Hemoglobin 9.8 g/dL (14.0-18.0); Mean Corpuscular Hemoglobin 33.7 pg (27.0-31.0); Mean Corpuscular Volume 96.1 fL (78.0-98.0); Mean Platelet Volume 7.8 fL (7.4-10.4); Platelet Count 230 thou/uL (130-400); RBC Distribution Width 15.3 % (11.5-14.5); White Blood Cell (WBC) Count 2.8 thou/uL (4.8-10.8)
[2019-06-12 05:35] LABS: Anion Gap 15 mmol/L (10-20); BUN (Urea Nitrogen) 11 mg/dL (8.9-20.6); Calc. Creatinine Clearance 183 mL/min (70-130); Calcium 8.9 mg/dL (7.8-10.44); Carbon Dioxide 24 mmol/L (22-29); Chloride 100 mmol/L (98-107); Estimated GFR-MDRD Greater than 90; Glucose 92 mg/dL (70-105); Potassium 3.8 mmol/L (3.5-5.1); Sodium 135 mmol/L (136-145)
[2019-06-12] MEDS: Morphine 4 MG/ML VIAL SLOW IVP PRN ×3 (06:01→17:58)
[2019-06-12] MEDS: fentaNYL 50 mcg/hour Patch TD SCH (10:27)
[2019-06-12] MEDS: Prochlorperazine 10 MG/2 ML VIAL IVP PRN ×2 (10:34→18:00)
[2019-06-12] MEDS: IFOSFAMIDE IVPB SCH (12:01)
[2019-06-12] MEDS: Ondansetron HCl/PF 8 MG in Sodium Chloride 0.9% 50 ML IVPB SCH (12:02)
[2019-06-12] MEDS: MANNITOL IV SCH (13:43)
[2019-06-12] MEDS: SODIUM CHLORIDE 0.9% IV SCH (13:43)
[2019-06-12] MEDS: CISPLATIN IV SCH (13:43)
[2019-06-12] MEDS: Lorazepam 2 MG/ML VIAL SLOW IVP PRN (13:48)
--- NOTE | 2019-06-12 14:08 | PDOC.MOPN ---
Interval History: tolerating chemo well. No neuro issues - Vital Signs Vital Signs: Vital Signs (12 hours) Temp Pulse Resp BP BP Pulse Ox 06/12/19 12:00 98.3 F 132 H 16 131/94 H 98 06/12/19 08:00 97.5 F L 95 16 130/82 99 06/12/19 04:00 98.1 F 93 16 109/67 100 Weight Weight 180 lb - Physical Exam General: Alert, Oriented x3, No acute distress HEENT: Atraumatic, PERRLA, EOMI, Mucous membr. moist/pink Lungs: Clear to auscultation, Normal air movement Cardiovascular: Regular rate, Normal S1, Normal S2, No murmurs, Gallops, Rubs Abdomen: Normal bowel sounds, Soft, No tenderness, No hepatospenomegaly, No masses Extremities: No clubbing, No cyanosis, No edema, Normal pulses, No tenderness/ swelling Skin: No rashes, No breakdown, No significant lesion Neurological: Normal gait, Normal speech, Strength at 5/5 X4 ext, Normal tone, Sensation intact, Cranial nerves 3-12 NL, Reflexes 2+ Psych/Mental Status: Mental status NL, Mood NL - Labs Result Diagrams: 06/12/19 04:10 06/12/19 04:10 Lab results: Laboratory Results - last 24 hr 06/12/19 04:10: Sodium 135 L, Potassium 3.8, Chloride 100, Carbon Dioxide 24, Anion Gap 15, BUN 11, Creatinine 0.68 L, Estimated GFR (MDRD) Greater than 90, Glucose 92, Calcium 8.9 06/12/19 04:10: WBC 2.8 L, RBC 2.90 L, Hgb 9.8 L, Hct 27.9 L, MCV 96.1, MCH 33.7 H, MCHC 35.0, RDW 15.3 H, Plt Count 230, MPV 7.8, Neutrophils % 76.1 H, Lymphocytes % 22.3, Monocytes % 0.9, Eosinophils % 0.2, Basophils % 0.4, Neutrophils # 2.1, Lymphocytes # 0.6 L, Monocytes # 0.0 L, Eosinophils # 0.0, Basophils # 0.0 Status: lab reviewed by me A/P - Problem (1) Testicular malignancy Current Visit: No Code(s): C62.90 - MALIG NEOPLASM OF UNSP TESTIS, UNSP DESCENDED OR UNDESCENDED Status: Chronic Qualifiers: Laterality: right - Plan Plan: Completes chemo today Dc home this evening return tomorrow for [facility]
[2019-06-12 19:33] VITALS: BP 110/64; TEMP 98.3
[2019-06-12] MEDS: Lorazepam 1 MG TAB PO PRN (21:27)
--- NOTE | 2019-06-13 01:16 | DIS ---
DATE OF ADMISSION: 06/08/2019 DATE OF DISCHARGE: 06/12/2019 REASON FOR HOSPITALIZATION: Needing chemotherapy. SIGNIFICANT FINDINGS: The patient with metastatic testicular cancer. PROCEDURES PERFORMED AND TREATMENTS RENDERED: The patient was admitted to the Oncology unit for maximum medical therapy. The patient had oncology consultation, please see full consultation notes and progress notes for details. Oncology recommending administration of chemotherapy and this was done without complications. The patient's labs and electrolytes were monitored closely throughout chemotherapy administration. Patient was recommended safe for discharge on 06/12/2019 by Oncology with close followup in the outpatient setting on Friday. CONDITION ON DISCHARGE: Stable. SPECIFIC INSTRUCTIONS FOR THE PATIENT/FAMILY: 1. Patient is recommended to follow up with Oncology on Friday at scheduled appointment. 2. Patient is recommended to take all medications as directed. 3. Patient is recommended to follow up with primary care physician in the next 5 to 7 days. 4. Patient is recommended to follow up with all other specialists as directed. 5. Patient is recommended to follow up with Oncology for all future scheduled appointments. 6. Patient is recommended to return to acute care hospital immediately if signs or symptoms return, worsen, or any other new symptoms occur. DISCHARGE MEDICATIONS: Please see full discharge medication list for details, as there were no changes to his medical regimen. 1. Fentanyl 50 mcg transdermal one patch transdermal q.3 days. 2. Gabapentin 300 mg one tablet p.o. t.i.d. 3. Zofran 8 mg p.o. t.i.d. p.r.n. nausea, vomiting. 4. Promethazine/Phenergan 25 mg per rectal q.6 hours p.r.n. nausea and vomiting. Job ID: [id number]
--- NOTE | 2019-06-14 13:53 | CON ---
DATE OF CONSULTATION: REASON FOR CONSULTATION: Testicular cancer and inpatient chemo. HISTORY OF PRESENT ILLNESS: Mr. Kaur is a 29-year-old male with metastatic testicular cancer, status post chemotherapy and lung surgery, now with recurrent disease. He is receiving salvage TIP chemotherapy and is being admitted for cycle 3. He has tolerated the prior two cycles well. He has had nausea and vomiting , but it is controlled with marijuana. He has been given Zofran and Compazine, which he states do not work. He is using fentanyl patches for pain. Today is day 1 of 5-day chemotherapy. He denies any complaints at this time. PAST MEDICAL HISTORY: Metastatic testicular cancer. PAST SURGICAL HISTORY: Biopsy, right radical orchiectomy, MediPort placement, and mediastinal mass excision. ALLERGIES: NO KNOWN DRUG ALLERGIES. HOME MEDICATIONS: 1. Sertraline 50 daily. 2. Fentanyl patch q.3 days 50 mcg. FAMILY HISTORY: Uncle with colon cancer. SOCIAL HISTORY: Single. No children. Current smoker. Marijuana use. REVIEW OF SYSTEMS: Positive for back and leg pain. Otherwise, negative. PHYSICAL EXAMINATION: VITAL SIGNS: Temperature 98.1, pulse is 89, respiratory rate 16, blood pressure is 120/77. He is 100% on room air. GENERAL: This is a well-developed, well-nourished male, in no acute distress. HEENT: Normocephalic, atraumatic. Pupils are equal and reactive to light. NECK: Supple. CV: Regular rate and rhythm. LUNGS: Clear. ABDOMEN: Soft and nontender. Bowel sounds are positive. EXTREMITIES: No clubbing or cyanosis. SKIN: No rash. HEMATOLOGICAL: No petechiae or purpura. NEUROLOGICAL: Nonfocal. PERTINENT LABS AND X-RAYS: Current WBCs are 6.5, hemoglobin 10, hematocrit 28.7 , and platelet count 274,000. He has 92% neutrophils and 7% lymphocytes. Sodium is 135, potassium 5.4, chloride 105, CO2 is 23, BUN is 9, creatinine 0.80, calcium 9.5. ASSESSMENT: Metastatic testicular cancer. DISCUSSION: The patient is being admitted for cycle 3 of TIP chemotherapy. He will have q.4 neuro checks to monitor for ifosfamide neurotoxicity. He will have daily CBC and BMP. We will continue his pain and nausea medication and encourage ambulation. He will have Fulphila 24 hours after his last chemotherapy dose and will be discharged home to follow up in our clinic. Job ID: [id number] MTDD
== END 2019-06-12 22:25 | disposition home or self-care (01) | DRG 847 ==
LOC: ONC 12:46
PROVIDERS: ADMIT Internal Medicine Hematology & Oncology; ATTEND Internal Medicine
DX: Z51.11 Encounter for antineoplastic chemotherapy (principal); C79.51 Secondary malignant neoplasm of bone; C62.91 Malignant neoplasm of right testis, unspecified whether descended or undescended; D89.9 Disorder involving the immune mechanism, unspecified; D64.81 Anemia due to antineoplastic chemotherapy; D70.1 Agranulocytosis secondary to cancer chemotherapy; T45.1X5A Adverse effect of antineoplastic and immunosuppressive drugs, initial encounter
CPT/HCPCS: 36415; 80048; 85025; J0780; J1100; J1453; J1642; J2060; J2150; J2270; J2405; J2469; J2997; J3490; J7050; J9060; J9208; J9209; J9267; S0028

== ENCOUNTER → 2019-06-13 | Day surgery (SDC) | payer OTHER | LOC: ONC/OP 15:00 | PROVIDERS: ATTEND Internal Medicine Hematology & Oncology | DX: C62.11 Malignant neoplasm of descended right testis (principal) ==

== ENCOUNTER 2019-06-14 08:41 | Inpatient (IN) | payer OTHER, SELFPAY ==
[2019-06-14] MEDS ORDERED: diphenhydrAMINE 50 MG/ML VIAL ONE (09:02)
[2019-06-14] MEDS ORDERED: Metoclopramide HCl 10 MG/2 ML VIAL ONE (09:02)
[2019-06-14 09:25] LABS: Hemoglobin 12.2 g/dL (14.0-18.0); Mean Corpuscular HGB CONC 35.1 g/dL (32.0-36.0); Mean Corpuscular Hemoglobin 33.2 pg (27.0-31.0); Mean Corpuscular Volume 94.7 fL (78.0-98.0); Mean Platelet Volume 8.3 fL (7.4-10.4); Platelet Count 315 thou/uL (130-400); Red Blood Cell (RBC) Count 3.66 mill/uL (4.70-6.10); White Blood Cell (WBC) Count 21.9 thou/uL (4.8-10.8)
[2019-06-14 09:31] LABS: Actual Bicarbonate (HCO3a) 20.9 mEq/L (22-28); Analyzer IN Cardio ER; Base Excess (BEa) -2.9 mEq/L (-2.0 to +3.0); Calcium, Ionized 1.02 mmol/L (1.12-1.30); Carboxyhemoglobin (COHb) 0.3 gm% (0.0-3.0); Hemoglobin (Hb) 10.4 g/dL (14.0-18.0); O2 Tension (PaO2) 62.5 mmHg (80.0-100.0); Potassium - ABG Lab 2.39 mmol/L (3.70-5.30); pH, Arterial 7.42 (7.35-7.45)
[2019-06-14 09:32] LABS: Puncture Site LRA
[2019-06-14 09:38] LABS: ALT (SGPT) 157 U/L (8-55); AST (SGOT) 55 U/L (5-34); Albumin 5.4 g/dL (3.5-5.0); Alkaline Phosphatase 130 U/L (40-110); Anion Gap 29 mmol/L (10-20); BUN (Urea Nitrogen) 47 mg/dL (8.9-20.6); Bilirubin, Total 3.5 mg/dL (0.2-1.2); CK (CPK) 37 U/L (30-200); Calc. Creatinine Clearance 0 mL/min (70-130); Calcium 10.4 mg/dL (7.8-10.44); Carbon Dioxide 21 mmol/L (22-29); Chloride 88 mmol/L (98-107); Estimated GFR-MDRD 35; Globulin 2.8 g/dL (2.4-3.5); Glucose 183 mg/dL (70-105); Lipase 4 U/L (8-78); Protein, Total 8.2 g/dL (6.0-8.3); Sodium 135 mmol/L (136-145)
[2019-06-14] MEDS ORDERED: Fentanyl 100 MCG/2 ML VIAL ONE (09:42)
[2019-06-14] MEDS ORDERED: Potassium Chloride 20 MEQ TAB ONE (09:55)
--- NOTE | 2019-06-14 10:00 | RAD ---
EXAM: XR Chest 1 View Portable PROVIDED CLINICAL HISTORY: Vomiting. Patient reports testicular cancer with metastatic disease. Patient currently on chemotherap y. COMPARISON: 11/05/2018. FINDINGS: Right subclavian Mediport catheter remains in place. Surgical clips and radiopaque suture material ag ain overlies the right hilar structures. There is persistent nodular appearance of the right hilar structures likely corresponding to patient's known masslike lesion overlying this region which was be tter evaluated on CT thorax on 03/09/2019. No discrete new pulmonary nodule or mass is seen in the lungs bilaterally. The lungs are otherwise clear. Cardiac silhouette and pulmonary vasculature are wi thin normal limits. The most inferior aspect of each lateral costophrenic angle is excluded from view, but the lungs are otherwise clear. IMPRESSION: Stable chest including masslike prominence and postsurgical changes right hilar region. No new discre te pulmonary nodule or mass is seen bilaterally.
[2019-06-14 10:02] LABS: Band 16 % (5-11); Lymphocytes 4 % (21-51); MDiff Complete? YES; Monocytes 1 % (0-10); Neutrophil 78 % (42-75); RBC Morphology Normal; Reactive Lymphocytes 1 % (0-10)
[2019-06-14] MEDS ORDERED: Cefepime 2 GM VIAL ONE (10:08)
[2019-06-14 10:21] LABS: Bacteria/HPF None Seen HPF (None Seen); Bilirubin Negative (Negative); Blood, Urine 2+ (Negative); Clarity Turbid (Clear); Glucose, Urine (Dipstick) Normal (Negative); Leukocyte Negative Leu/uL (Negative); Nitrite Negative (Negative); Protein, Urine (Dipstick) 200 mg/dL (Neg-Trace); RBC/HPF 0-3 HPF (0-3); Squamous Epithelial 0-3 HPF (0-3); Transitional Epithelial 0-3 HPF (None Seen); Urobilinogen 3 mg/dL (Less than 2)
--- NOTE | 2019-06-14 10:35 | CT ---
CTA Angio Chest W WO Con HISTORY: Testicular cancer with metastatic disease. Patient has been having vomiting. Elevated d-dime r. COMPARISON: 03/09/2019 CT examination. FINDINGS: The lungs are clear of any infiltrative process. The area of nodularity abutting the right side of the mediastinum in the right middle lobe has decreased in size and the only residual changes are either suture material or calcifications. No pleural effusions. Thin-walled cysts are aga in noted within the left lower lobe. No significant mediastinal or hilar adenopathy. Patient has pneumomediastinum. Etiology of this is un clear it could either be related to the lungs or possibly esophagitis given the history of vomiting. No pleural effusion. The thoracic aorta is normal in caliber. There is fair pulmonary artery opacification and no CT evide nce for pulmonary embolus. Visualized liver parenchyma shows no focal findings on this angiographic phase exam. IMPRESSION: 1. No CT evidence for pulmonary embolus. 2. Pneumomediastinum, if clinically indicated Gastrografin swallow to exclude esophageal injury is espinoza ggested. Findings discussed with Son Pham.
--- NOTE | 2019-06-14 11:57 | CT ---
CT chest noncontrast HISTORY: Pneumomediastinum. Possible esophageal leak. COMPARISON: Contrast enhanced exam earlier on the same date. FINDINGS: Contrast material is now seen within the esophagus and the stomach. No contrast outside of the enteric system. Gas within the mediastinum is similar in appearance to the recent CT chest. No evidence of pneumothorax. Other findings are stable. IMPRESSION: No evidence of esophageal leak. Cause of pneumomediastinum is not evident. Findings were called to Dr. Martínez in the emergency department at 1151 hours. Code CR.
--- NOTE | 2019-06-14 12:07 | RAD ---
Esophagram HISTORY: Pneumomediastinum. FINDINGS: Single column exam performed with Gastrografin and thin barium liquid. No immediate leak of contrast from the esophagus. Final images show vertically oriented hyperdensity near the lower trachea. The appearance is so that it could be within the esophagus or immediately adjacent to the es ophagus. CT chest noncontrast was performed. No contrast was seen outside of the esophagus on that exam. Fluoroscopy time 0.9 minutes. IMPRESSION: No evidence of esophageal leak. Findings were called to Dr. Martínez in the emergency department.
[2019-06-14 12:34] LABS: Lactic Acid 2.2 mmol/L (0.5-2.2)
[2019-06-14] MEDS ORDERED: Morphine 4 MG/ML VIAL ONE (12:44)
[2019-06-14] MEDS ORDERED: Promethazine HCl 25 MG/ML VIAL ONE ×2 (12:44→12:53)
[2019-06-14] MEDS ORDERED: Acetaminophen 325 MG TAB PO PRN (13:50)
[2019-06-14] MEDS ORDERED: Iopamidol-370 76% 500 ML 1 ML ONE (13:51)
[2019-06-14] MEDS ORDERED: Morphine 4 MG/ML VIAL SLOW IVP PRN (13:57)
[2019-06-14] MEDS ORDERED: fentaNYL 50 mcg/hour Patch TD SCH (15:00)
[2019-06-14] MEDS: Lorazepam 2 MG/ML VIAL SLOW IVP PRN ×2 (15:10→21:54)
[2019-06-14] MEDS: Dextrose 5 % And 0.9 % NaCl 1,000 ML IV SCH (15:22)
[2019-06-14 16:36] VITALS: BMI 25.7
[2019-06-14 17:06] LABS: ALT (SGPT) 98 U/L (8-55); AST (SGOT) 27 U/L (5-34); Alkaline Phosphatase 98 U/L (40-110); Anion Gap 14 mmol/L (10-20); BUN (Urea Nitrogen) 34 mg/dL (8.9-20.6); Bilirubin, Total 1.2 mg/dL (0.2-1.2); Calc. Creatinine Clearance 90 mL/min (70-130); Carbon Dioxide 22 mmol/L (22-29); Chloride 101 mmol/L (98-107); Estimated GFR-MDRD 64; Globulin 2.1 g/dL (2.4-3.5); Glucose 157 mg/dL (70-105); Potassium 2.8 mmol/L (3.5-5.1); Protein, Total 6.1 g/dL (6.0-8.3); Sodium 134 mmol/L (136-145)
[2019-06-14] MEDS ORDERED: CCU Electrolyte Replacement 1 EACH FS ONE (17:19)
[2019-06-14] MEDS ORDERED: Magnesium 2 GM/50 ML 2 GM in Premix Bag 1 BAG IVPB PRN (17:20)
[2019-06-14] MEDS ORDERED: Potassium Chloride 40 MEQ in Premix Bag 1 BAG IVPB PRN (17:20)
[2019-06-14] MEDS ORDERED: Potassium Chloride 40 MEQ in Sodium Chloride 0.9% 250 ML 250 ML IVPB PRN (17:20)
[2019-06-14] MEDS ORDERED: Magnesium Oxide 400 MG TAB PO PRN ×2 (17:20)
[2019-06-14] MEDS ORDERED: CCU ELECTROLYTE REPLACEMENT PROTOCOL FS PRN (17:20)
[2019-06-14] MEDS ORDERED: Potassium Chloride 20 MEQ TAB PO PRN (17:20)
[2019-06-14] MEDS ORDERED: PHOS-NAK 1 PKT PACK PO PRN ×2 (17:20)
[2019-06-14] MEDS ORDERED: Potassium Phosphate 9 MMOL in Sodium Chloride 0.9% 100 ML IVPB PRN (17:20)
[2019-06-14] MEDS ORDERED: Potassium Phosphate 15 MMOL in Sodium Chloride 0.9% 250 ML 250 ML IV PRN (17:20)
[2019-06-14] MEDS ORDERED: Potassium Phosphate 12 MMOL in Sodium Chloride 0.9% 250 ML 250 ML IV PRN (17:20)
[2019-06-14] MEDS: Ondansetron HCl/PF 8 MG in Sodium Chloride 0.9% 50 ML IVPB SCH (18:30)
[2019-06-14] MEDS: Ondansetron PF 4 MG/2 ML Vial IVP PRN (19:56)
[2019-06-14] MEDS: Cefepime 2 GM in Sodium Chloride 0.9% 100 ML IVPB SCH (21:54)
--- NOTE | 2019-06-14 22:01 | HP ---
CHIEF COMPLAINT: Nausea and vomiting. HISTORY OF PRESENT ILLNESS: The patient is a 29-year-old male with history of testicular cancer, who presents to the hospital with nausea and vomiting for the past 3 days. The patient recently finished his chemotherapy about 3 days ago. It was stated that he tried to eat a cheese sandwich, however, could not keep that down, started having significant amount of nausea and vomiting. The patient tried to take some water, however he was not successful. The patient denies any fevers or chills. He denies any chest pain, chest tightness, or any shortness of breath. PAST MEDICAL HISTORY: He has a history of testicular cancer. 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 REVIEW OF SYSTEMS: All negative except for the ones mentioned above in the HPI. SOCIAL HISTORY: He is a former smoker, marijuana use, occasional alcohol use. MEDICATIONS: As of the following: He is on: 1. Gabapentin 300 mg t.i.d. 2. Promethazine 25 mg q.6 hours as needed. 3. Fentanyl 50 mcg transdermal every 3 days. 4. Zofran 8 mg t.i.d. FAMILY HISTORY: No history of cancer or strokes. ALLERGIES: NO KNOWN DRUG ALLERGIES. PAST SURGICAL HISTORY: He has had a right testicle removed. He has had a right thoracoscopy with removal of a bulk tumor and he has a chemo port placement. PHYSICAL EXAMINATION: VITAL SIGNS: Temperature of 98.7, respirations 12, pulse 93, blood pressure 110/64. GENERAL: He is awake, alert, and oriented x3. Appears pale. CV: S1 and S2 present. Tachycardic. LUNGS: Clear to auscultation. No rhonchi or wheezes noted. ABDOMEN: Soft. Mild pain upon palpation to epigastric area. Bowel sounds present x2. EXTREMITIES: No edema. Pedal pulses are present x2. NEUROVASCULAR: No focal deficits noted. SKIN: No cuts, lesions, or bruises noted. He does have a right-sided chemo port and he has some tattooing all over. LABORATORY RESULTS: WBCs of 21.9, hemoglobin of 12.4, hematocrit of 34.7, platelets are 315. His platelets are 315, his bands are 16. Chemistry; sodium of 135, potassium of 3.0, BUN of 47, creatinine of 2.24. His lactic acid was 8.4 initially. His AST was 55, ALT of 157, alkaline phosphatase 130. His total bilirubin was 3.5. Troponin x1 was negative. The patient initially did have a CTA, which indicated no PE; however, indicated pneumomediastinum. At this time, ER had called spoken with CV Surgery, who recommended to do a barium to see for any esophageal rupture given the fact the patient was having significant amount of nausea and vomiting. The barium swallow did not indicate any esophageal leak. ASSESSMENT AND PLAN: The patient is a 29-year-old male who presents to the hospital with complaints of nausea and vomiting. 1. Sepsis. We will start the patient on broad-spectrum antibiotics, unclear etiology at this time. His chest x-ray does not show any pneumonia. No grossly indication of any significant urinary tract infection. Blood cultures were done. Started on broad-spectrum antibiotics. Also, we will start hydrating. 2. Anion gap metabolic acidosis with respiratory alkalosis. We will start the patient on hydration. He received 3 L of normal saline. I will continue the fluids. The patient has had significant nausea and vomiting and has not been able to keep anything down. Also starvation ketosis is definitely a possibility. 3. Elevated LFTs. Again, on his previous LFTs, only his alkaline phosphatase was elevated. We will get a right upper quadrant ultrasound to rule out any other etiology. 4. Acute kidney injury. The patient's creatinine is normally at baseline. We will start hydration and continue to monitor. 5. Nausea and vomiting. We will start the patient on Zofran and also on Phenergan and also Ativan as needed if his nausea and vomiting continue to worsen. 6. Mediastinal air. CV Surgery will be consulted. The patient currently is asymptomatic. We will continue to monitor closely. 7. Sinus tachycardia. This is most likely secondary to volume depletion. We will hydrate and continue to monitor. 8. Deep venous thrombosis prophylaxis. We will put the patient on some SCDs. 9. Testicular cancer with metastatic disease. We will consult his oncologist. Job ID: [id number]
--- NOTE | 2019-06-14 22:13 | CON ---
DATE OF CONSULTATION: REASON FOR CONSULTATION: Testicular cancer. HISTORY OF PRESENT ILLNESS: Mr. Kaur is a 29-year-old gentleman, who completed cycle 3 of TIP chemotherapy on Friday. He was discharged Friday evening and states all day Friday, he had nausea and vomiting. He presented to the emergency room early this morning. He had an elevated white count of 21.9. His creatinine was elevated at 2.24, it was 0.68 two days prior. His lactic acid was 8.4. His bilirubin was elevated at 3.5, was normal at 0.3 last week. He was tachycardic and admitted to the IMU for dehydration and acute kidney injury. PAST MEDICAL HISTORY: Metastatic testicular cancer, status post 3 cycles of chemo. PAST SURGICAL HISTORY: Right radical orchiectomy, MediPort placement, and mediastinal mass excision. ALLERGIES: NO KNOWN DRUG ALLERGIES. HOME MEDICATIONS: 1. Sertraline 50 mg daily. 2. Fentanyl patch 50 mcg every 3 days. 3. Zofran. 4. Compazine p.r.n. FAMILY HISTORY: Uncle with colon cancer. SOCIAL HISTORY: Single. No children. Current smoker. Occasional marijuana use. REVIEW OF SYSTEMS: Positive for weakness, fatigue, nausea, vomiting. Otherwise , negative. PHYSICAL EXAMINATION: VITAL SIGNS: Temperature is 98.7, pulse is 136, respiratory rate 16, BP is 110/ 64. He is 93% on room air. GENERAL: This is a well-developed, well-nourished male, who appears acutely ill. HEENT: Normocephalic, atraumatic. Pupils are equal and reactive to light. NECK: Supple. CV: Tachycardia. LUNGS: Clear. ABDOMEN: Soft. Bowel sounds are positive. EXTREMITIES: No clubbing or cyanosis. SKIN: No rash. HEMATOLOGICAL: No petechiae or purpura. NEUROLOGICAL: He is nonfocal. PERTINENT LABS AND X-RAYS: Current WBCs are 21.9, hemoglobin 12.2, hematocrit 34.7, platelet count is 315,000. He has 78% neutrophils, 16% bands. Sodium 135, potassium 3.0, chloride 88, CO2 is 21, BUN is 47, creatinine 2.24, lactic acid is 2.2, calcium 10.4, bilirubin 3.5, AST is 55, ALT is 157, alkaline phosphatase is 130. Serum total protein is 8.2, albumin 5.2, globulin 2.8. Troponin is negative. Radiology had a CT of the chest, which ruled out pneumomediastinum. CT angio showed no pulmonary emboli. There is concern for esophageal air leak. ASSESSMENT: 1. Severe dehydration. 2. Acute kidney injury. 3. Status post cycle 3 of chemotherapy ending on Friday. DISCUSSION: The patient has been given 4 L of fluid. He is urinating well. He remains extremely weak and tachycardic. We would continue IV hydration. He does admit to being nauseated. We will adjust nausea medications. Hopefully, he will recover in the next 24 hours. He did receive Fulphila yesterday, but I think his leukocytosis is likely from dehydration and not Fulphila. We will follow his chemistries and CBCs and follow along with his hospital course. Case will be discussed with Dr. Romo. Thank you for the consult. Job ID: [id number] [facility]ITALLeslye
[2019-06-15] MEDS: Ondansetron HCl/PF 8 MG in Sodium Chloride 0.9% 50 ML IVPB SCH ×2 (00:46→10:54)
[2019-06-15] MEDS: Dextrose 5 % And 0.9 % NaCl 1,000 ML IV SCH ×3 (00:46→21:57)
[2019-06-15 02:32] LABS: Anion Gap 10 mmol/L (10-20); BUN (Urea Nitrogen) 23 mg/dL (8.9-20.6); Calc. Creatinine Clearance 137 mL/min (70-130); Calcium 8.4 mg/dL (7.8-10.44); Carbon Dioxide 23 mmol/L (22-29); Chloride 102 mmol/L (98-107); Estimated GFR-MDRD Greater than 90; Glucose 110 mg/dL (70-105); Magnesium 1.6 mg/dL (1.6-2.6); Potassium 3.3 mmol/L (3.5-5.1); Sodium 132 mmol/L (136-145)
[2019-06-15 02:59] LABS: #Lymphocytes 0.5 thou/uL (1.20-3.40); #Neutrophils 3.9 thou/uL (1.40-6.50); %Basophils 0.1 % (0.0-1.0); %Eosinophils 0.4 % (0.0-10.0); %Lymphocytes 11.8 % (21.0-51.0); %Monocytes 0.3 % (0.0-10.0); %Neutrophils 87.4 % (42.0-75.0); Hemoglobin 8.1 g/dL (14.0-18.0); Mean Corpuscular HGB CONC 36.4 g/dL (32.0-36.0); Mean Corpuscular Hemoglobin 34.8 pg (27.0-31.0); Mean Corpuscular Volume 95.5 fL (78.0-98.0); Mean Platelet Volume 8.5 fL (7.4-10.4); Platelet Count 138 thou/uL (130-400); Red Blood Cell (RBC) Count 2.34 mill/uL (4.70-6.10); White Blood Cell (WBC) Count 4.5 thou/uL (4.8-10.8)
[2019-06-15] MEDS: Lorazepam 2 MG/ML VIAL SLOW IVP PRN (06:01)
[2019-06-15] MEDS ORDERED: FLU VACC QS2019-20(6MOS UP)/PF 60 MCG/0.5 ML SYRINGE IM ONE (09:00)
[2019-06-15] MEDS ORDERED: Prevnar 13-Val Conj/PF 0.5 ML SYRINGE IM ONE (09:00)
[2019-06-15] MEDS: Enoxaparin Sodium 40 MG/0.4 ML SYRINGE SC SCH (10:53)
[2019-06-15] MEDS: Famotidine/PF 20 mg/2ml Vial SLOW IVP SCH ×2 (10:54→20:55)
[2019-06-15] MEDS: Cefepime 2 GM in Sodium Chloride 0.9% 100 ML IVPB SCH ×2 (10:55→21:57)
[2019-06-15] MEDS ORDERED: Vancomycin HCl 1 GM in Premix Bag 1 BAG IVPB SCH (11:00)
--- NOTE | 2019-06-15 11:25 | CON ---
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 It was widely metastatic to the back, pelvis, and bilateral lungs. He had initial good response to treatment and there was a residual 4 cm mass, much smaller than initial size, which was excised in September of 2018. It was 95% necrosis, but there were small islands of viable tissue, prompting continued recommendation for treatment, which Dr. Romo has been doing. The patient was recently hospitalized late last week for four days for another round of chemotherapy. However, due to persistent nausea, vomiting, and diarrhea post discharge, he was seen in the emergency room yesterday, where he was also noted to have a mediastinal air on the CT scan. At my request, a Gastrografin/then barium swallow was carried out showing no evidence of an esophageal leak. The patient's white count was significantly elevated on admission. Hemoglobin was 12, decreasing to about 8 today. Today, he continues to complain of feeling poorly due to some abdominal wall discomfort now related to his persistent vomiting. PHYSICAL EXAMINATION: GENERAL: On examination, he is alert and cooperative. No distress. NECK: No crepitance. No tenderness. LUNGS: Clear to auscultation. Chest wall healed thoracotomy incision and right anterior chest wall. ABDOMEN: Mildly tender to palpation. Soft. Bowel sounds are present. EXTREMITIES: Without edema. PLAN: At this time, no further intervention or evaluation for his mediastinal air as indicated. Drop in hemoglobin is a bit puzzling at this time and will need to be followed. Expect gradual improvement in his nausea and vomiting as he gets farther out from his recent chemotherapy. Job ID: [id number]
[2019-06-15] MEDS: Promethazine HCl 12.5 MG in Sodium Chloride 0.9% 50 ML IVPB SCH ×2 (14:52→20:53)
[2019-06-15] MEDS ORDERED: Promethazine HCl 12.5 MG in Sodium Chloride 0.9% 50 ML IVPB SCH (18:00)
--- NOTE | 2019-06-15 19:56 | PDOC.HOSPP ---
- Subjective Encounter Date: 06/15/19 Encounter Time: 09:55 Subjective: pt up in bed still has n/v - Objective Vital Signs & Weight: Vital Signs (12 hours) Temp Pulse Ox 06/15/19 19:27 98.7 F 06/15/19 15:49 98.9 F 06/15/19 12:02 98.7 F 06/15/19 08:00 100 Weight Admit Weight 169 lb Weight 169 lb 8 oz Most Recent Monitor Data Heart Rate from ECG 89 NIBP 116/84 NIBP BP-Mean 94 Respiration from ECG 12 SpO2 100 I&O: 06/14/19 06/15/19 06/16/19 06:59 06:59 06:59 Intake Total 4116 1430.5 Output Total 2400 800 Balance 1716 630.5 Result Diagrams: 06/15/19 01:55 06/15/19 01:55 Hospitalist ROS - Review of Systems Respiratory: denies: cough, dry, shortness of breath, hemoptysis, SOB with excertion, pleuritic pain, sputum, wheezing, other Cardiovascular: denies: chest pain, palpitations, orthopnea, paroxysmal noc. dyspnea, edema, light headedness, other Gastrointestinal: reports: nausea, vomiting Genitourinary: denies: dysuria, frequency, incontinence, hematuria, retention, other - Medication Medications: Active Medications Generic Name Dose Route Start Last Admin Trade Name Freq PRN Reason Stop Dose Admin Enoxaparin Sodium 40 mg 06/15/19 09:00 06/15/19 10:53 Lovenox SC 40 mg 0900 KIKE Administration Famotidine 20 mg 06/15/19 09:00 06/15/19 10:54 Pepcid SLOW IVP 20 mg BID KIKE Administration Fentanyl 50 mcg 06/14/19 15:00 06/14/19 16:05 Duragesic TD 50 mcg Q3D KIKE Administration Dextrose/Sodium Chloride 1,000 mls @ 100 mls/hr 06/14/19 14:00 06/15/19 10:56 D5 0.9% Ns IV 1,000 mls .Q10H KIKE Administration Cefepime HCl 2 gm/ Sodium 100 mls @ 200 mls/hr 06/14/19 22:00 06/15/19 10:55 Chloride IVPB 100 mls 1000,2200 KIKE Administration Potassium Chloride 40 meq/ 270 mls @ 135 mls/hr 06/14/19 17:20 06/14/19 19:56 Sodium Chloride IVPB 270 mls ASDIR PRN Administration FOR SERUM K+ 2.5 - 3.5 Magnesium Sulfate 1 gm/ Sodium 102 mls @ 102 mls/hr 06/14/19 17:20 06/14/19 20:01 Chloride IV 102 mls PRN PRN Administration MAG LEVEL 1.4 - 2.0 Promethazine HCl 12.5 mg/ 50.5 mls @ 202 mls/hr 06/15/19 14:00 06/15/19 14:52 Sodium Chloride IVPB 06/16/19 14:01 50.5 mls 0200,0800,1400,2000 KIKE Administration Lorazepam 1 mg 06/14/19 13:23 06/15/19 06:01 Ativan SLOW IVP 1 mg Q6H PRN Administration Nausea/Vomiting Magnesium Oxide 400 mg 06/14/19 17:20 06/14/19 18:30 Magnesium Oxide PO 400 mg BIDPRN PRN Administration FOR SERUM MAG 1.4 - 2.0 Morphine Sulfate 4 mg 06/14/19 13:57 06/14/19 15:10 Morphine SLOW IVP 4 mg Q4H PRN Administration Moderate Pain (4-6) Ondansetron HCl 4 mg 06/14/19 13:50 06/14/19 19:56 Zofran IVP 4 mg Q6H PRN Administration Nausea/Vomiting Potassium Chloride 40 meq 06/14/19 17:20 06/14/19 18:30 K-Dur PO 40 meq ASDIR PRN Administration FOR SERUM K+ 2.5 - 3.5 Potassium Chloride 40 meq 06/14/19 17:20 06/15/19 03:27 Klor-Con PER TUBE 40 meq ASDIR PRN Administration FOR SERUM K+ 2.5-3.5 - Exam Heart: negative: RRR, no murmur, no gallops, no rubs, normal peripheral pulses, irregular, diminshed peripheral pulses, murmur present, II/IV, III/IV Respiratory: negative: CTAB, no wheezes, no rales, no ronchi, normal chest expansion, no tachypnea, normal percussion, rales, rhonchi, tachypneic, wheezes Gastrointestinal: soft, tender to palpation Hosp A/P (1) Sepsis Code(s): A41.9 - SEPSIS, UNSPECIFIED ORGANISM Status: Acute (2) Increased anion gap metabolic acidosis Code(s): E87.2 - ACIDOSIS Status: Acute (3) CHAD (acute kidney injury) Code(s): N17.9 - ACUTE KIDNEY FAILURE, UNSPECIFIED Status: Acute (4) Elevated LFTs Code(s): R94.5 - ABNORMAL RESULTS OF LIVER FUNCTION STUDIES Status: Acute (5) Nausea & vomiting Code(s): R11.2 - NAUSEA WITH VOMITING, UNSPECIFIED Status: Acute (6) Bone metastases Code(s): C79.51 - SECONDARY MALIGNANT NEOPLASM OF BONE Status: Chronic (7) Testicular malignancy Code(s): C62.90 - MALIG NEOPLASM OF UNSP TESTIS, UNSP DESCENDED OR UNDESCENDED Status: Chronic (8) Pneumomediastinum Code(s): J98.2 - INTERSTITIAL EMPHYSEMA Status: Acute (9) Dehydration Code(s): E86.0 - DEHYDRATION Status: Acute - Plan sepsis ruled out. will discontinue his abx. pt's chad has resolved. He continues to have n/v most likely due to side effects from chemo pt is on cisplatin/ fosfamide and taxol. will get ruq ultrasound for gallbaldder etiology. elevated lfts resolved. will continue fluids until pt is able to eat. will schedule his antiemetic to avoid any retching.
[2019-06-16] MEDS: Promethazine HCl 12.5 MG in Sodium Chloride 0.9% 50 ML IVPB PRN ×2 (00:06→08:55)
[2019-06-16] MEDS: Promethazine HCl 12.5 MG in Sodium Chloride 0.9% 50 ML IVPB SCH ×2 (02:56→09:05)
[2019-06-16] MEDS: Ondansetron PF 4 MG/2 ML Vial IVP PRN (05:50)
--- NOTE | 2019-06-16 08:04 | ULT ---
Exam: Right upper quadrant ultrasound: HISTORY: Nausea and vomiting. Right upper quadrant pain. COMPARISON: None FINDINGS: Liver: Mild increase in echogenicity suggesting an element of mild fatty infiltration. No focal hepat ic lesion is seen. Gallbladder: Mild increase in echogenic material seen within the gallbladder lumen suggesting small a mount of sludge. No gallbladder calculi are visualized. The gallbladder wall is normal in thickness, and no pericholecystic fluid is seen. Common bile duct: The common duct is normal in caliber measuring 0.4 cm in diameter. Pancreas: Obscured by bowel gas and not evaluated on this exam. Right kidney: Right kidney demonstrates a normal sonographic appearance. The right kidney measures 1 0.2 cm in length. IVC: The visualized IVC demonstrates a normal sonographic appearance. IMPRESSION: Small amount of gallbladder sludge, but no gallbladder calculi are seen, and the common duct is wili l in caliber. Transcribed Date/Time: 06/16/2019 8:07 AM
[2019-06-16] MEDS: Dextrose 5 % And 0.9 % NaCl 1,000 ML IV SCH (08:55)
[2019-06-16] MEDS: Famotidine/PF 20 mg/2ml Vial SLOW IVP SCH (08:55)
[2019-06-16] MEDS: Enoxaparin Sodium 40 MG/0.4 ML SYRINGE SC SCH (09:08)
--- NOTE | 2019-06-16 10:50 | PDOC.MOPN ---
Interval History: better today, continued nausea - Vital Signs Vital Signs: Vital Signs (12 hours) Temp 06/16/19 07:15 98.0 F 06/16/19 03:40 98.1 F 06/15/19 23:22 98.7 F Weight Admit Weight 169 lb Weight 168 lb 4.8 oz Most Recent Monitor Data Heart Rate from ECG 97 NIBP 105/68 NIBP BP-Mean 80 Respiration from ECG 13 SpO2 100 - Physical Exam General: Alert, Oriented x3, No acute distress HEENT: Atraumatic, PERRLA, EOMI, Mucous membr. moist/pink Lungs: Clear to auscultation, Normal air movement Cardiovascular: Regular rate Abdomen: Normal bowel sounds, Soft, No tenderness, No hepatospenomegaly, No masses Extremities: No clubbing, No cyanosis, No edema, Normal pulses, No tenderness/ swelling Skin: No rashes, No breakdown, No significant lesion Neurological: Normal gait, Normal speech, Strength at 5/5 X4 ext, Normal tone, Sensation intact, Cranial nerves 3-12 NL, Reflexes 2+ Psych/Mental Status: Mental status NL, Mood NL - Labs Result Diagrams: 06/15/19 01:55 06/15/19 01:55 Status: lab reviewed by me A/P - Problem (1) Testicular mass Current Visit: No Status: Acute - Plan Plan: continue nausea meds supportive care
--- NOTE | 2019-06-16 10:57 | PDOC.MOPN ---
Interval History: continued nausea, no diarrhea - Vital Signs Vital Signs: Vital Signs (12 hours) Temp 06/16/19 07:15 98.0 F 06/16/19 03:40 98.1 F 06/15/19 23:22 98.7 F Weight Admit Weight 169 lb Weight 168 lb 4.8 oz Most Recent Monitor Data Heart Rate from ECG 97 NIBP 105/68 NIBP BP-Mean 80 Respiration from ECG 13 SpO2 100 - Physical Exam General: Alert, Oriented x3, No acute distress HEENT: Atraumatic, PERRLA, EOMI, Mucous membr. moist/pink Lungs: Clear to auscultation, Normal air movement Cardiovascular: Regular rate, Normal S1, Normal S2, No murmurs, Gallops, Rubs Abdomen: Normal bowel sounds, Soft, No tenderness, No hepatospenomegaly, No masses Extremities: No clubbing, No cyanosis, No edema, Normal pulses, No tenderness/ swelling Skin: No rashes, No breakdown, No significant lesion Neurological: Normal gait, Normal speech, Strength at 5/5 X4 ext, Normal tone, Sensation intact, Cranial nerves 3-12 NL, Reflexes 2+ Psych/Mental Status: Mental status NL, Mood NL - Labs Result Diagrams: 06/15/19 01:55 06/15/19 01:55 A/P - Problem (1) Testicular mass Current Visit: No Status: Acute - Plan Plan: add phenergan for nausea continue IVF
[2019-06-16 11:17] VITALS: TEMP 99
--- NOTE | 2019-06-17 02:15 | DIS ---
DATE OF ADMISSION: 06/14/2019 DATE OF DISCHARGE: 06/16/2019 The patient left against medical advise on 06/16. DISCHARGE DIAGNOSES: As of the following, 1. Sepsis, resolved. 2. Anion gap metabolic acidosis, resolved. 3. Acute kidney injury, resolved. 4. Elevated LFTs, resolved. 5. Testicular cancer with metastatic lesion. 6. Pneumomediastinum. HOSPITAL COURSE: The patient is a 29-year-old male, who initially presented to the hospital with significant amount of nausea and vomiting. Initially, his white count was elevated. He was put on broad-spectrum antibiotics and was admitted into the [facility]. He did have a CTA, which indicated pneumomediastinum. At this time, a barium swallow was done, which did not indicate any esophageal rupture. He was seen by CV Surgery, no indication, just continue to monitor. The patient's electrolyte imbalance improved dramatically after hydration. He was put on scheduled antinausea medication for better control of his nausea and vomiting. He was put on a clear liquid diet and to advance as tolerated. The patient also had a right upper quadrant ultrasound, which indicated some gallstones and some sludge. However, this common bile duct was normal in caliber. On the day of the patient leaving [place], I went to examine the patient, encouraged him to try having some clear liquids or even some full liquid. The patient at this time was very verbally abusive, stated that he is trying to do what he can and stated some foul language. At this time, I did not examine the patient and I left the room. I was notified later by the nursing staff that the patient pulled out his IV and left against medical advice. Job ID: [id number]
--- NOTE | 2019-06-17 06:33 | PQF ---
Delroy KaurMELANIE [id number] CLINICAL DOCUMENTATION CLARIFICATION FORM: POST DISCHARGE Addendum to original discharge summary date: ____ Late entry note date: __ DATE: 06/17/2019 ATTN: Melanie Tucker Please exercise your independent, professional judgment in responding to the clarification form. Clinical indicators are provided on the bottom of this form for your review Please check appropriate box(s): Conflicting documentation was noted in the Medical Record, please clarify if patient is being treated/monitored for: [ ] Sepsis, Resolved [ x ] Sepsis, Ruled out [ ] Other diagnosis [ ] Unable to determine In addition, please specify: Present on Admission (POA): [ ] Yes [ ] No [ x ] Unable to determine For continuity of documentation, please document condition throughout progress notes and discharge summary. Thank You. CLINICAL INDICATORS - SIGNS / SYMPTOMS/ LABS Laboratory 06/14 WBC 21.9, Neutrophils 78, Lymphocytes 4, Lactic Acid 8.4 Vital signs 06/14 BP 115/79, Pulse 165, Resp 28, Temp 99.2 ED notes p2 SIRS pt did meet at least 2 criteria ED note p5 06/14 patient has been thoroughly evaluated and appears to have sepsis H&P p1 06/14 Dr Whitlock presents to the hospital with nausea and vomiting for the past 3 ays H&P p2 06/14 Dr Whitlock Sepsis unclear etiology at this time. His chest x-ray doesn't show any PNA. No grossly indication or any significant UTI. H&P p2 06/14- Dr Whitlock metabolic acidosis H&P p2 06/14 - Anion gap metabolic with respiratory alkalosis H&P p2 06/14 - CHAD Hospitalist PN p6 06/15 Dr Whitlock Sepsis Ruled out DS p1 06/16 Dr Whitlock Sepsis, resolved RISK FACTORS H&P p1 06/14 History of Testicular cancer H&P p1 06/14 Lung and bone mets H&P p1 06/14 Former Smoker Consult p1 06/14 Presence of Mediport TREATMENT JUN 27 IV Cefepime 2gm JUN 27 IVF 3L JUN 27 IV Vancomycin 1gm Blood culture order 06/14 Chest x-day order 06/14 ED notes p2 Sepsis protocol initiated (This form is maintained as a part of the permanent medical record) 2014 [employer]. All Rights Reserved [email or web address]
== END 2019-06-16 14:04 | disposition left against medical advice (07) | DRG 683 ==
LOC: ERS 08:41 → ERHOLD 12:29 → IMCU/EMU 14:50
PROVIDERS: ADMIT Internal Medicine; ATTEND Internal Medicine
DX: N17.9 Acute kidney failure, unspecified (principal); C79.51 Secondary malignant neoplasm of bone; E87.4 Mixed disorder of acid-base balance; C78.02 Secondary malignant neoplasm of left lung; C78.01 Secondary malignant neoplasm of right lung; C62.90 Malignant neoplasm of unspecified testis, unspecified whether descended or undescended; E86.0 Dehydration; J98.2 Interstitial emphysema; Z87.891 Personal history of nicotine dependence; Z79.899 Other long term (current) drug therapy; Z28.21 Immunization not carried out because of patient refusal
CPT/HCPCS: 36415; 71045; 71250; 71275; 74220; 76705; 80048; 80053; 81003; 81015; 82550; 82805; 83605; 83690; 83735; 84484; 85025; 85379; 86850; 86900; 86901; 87040; 87086; 87804; 93005; 96361; 96365; 96367; 96375; 99292; J0692; J1200; J1650; J2060; J2270; J2405; J2550; J2765; J3010; J3370; J3475; J3480; J3490; J7050; Q9967; S0028

== ENCOUNTER 2019-06-29 10:06 | Inpatient (IN) | payer OTHER ==
[2019-06-29] MEDS ORDERED: Senokot S 8.6-50 MG TAB PO PRN (14:30)
[2019-06-29] MEDS ORDERED: Ondansetron ODT 4 MG TAB PO PRN ×2 (14:30→15:39)
[2019-06-29] MEDS ORDERED: Acetaminophen 650 MG Suppository PR PRN (14:30)
[2019-06-29] MEDS ORDERED: Acetaminophen 325 MG TAB PO PRN (14:30)
[2019-06-29] MEDS ORDERED: Ondansetron PF 4 MG/2 ML Vial IVP PRN (14:30)
[2019-06-29] MEDS ORDERED: Guaifenesin DM 100-10/5 ML UDCUP PO PRN (14:30)
[2019-06-29] MEDS ORDERED: Promethazine HCl 25 MG SUPP PR PRN (14:38)
[2019-06-29] MEDS ORDERED: diphenhydrAMINE 50 MG/ML VIAL IVP SCH ×2 (15:00→15:15)
[2019-06-29] MEDS ORDERED: Famotidine/PF 20 mg/2ml Vial SLOW IVP SCH ×2 (15:00→15:15)
[2019-06-29] MEDS ORDERED: Dexamethasone Sod Phosphate 20 MG in Sodium Chloride 0.9% 50 ML IVPB SCH (15:00)
[2019-06-29] MEDS ORDERED: SODIUM CHLORIDE 0.9% IVPB SCH ×2 (15:15)
[2019-06-29] MEDS ORDERED: PACLITAXEL IVPB SCH (15:15)
[2019-06-29] MEDS ORDERED: ONDANSETRON IVPB SCH (15:15)
[2019-06-29] MEDS ORDERED: DEXAMETHASONE IVPB SCH (15:15)
[2019-06-29] MEDS: fentaNYL 50 mcg/hour Patch TD SCH (15:35)
--- NOTE | 2019-06-29 16:48 | HP ---
PRIMARY CARE PHYSICIAN: Luis Carolina MD CHIEF COMPLAINT: Testicular cancer with mets. HISTORY OF PRESENT ILLNESS: The patient is a 29-year-old male with a history of testicular cancer with metastases to the lung, back and bones, who presents to the hospital for direct admit chemotherapy by Oncology Dr. Romo. The patient is scheduled for 5 days of chemotherapy. We have been consulted for medical management, to manage pain, nausea and vomiting and all other medical comorbidities. Currently, the patient has no complaints. He denies any headaches, fevers, cough, shortness of breath, chest pain. The patient reports that he is stooling normal. PAST MEDICAL HISTORY: The patient has history of testicular cancer. 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 PAST SURGICAL HISTORY: The patient has had his right testicle removed. He has had a right thoracoscopy with removal of bulk tumor and he has a chemo port in place in his right chest wall. ALLERGIES: NO KNOWN DRUG ALLERGIES. MEDICATIONS: 1. Gabapentin 300 mg p.o. t.i.d. 2. Promethazine 25 mg p.o. q.6 p.r.n. nausea and vomiting. 3. Fentanyl 50 mcg transdermal patch q.3 days. 4. Zofran 8 mg p.o. t.i.d. p.r.n. nausea and vomiting. SOCIAL HISTORY: The patient is a former smoker. He uses marijuana occasionally and he drinks alcohol occasionally. FAMILY HISTORY: Noncontributory for cancer. REVIEW OF SYSTEMS: All other review of systems are negative unless noted in the HPI. PHYSICAL EXAMINATION: VITAL SIGNS: Temperature 98.9, blood pressure 109/61, pulse 106, respirations 18. GENERAL: The patient is awake, alert and oriented x3. CARDIOVASCULAR: Sinus tachycardia. S1 and S2 appreciated. No murmurs, rubs, or gallops. LUNGS: Clear to auscultation bilaterally. No rhonchi or wheezes or rales noted. ABDOMEN: Abdomen is soft, nontender. No guarding. No rigidity. No peritoneal signs. Active bowel sounds in all quadrants. EXTREMITIES: Upper extremities no gross deformities. Strength 5/5 in the power scale. Palpable radial and ulnar pulses. Radial median and ulnar nerves are intact. Capillary refill is brisk. No clubbing or cyanosis. Lower extremities, no gross deformities. Strength 5/5 in the power scale. Sensation intact. Palpable pedal pulses. Brisk capillary refill. No clubbing or cyanosis. NEUROLOGIC: GCS 15. The patient is alert and oriented to person, place, and time. No focal deficits noted. SKIN: There is med port is in place in the right upper chest. No rashes. No open lesions. ASSESSMENT: 1. Testicular cancer with metastatic disease. 2. Sinus tachycardia, mild. 3. Marijuana abuse. PLAN: 1. The patient has been admitted to Oncology. We may consult for medical management for pain management, nausea and vomiting and other comorbidities. The patient is to receive chemotherapy for the next [address] Romo. 2. GI and DVT prophylaxis. 3. Basic metabolic panel and CBC in a.m. 4. Regular diet. 5. The patient is a full-code. Job ID: [id number]
[2019-06-29] MEDS: Famotidine 20 MG TAB PO SCH (22:09)
[2019-06-30 04:46] LABS: #Lymphocytes 0.4 thou/uL (1.20-3.40); %Eosinophils 0.4 % (0.0-10.0); %Lymphocytes 5.1 % (21.0-51.0); %Monocytes 0.2 % (0.0-10.0); %Neutrophils 94.3 % (42.0-75.0); Hemoglobin 9.5 g/dL (14.0-18.0); Mean Corpuscular HGB CONC 34.9 g/dL (32.0-36.0); Mean Corpuscular Hemoglobin 35.3 pg (27.0-31.0); Mean Platelet Volume 7.7 fL (7.4-10.4); Platelet Count 227 thou/uL (130-400); RBC Distribution Width 17.2 % (11.5-14.5); White Blood Cell (WBC) Count 7.4 thou/uL (4.8-10.8)
[2019-06-30 05:03] LABS: Anion Gap 14 mmol/L (10-20); BUN (Urea Nitrogen) 16 mg/dL (8.9-20.6); Calc. Creatinine Clearance 139 mL/min (70-130); Calcium 8.9 mg/dL (7.8-10.44); Carbon Dioxide 25 mmol/L (22-29); Chloride 103 mmol/L (98-107); Estimated GFR-MDRD Greater than 90; Glucose 136 mg/dL (70-105); Potassium 4.3 mmol/L (3.5-5.1); Sodium 138 mmol/L (136-145)
[2019-06-30] MEDS ORDERED: Sodium Chloride 0.9% 250 ML 250 ML IVPB SCH (08:15)
[2019-06-30] MEDS: Enoxaparin Sodium 40 MG/0.4 ML SYRINGE SC SCH (08:55)
[2019-06-30] MEDS: Famotidine 20 MG TAB PO SCH ×2 (08:55→20:23)
[2019-06-30] MEDS: HYDROcodone/Acetaminophen 5/325 mg Tablet PO PRN ×2 (08:57→20:07)
[2019-06-30] MEDS ORDERED: Promethazine 25 MG TAB PO PRN (13:19)
[2019-06-30 14:04] VITALS: BMI 26.2
--- NOTE | 2019-06-30 14:29 | CON ---
DATE OF CONSULTATION: REASON FOR CONSULTATION: Testicular cancer. HISTORY OF PRESENT ILLNESS: Mr. Kaur is a 29-year-old gentleman who has metastatic testicular cancer. He is being admitted for cycle 4 of TIP chemotherapy. He tolerated the 1st two cycles well. However, with the last cycle, he had to be admitted for severe nausea and dehydration. He has been doing well since discharge a couple of weeks ago. He continues to have hip and leg pain with numbness, slightly better since starting chemotherapy. He is tired, likely secondary to anemia from the chemotherapy. He is being admitted again for cycle 5. It is a 5-day regimen with Fulphila on a day 6. He denies any pain and is using a fentanyl patch for his pain. PAST MEDICAL HISTORY: Metastatic testicular cancer. PAST SURGICAL HISTORY: 1. Biopsy. 2. Right radical orchiectomy. 3. MediPort placement. 4. Mediastinal mass excision. ALLERGIES: NO KNOWN DRUG ALLERGIES. HOME MEDICATIONS: 1. Fentanyl 50 mcg patch every 3 days. 2. Gabapentin 300 t.i.d. 3. Phenergan and Zofran p.r.n. FAMILY HISTORY: Uncle with colon cancer. SOCIAL HISTORY: Single. No children. Current smoker, uses marijuana. Denies illicit drug use. REVIEW OF SYSTEMS: A 10-point review of systems is negative except for noted in HPI. PHYSICAL EXAMINATION: VITAL SIGNS: Temperature 98.8, pulse is 81, respiratory rate 16, BP is 134/75, and he is 98% on room air. GENERAL: This is a well-developed, well-nourished male, in no acute distress. HEENT: Normocephalic and atraumatic. Pupils are equal and reactive to light. NECK: Supple. CV: Regular rate and rhythm. LUNGS: Clear. ABDOMEN: Soft and nontender. Bowel sounds are positive. EXTREMITIES: No clubbing or cyanosis. SKIN: No rash. HEMATOLOGIC: No petechiae or purpura. NEUROLOGIC: Nonfocal. PERTINENT LABORATORY DATA AND X-RAYS: Current WBCs 7.4, hemoglobin 9.5, hematocrit 27.3, platelet count is 227,000, 94% neutrophils, and 5% lymphocytes. Sodium 138, potassium 4.3, chloride 103, CO2 is 25, BUN is 16, creatinine 0.86, and calcium 8.9. ASSESSMENT: Metastatic testicular cancer. DISCUSSION: The patient will be admitted for cycle 4 of TIP chemotherapy. This is his last cycle. He needs neuro checks every 4 hours to monitor for ifosfamide neurotoxicity. Plan a daily CBC and BMP. Would continue fentanyl patch for his pain management and his p.r.n. nausea medicines. We will be adding ALOXI to day 5 treatment in order to prevent the severe nausea he had with the last cycle. He will have Fulphila 24 hours after his last chemotherapy day. This is going to be on day 6 and then he can be discharged home to follow up in our clinic. Thank you for the consult. Job ID: [id number]
[2019-06-30] MEDS: Promethazine HCl 25 MG/ML VIAL SLOW IVP PRN (16:45)
[2019-06-30] MEDS: Lorazepam 2 MG/ML VIAL SLOW IVP PRN (16:45)
[2019-06-30] MEDS ORDERED: Palonosetron HCl 0.25 MG in Sodium Chloride 0.9% 50 ML IVPB SCH (17:00)
--- NOTE | 2019-06-30 17:46 | PDOC.HOSPP ---
- Subjective Encounter Date: 06/30/19 Encounter Time: 17:40 Subjective: f/u for testicular carcinoma with 4th cycle of chemotherapy. Had some nausea earlier managed with IV Phenergan. No new complaints. - Objective Vital Signs & Weight: Vital Signs (12 hours) Temp Pulse Resp BP Pulse Ox 06/30/19 16:20 98.4 F 86 18 127/84 98 06/30/19 11:45 98.7 F 92 18 123/71 98 06/30/19 08:00 98 06/30/19 07:57 98.8 F 81 16 134/75 98 Weight Admit Weight 173 lb Weight 173 lb 6.102 oz I&O: 06/29/19 06/30/19 07/01/19 06:59 06:59 06:59 Intake Total 1502 Balance 1502 Result Diagrams: 06/30/19 04:38 06/30/19 04:38 Hospitalist ROS - Medication Medications: Active Medications Generic Name Dose Route Start Last Admin Trade Name Freq PRN Reason Stop Dose Admin Hydrocodone Bitart/Acetaminophen 1 tab 06/30/19 08:02 06/30/19 08:57 [place] 5/325 PO 1 tab Q4H PRN Administration Pain Enoxaparin Sodium 40 mg 06/30/19 09:00 06/30/19 08:55 Lovenox SC 40 mg 0900 KIKE Administration Famotidine 20 mg 06/29/19 21:00 06/30/19 08:55 Pepcid PO 20 mg BID KIKE Administration Fentanyl 50 mcg 06/29/19 16:00 06/29/19 15:35 Duragesic TD 50 mcg Q3D KIKE Administration Paclitaxel 492.5 mg/ Sodium 582 mls @ 24.25 mls/hr 06/29/19 15:15 06/29/19 18 :14 Chloride IVPB 06/30/19 18:00 582 mls WILLCALL KIKE Administration Dexamethasone 20 mg/ 59.5 mls @ 178.5 mls/hr 06/29/19 15:15 06/29/19 17:33 Ondansetron HCl 15 mg/ Sodium IVPB 59.5 mls Chloride WILLCALL KIKE Administration Lorazepam 1 mg 06/29/19 14:38 06/30/19 16:45 Ativan SLOW IVP 1 mg Q6H PRN Administration Nausea/Vomiting Ondansetron HCl 4 mg 06/29/19 15:39 06/30/19 09:04 Zofran Odt PO 4 mg Q4H PRN Administration Nausea/Vomiting Promethazine HCl 25 mg 06/30/19 13:19 06/30/19 16:28 Phenergan PO 25 mg Q6H PRN Administration Nausea Promethazine HCl 25 mg 06/30/19 13:19 06/30/19 16:45 Phenergan SLOW IVP 25 mg Q6H PRN Administration Nausea - Exam General Appearance: ill appearing Eye: PERRL, anicteric sclera ENT: normocephalic atraumatic, no oropharyngeal lesions Neck: supple, symmetric, no JVD, no thyromegaly Heart: RRR, no murmur, no gallops, no rubs, normal peripheral pulses Respiratory: CTAB, no wheezes, no rales, no ronchi, normal chest expansion Respiratory - other findings: R upper chest with Mediport in place Gastrointestinal: soft, non-tender, non-distended, normal bowel sounds, no palpable masses Extremities: no cyanosis, no clubbing, no edema Skin: normal turgor, no lesions Neurological: cranial nerve grossly intact, no new deficit Musculoskeletal: normal tone, normal strength, no muscle wasting Psychiatric: normal affect, A&O x 3 Hosp A/P (1) Testicular malignancy Code(s): C62.90 - MALIG NEOPLASM OF UNSP TESTIS, UNSP DESCENDED OR UNDESCENDED Status: Chronic Qualifiers: Laterality: right Plan: Continue 4th cycle chemotherapy per medical oncology, pain control as indicated (2) Nausea & vomiting Code(s): R11.2 - NAUSEA WITH VOMITING, UNSPECIFIED Status: Acute Plan: Due to chemotherapy, IV Phenergan (3) Anemia due to chemotherapy Code(s): D64.81 - ANEMIA DUE TO ANTINEOPLASTIC CHEMOTHERAPY; T45.1X5A - ADVERSE EFFECT OF ANTINEOPLASTIC AND IMMUNOSUP DRUGS, INIT Status: Chronic Plan: Serial CBC, no active blood loss - 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
[2019-06-30] MEDS: SODIUM CHLORIDE 0.9% IVPB SCH (21:42)
[2019-06-30] MEDS: IFOSFAMIDE IVPB SCH (21:42)
[2019-06-30] MEDS: MESNA IVPB SCH (21:42)
[2019-06-30] MEDS: Sodium Chloride 0.9% 250 ML IVPB SCH (23:25)
[2019-07-01] MEDS: SODIUM CHLORIDE 0.9% IV SCH ×2 (00:07→19:28)
[2019-07-01] MEDS: CISPLATIN IV SCH ×2 (00:07→19:28)
[2019-07-01] MEDS: MANNITOL IV SCH ×2 (00:07→19:28)
[2019-07-01] MEDS: Sodium Chloride 0.9% 250 ML IVPB SCH ×3 (00:51→20:14)
[2019-07-01] MEDS: MESNA IVPB SCH ×4 (03:23→22:06)
[2019-07-01] MEDS: SODIUM CHLORIDE 0.9% IVPB SCH ×4 (03:23→22:06)
[2019-07-01] MEDS: Lorazepam 2 MG/ML VIAL SLOW IVP PRN ×2 (03:27→17:21)
[2019-07-01 07:51] LABS: ALT (SGPT) 36 U/L (8-55); AST (SGOT) 32 U/L (5-34); Albumin 4.1 g/dL (3.5-5.0); Alkaline Phosphatase 96 U/L (40-110); Anion Gap 10 mmol/L (10-20); BUN (Urea Nitrogen) 13 mg/dL (8.9-20.6); Calc. Creatinine Clearance 160 mL/min (70-130); Calcium 8.8 mg/dL (7.8-10.44); Carbon Dioxide 27 mmol/L (22-29); Chloride 103 mmol/L (98-107); Estimated GFR-MDRD Greater than 90; Globulin 2.3 g/dL (2.4-3.5); Glucose 120 mg/dL (70-105); Potassium 4.2 mmol/L (3.5-5.1); Protein, Total 6.4 g/dL (6.0-8.3); Sodium 136 mmol/L (136-145)
[2019-07-01 08:13] LABS: Hemoglobin 9.6 g/dL (14.0-18.0); Mean Corpuscular HGB CONC 35.3 g/dL (32.0-36.0); Mean Corpuscular Hemoglobin 35.7 pg (27.0-31.0); Mean Platelet Volume 7.7 fL (7.4-10.4); Platelet Count 201 thou/uL (130-400); RBC Distribution Width 16.7 % (11.5-14.5); White Blood Cell (WBC) Count 3.1 thou/uL (4.8-10.8)
[2019-07-01 08:14] LABS: Band 2 % (5-11); Lymphocytes 11 % (21-51); MDiff Complete? YES; Monocytes 2 % (0-10); Neutrophil 85 % (42-75); Ovalocytes SLIGHT = 2-5 cells (100X) (0-1/hpf); Platelet Morphology Comment Appears Adequate; Polychromasia SLIGHT = 2-3 cells (100X) (0-2/hpf)
[2019-07-01] MEDS: Enoxaparin Sodium 40 MG/0.4 ML SYRINGE SC SCH (09:00)
[2019-07-01] MEDS: Famotidine 20 MG TAB PO SCH ×2 (09:00→21:56)
--- NOTE | 2019-07-01 09:27 | PDOC.MOPN ---
Interval History: Pt feeling ok, c/o nausea and vomiting, improved with Zofran. Pain is controlled , only needed 1 [place] thus far. He has hiccups that are bothersome. - Vital Signs Vital Signs: Vital Signs (12 hours) Temp Pulse Resp BP Pulse Ox 07/01/19 08:56 98 07/01/19 07:53 97.8 F 110 H 20 142/78 H 98 07/01/19 07:46 98 07/01/19 00:10 97.7 F 64 16 103/64 99 Weight Admit Weight 173 lb Weight 173 lb 6.102 oz - Physical Exam General: Alert, Oriented x3, Cooperative HEENT: EOMI Lungs: Normal air movement Cardiovascular: Regular rate - Labs Result Diagrams: 07/01/19 07:19 07/01/19 07:19 Lab results: Laboratory Results - last 24 hr 07/01/19 07:19: WBC 3.1 L, RBC 2.70 L, Hgb 9.6 L, Hct 27.3 L, MCV 101.0 H, MCH 35.7 H, MCHC 35.3, RDW 16.7 H, Plt Count 201, MPV 7.7, Neutrophils % (Manual) 85 H, Band Neuts % (Manual) 2 L, Lymphocytes % (Manual) 11 L, Monocytes % ( Manual) 2, Plt Morphology Comment Appears Adequate, Polychromasia SLIGHT = 2-3 cells, Ovalocytes SLIGHT = 2-5 cells 07/01/19 07:19: Sodium 136, Potassium 4.2, Chloride 103, Carbon Dioxide 27, Anion Gap 10, BUN 13, Creatinine 0.75, Estimated GFR (MDRD) Greater than 90, Glucose 120 H, Calcium 8.8, Total Bilirubin 1.0, AST 32, ALT 36, Alkaline Phosphatase 96, Serum Total Protein 6.4, Albumin 4.1, Globulin 2.3 L, Albumin/ Globulin Ratio 1.8 A/P - Problem (1) Testicular mass Current Visit: No Status: Acute - Plan Plan: cont chemo, neuro checks Zofran, compazine, phenergan prn N/V Fentanyl and [place] for pain start baclofen for hiccups
[2019-07-01] MEDS ORDERED: Baclofen 10 MG TAB PO SCH (10:00)
[2019-07-01] MEDS: ONDANSETRON IVPB SCH (16:45)
[2019-07-01] MEDS: [UNRECOGNIZED DRUG - OTHER] IVPB SCH (16:45)
[2019-07-01] MEDS: DEXAMETHASONE SOD PHOSPHATE IVPB SCH (16:45)
[2019-07-01] MEDS: IFOSFAMIDE IVPB SCH (17:20)
--- NOTE | 2019-07-01 19:14 | PDOC.HOSPP ---
- Subjective Encounter Date: 07/01/19 Encounter Time: 19:15 Subjective: f/u for testicular carcinoma on current chemotherapy. Some nausea tx with Phenergan - Objective Vital Signs & Weight: Vital Signs (12 hours) Temp Pulse Resp BP Pulse Ox 07/01/19 16:00 98.2 F 85 16 100/58 L 95 07/01/19 08:56 98 07/01/19 07:53 97.8 F 110 H 20 142/78 H 98 07/01/19 07:46 98 Weight Admit Weight 173 lb Weight 173 lb 6.102 oz I&O: 06/30/19 07/01/19 07/02/19 06:59 06:59 06:59 Intake Total 2093 2692 Output Total 350 Balance 1743 2692 Result Diagrams: 07/01/19 07:19 07/01/19 07:19 Additional Labs: Laboratory Tests 06/30/19 04:38 Hgb 9.5 L Neutrophils % 94.3 H Hospitalist ROS - Medication Medications: Active Medications Generic Name Dose Route Start Last Admin Trade Name Freq PRN Reason Stop Dose Admin Hydrocodone Bitart/Acetaminophen 1 tab 06/30/19 08:02 06/30/19 20:07 [place] 5/325 PO 1 tab Q4H PRN Administration Pain Enoxaparin Sodium 40 mg 06/30/19 09:00 07/01/19 09:00 Lovenox SC Not Given 0900 KIKE Famotidine 20 mg 06/29/19 21:00 07/01/19 09:00 Pepcid PO Not Given BID KIKE Fentanyl 50 mcg 06/29/19 16:00 06/29/19 15:35 Duragesic TD 50 mcg Q3D KIKE Administration [place] 0.985 gm/ Sodium 59.85 mls @ 0 mls/hr 06/30/19 17:00 07/01/19 07:20 Chloride IVPB 07/03/19 23:30 59.85 mls WILLCALL KIKE Administration As Directed Palonosetron 0.25 mg/ Sodium 55 mls @ 165 mls/hr 06/30/19 17:00 06/30/19 20: 48 Chloride IVPB 55 mls WILLCALL KIKE Administration Fosaprepitant 150 mg/ Sodium 145 mls @ 290 mls/hr 06/30/19 17:00 03/04/20 20: 11 Chloride IVPB 145 mls WILLCALL KIKE Administration Cisplatin 49 mg/ Mannitol 12.5 349 mls @ 698 mls/hr 06/30/19 17:00 07/01/19 00:07 gm/ Sodium Chloride IV 07/03/19 23:30 349 mls WILLCALL KIKE Administration Ifosfamide 2.955 gm/ [place] 0. 1,068.95 mls @ 1,068.95 mls/hr 06/30/19 17:00 07/01/19 17:20 985 gm/ Sodium Chloride IVPB 07/03/19 23:30 1,068.95 mls WILLCALL KIKE Administration Dexamethasone Sodium Phosphate 55 mls @ 110 mls/hr 07/01/19 17:00 07/01/19 16 :45 10 mg/ Ondansetron HCl 8 mg/ IVPB 07/03/19 23:30 55 mls Sodium Chloride WILLCALL KIKE Administration Sodium Chloride 250 mls @ 0 mls/hr 06/30/19 23:45 07/01/19 00:51 Normal Saline 0.9% IVPB 250 mls WILLCALL KIKE Administration As Directed Lorazepam 1 mg 06/29/19 14:38 07/01/19 17:21 Ativan SLOW IVP 1 mg Q6H PRN Administration Nausea/Vomiting Ondansetron HCl 4 mg 06/29/19 15:39 06/30/19 09:04 Zofran Odt PO 4 mg Q4H PRN Administration Nausea/Vomiting Promethazine HCl 25 mg 06/30/19 13:19 06/30/19 16:28 Phenergan PO 25 mg Q6H PRN Administration Nausea Promethazine HCl 25 mg 06/30/19 13:19 06/30/19 16:45 Phenergan SLOW IVP 25 mg Q6H PRN Administration Nausea - Exam General Appearance: NAD, awake alert Eye: PERRL, anicteric sclera ENT: normocephalic atraumatic, no oropharyngeal lesions Neck: supple, symmetric, no JVD, no thyromegaly Heart: RRR, no murmur, no gallops, no rubs, normal peripheral pulses Respiratory: CTAB, no wheezes, no rales, no ronchi, normal chest expansion Gastrointestinal: soft, non-tender, non-distended, normal bowel sounds Extremities: no cyanosis, no clubbing, no edema Skin: normal turgor, no lesions Neurological: cranial nerve grossly intact, no new deficit Musculoskeletal: normal tone, normal strength, no muscle wasting Psychiatric: normal affect, A&O x 3 Hosp A/P (1) Testicular malignancy Code(s): C62.90 - MALIG NEOPLASM OF UNSP TESTIS, UNSP DESCENDED OR UNDESCENDED Status: Chronic Qualifiers: Laterality: right Plan: Continue chemotherapy per medical oncology service, continue Dexamethasone (2) Nausea & vomiting Code(s): R11.2 - NAUSEA WITH VOMITING, UNSPECIFIED Status: Acute Plan: Improved with Phenergan (3) Anemia due to chemotherapy Code(s): D64.81 - ANEMIA DUE TO ANTINEOPLASTIC CHEMOTHERAPY; T45.1X5A - ADVERSE EFFECT OF ANTINEOPLASTIC AND IMMUNOSUP DRUGS, INIT Status: Chronic Plan: Serial CBC - 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
[2019-07-01] MEDS: Baclofen 10 MG TAB PO SCH (21:56)
[2019-07-02] MEDS: SODIUM CHLORIDE 0.9% IVPB SCH ×4 (03:05→23:44)
[2019-07-02] MEDS: MESNA IVPB SCH ×4 (03:05→23:44)
[2019-07-02] MEDS: HYDROcodone/Acetaminophen 5/325 mg Tablet PO PRN ×2 (08:48→15:49)
[2019-07-02] MEDS: Enoxaparin Sodium 40 MG/0.4 ML SYRINGE SC SCH (08:49)
[2019-07-02] MEDS: Baclofen 10 MG TAB PO SCH ×2 (08:49→20:42)
[2019-07-02] MEDS: Famotidine 20 MG TAB PO SCH ×2 (08:50→20:42)
[2019-07-02] MEDS: Promethazine HCl 25 MG/ML VIAL SLOW IVP PRN ×2 (08:50→15:51)
[2019-07-02] MEDS: Lorazepam 2 MG/ML VIAL SLOW IVP PRN ×3 (08:52→23:44)
[2019-07-02 09:00] LABS: Hemoglobin 9.1 g/dL (14.0-18.0); Mean Corpuscular HGB CONC 34.9 g/dL (32.0-36.0); Mean Corpuscular Hemoglobin 35.6 pg (27.0-31.0); Mean Platelet Volume 7.8 fL (7.4-10.4); Platelet Count 168 thou/uL (130-400); RBC Distribution Width 16.8 % (11.5-14.5); Red Blood Cell (RBC) Count 2.56 mill/uL (4.70-6.10); White Blood Cell (WBC) Count 4.1 thou/uL (4.8-10.8)
[2019-07-02 09:15] LABS: ALT (SGPT) 30 U/L (8-55); AST (SGOT) 18 U/L (5-34); Albumin 4.1 g/dL (3.5-5.0); Alkaline Phosphatase 87 U/L (40-110); Anion Gap 13 mmol/L (10-20); BUN (Urea Nitrogen) 16 mg/dL (8.9-20.6); Bilirubin, Total 1.4 mg/dL (0.2-1.2); Calc. Creatinine Clearance 154 mL/min (70-130); Calcium 8.8 mg/dL (7.8-10.44); Carbon Dioxide 26 mmol/L (22-29); Chloride 101 mmol/L (98-107); Estimated GFR-MDRD Greater than 90; Globulin 2.1 g/dL (2.4-3.5); Glucose 91 mg/dL (70-105); Potassium 3.5 mmol/L (3.5-5.1); Protein, Total 6.2 g/dL (6.0-8.3); Sodium 136 mmol/L (136-145)
[2019-07-02 09:18] LABS: Band 9 % (5-11); Lymphocytes 20 % (21-51); MDiff Complete? YES; Monocytes 1 % (0-10); Neutrophil 69 % (42-75); Reactive Lymphocytes 1 % (0-10)
--- NOTE | 2019-07-02 13:39 | PDOC.MOPN ---
Interval History: no complaints of n/v/d - Vital Signs Vital Signs: Vital Signs (12 hours) Temp Pulse Resp BP Pulse Ox 07/02/19 08:00 98.5 F 84 18 125/69 99 Weight Admit Weight 173 lb Weight 173 lb 6.102 oz - Physical Exam General: Alert, Oriented x3, No acute distress HEENT: Atraumatic, PERRLA, EOMI, Mucous membr. moist/pink Lungs: Clear to auscultation, Normal air movement Cardiovascular: Regular rate, Normal S1, Normal S2, No murmurs, Gallops, Rubs Abdomen: Normal bowel sounds, Soft, No tenderness, No hepatospenomegaly, No masses Extremities: Other Neurological: Normal gait, Normal speech, Strength at 5/5 X4 ext, Normal tone, Sensation intact, Cranial nerves 3-12 NL, Reflexes 2+ Psych/Mental Status: Mental status NL, Mood NL - Labs Result Diagrams: 07/02/19 09:00 07/02/19 09:00 Lab results: Laboratory Results - last 24 hr 07/02/19 09:00: WBC 4.1 L, RBC 2.56 L, Hgb 9.1 L, Hct 26.1 L, MCV 102.0 H, MCH 35.6 H, MCHC 34.9, RDW 16.8 H, Plt Count 168, MPV 7.8, Neutrophils % (Manual) 69 , Band Neuts % (Manual) 9, Lymphocytes % (Manual) 20 L, Reactive Lymphs % 1, Monocytes % (Manual) 1, Neutrophils # Not Reportable, Lymphocytes # Not Reportable 07/02/19 09:00: Sodium 136, Potassium 3.5, Chloride 101, Carbon Dioxide 26, Anion Gap 13, BUN 16, Creatinine 0.78, Estimated GFR (MDRD) Greater than 90, Glucose 91, Calcium 8.8, Total Bilirubin 1.4 H, AST 18, ALT 30, Alkaline Phosphatase 87, Serum Total Protein 6.2, Albumin 4.1, Globulin 2.1 L, Albumin/ Globulin Ratio 2.0 Status: lab reviewed by me A/P - Problem (1) Testicular malignancy Current Visit: No Code(s): C62.90 - MALIG NEOPLASM OF UNSP TESTIS, UNSP DESCENDED OR UNDESCENDED Status: Chronic Qualifiers: Laterality: right - Plan Plan: continue current treatment Chemo will end tomorrow. He can be discharged once chemo completed Will return on Friday for Fulphila. Follow-up clinic next week
--- NOTE | 2019-07-02 14:10 | PDOC.HOSPP ---
- Subjective Encounter Date: 07/02/19 Encounter Time: 13:50 Subjective: f/u for metastatic testicular carcinoma receiving current chemotherapy. No new issues noted. - Objective Vital Signs & Weight: Vital Signs (12 hours) Temp Pulse Resp BP Pulse Ox 07/02/19 08:00 98.5 F 84 18 125/69 99 Weight Admit Weight 173 lb Weight 173 lb 6.102 oz I&O: 07/01/19 07/02/19 07/03/19 06:59 06:59 06:59 Intake Total 2093 4022 Output Total 350 2100 Balance 1743 1922 Result Diagrams: 07/02/19 09:00 07/02/19 09:00 Additional Labs: Laboratory Tests 06/30/19 04:38 Hgb 9.5 L Neutrophils % 94.3 H Hospitalist ROS - Medication Medications: Active Medications Generic Name Dose Route Start Last Admin Trade Name Freq PRN Reason Stop Dose Admin Hydrocodone Bitart/Acetaminophen 1 tab 06/30/19 08:02 07/02/19 08:48 [place] 5/325 PO 1 tab Q4H PRN Administration Pain Baclofen 10 mg 07/01/19 21:00 07/02/19 08:49 Lio[place]al PO 10 mg BID KIKE Administration Enoxaparin Sodium 40 mg 06/30/19 09:00 07/02/19 08:49 Lovenox SC 40 mg 0900 KIKE Administration Famotidine 20 mg 06/29/19 21:00 07/02/19 08:50 Pepcid PO 20 mg BID KIKE Administration Fentanyl 50 mcg 06/29/19 16:00 06/29/19 15:35 Duragesic TD 50 mcg Q3D KIKE Administration [place] 0.985 gm/ Sodium 59.85 mls @ 0 mls/hr 06/30/19 17:00 07/02/19 03:05 Chloride IVPB 07/03/19 23:30 59.85 mls WILLCALL KIKE Administration As Directed Cisplatin 49 mg/ Mannitol 12.5 349 mls @ 698 mls/hr 06/30/19 17:00 07/01/19 19:28 gm/ Sodium Chloride IV 07/03/19 23:30 349 mls WILLCALL KIKE Administration Ifosfamide 2.955 gm/ [place] 0. 1,068.95 mls @ 1,068.95 mls/hr 06/30/19 17:00 07/01/19 17:20 985 gm/ Sodium Chloride IVPB 07/03/19 23:30 1,068.95 mls WILLCALL KIKE Administration Dexamethasone Sodium Phosphate 55 mls @ 110 mls/hr 07/01/19 17:00 07/01/19 16 :45 10 mg/ Ondansetron HCl 8 mg/ IVPB 07/03/19 23:30 55 mls Sodium Chloride WILLCALL KIKE Administration Sodium Chloride 250 mls @ 0 mls/hr 06/30/19 23:45 07/01/19 20:14 Normal Saline 0.9% IVPB 250 mls WILLCALL KIKE Administration As Directed Lorazepam 1 mg 06/29/19 14:38 07/02/19 08:52 Ativan SLOW IVP 1 mg Q6H PRN Administration Nausea/Vomiting Ondansetron HCl 4 mg 06/29/19 15:39 06/30/19 09:04 Zofran Odt PO 4 mg Q4H PRN Administration Nausea/Vomiting Promethazine HCl 25 mg 06/30/19 13:19 06/30/19 16:28 Phenergan PO 25 mg Q6H PRN Administration Nausea Promethazine HCl 25 mg 06/30/19 13:19 07/02/19 08:50 Phenergan SLOW IVP 25 mg Q6H PRN Administration Nausea - Exam General Appearance: NAD, awake alert Eye: PERRL, anicteric sclera ENT: normocephalic atraumatic, no oropharyngeal lesions Neck: supple, symmetric, no JVD, no thyromegaly Heart: RRR, no murmur, no gallops, no rubs, normal peripheral pulses Respiratory: CTAB, no wheezes, no rales, no ronchi, normal chest expansion, no tachypnea Gastrointestinal: soft, non-tender, non-distended, normal bowel sounds Extremities: no cyanosis, no clubbing, no edema Skin: normal turgor, no lesions Neurological: cranial nerve grossly intact, no new deficit Musculoskeletal: normal tone, normal strength, no muscle wasting Psychiatric: normal affect, A&O x 3 Hosp A/P (1) Testicular malignancy Code(s): C62.90 - MALIG NEOPLASM OF UNSP TESTIS, UNSP DESCENDED OR UNDESCENDED Status: Chronic Qualifiers: Laterality: right Plan: Continue chemotherapy until 07/03/19 (2) Nausea & vomiting Code(s): R11.2 - NAUSEA WITH VOMITING, UNSPECIFIED Status: Acute Plan: Continue Zofran/Phenergan PRN (3) Anemia due to chemotherapy Code(s): D64.81 - ANEMIA DUE TO ANTINEOPLASTIC CHEMOTHERAPY; T45.1X5A - ADVERSE EFFECT OF ANTINEOPLASTIC AND IMMUNOSUP DRUGS, INIT Status: Chronic Plan: Stable currently, serial H/H monitoring - Plan out of bed/ambulate, DVT proph w/SCDs Continue supportive mgmt Continue chemotherapy until 07/03/19 Phenergan IV 25mg q6h prn Continue IVF's Plan for return on 07/04/19 for Fulphila AM lab: CMP, CBC
[2019-07-02] MEDS: ONDANSETRON IVPB SCH (15:15)
[2019-07-02] MEDS: [UNRECOGNIZED DRUG - OTHER] IVPB SCH (15:15)
[2019-07-02] MEDS: DEXAMETHASONE SOD PHOSPHATE IVPB SCH (15:15)
[2019-07-02] MEDS: IFOSFAMIDE IVPB SCH (15:41)
[2019-07-02] MEDS: fentaNYL 50 mcg/hour Patch TD SCH (17:51)
[2019-07-02] MEDS: SODIUM CHLORIDE 0.9% IV SCH (18:07)
[2019-07-02] MEDS: MANNITOL IV SCH (18:07)
[2019-07-02] MEDS: CISPLATIN IV SCH (18:07)
[2019-07-03] MEDS: Lorazepam 2 MG/ML VIAL SLOW IVP PRN ×4 (05:28→23:18)
[2019-07-03] MEDS: HYDROcodone/Acetaminophen 5/325 mg Tablet PO PRN ×4 (05:34→19:33)
[2019-07-03] MEDS: Promethazine HCl 25 MG/ML VIAL SLOW IVP PRN (09:04)
[2019-07-03] MEDS: Baclofen 10 MG TAB PO SCH ×2 (09:04→19:32)
[2019-07-03] MEDS: Enoxaparin Sodium 40 MG/0.4 ML SYRINGE SC SCH (09:05)
[2019-07-03] MEDS: Famotidine 20 MG TAB PO SCH ×2 (09:05→19:33)
--- NOTE | 2019-07-03 09:13 | PDOC.HOSPP ---
- Subjective Encounter Date: 07/03/19 Encounter Time: 10:15 Subjective: Patient with some nausea, intermittent vomiting but overall doing much better than last time. Chronic numbness in bilateral hands to elbows and feet to knees. - Objective Vital Signs & Weight: Vital Signs (12 hours) Temp Pulse Resp BP Pulse Ox 07/02/19 23:40 98.4 F 81 16 102/60 99 Weight Admit Weight 173 lb Weight 173 lb 6.102 oz I&O: 07/02/19 07/03/19 07/04/19 06:59 06:59 07:59 Intake Total 4022 2640 Output Total 2100 700 Balance 1921 1939 Result Diagrams: 07/02/19 09:00 07/02/19 09:00 Hospitalist ROS - Review of Systems Constitutional: denies: fever, chills Respiratory: denies: cough, shortness of breath Cardiovascular: denies: chest pain Gastrointestinal: reports: nausea, vomiting. denies: abdominal pain Neurological: reports: numbness - Medication Medications: Active Medications Generic Name Dose Route Start Last Admin Trade Name Freq PRN Reason Stop Dose Admin Hydrocodone Bitart/Acetaminophen 1 tab 06/30/19 08:02 07/03/19 09:04 [place] 5/325 PO 1 tab Q4H PRN Administration Pain Baclofen 10 mg 07/01/19 21:00 07/03/19 09:04 Lioresal PO 10 mg BID KIKE Administration Enoxaparin Sodium 40 mg 06/30/19 09:00 07/03/19 09:05 Lovenox SC 40 mg 0900 KIKE Administration Famotidine 20 mg 06/29/19 21:00 07/03/19 09:05 Pepcid PO 20 mg BID KIKE Administration Fentanyl 50 mcg 06/29/19 16:00 07/02/19 17:51 Duragesic TD 50 mcg Q3D KIKE Administration [place] 0.985 gm/ Sodium 59.85 mls @ 0 mls/hr 06/30/19 17:00 07/02/19 23:44 Chloride IVPB 07/03/19 23:30 59.85 mls WILLCALL KIKE Administration As Directed Cisplatin 49 mg/ Mannitol 12.5 349 mls @ 698 mls/hr 06/30/19 17:00 07/02/19 18:07 gm/ Sodium Chloride IV 07/03/19 23:30 349 mls WILLCALL KIKE Administration Ifosfamide 2.955 gm/ [place] 0. 1,068.95 mls @ 1,068.95 mls/hr 06/30/19 17:00 07/02/19 15:41 985 gm/ Sodium Chloride IVPB 07/03/19 23:30 1,068.95 mls WILLCALL KIKE Administration Dexamethasone Sodium Phosphate 55 mls @ 110 mls/hr 07/01/19 17:00 07/02/19 15 :15 10 mg/ Ondansetron HCl 8 mg/ IVPB 07/03/19 23:30 55 mls Sodium Chloride WILLCALL KIKE Administration Sodium Chloride 250 mls @ 0 mls/hr 06/30/19 23:45 07/01/19 20:14 Normal Saline 0.9% IVPB 250 mls WILLCALL KIKE Administration As Directed Lorazepam 1 mg 06/29/19 14:38 07/03/19 05:28 Ativan SLOW IVP 1 mg Q6H PRN Administration Nausea/Vomiting Ondansetron HCl 4 mg 06/29/19 15:39 06/30/19 09:04 Zofran Odt PO 4 mg Q4H PRN Administration Nausea/Vomiting Promethazine HCl 25 mg 06/30/19 13:19 06/30/19 16:28 Phenergan PO 25 mg Q6H PRN Administration Nausea Promethazine HCl 25 mg 06/30/19 13:19 07/03/19 09:04 Phenergan SLOW IVP 25 mg Q6H PRN Administration Nausea - Exam General Appearance: NAD, awake alert ENT: moist mucosa Heart: RRR, no murmur, no gallops, no rubs Respiratory: CTAB, no wheezes, no rales, no ronchi Gastrointestinal: soft, non-tender, non-distended, normal bowel sounds Psychiatric: normal affect, normal behavior, A&O x 3 Hosp A/P (1) Testicular malignancy Code(s): C62.90 - MALIG NEOPLASM OF UNSP TESTIS, UNSP DESCENDED OR UNDESCENDED Status: Chronic Qualifiers: Laterality: right (2) Bone metastases Code(s): C79.51 - SECONDARY MALIGNANT NEOPLASM OF BONE Status: Chronic (3) Anemia due to chemotherapy Code(s): D64.81 - ANEMIA DUE TO ANTINEOPLASTIC CHEMOTHERAPY; T45.1X5A - ADVERSE EFFECT OF ANTINEOPLASTIC AND IMMUNOSUP DRUGS, INIT Status: Chronic - Plan out of bed/ambulate, DVT proph w/SCDs Continue supportive mgmt Continue chemotherapy until 07/03/19- can d/c today after finished if patient feels up to it, otherwise keep till tomorrow for IV antiemetics Phenergan IV 25mg q6h prn Continue IVF's Plan for return on 07/04/19 for O/P Fulphila
[2019-07-03] MEDS ORDERED: Palonosetron HCl 0.25 MG in Sodium Chloride 0.9% 50 ML IVPB SCH (10:00)
[2019-07-03] MEDS: ONDANSETRON IVPB SCH (10:45)
[2019-07-03] MEDS: DEXAMETHASONE SOD PHOSPHATE IVPB SCH (10:45)
[2019-07-03] MEDS: [UNRECOGNIZED DRUG - OTHER] IVPB SCH (10:45)
[2019-07-03] MEDS: IFOSFAMIDE IVPB SCH (11:26)
[2019-07-03] MEDS: SODIUM CHLORIDE 0.9% IVPB SCH ×3 (11:26→19:33)
[2019-07-03] MEDS: MESNA IVPB SCH ×3 (11:26→19:33)
[2019-07-03] MEDS: CISPLATIN IV SCH (12:50)
[2019-07-03] MEDS: SODIUM CHLORIDE 0.9% IV SCH (12:50)
[2019-07-03] MEDS: MANNITOL IV SCH (12:50)
[2019-07-03 13:36] LABS: #Lymphocytes 0.3 thou/uL (1.20-3.40); #Neutrophils 4.7 thou/uL (1.40-6.50); %Eosinophils 0.6 % (0.0-10.0); %Lymphocytes 5.9 % (21.0-51.0); %Monocytes 0.2 % (0.0-10.0); %Neutrophils 93.3 % (42.0-75.0); Mean Corpuscular HGB CONC 35.6 g/dL (32.0-36.0); Mean Corpuscular Hemoglobin 36.2 pg (27.0-31.0); Mean Platelet Volume 7.9 fL (7.4-10.4); Platelet Count 161 thou/uL (130-400); Red Blood Cell (RBC) Count 2.48 mill/uL (4.70-6.10); White Blood Cell (WBC) Count 5.1 thou/uL (4.8-10.8)
[2019-07-03 13:59] LABS: ALT (SGPT) 55 U/L (8-55); AST (SGOT) 40 U/L (5-34); Alkaline Phosphatase 81 U/L (40-110); Anion Gap 13 mmol/L (10-20); BUN (Urea Nitrogen) 13 mg/dL (8.9-20.6); Bilirubin, Total 1.2 mg/dL (0.2-1.2); Calc. Creatinine Clearance 148 mL/min (70-130); Carbon Dioxide 26 mmol/L (22-29); Chloride 99 mmol/L (98-107); Estimated GFR-MDRD Greater than 90; Glucose 159 mg/dL (70-105); Sodium 135 mmol/L (136-145)
[2019-07-03 14:05] LABS: Potassium 2.9 mmol/L (3.5-5.1)
[2019-07-03] MEDS ORDERED: Potassium Chloride 40 MEQ in Premix Bag 1 BAG IVPB SCH (14:30)
[2019-07-03] MEDS: Potassium Chloride 20 MEQ in Premix Bag 1 BAG IVPB SCH ×2 (14:52→17:53)
[2019-07-03] MEDS: Ondansetron PF 4 MG/2 ML Vial IVP PRN ×2 (19:33→23:18)
[2019-07-04] MEDS: HYDROcodone/Acetaminophen 5/325 mg Tablet PO PRN ×4 (07:29→21:03)
[2019-07-04] MEDS: Lorazepam 2 MG/ML VIAL SLOW IVP PRN ×3 (07:30→21:47)
[2019-07-04] MEDS: Promethazine HCl 25 MG/ML VIAL SLOW IVP PRN ×3 (07:30→20:10)
[2019-07-04] MEDS: Enoxaparin Sodium 40 MG/0.4 ML SYRINGE SC SCH (09:07)
[2019-07-04] MEDS: Famotidine 20 MG TAB PO SCH ×2 (09:10→21:02)
[2019-07-04] MEDS: Baclofen 10 MG TAB PO SCH ×2 (09:10→21:02)
[2019-07-04 09:16] LABS: #Lymphocytes 0.7 thou/uL (1.20-3.40); #Neutrophils 2.5 thou/uL (1.40-6.50); %Eosinophils 0.5 % (0.0-10.0); %Lymphocytes 20.7 % (21.0-51.0); %Monocytes 0.6 % (0.0-10.0); %Neutrophils 77.1 % (42.0-75.0); Hemoglobin 8.9 g/dL (14.0-18.0); Mean Corpuscular HGB CONC 35.5 g/dL (32.0-36.0); Mean Corpuscular Hemoglobin 36.1 pg (27.0-31.0); Mean Platelet Volume 7.9 fL (7.4-10.4); Platelet Count 164 thou/uL (130-400); RBC Distribution Width 15.5 % (11.5-14.5); Red Blood Cell (RBC) Count 2.47 mill/uL (4.70-6.10); White Blood Cell (WBC) Count 3.3 thou/uL (4.8-10.8)
[2019-07-04 09:36] LABS: ALT (SGPT) 58 U/L (8-55); AST (SGOT) 31 U/L (5-34); Albumin 4.1 g/dL (3.5-5.0); Alkaline Phosphatase 78 U/L (40-110); Anion Gap 12 mmol/L (10-20); BUN (Urea Nitrogen) 18 mg/dL (8.9-20.6); Calc. Creatinine Clearance 135 mL/min (70-130); Calcium 8.3 mg/dL (7.8-10.44); Carbon Dioxide 28 mmol/L (22-29); Chloride 95 mmol/L (98-107); Estimated GFR-MDRD Greater than 90; Globulin 2.1 g/dL (2.4-3.5); Glucose 142 mg/dL (70-105); Protein, Total 6.2 g/dL (6.0-8.3); Sodium 132 mmol/L (136-145)
[2019-07-04 09:48] LABS: Potassium 2.7 mmol/L (3.5-5.1)
[2019-07-04] MEDS: Ondansetron PF 4 MG/2 ML Vial IVP PRN (10:16)
--- NOTE | 2019-07-04 11:01 | PDOC.HOSPP ---
- Subjective Encounter Date: 07/04/19 Encounter Time: 10:58 Subjective: protracted nausea and vomiting post chemotx. DC from yesterday cancelled - Objective Vital Signs & Weight: Vital Signs (12 hours) Temp Pulse Resp BP Pulse Ox 07/04/19 08:00 98.6 F 98 18 134/78 100 Weight Admit Weight 173 lb Weight 173 lb 6.102 oz I&O: 07/03/19 07/04/19 07/05/19 05:59 06:59 06:59 Intake Total Output Total Balance Result Diagrams: 07/04/19 09:05 07/04/19 09:05 Hospitalist ROS - Medication Medications: Active Medications Generic Name Dose Route Start Last Admin Trade Name Freq PRN Reason Stop Dose Admin Hydrocodone Bitart/Acetaminophen 1 tab 06/30/19 08:02 07/04/19 07:29 [place] 5/325 PO 1 tab Q4H PRN Administration Pain Baclofen 10 mg 07/01/19 21:00 07/04/19 09:10 Lioresal PO 10 mg BID KIKE Administration Enoxaparin Sodium 40 mg 06/30/19 09:00 07/04/19 09:07 Lovenox SC 40 mg 0900 KIKE Administration Famotidine 20 mg 06/29/19 21:00 07/04/19 09:10 Pepcid PO 20 mg BID KIKE Administration Fentanyl 50 mcg 06/29/19 16:00 07/02/19 17:51 Duragesic TD 50 mcg Q3D KIKE Administration Sodium Chloride 250 mls @ 0 mls/hr 06/30/19 23:45 07/01/19 20:14 Normal Saline 0.9% IVPB 250 mls WILLCALL KIKE Administration As Directed Lorazepam 1 mg 06/29/19 14:38 07/04/19 07:30 Ativan SLOW IVP 1 mg Q6H PRN Administration Nausea/Vomiting Ondansetron HCl 4 mg 06/29/19 15:40 07/04/19 10:16 Zofran IVP 4 mg Q4H PRN Administration Nausea/Vomiting Promethazine HCl 25 mg 06/30/19 13:19 06/30/19 16:28 Phenergan PO 25 mg Q6H PRN Administration Nausea Promethazine HCl 25 mg 06/30/19 13:19 07/04/19 07:30 Phenergan SLOW IVP 25 mg Q6H PRN Administration Nausea - Exam General Appearance: awake alert General - other findings: wretching Neck: no JVD Heart: RRR, no murmur Respiratory: CTAB Gastrointestinal: soft, normal bowel sounds Extremities: no edema Hosp A/P (1) Hypokalemia Code(s): E87.6 - HYPOKALEMIA Status: Acute (2) Status post chemotherapy Code(s): Z92.21 - PERSONAL HISTORY OF ANTINEOPLASTIC CHEMOTHERAPY Status: Acute (3) Tobacco abuse Code(s): Z72.0 - TOBACCO USE Status: Acute (4) Bone metastases Code(s): C79.51 - SECONDARY MALIGNANT NEOPLASM OF BONE Status: Chronic (5) Testicular malignancy Code(s): C62.90 - MALIG NEOPLASM OF UNSP TESTIS, UNSP DESCENDED OR UNDESCENDED Status: Chronic Qualifiers: Laterality: right - Plan DC canceeled iv fluids with K+ increase zofran to 8 mg q6h monitor arabella
[2019-07-04] MEDS: Ondansetron HCl/PF 8 MG in Sodium Chloride 0.9% 50 ML IVPB SCH ×3 (11:25→23:07)
[2019-07-04] MEDS: D5 1/2 NS w/40 mEq KCL 1,000 ML IV SCH ×2 (11:25→21:01)
[2019-07-04] MEDS ORDERED: PEGFILGRASTIM-JMDB 6 MG/0.6 ML SYRINGE SQ SCH (16:45)
[2019-07-05] MEDS: Promethazine HCl 25 MG/ML VIAL SLOW IVP PRN ×2 (01:57→12:06)
[2019-07-05 04:50] LABS: Anion Gap 11 mmol/L (10-20); BUN (Urea Nitrogen) 16 mg/dL (8.9-20.6); Calc. Creatinine Clearance 125 mL/min (70-130); Calcium 8.6 mg/dL (7.8-10.44); Carbon Dioxide 28 mmol/L (22-29); Chloride 96 mmol/L (98-107); Estimated GFR-MDRD Greater than 90; Glucose 109 mg/dL (70-105); Potassium 3.6 mmol/L (3.5-5.1); Sodium 131 mmol/L (136-145)
[2019-07-05] MEDS: D5 1/2 NS w/40 mEq KCL 1,000 ML IV SCH ×3 (05:19→22:46)
[2019-07-05] MEDS: Ondansetron HCl/PF 8 MG in Sodium Chloride 0.9% 50 ML IVPB SCH ×4 (05:19→22:51)
[2019-07-05] MEDS: Lorazepam 2 MG/ML VIAL SLOW IVP PRN ×3 (06:41→19:35)
[2019-07-05] MEDS ORDERED: Potassium Chloride 20 MEQ in Premix Bag 1 BAG IVPB SCH ×2 (07:30→07:45)
[2019-07-05] MEDS ORDERED: Magnesium 2 GM/50 ML 2 GM in Premix Bag 1 BAG IVPB SCH (09:15)
[2019-07-05] MEDS: Famotidine 20 MG TAB PO SCH ×3 (09:30→20:46)
[2019-07-05] MEDS: Baclofen 10 MG TAB PO SCH ×3 (09:30→20:46)
[2019-07-05] MEDS: Enoxaparin Sodium 40 MG/0.4 ML SYRINGE SC SCH (09:33)
--- NOTE | 2019-07-05 12:18 | DIS ---
DATE OF ADMISSION: 06/29/2019 DATE OF DISCHARGE: 07/03/2019 PRIMARY CARE PHYSICIAN: [facility]. PRIMARY ONCOLOGIST: Dr. Romo. REASON FOR ADMISSION: Chemotherapy and nausea and vomiting control. DISCHARGE DIAGNOSES: 1. Metastatic testicular cancer status post chemotherapy. 2. Nausea and vomiting, chemotherapy reaction controlled. 3. Anemia due to chemotherapy. PROCEDURES: None. CONSULTATIONS: Hem/Oncology, Dr. Romo. SUMMARY HOSPITAL COURSE: This is a 29-year-old male with a history of metastatic testicular cancer, followed by Dr. Romo, on chemotherapy. On his last round of chemotherapy, he had significant nausea and vomiting, had to be admitted to the hospital later for fluid resuscitation and IV antiemetics. At this time, the patient was preemptively admitted to the hospital for his chemotherapy regimen. He was given IV Phenergan as well as Ativan, which seemed to help some of the nausea and vomiting as well due to controlling anxiety. The patient is finishing his last dose of chemotherapy today. His symptoms under well control. He had just had a little bit of vomiting and nausea. He is feeling well this evening and is desiring to go home and he discussed this with the oncologist and has been cleared to discharge home. He does have a followup appointment tomorrow to receive outpatient Fulphila infusion here tomorrow. DISCHARGE MANAGEMENT: Discharged home. ACTIVITY: As tolerated. DIET: Regular diet. FOLLOWUP: Follow up with Dr. Romo as directed. DISCHARGE MEDICATIONS: 1. Lorazepam 1 mg every 6 hours as needed for anxiety, 15 tablets dispensed. 2. Phenergan 25 mg orally every 6 hours as needed for nausea, vomiting. 20 tablets dispensed. He can continue his suppositories that he has as well. 3. Continue fentanyl 50 mcg transdermal q.3 days. 4. Continue gabapentin 300 mg 3 times a day. 5. Zofran 8 mg 3 times a day as needed for nausea, vomiting. Job ID: [id number]
--- NOTE | 2019-07-05 13:55 | PDOC.HOSPP ---
- Subjective Encounter Date: 07/05/19 Encounter Time: 13:53 Subjective: Mr. Kaur was seen for follow-up of testicular cancer. He just completed his 3rd round of chemotherapy. He continues to have trouble with nausea and vomiting. - Objective Vital Signs & Weight: Vital Signs (12 hours) Temp Pulse Resp BP Pulse Ox 07/05/19 09:30 100 07/05/19 08:00 98.3 F 103 H 16 104/70 100 Weight Admit Weight 173 lb Weight 173 lb 6.102 oz I&O: 07/04/19 07/05/19 07/06/19 06:59 06:59 06:59 Intake Total 1940 1645 Output Total 2900 300 Balance -960 1345 Result Diagrams: 07/04/19 09:05 07/05/19 04:01 Hospitalist ROS - Medication Medications: Active Medications Generic Name Dose Route Start Last Admin Trade Name Freq PRN Reason Stop Dose Admin Hydrocodone Bitart/Acetaminophen 1 tab 06/30/19 08:02 07/04/19 21:03 [place] 5/325 PO 1 tab Q4H PRN Administration Pain Baclofen 10 mg 07/01/19 21:00 07/05/19 09:33 Lioresal PO 10 mg BID KIKE Administration Enoxaparin Sodium 40 mg 06/30/19 09:00 07/05/19 09:33 Lovenox SC 40 mg 0900 KIKE Administration Famotidine 20 mg 06/29/19 21:00 07/05/19 09:32 Pepcid PO 20 mg BID KIKE Administration Fentanyl 50 mcg 06/29/19 16:00 07/02/19 17:51 Duragesic TD 50 mcg Q3D KIKE Administration Sodium Chloride 250 mls @ 0 mls/hr 06/30/19 23:45 07/01/19 20:14 Normal Saline 0.9% IVPB 250 mls WILLCALL KIKE Administration As Directed Potassium Chloride/Dextrose/Sod Cl 1,000 mls @ 125 mls/hr 07/04/19 11:00 01/15 05:19 D5 1/2 Ns W/40 Meq Kcl IV 1,000 mls .Q8H KIKE Administration Ondansetron HCl 8 mg/ Sodium 54 mls @ 200 mls/hr 07/04/19 11:00 07/05/19 11: 39 Chloride IVPB 54 mls Q6H KIKE Administration Lorazepam 1 mg 06/29/19 14:38 07/05/19 13:19 Ativan SLOW IVP 1 mg Q6H PRN Administration Nausea/Vomiting Ondansetron HCl 4 mg 06/29/19 15:40 07/04/19 10:16 Zofran IVP 4 mg Q4H PRN Administration Nausea/Vomiting Pegfilgrastim-jmdb 6 mg 07/04/19 16:45 07/04/19 17:07 Fulphila SQ 07/05/19 16:46 6 mg WILLCALL KIKE Administration Promethazine HCl 25 mg 06/30/19 13:19 06/30/19 16:28 Phenergan PO 25 mg Q6H PRN Administration Nausea Promethazine HCl 25 mg 06/30/19 13:19 07/05/19 12:06 Phenergan SLOW IVP 25 mg Q6H PRN Administration Nausea Sodium Chloride 10 ml 07/05/19 09:00 07/05/19 09:29 Flush - Normal Saline IVF 10 ml Q12HR KIKE Administration Sodium Chloride 10 ml 07/05/19 07:34 07/05/19 13:20 Flush - Normal Saline IVF 10 ml PRN PRN Administration Saline Flush - Exam Eye: PERRL Heart: RRR, no murmur, no gallops, no rubs, normal peripheral pulses Respiratory: CTAB, no wheezes, no rales, no ronchi, normal chest expansion, no tachypnea, normal percussion Gastrointestinal: soft, non-tender, non-distended, normal bowel sounds, no palpable masses, no hepatomegaly Extremities: no cyanosis, no edema Hosp A/P (1) Testicular cancer Code(s): C62.90 - MALIG NEOPLASM OF UNSP TESTIS, UNSP DESCENDED OR UNDESCENDED Status: Acute (2) Nausea & vomiting Code(s): R11.2 - NAUSEA WITH VOMITING, UNSPECIFIED Status: Acute (3) CHAD (acute kidney injury) Code(s): N17.9 - ACUTE KIDNEY FAILURE, UNSPECIFIED Status: Acute - Plan * Nausea and vomiting- post chemo- continue symptom management- will add Compazine * Hopefully this will improve in a few days * Hypokalemia and hypomagnesemia- from vomiting- continue to replace
--- NOTE | 2019-07-05 16:06 | PDOC.MOPN ---
Interval History: continued nause/vomiting - Vital Signs Vital Signs: Vital Signs (12 hours) Temp Pulse Resp BP Pulse Ox 07/05/19 09:30 100 07/05/19 08:00 98.3 F 103 H 16 104/70 100 Weight Admit Weight 173 lb Weight 173 lb 6.102 oz - Physical Exam General: No acute distress HEENT: Atraumatic, PERRLA, EOMI, Mucous membr. moist/pink Lungs: Clear to auscultation, Normal air movement Cardiovascular: Regular rate, Normal S1, Normal S2, No murmurs, Gallops, Rubs Abdomen: Normal bowel sounds, Soft, No tenderness, No hepatospenomegaly, No masses Skin: No rashes, No breakdown, No significant lesion Neurological: Normal speech - Labs Result Diagrams: 07/04/19 09:05 07/05/19 04:01 Lab results: Laboratory Results - last 24 hr 07/05/19 15:02: Magnesium 1.3 L 07/05/19 04:01: Magnesium 0.9 L* 07/05/19 04:01: Sodium 131 L, Potassium 3.6, Chloride 96 L, Carbon Dioxide 28, Anion Gap 11, BUN 16, Creatinine 0.96, Estimated GFR (MDRD) Greater than 90, Glucose 109 H, Calcium 8.6 Status: lab reviewed by me A/P - Problem (1) Testicular malignancy Current Visit: No Code(s): C62.90 - MALIG NEOPLASM OF UNSP TESTIS, UNSP DESCENDED OR UNDESCENDED Status: Chronic Qualifiers: Laterality: right - Plan Plan: Patient did receive [place]end and [place]ox[place] on last day of cycle continued n/v despite these meds continue ativan, zofran, pepcid, phenergan, compazine Continue IV fluids, electrolyte replacement. Fulphila given on Friday
[2019-07-05] MEDS: fentaNYL 50 mcg/hour Patch TD SCH (17:28)
[2019-07-06] MEDS: Ondansetron HCl/PF 8 MG in Sodium Chloride 0.9% 50 ML IVPB SCH ×4 (04:43→23:57)
[2019-07-06] MEDS: Lorazepam 2 MG/ML VIAL SLOW IVP PRN ×3 (06:23→20:41)
[2019-07-06] MEDS: D5 1/2 NS w/40 mEq KCL 1,000 ML IV SCH ×3 (06:27→18:07)
[2019-07-06 06:28] LABS: #Lymphocytes 0.4 thou/uL (1.20-3.40); #Neutrophils 1.6 thou/uL (1.40-6.50); %Eosinophils 1.9 % (0.0-10.0); %Lymphocytes 20.8 % (21.0-51.0); %Monocytes 0.4 % (0.0-10.0); %Neutrophils 76.9 % (42.0-75.0); Hemoglobin 8.3 g/dL (14.0-18.0); Mean Corpuscular HGB CONC 37.4 g/dL (32.0-36.0); Mean Corpuscular Hemoglobin 37.6 pg (27.0-31.0); Mean Platelet Volume 8.8 fL (7.4-10.4); Platelet Count 110 thou/uL (130-400); RBC Distribution Width 14.2 % (11.5-14.5); Red Blood Cell (RBC) Count 2.21 mill/uL (4.70-6.10); White Blood Cell (WBC) Count 2.1 thou/uL (4.8-10.8)
[2019-07-06 06:29] LABS: MDiff Complete? YES; Macrocytosis SLIGHT = 6-15 cells (100X) (0-5/hpf); Platelet Morphology Comment Appears Decreased
[2019-07-06 06:43] LABS: Anion Gap 13 mmol/L (10-20); BUN (Urea Nitrogen) 21 mg/dL (8.9-20.6); Calc. Creatinine Clearance 121 mL/min (70-130); Calcium 8.7 mg/dL (7.8-10.44); Carbon Dioxide 23 mmol/L (22-29); Chloride 98 mmol/L (98-107); Estimated GFR-MDRD 89; Glucose 107 mg/dL (70-105); Magnesium 1.1 mg/dL (1.6-2.6); Potassium 4.1 mmol/L (3.5-5.1); Sodium 130 mmol/L (136-145)
[2019-07-06] MEDS ORDERED: Magnesium Sulfate 2 GM in Sodium Chloride 0.9% 100 ML IVPB SCH (07:30)
[2019-07-06] MEDS ORDERED: Magnesium 2 GM/50 ML 2 GM in Premix Bag 1 BAG IVPB SCH (07:30)
--- NOTE | 2019-07-06 08:25 | PDOC.MOPN ---
Interval History: Still with N/V, but only vomited twice overnight and lower volume. - Vital Signs Vital Signs: Vital Signs (12 hours) Pulse Resp Pulse Ox 07/06/19 00:00 114 H 18 99 Weight Admit Weight 173 lb Weight 173 lb 6.102 oz - Physical Exam General: Alert, Oriented x3, Cooperative HEENT: EOMI Lungs: Normal air movement Cardiovascular: Other (tachycardic) Neurological: Cranial nerves 3-12 NL Psych/Mental Status: Mood NL - Labs Result Diagrams: 07/06/19 06:15 07/06/19 06:15 Lab results: Laboratory Results - last 24 hr 07/06/19 06:15: WBC 2.1 L, RBC 2.21 L, Hgb 8.3 L, Hct 22.2 L, MCV 100.0 H, MCH 37.6 H, MCHC 37.4 H, RDW 14.2, Plt Count 110 L, MPV 8.8, Neutrophils % 76.9 H, Neutrophils % (Manual) Not Reportable, Lymphocytes % 20.8 L, Monocytes % 0.4, Eosinophils % 1.9, Basophils % 0.0, Neutrophils # 1.6, Lymphocytes # 0.4 L, Monocytes # 0.0 L, Eosinophils # 0.0, Basophils # 0.0, Plt Morphology Comment Appears Decreased L, Macrocytosis SLIGHT = 6-15 cells 07/06/19 06:15: Sodium 130 L, Potassium 4.1, Chloride 98, Carbon Dioxide 23, Anion Gap 13, BUN 21 H, Creatinine 0.99, Estimated GFR (MDRD) 89, Glucose 107 H , Calcium 8.7, Magnesium 1.1 L 07/05/19 15:02: Magnesium 1.3 L A/P - Problem (1) Testicular mass Current Visit: No Status: Acute (2) Nausea & vomiting Current Visit: Yes Code(s): R11.2 - NAUSEA WITH VOMITING, UNSPECIFIED Status : Acute - Plan Plan: Cont aggressive antiemetic regimen Cont electrolyte replacement Discharge home once he is able to tolerate PO intake
[2019-07-06] MEDS: Famotidine 20 MG TAB PO SCH ×2 (09:08→20:41)
[2019-07-06] MEDS: HYDROcodone/Acetaminophen 5/325 mg Tablet PO PRN (09:08)
[2019-07-06] MEDS: Baclofen 10 MG TAB PO SCH ×2 (09:08→20:41)
[2019-07-06] MEDS: Enoxaparin Sodium 40 MG/0.4 ML SYRINGE SC SCH (09:09)
[2019-07-06] MEDS: Promethazine HCl 25 MG/ML VIAL SLOW IVP PRN (13:01)
--- NOTE | 2019-07-06 13:05 | PDOC.HOSPP ---
- Subjective Encounter Date: 07/06/19 Encounter Time: 13:03 Subjective: Mr. Kaur was seen today in follow-up of nausea and vomiting following chemotherapy. He was feeling well this morning, and actually wanted to go home. But now is vomiting again. He denies abdominal pain. - Objective Vital Signs & Weight: Vital Signs (12 hours) Temp Pulse Resp BP Pulse Ox 07/06/19 08:00 98.4 F 108 H 18 119/72 100 Weight Admit Weight 173 lb Weight 173 lb 6.102 oz I&O: 07/05/19 07/06/19 07/07/19 06:59 06:59 06:59 Intake Total 1940 4837.5 600 Output Total 2900 2925 Balance -960 1912.5 600 Result Diagrams: 07/06/19 06:15 07/06/19 06:15 Hospitalist ROS - Medication Medications: Active Medications Generic Name Dose Route Start Last Admin Trade Name Freq PRN Reason Stop Dose Admin Hydrocodone Bitart/Acetaminophen 1 tab 06/30/19 08:02 07/06/19 09:08 [place] 5/325 PO 1 tab Q4H PRN Administration Pain Baclofen 10 mg 07/01/19 21:00 07/06/19 09:08 Lioresal PO 10 mg BID KIKE Administration Enoxaparin Sodium 40 mg 06/30/19 09:00 07/06/19 09:09 Lovenox SC 40 mg 0900 KIKE Administration Famotidine 20 mg 06/29/19 21:00 07/06/19 09:08 Pepcid PO 20 mg BID KIKE Administration Fentanyl 50 mcg 06/29/19 16:00 07/05/19 17:28 Duragesic TD 50 mcg Q3D KIKE Administration Sodium Chloride 250 mls @ 0 mls/hr 06/30/19 23:45 07/01/19 20:14 Normal Saline 0.9% IVPB 250 mls WILLCALL KIKE Administration As Directed Potassium Chloride/Dextrose/Sod Cl 1,000 mls @ 125 mls/hr 07/04/19 11:00 02/14 11:45 D5 1/2 Ns W/40 Meq Kcl IV 1,000 mls .Q8H KIKE Administration Ondansetron HCl 8 mg/ Sodium 54 mls @ 200 mls/hr 07/04/19 11:00 07/06/19 11: 45 Chloride IVPB 54 mls Q6H KIKE Administration Prochlorperazine Edisylate 5 51 mls @ 150 mls/hr 07/05/19 13:39 07/06/19 09: 09 mg/ Sodium Chloride IVPB 51 mls Q6H PRN Administration Nausea/Vomiting Lorazepam 1 mg 06/29/19 14:38 07/06/19 13:02 Ativan SLOW IVP 1 mg Q6H PRN Administration Nausea/Vomiting Ondansetron HCl 4 mg 06/29/19 15:40 07/04/19 10:16 Zofran IVP 4 mg Q4H PRN Administration Nausea/Vomiting Promethazine HCl 25 mg 06/30/19 13:19 06/30/19 16:28 Phenergan PO 25 mg Q6H PRN Administration Nausea Promethazine HCl 25 mg 06/30/19 13:19 07/06/19 13:01 Phenergan SLOW IVP 25 mg Q6H PRN Administration Nausea Sodium Chloride 10 ml 07/05/19 09:00 07/06/19 09:10 Flush - Normal Saline IVF 10 ml Q12HR KIKE Administration Sodium Chloride 10 ml 07/05/19 07:34 07/05/19 14:54 Flush - Normal Saline IVF 10 ml PRN PRN Administration Saline Flush - Exam Eye: PERRL Heart: RRR, no murmur, no gallops, no rubs, normal peripheral pulses Respiratory: CTAB, no wheezes, no rales, no ronchi, normal chest expansion Gastrointestinal: soft, non-tender, non-distended, normal bowel sounds, no palpable masses, no hepatomegaly Extremities: no cyanosis, no edema Hosp A/P (1) Testicular cancer Code(s): C62.90 - MALIG NEOPLASM OF UNSP TESTIS, UNSP DESCENDED OR UNDESCENDED Status: Acute (2) Nausea & vomiting Code(s): R11.2 - NAUSEA WITH VOMITING, UNSPECIFIED Status: Acute (3) CHAD (acute kidney injury) Code(s): N17.9 - ACUTE KIDNEY FAILURE, UNSPECIFIED Status: Acute - Plan * Nausea and vomiting- post chemo-will observe in the hospital one more day * Continue symptom management with Zofran and Phenergan * Hypomagnesmia- continue to monitor and replace as needed.
[2019-07-07] MEDS: Lorazepam 2 MG/ML VIAL SLOW IVP PRN ×4 (02:51→20:23)
[2019-07-07] MEDS: D5 1/2 NS w/40 mEq KCL 1,000 ML IV SCH (02:51)
[2019-07-07] MEDS: Ondansetron HCl/PF 8 MG in Sodium Chloride 0.9% 50 ML IVPB SCH ×4 (05:49→22:35)
[2019-07-07 06:17] LABS: Anion Gap 11 mmol/L (10-20); BUN (Urea Nitrogen) 17 mg/dL (8.9-20.6); Calc. Creatinine Clearance 137 mL/min (70-130); Calcium 8.5 mg/dL (7.8-10.44); Carbon Dioxide 24 mmol/L (22-29); Chloride 98 mmol/L (98-107); Estimated GFR-MDRD Greater than 90; Glucose 104 mg/dL (70-105); Magnesium 1.1 mg/dL (1.6-2.6); Sodium 129 mmol/L (136-145)
[2019-07-07] MEDS ORDERED: Magnesium Sulfate 2 GM in Sodium Chloride 0.9% 100 ML IVPB SCH (07:15)
[2019-07-07] MEDS ORDERED: Magnesium 2 GM/50 ML 2 GM in Premix Bag 1 BAG IVPB SCH (07:15)
[2019-07-07] MEDS ORDERED: Sodium Chloride 1 GM TAB PO SCH (07:15)
[2019-07-07] MEDS: Promethazine HCl 25 MG/ML VIAL SLOW IVP PRN ×2 (08:27→14:48)
[2019-07-07] MEDS: Baclofen 10 MG TAB PO SCH ×2 (08:31→20:24)
[2019-07-07] MEDS: Famotidine 20 MG TAB PO SCH ×2 (08:31→20:24)
[2019-07-07] MEDS: Enoxaparin Sodium 40 MG/0.4 ML SYRINGE SC SCH (08:32)
[2019-07-07] MEDS: NS 0.9% w/ 20 MEQ KCL 1,000 ML/1,000 ML BAG IV SCH ×2 (08:32→20:24)
--- NOTE | 2019-07-07 11:03 | PDOC.MOPN ---
Interval History: continued nausea. Enesis after eating. - Vital Signs Vital Signs: Vital Signs (12 hours) Temp Pulse Resp BP Pulse Ox 07/07/19 08:12 98.1 F 106 H 18 112/75 100 07/07/19 08:05 99 07/07/19 02:59 99 Weight Admit Weight 173 lb Weight 173 lb 6.102 oz - Physical Exam General: Alert, Oriented x3, No acute distress HEENT: Atraumatic, PERRLA, EOMI, Mucous membr. moist/pink Lungs: Clear to auscultation, Normal air movement Cardiovascular: Regular rate, Normal S1, Normal S2, No murmurs, Gallops, Rubs Abdomen: Normal bowel sounds, Soft, No tenderness, No hepatospenomegaly, No masses Extremities: No clubbing, No cyanosis, No edema, Normal pulses, No tenderness/ swelling Skin: No rashes, No breakdown, No significant lesion Neurological: Normal gait, Normal speech, Strength at 5/5 X4 ext, Normal tone, Sensation intact, Cranial nerves 3-12 NL, Reflexes 2+ Psych/Mental Status: Mental status NL, Mood NL - Labs Result Diagrams: 07/06/19 06:15 07/07/19 05:40 Lab results: Laboratory Results - last 24 hr 07/07/19 05:40: Sodium 129 L, Potassium 4.0, Chloride 98, Carbon Dioxide 24, Anion Gap 11, BUN 17, Creatinine 0.88, Estimated GFR (MDRD) Greater than 90, Glucose 104, Calcium 8.5, Magnesium 1.1 L 07/06/19 12:54: Magnesium 1.8 Status: lab reviewed by me A/P - Problem (1) Testicular malignancy Current Visit: No Code(s): C62.90 - MALIG NEOPLASM OF UNSP TESTIS, UNSP DESCENDED OR UNDESCENDED Status: Chronic Qualifiers: Laterality: right (2) Nausea & vomiting Current Visit: No Code(s): R11.2 - NAUSEA WITH VOMITING, UNSPECIFIED Status : Acute - Plan Plan: 1. continue antiemetics 2. IV hydration 3. Home when taking po
--- NOTE | 2019-07-07 12:22 | PDOC.HOSPP ---
- Subjective Encounter Date: 07/07/19 Encounter Time: 12:20 Subjective: Mr. Kaur was seen today in follow-up post chemo with nausea and vomiting.He had some vomiting last night. - Objective Vital Signs & Weight: Vital Signs (12 hours) Temp Pulse Resp BP Pulse Ox 07/07/19 08:12 98.1 F 106 H 18 112/75 100 07/07/19 08:05 99 07/07/19 02:59 99 Weight Admit Weight 173 lb Weight 173 lb 6.102 oz I&O: 07/06/19 07/07/19 07/08/19 06:59 06:59 06:59 Intake Total 4837.5 2350 2200 Output Total 2925 1000 1000 Balance 1912.5 1350 1200 Result Diagrams: 07/06/19 06:15 07/07/19 05:40 Hospitalist ROS - Medication Medications: Active Medications Generic Name Dose Route Start Last Admin Trade Name Freq PRN Reason Stop Dose Admin Hydrocodone Bitart/Acetaminophen 1 tab 06/30/19 08:02 07/06/19 09:08 [place] 5/325 PO 1 tab Q4H PRN Administration Pain Baclofen 10 mg 07/01/19 21:00 07/07/19 08:31 Lioresal PO 10 mg BID KIKE Administration Enoxaparin Sodium 40 mg 06/30/19 09:00 07/07/19 08:32 Lovenox SC 40 mg 0900 KIKE Administration Famotidine 20 mg 06/29/19 21:00 07/07/19 08:31 Pepcid PO 20 mg BID KIKE Administration Fentanyl 50 mcg 06/29/19 16:00 07/05/19 17:28 [place] TD 50 mcg Q3D KIKE Administration Sodium Chloride 250 mls @ 0 mls/hr 06/30/19 23:45 07/01/19 20:14 Normal Saline 0.9% IVPB 250 mls WILLCALL KIKE Administration As Directed Ondansetron HCl 8 mg/ Sodium 54 mls @ 200 mls/hr 07/04/19 11:00 07/07/19 05: 49 Chloride IVPB 54 mls Q6H KIKE Administration Prochlorperazine Edisylate 5 51 mls @ 150 mls/hr 07/05/19 13:39 07/06/19 09: 09 mg/ Sodium Chloride IVPB 51 mls Q6H PRN Administration Nausea/Vomiting Potassium Chloride/Sodium Chloride 1,000 ml in 1,000 mls @ 100 mls/hr 07:15 07/07/19 08:32 Ns 0.9% W/ 20 Meq Kcl IV 1,000 mls .Q10H KIKE Administration Lorazepam 1 mg 06/29/19 14:38 07/07/19 08:27 Ativan SLOW IVP 1 mg Q6H PRN Administration Nausea/Vomiting Ondansetron HCl 4 mg 06/29/19 15:40 07/04/19 10:16 Zofran IVP 4 mg Q4H PRN Administration Nausea/Vomiting Promethazine HCl 25 mg 06/30/19 13:19 06/30/19 16:28 Phenergan PO 25 mg Q6H PRN Administration Nausea Promethazine HCl 25 mg 06/30/19 13:19 07/07/19 08:27 Phenergan SLOW IVP 25 mg Q6H PRN Administration Nausea Sodium Chloride 10 ml 07/05/19 09:00 07/07/19 08:33 Flush - Normal Saline IVF 10 ml Q12HR KIKE Administration Sodium Chloride 10 ml 07/05/19 07:34 07/05/19 14:54 Flush - Normal Saline IVF 10 ml PRN PRN Administration Saline Flush - Exam Eye: PERRL Heart: RRR, no murmur, no gallops, no rubs, normal peripheral pulses Respiratory: CTAB, no wheezes, no rales, no ronchi, normal chest expansion Gastrointestinal: soft, non-tender, non-distended, normal bowel sounds, no palpable masses, no hepatomegaly Extremities: no cyanosis, no edema Hosp A/P (1) Testicular cancer Code(s): C62.90 - MALIG NEOPLASM OF UNSP TESTIS, UNSP DESCENDED OR UNDESCENDED Status: Acute (2) Nausea & vomiting Code(s): R11.2 - NAUSEA WITH VOMITING, UNSPECIFIED Status: Acute (3) CHAD (acute kidney injury) Code(s): N17.9 - ACUTE KIDNEY FAILURE, UNSPECIFIED Status: Acute - Plan * Nausea and vomiting- post chemo-continued observation in the hospital * Continue symptom management with Zofran and Phenergan * Hypomagnesmia- continue to replace as needed
[2019-07-08] MEDS: Promethazine HCl 25 MG/ML VIAL SLOW IVP PRN ×2 (00:54→06:31)
[2019-07-08] MEDS: Lorazepam 2 MG/ML VIAL SLOW IVP PRN (02:23)
[2019-07-08] MEDS: Ondansetron HCl/PF 8 MG in Sodium Chloride 0.9% 50 ML IVPB SCH ×4 (04:30→16:05)
[2019-07-08] MEDS: NS 0.9% w/ 20 MEQ KCL 1,000 ML/1,000 ML BAG IV SCH (06:31)
[2019-07-08 08:01] VITALS: BP 99/55; TEMP 99.1
[2019-07-08 08:14] LABS: Anion Gap 9 mmol/L (10-20); BUN (Urea Nitrogen) 13 mg/dL (8.9-20.6); Calc. Creatinine Clearance 132 mL/min (70-130); Calcium 8.3 mg/dL (7.8-10.44); Carbon Dioxide 28 mmol/L (22-29); Chloride 97 mmol/L (98-107); Estimated GFR-MDRD Greater than 90; Glucose 90 mg/dL (70-105); Potassium 3.7 mmol/L (3.5-5.1); Sodium 130 mmol/L (136-145)
[2019-07-08 08:17] LABS: Magnesium 0.8 mg/dL (1.6-2.6)
--- NOTE | 2019-07-08 08:46 | PDOC.MOPN ---
Interval History: No vomiting since yesterday afternoon, still nauseated. Mag 0.8. - Vital Signs Vital Signs: Vital Signs (12 hours) Temp Pulse Resp BP Pulse Ox 07/08/19 07:59 99.1 F 102 H 16 99/55 L 97 07/08/19 07:54 97 07/08/19 02:46 100 Weight Admit Weight 173 lb Weight 173 lb 6.102 oz - Physical Exam General: Alert, Oriented x3, Cooperative HEENT: EOMI Lungs: Normal air movement Cardiovascular: Regular rate Abdomen: Soft Psych/Mental Status: Mood NL - Labs Result Diagrams: 07/06/19 06:15 07/08/19 07:43 Lab results: Laboratory Results - last 24 hr 07/08/19 07:43: Sodium 130 L, Potassium 3.7, Chloride 97 L, Carbon Dioxide 28, Anion Gap 9 L, BUN 13, Creatinine 0.91, Estimated GFR (MDRD) Greater than 90, Glucose 90, Calcium 8.3, Magnesium 0.8 L* A/P - Problem (1) Testicular mass Current Visit: No Status: Acute (2) Nausea & vomiting Current Visit: Yes Code(s): R11.2 - NAUSEA WITH VOMITING, UNSPECIFIED Status : Acute - Plan Plan: Cont aggressive antiemetic therapy Replace Magnesium: 4 gm IV > repeat Mg level 1-2 hours later > replete again as needed (requires aggressive repletion given Cisplatin therapy combined with vomiting and poor PO intake) Once he is able to tolerate PO intake he can be discharged kim
[2019-07-08] MEDS: Baclofen 10 MG TAB PO SCH (09:19)
[2019-07-08] MEDS: Enoxaparin Sodium 40 MG/0.4 ML SYRINGE SC SCH (09:19)
[2019-07-08] MEDS: Famotidine 20 MG TAB PO SCH (09:19)
--- NOTE | 2019-07-08 14:55 | PDOC.HOSPP ---
- Subjective Encounter Date: 07/08/19 Encounter Time: 14:53 Subjective: Mr. Kaur was seen today in follow-up of nausea and vomiting following chemotherapy. He does not have any complaints. He has been able to keep lunch down so far. - Objective Vital Signs & Weight: Vital Signs (12 hours) Temp Pulse Resp BP Pulse Ox 07/08/19 07:59 99.1 F 102 H 16 99/55 L 97 07/08/19 07:54 97 Weight Admit Weight 173 lb Weight 173 lb 6.102 oz I&O: 07/07/19 07/08/19 07/09/19 06:59 06:59 06:59 Intake Total 2350 3680 1440 Output Total 1000 1250 2150 Balance 1350 2430 -710 Result Diagrams: 07/06/19 06:15 07/08/19 07:43 Hospitalist ROS - Medication Medications: Active Medications Generic Name Dose Route Start Last Admin Trade Name Freq PRN Reason Stop Dose Admin Hydrocodone Bitart/Acetaminophen 1 tab 06/30/19 08:02 07/06/19 09:08 [place] 5/325 PO 1 tab Q4H PRN Administration Pain Baclofen 10 mg 07/01/19 21:00 07/08/19 09:19 Lioresal PO 10 mg BID KIKE Administration Enoxaparin Sodium 40 mg 06/30/19 09:00 07/08/19 09:19 Lovenox SC 40 mg 0900 KIKE Administration Famotidine 20 mg 06/29/19 21:00 07/08/19 09:19 Pepcid PO 20 mg BID KIKE Administration Fentanyl 50 mcg 06/29/19 16:00 07/05/19 17:28 Duragesic TD 50 mcg Q3D KIKE Administration Sodium Chloride 250 mls @ 0 mls/hr 06/30/19 23:45 07/01/19 20:14 Normal Saline 0.9% IVPB 250 mls WILLCALL KIKE Administration As Directed Ondansetron HCl 8 mg/ Sodium 54 mls @ 200 mls/hr 07/04/19 11:00 07/08/19 12: 52 Chloride IVPB 54 mls Q6H KIKE Administration Prochlorperazine Edisylate 5 51 mls @ 150 mls/hr 07/05/19 13:39 07/06/19 09: 09 mg/ Sodium Chloride IVPB 51 mls Q6H PRN Administration Nausea/Vomiting Potassium Chloride/Sodium Chloride 1,000 ml in 1,000 mls @ 100 mls/hr 07:15 07/08/19 06:31 Ns 0.9% W/ 20 Meq Kcl IV 1,000 mls .Q10H KIKE Administration Lorazepam 1 mg 06/29/19 14:38 07/08/19 02:23 Ativan SLOW IVP 1 mg Q6H PRN Administration Nausea/Vomiting Ondansetron HCl 4 mg 06/29/19 15:40 07/04/19 10:16 Zofran IVP 4 mg Q4H PRN Administration Nausea/Vomiting Promethazine HCl 25 mg 06/30/19 13:19 06/30/19 16:28 Phenergan PO 25 mg Q6H PRN Administration Nausea Promethazine HCl 25 mg 06/30/19 13:19 07/08/19 06:31 Phenergan SLOW IVP 25 mg Q6H PRN Administration Nausea Sodium Chloride 10 ml 07/05/19 09:00 07/08/19 09:20 Flush - Normal Saline IVF Not Given Q12HR KIKE Sodium Chloride 10 ml 07/05/19 07:34 07/05/19 14:54 Flush - Normal Saline IVF 10 ml PRN PRN Administration Saline Flush - Exam Eye: PERRL Heart: RRR, no murmur, no gallops, no rubs, normal peripheral pulses Respiratory: CTAB, no wheezes, no rales, no ronchi, normal chest expansion Gastrointestinal: soft, non-tender, non-distended, normal bowel sounds, no palpable masses, no hepatomegaly Hosp A/P (1) Testicular cancer Code(s): C62.90 - MALIG NEOPLASM OF UNSP TESTIS, UNSP DESCENDED OR UNDESCENDED Status: Acute (2) Nausea & vomiting Code(s): R11.2 - NAUSEA WITH VOMITING, UNSPECIFIED Status: Acute (3) CHAD (acute kidney injury) Code(s): N17.9 - ACUTE KIDNEY FAILURE, UNSPECIFIED Status: Acute - Plan * Nausea and vomiting- post chemo-continued observation in the hospital * Continue symptom management with Zofran and Phenergan * Hypomagnesmia- continue to replace as needed * Home this afternoon
--- NOTE | 2019-07-08 15:52 | DIS ---
DATE OF ADMISSION: 06/29/2019 DATE OF DISCHARGE: 07/08/2019 PRIMARY CARE PHYSICIAN: At [facility]. DISCHARGE DISPOSITION: Home. DISCHARGE DIAGNOSES: 1. Nausea and vomiting secondary to chemotherapy. 2. Hypokalemia. 3. Hypomagnesemia. 4. 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 CODE STATUS: Full code. ALLERGIES: NO KNOWN DRUG ALLERGIES. HOSPITAL COURSE: Mr. Kaur is a pleasant 29-year-old gentleman, who was admitted to the hospital with severe nausea and vomiting and dehydration following chemotherapy. He also received chemotherapy during the course of his admission as well. The patient was monitored in the hospital due to severe vomiting and he had significant electrolyte abnormalities including hypomagnesemia and hypokalemia due to both the vomiting and the chemotherapy. These were periodically replaced and once the patient was able to tolerate p.o. and his magnesium had been replaced. He is being discharged home on oral magnesium. He is to follow up with his primary care clinic at the [facility] in approximately 1 week and also with Dr. Romo as he has been instructed. DISCHARGE MEDICATIONS: Include; 1. Magnesium oxide 400 mg twice daily. 2. Promethazine 25 mg q.6 as needed. 3. Ativan 1 mg q.6 as needed. 4. Neurontin 300 mg t.i.d. 5. Continue the Duragesic patch, that is, 50 mcg every 3 days. 6. Zofran 8 mg p.o. q.8 hours as needed. Job ID: [id number]
[2019-07-08] MEDS: fentaNYL 50 mcg/hour Patch TD SCH (16:04)
== END 2019-07-08 16:27 | disposition home or self-care (01) | DRG 847 ==
LOC: ONC 13:56
PROVIDERS: ADMIT Internal Medicine; ATTEND Internal Medicine
DX: Z51.11 Encounter for antineoplastic chemotherapy (principal); C78.02 Secondary malignant neoplasm of left lung; C78.01 Secondary malignant neoplasm of right lung; C79.51 Secondary malignant neoplasm of bone; C79.89 Secondary malignant neoplasm of other specified sites; N17.9 Acute kidney failure, unspecified; R00.0 Tachycardia, unspecified; F12.10 Cannabis abuse, uncomplicated; C62.91 Malignant neoplasm of right testis, unspecified whether descended or undescended; R11.2 Nausea with vomiting, unspecified; E86.0 Dehydration; E87.6 Hypokalemia; E83.42 Hypomagnesemia; D64.81 Anemia due to antineoplastic chemotherapy; T45.1X5A Adverse effect of antineoplastic and immunosuppressive drugs, initial encounter; Z87.891 Personal history of nicotine dependence
CPT/HCPCS: 36415; 36416; 80048; 80053; 83735; 85007; 85025; 85027; J0780; J1100; J1200; J1453; J1642; J1650; J2060; J2150; J2405; J2469; J2550; J3475; J3480; J3490; J7050; J9060; J9208; J9209; J9267; Q0162; Q0169; Q5108; S0028

== ENCOUNTER 2019-08-29 22:13 | Inpatient (IN) | payer OTHER, SELFPAY ==
[2019-08-29] MEDS ORDERED: Fentanyl 100 MCG/2 ML VIAL ONE ×2 (22:28→22:33)
[2019-08-29] MEDS ORDERED: Lorazepam 2 MG/ML VIAL ONE ×2 (22:28→22:33)
[2019-08-29 22:48] LABS: #Basophils 0.1 thou/uL (0.0-0.2); #Eosinphils 0.1 thou/uL (0.0-0.7); #Lymphocytes 1.7 thou/uL (1.20-3.40); #Monocytes 0.5 thou/uL (0.11-0.59); #Neutrophils 4.2 thou/uL (1.40-6.50); %Basophils 1.5 % (0.0-1.0); %Monocytes 7.1 % (0.0-10.0); %Neutrophils 63.5 % (42.0-75.0); Hemoglobin 12.1 g/dL (14.0-18.0); Mean Corpuscular HGB CONC 33.7 g/dL (32.0-36.0); Mean Corpuscular Hemoglobin 32.6 pg (27.0-31.0); Mean Corpuscular Volume 96.6 fL (78.0-98.0); Mean Platelet Volume 7.3 fL (7.4-10.4); Platelet Count 195 thou/uL (130-400); Red Blood Cell (RBC) Count 3.71 mill/uL (4.70-6.10); White Blood Cell (WBC) Count 6.7 thou/uL (4.8-10.8)
[2019-08-29 23:09] LABS: ALT (SGPT) 21 U/L (8-55); AST (SGOT) 17 U/L (5-34); Albumin 4.9 g/dL (3.5-5.0); Alkaline Phosphatase 82 U/L (40-110); Anion Gap 19 mmol/L (10-20); BUN (Urea Nitrogen) 14 mg/dL (8.9-20.6); Bilirubin, Total 0.6 mg/dL (0.2-1.2); Calc. Creatinine Clearance 0 mL/min (70-130); Calcium 9.9 mg/dL (7.8-10.44); Carbon Dioxide 21 mmol/L (22-29); Chloride 98 mmol/L (98-107); Estimated GFR-MDRD 85; Globulin 2.5 g/dL (2.4-3.5); Glucose 92 mg/dL (70-105); Protein, Total 7.4 g/dL (6.0-8.3); Sodium 135 mmol/L (136-145)
--- NOTE | 2019-08-29 23:19 | CT ---
CT Lumbar Spine WO Con HISTORY: Severe lower back pain with radiation to the right lower extremity. Testicular cancer, curre ntly on chemotherapy COMPARISON: 03/09/2019 FINDINGS: The compression fracture of the L1 vertebral body is stable. Schmorl's node in the superior endplate of L3 vertebral body is again seen. Pars articularis defect on the left at L5 level is severely demonstrated. Chronic changes in the visualized portions of pelvic bones are again seen. No new lytic or sclerotic osseous lesions are seen. No focal disc herniation, central or neural elvia inal stenosis is seen. IMPRESSION: No new abnormalities are seen since 03/09/2019.
[2019-08-29] MEDS ORDERED: Potassium Chloride 20 MEQ TAB ONE (23:29)
[2019-08-29] MEDS ORDERED: Morphine 4 MG/ML VIAL ONE (23:36)
[2019-08-30] MEDS ORDERED: HYDROmorphone 0.5 MG/0.5 ML SYRINGE SLOW IVP PRN (01:00)
[2019-08-30] MEDS ORDERED: cloNIDine 0.1 MG TAB PO PRN (01:01)
[2019-08-30] MEDS ORDERED: Labetalol HCl 100 MG/20 ML VIAL SLOW IVP PRN (01:01)
[2019-08-30] MEDS ORDERED: hydrALAZINE 20 MG/ML VIAL SLOW IVP PRN (01:01)
[2019-08-30] MEDS ORDERED: Promethazine HCl 12.5 MG in Sodium Chloride 0.9% 50 ML IVPB PRN (01:01)
[2019-08-30] MEDS ORDERED: Acetaminophen 325 MG TAB PO PRN (01:08)
[2019-08-30] MEDS ORDERED: Bisacodyl 10 MG SUPP PR PRN (01:08)
[2019-08-30] MEDS ORDERED: Bisacodyl 5 MG TAB PO PRN (01:08)
--- NOTE | 2019-08-30 01:11 | PDOC.HHP ---
Hospitalist HPI - History of Present Illness Back pain History of Present Illness: 29 year old male with PMH testicular cancer with metastases to bone, lung, spine who presents to hospital for back pain, patient reports worsening of back pain, in lower back slightly on the R side, associated with pain when urinating and defecating as well as reduced sensation lower extremities, these are chronic and recurrent symptoms for him, he denies fevers/chills/nausea/vomiting , denies chest pain or shortness of breath, he is able to do adl and still has some sensation lower extremities but he emphasizes that he cant think about those things due to the extreme pain. He uses 50 mcg/hr fentanyl patch at home which has not relieved pain adequately. Sees Dr Romo, was last admitted in June of 2019 for inpatine chemotherapy. In ED, CT scan revealed L1 compression fracture, Schmorls node in L3 endplate, pars defect L5, however these are chronic and stable. Patient admitted for workup and treatment of intractable back pain. Hospitalist ROS - Review of Systems Constitutional: reports: weakness. denies: fever, chills, sweats, malaise Eyes: denies: pain, vision change ENT: denies: ear pain, mouth swelling, throat pain, throat swelling Respiratory: denies: cough, dry, shortness of breath Cardiovascular: denies: chest pain, palpitations, orthopnea, paroxysmal noc. dyspnea Gastrointestinal: denies: nausea, vomiting, abdominal pain, hematochezia Genitourinary: reports: other (possible retention due to worsening of back pain when he strains to urinate or defecate). denies: dysuria, frequency, incontinence, hematuria Musculoskeletal: reports: back pain Skin: denies: lesions, georgina Neurological: reports: numbness. denies: weakness All other systems reviewed; all pertinent +/- noted in HPI/Subj Hospitalist History - Past Medical History Heme/Onc: reports: Cancer (Metastatic testicular CA) Hepatobiliary: reports: no pertinent history Psych: reports: no pertinent history Musculoskeletal: reports: no pertinent history Rheumatologic: reports: no pertinent history Renal/: reports: no pertinent history Endocrine: reports: no pertinent history Dermatology: reports: no pertinent history Other Medical History: seminoma w mets to back, lungs, bone - Past Surgical History Past Surgical History: reports: no pertinent history Other Surgical History: r testical removal. r thoracoscopy w/ removal of bulk tumor. mediport in place - Family History Other Family History: no fh of cancer - Social History Alcohol: reports: Occassional Drugs: reports: none Other Social History: former smoker, rare alcohol, rare marijuana - Exam General Appearance: NAD, awake alert Eye: PERRL, anicteric sclera ENT: normocephalic atraumatic, no oropharyngeal lesions, moist mucosa Neck: supple, symmetric, no JVD, no thyromegaly, no lymphadenopathy, no carotid bruit Heart: RRR, no murmur, no gallops, no rubs, normal peripheral pulses Respiratory: CTAB, no wheezes, no rales, no ronchi, normal chest expansion, no tachypnea, normal percussion Gastrointestinal: soft, non-tender, non-distended, normal bowel sounds, no palpable masses, no hepatomegaly, no splenomegaly, no bruit Extremities: no cyanosis, no clubbing, no edema Skin: no lesions, no rashes Neurological: cranial nerve grossly intact, no weakness Neurological - other findings: motor limited by back pain, reduced sensation BLE, patella/ach. refl 1+ Musculoskeletal: generalized weakness. negative: normal strength Musculoskeletal - other findings: tenderness to palpation R paraspinal Psychiatric: normal affect, normal behavior, A&O x 3 Hospitalist Results - Labs Result Diagrams: 08/29/19 22:41 08/29/19 22:41 Lab results: WBC 6.7 thou/uL (4.8-10.8) 08/29/19 22:41 Hgb 12.1 g/dL (14.0-18.0) L 08/29/19 22:41 Hct 35.9 % (42.0-52.0) L 08/29/19 22:41 MCV 96.6 fL (78.0-98.0) 08/29/19 22:41 Plt Count 195 thou/uL (130-400) 08/29/19 22:41 Neutrophils % 63.5 % (42.0-75.0) 08/29/19 22:41 Sodium 135 mmol/L (136-145) L 08/29/19 22:41 Potassium 3.0 mmol/L (3.5-5.1) L 08/29/19 22:41 Chloride 98 mmol/L (98-107) 08/29/19 22:41 Carbon Dioxide 21 mmol/L (22-29) L 08/29/19 22:41 BUN 14 mg/dL (8.9-20.6) 08/29/19 22:41 Creatinine 1.03 mg/dL (0.7-1.3) 08/29/19 22:41 Glucose 92 mg/dL (70-105) 08/29/19 22:41 Calcium 9.9 mg/dL (7.8-10.44) 08/29/19 22:41 Total Bilirubin 0.6 mg/dL (0.2-1.2) 08/29/19 22:41 AST 17 U/L (5-34) 08/29/19 22:41 ALT 21 U/L (8-55) 08/29/19 22:41 Alkaline Phosphatase 82 U/L (40-110) 08/29/19 22:41 Serum Total Protein 7.4 g/dL (6.0-8.3) 08/29/19 22:41 Albumin 4.9 g/dL (3.5-5.0) 08/29/19 22:41 Hospitalist H&P A/P - Plan Plan: 29 year old male with PMH testicular cancer with metastases to bone, lung, spine who presents to hospital for back pain. # intractable back pain secondary to metastatic seminoma - oncologist is Dr Romo, on chemotherapy last admitted for this in June - admit to oncology wing - PRN pain medications, continue home meds and fentanyl patch - for possible myelopathy vs antalgia during exam, will order decadron and MRI of the spine to rule out cord compression, consult oncology and neurosurgery in AM. seems more like sensation and bowel/bladder function limited due to pain with activity more than loss of function however. - screen for urinary retention with bladder scan - bowel regimen - CT scan revealed L1 compression fracture, Schmorls node in L3 endplate, pars defect L5, however these are chronic and stable. defer to neurosurgery # hypokalemia - replete PRN, trend BMP # history of marijuana abuse - counselled briefly on cessation
[2019-08-30 01:14] VITALS: BMI 26.6
[2019-08-30] MEDS: Dexamethasone 4 mg/ml Vial SLOW IVP SCH ×4 (02:16→19:03)
[2019-08-30] MEDS: Morphine 4 MG/ML VIAL SLOW IVP PRN ×6 (02:16→19:05)
[2019-08-30 02:45] LABS: Bacteria/HPF None Seen HPF (None Seen); RBC/HPF 0-3 HPF (0-3); Squamous Epithelial None Seen HPF (0-3); WBC/HPF None Seen HPF (0-3)
[2019-08-30 02:46] LABS: Bilirubin Negative (Negative); Blood, Urine 1+ (Negative); Clarity Clear (Clear); Glucose, Urine (Dipstick) Normal (Negative); Leukocyte Negative Leu/uL (Negative); Nitrite Negative (Negative); Protein, Urine (Dipstick) Negative (Neg-Trace); Urobilinogen Normal mg/dL (Less than 2)
[2019-08-30 05:20] LABS: #Eosinphils 0.1 thou/uL (0.0-0.7); #Lymphocytes 0.5 thou/uL (1.20-3.40); #Monocytes 0.1 thou/uL (0.11-0.59); #Neutrophils 4.8 thou/uL (1.40-6.50); %Basophils 0.2 % (0.0-1.0); %Eosinophils 0.9 % (0.0-10.0); %Lymphocytes 8.9 % (21.0-51.0); %Monocytes 2.3 % (0.0-10.0); %Neutrophils 87.7 % (42.0-75.0); Hemoglobin 11.3 g/dL (14.0-18.0); Mean Corpuscular HGB CONC 34.7 g/dL (32.0-36.0); Mean Corpuscular Hemoglobin 33.8 pg (27.0-31.0); Mean Corpuscular Volume 97.3 fL (78.0-98.0); Platelet Count 182 thou/uL (130-400); RBC Distribution Width 12.1 % (11.5-14.5); Red Blood Cell (RBC) Count 3.36 mill/uL (4.70-6.10); White Blood Cell (WBC) Count 5.5 thou/uL (4.8-10.8)
[2019-08-30 05:57] LABS: Anion Gap 12 mmol/L (10-20); BUN (Urea Nitrogen) 11 mg/dL (8.9-20.6); Calc. Creatinine Clearance 145 mL/min (70-130); Calcium 9.5 mg/dL (7.8-10.44); Carbon Dioxide 26 mmol/L (22-29); Chloride 101 mmol/L (98-107); Estimated GFR-MDRD Greater than 90; Glucose 104 mg/dL (70-105); Potassium 4.1 mmol/L (3.5-5.1); Sodium 135 mmol/L (136-145)
[2019-08-30] MEDS: Gabapentin 300 MG CAP PO SCH ×3 (08:01→21:11)
[2019-08-30] MEDS: Famotidine 20 MG TAB PO SCH ×2 (08:02→21:11)
[2019-08-30] MEDS: Senokot S 8.6-50 MG TAB PO SCH ×2 (08:02→21:11)
[2019-08-30] MEDS: Enoxaparin Sodium 40 MG/0.4 ML SYRINGE SC SCH (08:02)
[2019-08-30] MEDS: Polyethylene Glycol 3350 17 GM Packet PO SCH (08:03)
[2019-08-30] MEDS ORDERED: Iopamidol 370 76% 100 ML VIAL ONE (09:02)
[2019-08-30] MEDS ORDERED: Iopamidol 370 76% 50 ML VIAL FS ONE (09:02)
[2019-08-30] MEDS: Ondansetron PF 4 MG/2 ML Vial IVP PRN (09:36)
[2019-08-30] MEDS: Lorazepam 1 MG TAB PO PRN ×2 (09:38→16:07)
[2019-08-30] MEDS: HYDROcodone/Acetaminophen 5/325 mg Tablet PO PRN ×2 (10:33→19:08)
--- NOTE | 2019-08-30 14:10 | CT ---
EXAM: CT chest, abdomen, and pelvis with IV contrast: HISTORY: Back pain in a patient with history of metastatic testicular cancer. COMPARISON: CTA thorax on 06/14/[address] chest, abdomen, and pelvis on 03/09/2019 FINDINGS: CT THORAX: Lungs: The area postoperative change and linear scarring in the right middle lobe is again seen. An o amilcar-shaped pleural-based mass was seen in the right middle lobe with greatest dimension of 24 mm on prior study in 2019 and was shown to have resolved on the study of 06/14/2019. However, on today's exa mination, there is a small approximately 0.9 cm nodular density present which represents interval change from the study on 06/14/2019. No additional discrete pulmonary nodule or mass is seen. There is mild linear parenchymal density at the left lung base probably attributable to volume loss. Pleura: No pleural effusion. Lymph nodes: No lymphadenopathy. Mediastinum: A right subclavian Mediport catheter remains in place. Mediastinal structures otherwise have a normal appearance. Pneumomediastinum seen on the study on 06/14/2019 is no longer visualized. Chest wall: No abnormalities CT ABDOMEN AND PELVIS: Liver: Within normal limits. Gallbladder: Within normal limits. \ Pancreas: Within normal limits. Spleen: Within normal limits. Adrenal glands: Within normal limits. Kidneys: Within normal limits. Urinary Bladder: The urinary bladder is unremarkable. Reproductive organs: Within normal limits for patient's age. Bowel: Normal in caliber. Adenopathy:No enlarged lymph nodes are seen by CT size criteria. Peritoneum: No free fluid or fluid collection is seen. No free intraperitoneal gas is identified. Abdominal wall: Tiny gas density focus is seen in the right anterolateral lower abdominal adipose lay er likely due to recent injection. Osseous structures: Lytic destructive lesion involving the right iliac bone including portion adjacen t to the right sacroiliac joint and involving the sacrum is again seen. The degree of lucency within the right aspect of the sacrum has increased compared to the study in 2019. Slightly greater i rregular sclerosis also involves the right aspect of the sacrum. A stable compression fracture and irregular lucencies within the endplates of the L1 vertebral body is again present with stable irregu larity and height loss involving the central aspect of the L3 vertebral body also a stable finding. No additional lytic or sclerotic osseous lesions are seen. IMPRESSION: 1. Lytic destructive lesion involving right iliac bone now with greater lucency and irregularity of t he right sacral ala suggesting progression in metastatic lesion in this region. 2. Stable irregularity and height loss of the L1 vertebral body with stable slight irregularity and h eight loss involving the central aspect superior endplate L3 vertebral body. 3. Approximately 0.9 cm lobulated nodule adjacent to postoperative changes in the right middle lobe. There was a much larger nodule seen in this region on CT thorax 03/09/2019 which was noted to have resolved on the CTA examination of the chest on 06/14/2019. Findings on the today's examination sugges ts recurrence of a small nodule in this region which could be related to recurrence of a small metastatic lesion. No additional discrete pulmonary nodule or mass is seen. 4. No evidence of lymphadenopathy.
--- NOTE | 2019-08-30 15:35 | PDOC.HOSPP ---
- Subjective Encounter Date: 08/30/19 Encounter Time: 15:00 Subjective: still has pain, has not ambulated - Objective Vital Signs & Weight: Vital Signs (12 hours) Temp Pulse Resp BP BP BP Pulse Ox 08/30/19 12:00 98.2 F 87 18 135/82 99 08/30/19 08:00 98.2 F 70 18 144/84 H 100 08/30/19 07:58 98.2 F 70 18 144/84 H 100 08/30/19 04:30 98.9 F 80 16 148/83 H 100 Weight Weight 175 lb 6.4 oz I&O: 08/29/19 08/30/19 08/31/19 06:59 06:59 06:59 Intake Total 200 Output Total 1250 600 Balance -1050 -600 Result Diagrams: 08/30/19 05:00 08/30/19 05:00 Hospitalist ROS - Medication Medications: Active Medications Generic Name Dose Route Start Last Admin Trade Name Freq PRN Reason Stop Dose Admin Hydrocodone Bitart/Acetaminophen 1 tab 08/30/19 01:08 08/30/19 10:33 [place] 5/325 PO 1 tab Q4H PRN Administration Moderate Pain (4-6) Dexamethasone 4 mg 08/30/19 01:00 08/30/19 12:35 Decadron SLOW IVP 4 mg Q6H KIKE Administration Enoxaparin Sodium 40 mg 08/30/19 09:00 08/30/19 08:02 Lovenox SC 40 mg 0900 KIKE Administration Famotidine 20 mg 08/30/19 09:00 08/30/19 08:02 Pepcid PO 20 mg BID KIKE Administration Gabapentin 300 mg 08/30/19 09:00 08/30/19 08:01 Neurontin PO 300 mg TID KIKE Administration Lorazepam 1 mg 08/30/19 01:11 08/30/19 09:38 Ativan PO 1 mg Q6H PRN Administration Anxiety Morphine Sulfate 4 mg 08/30/19 02:04 08/30/19 12:35 Morphine SLOW IVP 4 mg Q3H PRN Administration Severe Pain (7-10) Ondansetron HCl 4 mg 08/30/19 01:01 08/30/19 09:36 Zofran IVP 4 mg Q6H PRN Administration Nausea/Vomiting use 1st Polyethylene Glycol 17 gm 08/30/19 09:00 05/04/20 08:03 Miralax PO Not Given DAILY KIKE Senna/Docusate Sodium 1 tab 08/30/19 09:00 08/30/19 08:02 Senokot S PO 1 tab BID KIKE Administration - Exam General Appearance: NAD, awake alert Eye: anicteric sclera ENT: no oropharyngeal lesions, moist mucosa Neck: supple, no JVD Heart: RRR, no murmur Respiratory: no wheezes, no rales Gastrointestinal: soft, non-distended, normal bowel sounds Extremities: no cyanosis, no edema Neurological: cranial nerve grossly intact, no focal deficits Hosp A/P (1) Intractable pain Code(s): R52 - PAIN, UNSPECIFIED Status: Acute (2) Depression Code(s): F32.9 - MAJOR DEPRESSIVE DISORDER, SINGLE EPISODE, UNSPECIFIED Status : Chronic Qualifiers: Depression Type: reactive depression Qualified Code(s): F32.9 - Major depressive disorder, single episode, unspecified (3) Tobacco abuse Code(s): Z72.0 - TOBACCO USE Status: Chronic (4) Testicular malignancy Code(s): C62.90 - MALIG NEOPLASM OF UNSP TESTIS, UNSP DESCENDED OR UNDESCENDED Status: Chronic Qualifiers: Laterality: right - Plan await MRI results for bone scan in am he has finished full chemotherapy for nonseminomatous testicular ca hemostable on fentanyl tts, norco prn, decadron, neurontin oral regular diet
[2019-08-30] MEDS: fentaNYL 50 mcg/hour Patch TD SCH (16:12)
--- NOTE | 2019-08-30 17:10 | MRI ---
MRI LUMBAR SPINE WITH AND WITHOUT CONTRAST: DATE: 08/30/2019 HISTORY: 29-year-old male with low back pain. Testicular cancer metastatic to bone. COMPARISON: No prior MRI of lumbar spine. TECHNIQUE: Multiple sequences obtained in axial and sagittal planes, pre and post IV injection of gadolinium-bas ed contrast agent. FINDINGS: Although prior CT of abdomen and pelvis demonstrated destructive metastatic osseous lesion of the rig ht ilium, it did not demonstrate such findings involving the sacrum. On this MRI, there is large expansile osseous tumor mass involving the majority of the volume of the right sacral ala. It is T1 i sointense to muscle, heterogeneously T2 and STIR hyperintense, and strongly enhances. It extends into and fills the right S1-2 and S2-3 neural foramina, where it compresses the sacral nerve roots. T his metastatic tumor almost reaches the midline of the sacral body. The posterior inferior lateral portions of this tumor invades and destroys the posterior aspect of th e right iliac bone. There is abnormal enhancement involving the visualized proximal portions of the right iliac wing, and adjacent soft tissues, probably representing active tumor component there. There are a few tiny focal signal abnormalities with enhancement within the bone mineral of the contr alateral left upper sacral ala, which may represent additional osseous metastases. In the lumbar spine, from T12-L1 through L5-S1, there is no central spinal canal stenosis, nerve root impingement, or neoplastic involvement of intramedullary, extramedullary-intradural, extradural, or perivertebral, spaces. Conus medullaris terminates at mid L1. There is chronic loss of height of the right side of L1 verteb ral body. There is mild T2 hyperintense signal abnormality with mild osseous enhancement of the right-sided deformity. The left side of that vertebral body is relatively well-preserved. There is a prominent Schmorl's node at the right superior endplate of L3. Urinary bladder is distended. IMPRESSION: 1) new finding of large metastatic osseous tumor involving the majority of the right sacral ala, inva ding right sacral neural foramina, right side of the sacral body, and the posterior aspect of the right ilium. (This is different from the previously recognized osseous metastatic involvement of the right ilium). 2) lesion involving the right iliac wing which probably represents active metastatic tumor involvemen t in that location. 3) chronic deformity of the right side of the L1 vertebral body. This appears to be due to pathologic fracture from prior metastatic involvement. There may still be a small amount of active neoplastic component here. 4) a few tiny millimeter sized osseous lesions in the contralateral left sacral ala, probably represe nting tiny metastatic deposits there.
--- NOTE | 2019-08-30 17:38 | MRI ---
MRI CERVICAL SPINE WITH AND WITHOUT CONTRAST: Date: 08/30/2019 HISTORY: Back pain. Metastatic lung cancer. FINDINGS: Appropriate T1 marrow signal intensity of the cervical vertebra. Cervical spine vertebral body height is maintained and there is no fracture. There is no significant STIR hyperintensity to suggest verte bral body edema or ligamentous injury. Visualized brain parenchyma, cervicomedullary junction, cervical cord, and the upper thoracic cord mckeon ve a normal size and signal intensity. Postcontrast images do not demonstrate any abnormal enhancement within the central spinal canal. Visu alized soft tissue neck structures do not have any abnormal enhancement. C2-C3: No significant central canal stenosis or significant neural foraminal narrowing. C3-C4: No significant central canal stenosis or significant neural foraminal narrowing. C4-C5: No significant central canal stenosis or significant neural foraminal narrowing. C5-C6: Broad based disc bulge abuts the thecal sac. Mild central canal stenosis. Neural foramina are patent. C6-C7: Minimal broad based disc bulge. No significant central canal stenosis or significant neural f oraminal narrowing. C7-T1: No significant central canal stenosis or significant neural foraminal narrowing. IMPRESSION: 1. No evidence of an intramedullary or brain parenchymal metastatic lesion. 2. No evidence of osseous metastases. 3. Degenerative changes at C5-C6 and C6-C7 without significant central canal stenosis or significant neural foraminal narrowing. POS: PPP
--- NOTE | 2019-08-30 17:44 | MRI ---
THORACIC SPINE MRI WITHOUT AND WITH CONTRAST: Date: 08/30/2019 HISTORY: Metastatic lung cancer. Evaluate for osseous metastases. Back pain. COMPARISON: None. FINDINGS: Visualized mediastinum, lung parenchyma, solid organs, and paraspinal musculature demonstrate appropr iate signal intensity. No abnormal enhancement. There is appropriate signal intensity of the visualized thoracic vertebral bodies. Vertebral body hei ghts are maintained. There is no fracture. No significant STIR hyperintensity to suggest vertebral fady dy edema or ligamentous injury. There is no abnormal enhancement of the vertebral bodies. Throughout the thoracic spine, the central spinal canal and neural foramina are patent. Conus medullaris terminates at the mid T12 level. The thoracic cord has an overall normal size and signal intensity. No cord expansion. No cord malacia . No pathologic enhancement. No evidence of an intramedullary lesion. IMPRESSION: 1. No MRI evidence of a thoracic vertebral body metastatic focus. 2. No MRI evidence of an intramedullary metastatic focus. POS: PPP
[2019-08-30] MEDS ORDERED: diphenhydrAMINE 25 MG CAP PO SCH (21:45)
--- NOTE | 2019-08-30 22:47 | CON ---
DATE OF CONSULTATION: REASON FOR CONSULT: Testicular cancer. HISTORY OF PRESENT ILLNESS: Mr. 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 He recently completed 4 cycles of TIP chemotherapy. He tolerated okay. He did have an admission for nausea, vomiting, and anemia, but his AFP trended down quite nicely. He was due to be re-staged and see Dr. Romo this week. About 2 weeks ago, he began to have low back pain. He called our office on August 25 and was prescribed fentanyl patch and Thorofare. He then began to have some lower extremity weakening and loss of sensation, which he has had in the past. He presented to the emergency room yesterday with intractable pain. He underwent a CT scan of his lumbar spine. There was an old stable compression fracture of L1 vertebral body. He had a Schmorl node in the superior endplate of L3. He had a pars articularis defect in L5, all of which were stable. He had a CT of the chest, abdomen, and pelvis, which showed a lytic destructive lesion of the right iliac bone, slightly worse than the study from February. There was a 0.9-cm lobulated nodule adjacent to postoperative changes in the right middle lobe. There was no evidence of lymphadenopathy. Due to his lower extremity weakness, he has undergone a thoracic, cervical, and lumbar spine MRI. Results are currently pending. His pain is being managed with Thorofare, fentanyl, and morphine. 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 PAST SURGICAL HISTORY: 1. Right radical orchiectomy in March 2018. 2. MediPort placement. ALLERGIES: NO KNOWN DRUG ALLERGIES. HOME MEDICATIONS: 1. Fentanyl 50 mcg. 2. Thorofare 5/325. FAMILY HISTORY: Great uncle with colon cancer. SOCIAL HISTORY: Single. No children. Lives alone. Daily marijuana. No alcohol or tobacco use. REVIEW OF SYSTEMS: A 10-point review of systems is negative except for noted in HPI. PHYSICAL EXAMINATION: VITAL SIGNS: Temperature 98.2, pulse is 87, respiratory rate 18, BP is 135/82. He is 99% on room air. GENERAL: This is a well-developed, well-nourished male, in mild discomfort. HEENT: Normocephalic, atraumatic. Pupils are equal and reactive to light. NECK: Supple. CV: Regular rate and rhythm. LUNGS: Clear. ABDOMEN: Soft and nontender. Bowel sounds are positive. EXTREMITIES: No clubbing or cyanosis. SKIN: No rash. NEUROLOGICAL: Nonfocal. PERTINENT LABS AND X-RAYS: Current WBCs are 5.5, hemoglobin 11.3, hematocrit 32.6, platelet count are 182,000. He has 87% neutrophils, 9% lymphocytes. Sodium 135, potassium 4.1, chloride 101, CO2 is 26, BUN is 11, creatinine 0.82, calcium 9.5. Bilirubin 0.6, AST 17, ALT 21, alkaline phosphatase is 82. Serum total protein 7.4, albumin 4.9, globulin 2.5. He has 1+ blood in his urine with ketones. ASSESSMENT: 1. Testicular cancer, status post chemotherapy. 2. New intractable pain. DISCUSSION: The patient was due to be re-staged. He has undergone scanning. The MRI results are currently pending. He will have his bone scan tomorrow. We will check his tumor markers including AFP and beta-hCG. Case has been discussed with Dr. Romo. Further recommendations will be based on all results. We will follow along with his hospital course. We will continue pain medication and initiate physical therapy once pain is better controlled. Thank you for the consult. Job ID: [id number]
[2019-08-31] MEDS: Dexamethasone 4 mg/ml Vial SLOW IVP SCH ×4 (01:20→18:06)
[2019-08-31] MEDS: Morphine 4 MG/ML VIAL SLOW IVP PRN ×7 (01:22→21:30)
[2019-08-31 06:47] LABS: #Lymphocytes 0.6 thou/uL (1.20-3.40); #Monocytes 0.2 thou/uL (0.11-0.59); #Neutrophils 7.5 thou/uL (1.40-6.50); %Basophils 0.1 % (0.0-1.0); %Lymphocytes 7.6 % (21.0-51.0); %Monocytes 2.6 % (0.0-10.0); %Neutrophils 89.7 % (42.0-75.0); Hemoglobin 11.2 g/dL (14.0-18.0); Mean Corpuscular HGB CONC 33.7 g/dL (32.0-36.0); Mean Corpuscular Hemoglobin 32.9 pg (27.0-31.0); Mean Corpuscular Volume 97.7 fL (78.0-98.0); Mean Platelet Volume 7.9 fL (7.4-10.4); Platelet Count 200 thou/uL (130-400); RBC Distribution Width 11.9 % (11.5-14.5); Red Blood Cell (RBC) Count 3.39 mill/uL (4.70-6.10); White Blood Cell (WBC) Count 8.4 thou/uL (4.8-10.8)
[2019-08-31] MEDS: Lorazepam 1 MG TAB PO PRN ×2 (06:57→18:06)
[2019-08-31] MEDS: HYDROcodone/Acetaminophen 5/325 mg Tablet PO PRN ×4 (06:57→21:29)
[2019-08-31 07:06] LABS: Anion Gap 14 mmol/L (10-20); BUN (Urea Nitrogen) 18 mg/dL (8.9-20.6); Calc. Creatinine Clearance 137 mL/min (70-130); Calcium 9.9 mg/dL (7.8-10.44); Carbon Dioxide 26 mmol/L (22-29); Chloride 99 mmol/L (98-107); Estimated GFR-MDRD Greater than 90; Glucose 112 mg/dL (70-105); Potassium 4.1 mmol/L (3.5-5.1); Sodium 135 mmol/L (136-145)
[2019-08-31] MEDS: Enoxaparin Sodium 40 MG/0.4 ML SYRINGE SC SCH (08:27)
[2019-08-31] MEDS: Gabapentin 300 MG CAP PO SCH ×3 (08:28→21:29)
[2019-08-31] MEDS: Senokot S 8.6-50 MG TAB PO SCH ×2 (08:28→21:29)
[2019-08-31] MEDS: Famotidine 20 MG TAB PO SCH ×2 (08:28→21:29)
[2019-08-31] MEDS: Polyethylene Glycol 3350 17 GM Packet PO SCH (08:30)
--- NOTE | 2019-08-31 08:38 | PDOC.MOPN ---
Interval History: Pt's pain is improved with current pain regimen but meds do not completely relieve the pain. States the Dexamethasone helps with the pain. Scans showed a large right sacral ala mass, likely cause of his worsening pain, and HCG again elevated. - Vital Signs Vital Signs: Weight Weight 175 lb 6.4 oz - Physical Exam General: Alert, Oriented x3, Cooperative HEENT: EOMI Lungs: Normal air movement Neurological: Strength at 5/5 X4 ext, Cranial nerves 3-12 NL - Labs Result Diagrams: 08/31/19 06:40 08/31/19 06:40 Lab results: Laboratory Results - last 24 hr 08/31/19 06:40: WBC 8.4, RBC 3.39 L, Hgb 11.2 L, Hct 33.1 L, MCV 97.7, MCH 32.9 H, MCHC 33.7, RDW 11.9, Plt Count 200, MPV 7.9, Neutrophils % 89.7 H, Lymphocytes % 7.6 L, Monocytes % 2.6, Eosinophils % 0.0, Basophils % 0.1, Neutrophils # 7.5 H, Lymphocytes # 0.6 L, Monocytes # 0.2, Eosinophils # 0.0, Basophils # 0.0 08/31/19 06:40: Sodium 135 L, Potassium 4.1, Chloride 99, Carbon Dioxide 26, Anion Gap 14, BUN 18, Creatinine 0.89, Estimated GFR (MDRD) Greater than 90, Glucose 112 H, Calcium 9.9 08/30/19 16:24: Tumor Marker AFP 596.8 H A/P - Problem (1) Testicular cancer Current Visit: No Code(s): C62.90 - MALIG NEOPLASM OF UNSP TESTIS, UNSP DESCENDED OR UNDESCENDED Status: Acute (2) Bone metastases Current Visit: No Code(s): C79.51 - SECONDARY MALIGNANT NEOPLASM OF BONE Status: Chronic - Plan Plan: Consult Dr. Lyons for palliative radiation to right sacral ala mass cont current pain regimen Pt working on acquired medicaid - expect patient needs HSCT and cannot get one without insurance
--- NOTE | 2019-08-31 10:51 | PDOC.HOSPP ---
- Subjective Encounter Date: 08/31/19 Encounter Time: 09:00 Subjective: pain is better, no sob is trying to mobilize more now - Objective Vital Signs & Weight: Vital Signs (12 hours) Temp Pulse Resp BP Pulse Ox 08/31/19 09:48 100 08/31/19 08:00 98.1 F 98 18 134/91 H 100 Weight Weight 175 lb 6.4 oz I&O: 08/30/19 08/31/19 09/01/19 06:59 06:59 06:59 Intake Total 200 1340 Output Total 1250 1000 650 Balance -1050 340 -650 Result Diagrams: 08/31/19 06:40 08/31/19 06:40 Hospitalist ROS - Medication Medications: Active Medications Generic Name Dose Route Start Last Admin Trade Name Freq PRN Reason Stop Dose Admin Hydrocodone Bitart/Acetaminophen 1 tab 08/30/19 01:08 08/31/19 06:57 [place] 5/325 PO 1 tab Q4H PRN Administration Moderate Pain (4-6) Dexamethasone 4 mg 08/30/19 01:00 08/31/19 06:33 Decadron SLOW IVP 4 mg Q6H KIKE Administration Enoxaparin Sodium 40 mg 08/30/19 09:00 08/31/19 08:27 Lovenox SC 40 mg 09 KIKE Administration Famotidine 20 mg 08/30/19 09:00 08/31/19 08:28 Pepcid PO 20 mg BID KIKE Administration Fentanyl 50 mcg 08/30/19 16:30 08/30/19 16:12 Duragesic TD 50 mcg Q3D KIKE Administration Gabapentin 300 mg 08/30/19 09:00 08/31/19 08:28 Neurontin PO 300 mg TID KIKE Administration Lorazepam 1 mg 08/30/19 01:11 08/31/19 06:57 Ativan PO 1 mg Q6H PRN Administration Anxiety Morphine Sulfate 4 mg 08/30/19 02:04 08/31/19 09:39 Morphine SLOW IVP 4 mg Q3H PRN Administration Severe Pain (7-10) Ondansetron HCl 4 mg 08/30/19 01:01 08/30/19 09:36 Zofran IVP 4 mg Q6H PRN Administration Nausea/Vomiting use 1st Polyethylene Glycol 17 gm 08/30/19 09:00 08/31/19 08:30 Miralax PO Not Given DAILY KIKE Senna/Docusate Sodium 1 tab 08/30/19 09:00 08/31/19 08:28 Senokot S PO 1 tab BID KIKE Administration - Exam General Appearance: awake alert Eye: PERRL, anicteric sclera ENT: no oropharyngeal lesions, moist mucosa Neck: supple, no JVD Heart: RRR, no murmur Respiratory: no wheezes, no rales Gastrointestinal: soft, non-tender, non-distended, normal bowel sounds Extremities: no cyanosis, no edema Neurological: cranial nerve grossly intact, no focal deficits Psychiatric: normal affect, A&O x 3 Hosp A/P (1) Intractable pain Code(s): R52 - PAIN, UNSPECIFIED Status: Acute (2) Depression Code(s): F32.9 - MAJOR DEPRESSIVE DISORDER, SINGLE EPISODE, UNSPECIFIED Status : Chronic Qualifiers: Depression Type: reactive depression Qualified Code(s): F32.9 - Major depressive disorder, single episode, unspecified (3) Tobacco abuse Code(s): Z72.0 - TOBACCO USE Status: Chronic (4) Testicular malignancy Code(s): C62.90 - MALIG NEOPLASM OF UNSP TESTIS, UNSP DESCENDED OR UNDESCENDED Status: Chronic Qualifiers: Laterality: right - Plan MRI results reviewed for bone scan today he has finished full chemotherapy for nonseminomatous testicular ca has recurrence with elevated afp levels and mets to sacrum will be getting palliative radiation therapy hemostable on fentanyl tts, norco prn, decadron, neurontin oral regular diet
--- NOTE | 2019-08-31 13:38 | NM ---
WHOLE BODY BONE SCAN: 08/31/19 HISTORY: 29-year-old male with back pain and history of metastatic testicular cancer. FINDINGS: Comparison 04/29/2019. Correlation: CT chest, abdomen and pelvis on same date. RADIOPHARMACEUTICAL: 31.5 millicuries technetium 99m-MDP injected intravenously. FINDINGS: There is increased uptake in the right sacroiliac bones which are new since the previous bone scan of 04/29/2019 and corresponds to the findings on the CT scan. There is mild increased uptake in the shoul ders, elbows, wrists, and knees, ankles and feet. No other abnormal areas of tracer localization are seen. Tracer excretion is within normal limits. There is a tiny focus of uptake in the region of the inferior tip of the right sided Port-A-Cath. IMPRESSION: Findings are consistent with right sided sacroiliac metastases. POS: [facility]
--- NOTE | 2019-08-31 18:57 | CON ---
DATE OF CONSULTATION: 08/31/2019 REASON FOR CONSULTATION: Mr. Kaur is a 29-year-old gentleman, well known to me with a history of metastatic testicular cancer, who has bone metastasis. HISTORY OF PRESENT ILLNESS: Mr. 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 He was felt to be a pathological stage IIIC, T3 N0 M1b tumor of the right testicle. He underwent right radical inguinal orchiectomy and had a markedly elevated alpha-fetoprotein which was increasing rapidly. Scan showed lung and bone metastasis. He was treated with chemotherapy with 4 cycles of BEP and had normalization of his alpha-fetoprotein. He still had a residual mediastinal mass and this was resected by Dr. Castano and still showed some small foci of residual viable metastatic germ cell malignancy. He was then treated with 2 cycles of EP because his alpha-fetoprotein was elevated after surgery at 16.8. Consideration was then going to be given to radiation therapy to his area of bone metastasis because of persistent pain. Unfortunately, the patient has been noncompliant, partially related to the fact that he lost Medicaid and had no insurance. In February 2019, he was rescanned and felt to have recurrent disease potentially in the mediastinum. His alpha-fetoprotein had increased at that time to 50.9. Unfortunately, we could not biopsy the recurrent mediastinal/lung disease. He was therefore started back on chemotherapy by Dr. Romo and received 4 cycles of TIP. This was completed about 1 month ago. His alpha-fetoprotein had normalized on 07/26/2019 to 5.6. However, this past week, his pain in his lower back had significantly increased and he was readmitted to the hospital for workup and evaluation. He is having difficulty walking and doing activities of daily living because of the pain and this was poorly controlled with outpatient medication. On 08/30/2019, his alpha-fetoprotein was found to be elevated again to 596.8. He underwent CTs of the chest, abdomen, and pelvis as well as MRIs of the cervical, thoracic, and lumbar spine. Bone scan is currently pending. About the only remarkable thing seen on his scans was what was felt to be recurrent disease in the right sacral ala region and right ilium region. I have now been asked to see him for consideration of radiation therapy. He presently reports that his lower back is the only area of pain. He can be comfortable as long as he is not moving around and lying on his back. His pain is doing a little better with some adjustments in his pain medication. He is able to walk, but when he puts pressure, again this causes increase in the back pain. The back pain does radiate down the right leg. He reports numbness in his feet which is a chronic problem that he has had for some time. He denies any chest pain or shortness of breath. He has no recent weight loss. He voices no other complaints. PAST MEDICAL HISTORY: 1. Testicular cancer as mentioned above. 2. He denies other medical or surgical problems. MEDICATIONS: 1. Decadron. 2. Lovenox. 3. Pepcid. 4. Duragesic. 5. Neurontin. 6. [place]. 7. Ativan p.r.n. ALLERGIES: NO KNOWN MEDICAL ALLERGIES. SOCIAL HISTORY: He previously smoked up to 1-1/2 to 2 packs per day, but is not smoking at the present time. He has been using marijuana for nausea and pain control. He has no alcohol use at the present time. His social situation is poor. He is on disability. He had been living with an uncle, but his living situation has not always been stable. FAMILY HISTORY: His mother at age 47 from hepatitis C. He does not know his father. He had a maternal great uncle who had colon cancer. There is no other family history of malignancy. REVIEW OF SYSTEMS: A 12-system review of systems is otherwise negative. PHYSICAL EXAMINATION: VITAL SIGNS: Height 5 feet 8 inches, weight 175 pounds, blood pressure 134/91, pulse is 98, temperature 98.1, respirations are 18, O2 saturation 100%. CONSTITUTIONAL: He is alert and oriented and in no apparent distress. He is well developed and well nourished. Karnofsky performance status is 70%. EYES: Pupils equal, round, and reactive to light. Extraocular movements are intact. ENT: Oral cavity and oropharynx normal without lesion or erythema. Palate elevates symmetrically. Gingiva is intact. NECK: Supple without preauricular, submandibular, cervical, or supraclavicular adenopathy. No thyromegaly. Larynx midline. LUNGS: Breathing nonlabored. Clear to auscultation and percussion. CARDIOVASCULAR: Heart, regular rate and rhythm without murmur. No lower extremity edema. BACK: The subjective area of tenderness is over the right sacral ala region. LYMPHATIC: No axillary or inguinal adenopathy. ABDOMEN: Soft, nontender, nondistended without mass or hepatosplenomegaly. Liver percusses to normal size. SKIN: Without rash or purpura. NEUROLOGIC: Cranial nerves 2 through 12 are grossly intact. Motor strength is 5/5 in both upper and lower extremities in all muscle groups tested. Reflexes are diminished, but symmetrical. Gait was not tested. LABORATORY DATA: Alpha-fetoprotein is 596.8. Previously on 07/26/2019 was normal at 5.6. Chemistry group shows normal electrolytes with a sodium of 135 and a potassium of 4.1. CBC revealed a white blood cell count of 8400 with a hemoglobin of 11.2, hematocrit of 33.1, and platelet count of 200,000. RADIOLOGIC DATA: CT of the chest, abdomen, and pelvis as well as MRI of the cervical, thoracic, and lumbar spine were all personally reviewed. Again, the area in the mediastinum/right lung has much improved. He has no overt lung metastasis. The only significant area is in the right sacral ala region and right ilium where he has recurrent mass. He possibly has 2 other lesions on the left sacral ala. He has no other evidence of spinal lesion. He has an old pathological compression fracture in the upper lumbar spine region which is stable and does not appear to have active disease. ASSESSMENT: Mr. 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 He had lung and bone metastasis at diagnosis. He now has recurrent disease in the right sacral ala with an elevated alpha-fetoprotein despite recent chemotherapy. This appears to be his only side of disease. PLAN: I had a long discussion with Mr. Kaur regarding his diagnosis, prognosis, prognostic factors, and treatment options. I have also discussed the case with Dr. Romo. His biggest problem presently is his lower back pain. This is undoubtedly coming from his bone metastasis. I have recommended that he undergo palliative radiation therapy to this area. The logistics of radiation as well as the benefits and risks of treatment were discussed. The simulation and daily treatment procedure were discussed. Side effects would include, but not be limited to skin reaction, fatigue, lower blood counts, nausea, vomiting, diarrhea, and small risk of damage to his intestines or other structures which receive radiation therapy. He is tentatively agreeable to proceed with radiation as recommended to him. He is going to have a bone scan later today. We will make arrangements for him to undergo simulation shortly and start his treatment fairly soon. Unfortunately, he does not have insurance at this time. His application for Medicaid is currently pending. Dr. Romo has recommended consideration of high-dose chemotherapy with bone marrow transplant, but he is not going to be able to receive this therapy without having insurance because it does not appear any facility will take him that does transplantation. Hopefully, he will get Medicaid and this can be facilitated for the long-term. Thank you for this interesting consultation. Job ID: [id number]
[2019-09-01] MEDS: HYDROcodone/Acetaminophen 5/325 mg Tablet PO PRN ×5 (01:16→18:24)
[2019-09-01] MEDS: Dexamethasone 4 mg/ml Vial SLOW IVP SCH ×4 (01:17→18:22)
[2019-09-01] MEDS: Morphine 4 MG/ML VIAL SLOW IVP PRN ×7 (01:17→20:45)
[2019-09-01 06:54] LABS: #Lymphocytes 0.6 thou/uL (1.20-3.40); #Monocytes 0.4 thou/uL (0.11-0.59); #Neutrophils 8.5 thou/uL (1.40-6.50); %Basophils 0.1 % (0.0-1.0); %Lymphocytes 6.5 % (21.0-51.0); %Monocytes 3.8 % (0.0-10.0); %Neutrophils 89.6 % (42.0-75.0); Hemoglobin 11.3 g/dL (14.0-18.0); Mean Corpuscular HGB CONC 34.6 g/dL (32.0-36.0); Mean Corpuscular Volume 98.4 fL (78.0-98.0); Mean Platelet Volume 8.6 fL (7.4-10.4); Platelet Count 198 thou/uL (130-400); Red Blood Cell (RBC) Count 3.33 mill/uL (4.70-6.10); White Blood Cell (WBC) Count 9.5 thou/uL (4.8-10.8)
[2019-09-01 07:13] LABS: Anion Gap 14 mmol/L (10-20); BUN (Urea Nitrogen) 24 mg/dL (8.9-20.6); Calc. Creatinine Clearance 122 mL/min (70-130); Calcium 9.6 mg/dL (7.8-10.44); Carbon Dioxide 27 mmol/L (22-29); Chloride 100 mmol/L (98-107); Estimated GFR-MDRD 88; Glucose 106 mg/dL (70-105); Potassium 3.9 mmol/L (3.5-5.1); Sodium 137 mmol/L (136-145)
[2019-09-01] MEDS: Lorazepam 1 MG TAB PO PRN ×2 (09:09→20:45)
[2019-09-01] MEDS: Polyethylene Glycol 3350 17 GM Packet PO SCH (09:15)
[2019-09-01] MEDS: Ondansetron PF 4 MG/2 ML Vial IVP PRN (09:41)
[2019-09-01] MEDS: Gabapentin 300 MG CAP PO SCH ×3 (09:43→20:45)
[2019-09-01] MEDS: Senokot S 8.6-50 MG TAB PO SCH ×2 (09:43→20:45)
[2019-09-01] MEDS: Famotidine 20 MG TAB PO SCH ×2 (09:43→20:45)
[2019-09-01] MEDS: Enoxaparin Sodium 40 MG/0.4 ML SYRINGE SC SCH (09:44)
--- NOTE | 2019-09-01 11:15 | PDOC.HOSPP ---
- Subjective Encounter Date: 09/01/19 Encounter Time: 11:00 Subjective: c/o pain and cannot walk unless he starts getting radiation therapy no sob - Objective Vital Signs & Weight: Vital Signs (12 hours) Temp Pulse Resp BP Pulse Ox 09/01/19 08:00 97.9 F 107 H 20 140/82 100 Weight Weight 175 lb 6.4 oz I&O: 08/31/19 09/01/19 09/02/19 06:59 06:59 06:59 Intake Total 1340 1140 Output Total 1000 650 Balance 340 490 Result Diagrams: 09/01/19 06:27 09/01/19 06:27 Hospitalist ROS - Medication Medications: Active Medications Generic Name Dose Route Start Last Admin Trade Name Freq PRN Reason Stop Dose Admin Hydrocodone Bitart/Acetaminophen 1 tab 08/30/19 01:08 09/01/19 10:26 [place] 5/325 PO 1 tab Q4H PRN Administration Moderate Pain (4-6) Dexamethasone 4 mg 08/30/19 01:00 09/01/19 06:20 Decadron SLOW IVP 4 mg Q6H KIKE Administration Enoxaparin Sodium 40 mg 08/30/19 09:00 09/01/19 09:44 Lovenox SC 40 mg 0900 KIKE Administration Famotidine 20 mg 08/30/19 09:00 09/01/19 09:43 Pepcid PO 20 mg BID KIKE Administration Fentanyl 50 mcg 08/30/19 16:30 08/30/19 16:12 Duragesic TD 50 mcg Q3D KIKE Administration Gabapentin 300 mg 08/30/19 09:00 09/01/19 09:43 Neurontin PO 300 mg TID KIKE Administration Lorazepam 1 mg 08/30/19 01:11 09/01/19 09:09 Ativan PO 1 mg Q6H PRN Administration Anxiety Morphine Sulfate 4 mg 08/30/19 02:04 09/01/19 09:12 Morphine SLOW IVP 4 mg Q3H PRN Administration Severe Pain (7-10) Ondansetron HCl 4 mg 08/30/19 01:01 09/01/19 09:41 Zofran IVP 4 mg Q6H PRN Administration Nausea/Vomiting use 1st Polyethylene Glycol 17 gm 08/30/19 09:00 09/01/19 09:15 Miralax PO Not Given DAILY KIKE Senna/Docusate Sodium 1 tab 08/30/19 09:00 09/01/19 09:43 Senokot S PO 1 tab BID KIKE Administration - Exam General Appearance: awake alert Eye: PERRL, anicteric sclera ENT: no oropharyngeal lesions, moist mucosa Neck: supple, no JVD Heart: RRR, no murmur Respiratory: no wheezes, no rales Gastrointestinal: soft, non-tender, non-distended, normal bowel sounds Extremities: no cyanosis, no edema Neurological: cranial nerve grossly intact, no focal deficits Hosp A/P (1) Intractable pain Code(s): R52 - PAIN, UNSPECIFIED Status: Acute (2) Depression Code(s): F32.9 - MAJOR DEPRESSIVE DISORDER, SINGLE EPISODE, UNSPECIFIED Status : Chronic Qualifiers: Depression Type: reactive depression Qualified Code(s): F32.9 - Major depressive disorder, single episode, unspecified (3) Tobacco abuse Code(s): Z72.0 - TOBACCO USE Status: Chronic (4) Testicular malignancy Code(s): C62.90 - MALIG NEOPLASM OF UNSP TESTIS, UNSP DESCENDED OR UNDESCENDED Status: Chronic Qualifiers: Laterality: right - Plan MRI results reviewed for bone scan confirms MRI findings of mets in sacrum he has finished full chemotherapy for nonseminomatous testicular ca has recurrence with elevated afp levels and mets to sacrum will be getting palliative radiation therapy hemostable on fentanyl tts, norco prn, decadron, neurontin oral regular diet dc plan per 's advice
--- NOTE | 2019-09-01 13:09 | PDOC.MOPN ---
Interval History: Unable to work with PT due to pain. - Vital Signs Vital Signs: Vital Signs (12 hours) Temp Pulse Resp BP Pulse Ox 09/01/19 08:00 97.9 F 107 H 20 140/82 100 Weight Weight 175 lb 6.4 oz - Physical Exam General: Alert, Oriented x3, No acute distress HEENT: Atraumatic, PERRLA, EOMI, Mucous membr. moist/pink Lungs: Clear to auscultation, Normal air movement Cardiovascular: Regular rate, Normal S1, Normal S2, No murmurs, Gallops, Rubs Abdomen: Normal bowel sounds, Soft, No tenderness, No hepatospenomegaly, No masses Extremities: Other Neurological: Other - Labs Result Diagrams: 09/01/19 06:27 09/01/19 06:27 Lab results: Laboratory Results - last 24 hr 09/01/19 06:27: WBC 9.5, RBC 3.33 L, Hgb 11.3 L, Hct 32.8 L, MCV 98.4 H, MCH 34.0 H, MCHC 34.6, RDW 12.0, Plt Count 198, MPV 8.6, Neutrophils % 89.6 H, Lymphocytes % 6.5 L, Monocytes % 3.8, Eosinophils % 0.0, Basophils % 0.1, Neutrophils # 8.5 H, Lymphocytes # 0.6 L, Monocytes # 0.4, Eosinophils # 0.0, Basophils # 0.0 09/01/19 06:27: Sodium 137, Potassium 3.9, Chloride 100, Carbon Dioxide 27, Anion Gap 14, BUN 24 H, Creatinine 1.00, Estimated GFR (MDRD) 88, Glucose 106 H , Calcium 9.6 08/30/19 16:24: Tumor Marker HCG Less than 1 Status: lab reviewed by me A/P - Problem (1) Intractable pain Current Visit: No Code(s): R52 - PAIN, UNSPECIFIED Status: Acute (2) Metastasis Current Visit: No Code(s): C79.9 - SECONDARY MALIGNANT NEOPLASM OF UNSPECIFIED SITE Status: Acute (3) Testicular cancer Current Visit: No Code(s): C62.90 - MALIG NEOPLASM OF UNSP TESTIS, UNSP DESCENDED OR UNDESCENDED Status: Acute - Plan Plan: Starts XRT today continue pain meds hold PT until pain improved.
--- NOTE | 2019-09-01 13:57 | PDOC.PALFU ---
Palliative Care Follow-up Note Called to see Mr Kaur for coping issues. Arrived on unit and discussed with Florina CANAS caring for patient. He is resting, just received pain medication and open to meet with Palliative care but would like "time alone" for a bit. XRT this afternoon at 3. Palliative care will follow up prior to radiation if patient desires, otherwise follow up 09/02/2019/
[2019-09-01] MEDS ORDERED: fentaNYL 50 mcg/hour Patch TD SCH (14:00)
[2019-09-01] MEDS: Lorazepam 2 MG/ML VIAL SLOW IVP PRN (15:53)
[2019-09-02] MEDS: Dexamethasone 4 mg/ml Vial SLOW IVP SCH ×3 (00:47→13:47)
[2019-09-02] MEDS: Morphine 4 MG/ML VIAL SLOW IVP PRN ×4 (00:47→13:47)
[2019-09-02] MEDS: Senokot S 8.6-50 MG TAB PO SCH (09:02)
[2019-09-02] MEDS: Gabapentin 300 MG CAP PO SCH ×2 (09:02→15:34)
[2019-09-02] MEDS: Enoxaparin Sodium 40 MG/0.4 ML SYRINGE SC SCH (09:03)
[2019-09-02] MEDS: Famotidine 20 MG TAB PO SCH (09:03)
[2019-09-02] MEDS: Polyethylene Glycol 3350 17 GM Packet PO SCH (09:11)
[2019-09-02 09:12] VITALS: BP 132/72; TEMP 97.7
[2019-09-02] MEDS: Ondansetron PF 4 MG/2 ML Vial IVP PRN (11:19)
--- NOTE | 2019-09-02 11:36 | PDOC.MOPN ---
Interval History: about the same, pain with ambulation. - Vital Signs Vital Signs: Vital Signs (12 hours) Temp Pulse Resp BP Pulse Ox 09/02/19 09:00 97.7 F 74 16 132/72 100 Weight Weight 175 lb 6.4 oz - Physical Exam General: Alert, Oriented x3, No acute distress HEENT: Atraumatic, PERRLA, EOMI, Mucous membr. moist/pink Lungs: Clear to auscultation, Normal air movement Cardiovascular: Regular rate, Normal S1, Normal S2, No murmurs, Gallops, Rubs Abdomen: Normal bowel sounds, Soft, No tenderness, No hepatospenomegaly, No masses Extremities: Other Neurological: Normal speech Psych/Mental Status: Mental status NL - Labs Result Diagrams: 09/01/19 06:27 09/01/19 06:27 Status: lab reviewed by me A/P - Problem (1) Intractable pain Current Visit: No Code(s): R52 - PAIN, UNSPECIFIED Status: Acute (2) Metastasis Current Visit: No Code(s): C79.9 - SECONDARY MALIGNANT NEOPLASM OF UNSPECIFIED SITE Status: Acute (3) Testicular cancer Current Visit: No Code(s): C62.90 - MALIG NEOPLASM OF UNSP TESTIS, UNSP DESCENDED OR UNDESCENDED Status: Acute - Plan Plan: Continue XRT There are chemo treatment options available Encouraged to follow-up in clinic to discuss further once XRT completed
[2019-09-02] MEDS: Lorazepam 2 MG/ML VIAL SLOW IVP PRN (11:56)
[2019-09-02] MEDS: HYDROcodone/Acetaminophen 5/325 mg Tablet PO PRN (15:36)
[2019-09-02] MEDS: fentaNYL 50 mcg/hour Patch TD SCH (15:47)
--- NOTE | 2019-09-02 16:48 | PDOC.HOSPP ---
- Subjective Encounter Date: 09/02/19 Encounter Time: 14:00 Subjective: Patient seen and examined for intractable back pain. Pain controlled. No fever. No new focal deficits. No new complaints. No overnight events - Objective Vital Signs & Weight: Vital Signs (12 hours) Temp Pulse Resp BP Pulse Ox 09/02/19 09:00 97.7 F 74 16 132/72 100 Weight Weight 175 lb 6.4 oz I&O: 09/01/19 09/02/19 09/03/19 06:59 06:59 06:59 Intake Total 1140 1800 Output Total 650 1100 Balance 490 700 Result Diagrams: 09/01/19 06:27 09/01/19 06:27 Radiology Reviewed by me: Yes (MRI - reviewed) Hospitalist ROS - Review of Systems Respiratory: denies: cough, dry, shortness of breath, hemoptysis, SOB with excertion, pleuritic pain, sputum, wheezing, other Cardiovascular: denies: chest pain, palpitations, orthopnea, paroxysmal noc. dyspnea, edema, light headedness, other Gastrointestinal: denies: nausea, vomiting, abdominal pain, diarrhea, constipation, melena, hematochezia, other - Exam General Appearance: NAD Heart: RRR, no gallops Respiratory: no wheezes, no ronchi Gastrointestinal: non-tender, non-distended, normal bowel sounds Extremities: no cyanosis, no clubbing Neurological: no new deficit Hosp A/P - Plan DVT proph w/SCDs Acute Intractable low back pain sec to Rt sided sacral mets from testicular CA Hypokalemia Cannabis abuse Hyponatremia Chronic anemia prob due to nutritional def PLAN: On Radiation Rx Cont IV Decadron Cont Fentanyl patch Cont Gabapentin Onc/Rad Onc/Palliative care input appreciated
--- NOTE | 2019-09-03 10:22 | DIS ---
DATE OF ADMISSION: 08/29/2019 DATE OF DISCHARGE: 09/02/2019 DISCHARGE DISPOSITION: The patient left against medical advice. BRIEF HOSPITAL COURSE: The patient is a 29-year-old male with testicular cancer with metastasis, presented to the hospital with intractable back pain. His workup was consistent with right-sided sacral metastasis. He was evaluated by Oncology, Radiation Oncology as well as Palliative Care Team. He was started on radiation therapy. The patient left against medical advice. He was extensively counseled to follow up with Oncology and Radiation Oncology as outpatient. FINAL DIAGNOSES: 1. Acute intractable low back pain secondary to right-sided sacral metastasis from testicular cancer. 2. Hypokalemia, replaced. 3. Cannabis abuse. The patient was counseled. 4. Hyponatremia. 5. Chronic anemia, probably due to nutritional deficiency. DIAGNOSTIC TESTS: Bone scan showed findings consistent with right-sided sacroiliac metastasis. CT scan of the abdomen, chest, and pelvis showed lytic lesion in the right sacrum along with L1 vertebral height loss. It also showed a lung nodule on the right. Job ID: [id number]
== END 2019-09-02 15:55 | disposition left against medical advice (07) | DRG 543 ==
LOC: ERS 22:13 → OBSVTOIN 23:58 → ONC 23:58
PROVIDERS: ADMIT Internal Medicine; ATTEND Internal Medicine
DX: C79.51 Secondary malignant neoplasm of bone (principal); C78.00 Secondary malignant neoplasm of unspecified lung; C79.89 Secondary malignant neoplasm of other specified sites; E87.1 Hypo-osmolality and hyponatremia; G89.3 Neoplasm related pain (acute) (chronic); C62.90 Malignant neoplasm of unspecified testis, unspecified whether descended or undescended; Z51.5 Encounter for palliative care; E87.6 Hypokalemia; F12.10 Cannabis abuse, uncomplicated; F32.9 Major depressive disorder, single episode, unspecified; D53.9 Nutritional anemia, unspecified; M54.5 Low back pain
CPT/HCPCS: 36415; 71260; 72131; 72156; 72157; 72158; 74177; 77014; 77280; 77290; 77307; 77334; 77412; 78306; 80048; 80053; 81001; 82105; 84702; 85025; 93005; 96361; 96374; 96375; A9503; J1100; J1642; J1650; J2060; J2270; J2405; J3010; Q0163; Q9967

== ENCOUNTER 2019-11-25 08:54 | Day surgery (SDC) | payer SELFPAY ==
[~2019-11-25 08:54] MED LIST changes: -CISPLATIN IV SCH; -DEXAMETHASONE SOD PHOSPHATE IVPB SCH; +DEXTROSE 5% IVPB SCH; -ETOPOSIDE IVPB SCH; +GEMCITABINE HCL IVPB SCH; -MANNITOL IV SCH; -ONDANSETRON IVPB SCH; +OXALIPLATIN IVPB SCH; +Ondansetron 2MG/ML MDV 10 MG, Dexamethasone Sod Phosphate 10 MG in Sodium Chloride 0.9%... IVPB SCH; -SODIUM CHLORIDE 0.9% IV SCH; -Sodium Chloride 0.9% 250 ML 250 ML IVPB SCH; -Sodium Chloride 0.9% 500 ML IVPB SCH; +WATER IVPB SCH; -[UNRECOGNIZED DRUG - OTHER] IVPB SCH
[2019-11-25] MEDS ORDERED: Sodium Chloride 0.9% 20 ML ONE (08:57)
[2019-11-25 09:20] VITALS: BP 139/73; TEMP 98.3
== END 2019-11-25 12:57 | disposition home or self-care (01) ==
LOC: ONC/OP 08:54
PROVIDERS: ATTEND Internal Medicine Hematology & Oncology
DX: Z51.11 Encounter for antineoplastic chemotherapy (principal); C62.11 Malignant neoplasm of descended right testis
CPT/HCPCS: 96375; 96413; 96415; 96417; J1100; J1642; J2405; J7050; J7070; J9201; J9263

== ENCOUNTER 2019-12-30 10:36 | Day surgery (SDC) | payer OTHER, SELFPAY ==
[~2019-12-30 10:36] MED LIST changes: -DEXTROSE 5% IVPB SCH; -OXALIPLATIN IVPB SCH; -WATER IVPB SCH
[2019-12-30] MEDS ORDERED: Sodium Chloride 0.9% 20 ML ONE (10:40)
[2019-12-30 11:03] VITALS: BP 121/79; TEMP 98.4
[2019-12-30 12:38] LABS: #Basophils 0.1 thou/uL (0.0-0.2); #Eosinphils 0.1 thou/uL (0.0-0.7); #Lymphocytes 0.7 thou/uL (1.20-3.40); #Monocytes 0.6 thou/uL (0.11-0.59); %Basophils 0.8 % (0.0-1.0); %Eosinophils 1.4 % (0.0-10.0); %Lymphocytes 9.1 % (21.0-51.0); %Monocytes 8.3 % (0.0-10.0); %Neutrophils 80.4 % (42.0-75.0); Hemoglobin 12.8 g/dL (14.0-18.0); Mean Corpuscular HGB CONC 33.9 g/dL (32.0-36.0); Mean Corpuscular Hemoglobin 32.8 pg (27.0-31.0); Mean Corpuscular Volume 96.7 fL (78.0-98.0); Mean Platelet Volume 10.2 fL (7.4-10.4); Platelet Count 167 thou/uL (130-400); Red Blood Cell (RBC) Count 3.89 mill/uL (4.70-6.10); White Blood Cell (WBC) Count 7.5 thou/uL (4.8-10.8)
[2019-12-30 12:55] LABS: ALT (SGPT) 24 U/L (8-55); AST (SGOT) 16 U/L (5-34); Albumin 4.6 g/dL (3.5-5.0); Alkaline Phosphatase 82 U/L (40-110); Anion Gap 13 mmol/L (10-20); BUN (Urea Nitrogen) 18 mg/dL (8.9-20.6); Bilirubin, Total 0.3 mg/dL (0.2-1.2); Calc. Creatinine Clearance 114 mL/min (70-130); Calcium 9.1 mg/dL (7.8-10.44); Carbon Dioxide 24 mmol/L (22-29); Chloride 106 mmol/L (98-107); Estimated GFR-MDRD 83; Globulin 2.1 g/dL (2.4-3.5); Glucose 96 mg/dL (70-105); Protein, Total 6.7 g/dL (6.0-8.3); Sodium 139 mmol/L (136-145); Uric Acid 5.1 mg/dL (3.5-7.2)
[2019-12-30] MEDS ORDERED: DEXTROSE 5% IVPB SCH (13:00)
[2019-12-30] MEDS ORDERED: WATER IVPB SCH (13:00)
[2019-12-30] MEDS ORDERED: OXALIPLATIN IVPB SCH (13:00)
== END 2019-12-30 15:49 | disposition home or self-care (01) ==
LOC: ONC/OP 10:36
PROVIDERS: ATTEND Internal Medicine Hematology & Oncology
DX: Z51.11 Encounter for antineoplastic chemotherapy (principal); C62.11 Malignant neoplasm of descended right testis
CPT/HCPCS: 80053; 82105; 84550; 84702; 85025; 96375; 96413; 96415; 96417; J1100; J1642; J2405; J7050; J7070; J9201; J9263

== ENCOUNTER 2020-01-06 12:10 | Day surgery (SDC) | payer SELFPAY ==
[2020-01-06] MEDS ORDERED: Sodium Chloride 0.9% 20 ML ONE (12:15)
[2020-01-06 12:26] VITALS: BP 122/68; TEMP 98.1
== END 2020-01-06 13:54 | disposition home or self-care (01) ==
LOC: ONC/OP 12:10
PROVIDERS: ATTEND Internal Medicine Hematology & Oncology
DX: Z51.11 Encounter for antineoplastic chemotherapy (principal); C62.11 Malignant neoplasm of descended right testis
CPT/HCPCS: 96375; 96413; J1100; J1642; J2405; J7050; J9201

== ENCOUNTER 2020-01-24 10:41 | Day surgery (SDC) | payer SELFPAY ==
[~2020-01-24 10:41] MED LIST changes: +DEXTROSE 5% IVPB SCH; +OXALIPLATIN IVPB SCH; +WATER IVPB SCH
[2020-01-24] MEDS ORDERED: Sodium Chloride 0.9% 20 ML ONE (10:49)
[2020-01-24 14:58] VITALS: BP 117/65
== END 2020-01-24 14:59 | disposition home or self-care (01) ==
LOC: ONC/OP 10:41
PROVIDERS: ATTEND Internal Medicine Hematology & Oncology
DX: Z51.11 Encounter for antineoplastic chemotherapy (principal); C62.11 Malignant neoplasm of descended right testis
CPT/HCPCS: 96375; 96413; 96415; 96417; J1100; J1642; J2405; J7050; J7070; J9201; J9263

== ENCOUNTER 2020-01-31 10:29 | Day surgery (SDC) | payer SELFPAY ==
[~2020-01-31 10:29] MED LIST changes: -DEXTROSE 5% IVPB SCH; -OXALIPLATIN IVPB SCH; -WATER IVPB SCH
[2020-01-31] MEDS ORDERED: Sodium Chloride 0.9% 20 ML ONE (10:36)
[2020-01-31 10:47] VITALS: BP 121/81; TEMP 97.7
== END 2020-01-31 13:03 | disposition home or self-care (01) ==
LOC: ONC/OP 10:29
PROVIDERS: ATTEND Internal Medicine Hematology & Oncology
DX: Z51.11 Encounter for antineoplastic chemotherapy (principal); C62.11 Malignant neoplasm of descended right testis
CPT/HCPCS: 96375; 96413; J1100; J1642; J2405; J7050; J9201

== ENCOUNTER 2020-04-16 09:04 | Inpatient (IN) | payer OTHER ==
[2020-04-16] MEDS ORDERED: Fentanyl 100 MCG/2 ML VIAL ONE ×2 (09:44→11:08)
[2020-04-16 10:13] LABS: #Eosinphils 0.1 thou/uL (0.0-0.7); #Lymphocytes 1.1 thou/uL (1.20-3.40); #Monocytes 0.5 thou/uL (0.11-0.59); #Neutrophils 5.3 thou/uL (1.40-6.50); %Basophils 0.4 % (0.0-1.0); %Eosinophils 1.7 % (0.0-10.0); %Lymphocytes 16.2 % (21.0-51.0); %Monocytes 6.5 % (0.0-10.0); %Neutrophils 75.3 % (42.0-75.0); Hemoglobin 13.1 g/dL (14.0-18.0); Mean Corpuscular HGB CONC 34.7 g/dL (32.0-36.0); Mean Corpuscular Hemoglobin 32.5 pg (27.0-31.0); Mean Corpuscular Volume 93.7 fL (78.0-98.0); Mean Platelet Volume 8.1 fL (7.4-10.4); Platelet Count 238 thou/uL (130-400); RBC Distribution Width 12.3 % (11.5-14.5); Red Blood Cell (RBC) Count 4.02 mill/uL (4.70-6.10)
[2020-04-16 10:34] LABS: ALT (SGPT) 17 U/L (8-55); AST (SGOT) 20 U/L (5-34); Albumin 4.8 g/dL (3.5-5.0); Alkaline Phosphatase 94 U/L (40-110); Anion Gap 20 mmol/L (10-20); BUN (Urea Nitrogen) 15 mg/dL (8.9-20.6); Bilirubin, Total 0.9 mg/dL (0.2-1.2); CK (CPK) 737 U/L (30-200); Calc. Creatinine Clearance 0 mL/min (70-130); Calcium 9.7 mg/dL (7.8-10.44); Carbon Dioxide 20 mmol/L (22-29); Chloride 101 mmol/L (98-107); Glucose 88 mg/dL (70-105); Potassium 3.2 mmol/L (3.5-5.1); Protein, Total 7.8 g/dL (6.0-8.3); Sodium 138 mmol/L (136-145)
--- NOTE | 2020-04-16 10:51 | CT ---
CT OF LUMBAR SPINE PERFORMED WITHOUT CONTRAST ENHANCEMENT: HISTORY: Chronic back pain. History of metastatic testicular cancer. History of back fractures. COMPARISON: A 08/29/2019 exam. Review is also made of a CT of the chest, abdomen, and pelvis of 10/28/2019. FINDINGS: On the preliminary tool filer hand film, the right middle lobe lung mass shows a definite increase in size. Th e compression changes and Schmorl's node end plate changes involving the superior and inferior end pl ates of L1 are again noted. This is fairly stable. Compression changes and Schmorl's node changes i nvolving the superior end plate of L3 are also unchanged. The bones appear demineralized. The mixed sclerotic and lytic changes along the right SI joint involving both the right side of the sacrum and iliac bone do not appear appreciably different than the October study. There is no significant periaortic adenopathy demonstrated. The visualized kidneys are normal. L1-2: Unremarkable. L2-3: Unremarkable. L3-4: Unremarkable. L4-5: Unremarkable. L5-S1: No signs of disk herniation, canal or foraminal stenosis. IMPRESSION: 1. The bony change involving L1, L3, and the right sacroiliac joint all appear stable. 2. Enlarging right middle lobe lung mass is viewed on the tool filer hand image. POS: ARI
[2020-04-16] MEDS ORDERED: HYDROmorphone 0.5 MG/0.5 ML SYRINGE ONE (12:15)
[2020-04-16] MEDS ORDERED: traMADol HCl 50 MG TAB PO PRN ×2 (13:06)
--- NOTE | 2020-04-16 13:09 | PDOC.HHP ---
Hospitalist HPI - History of Present Illness Back pain History of Present Illness: Patient is a pleasant 29-year-old gentleman who has a history of metastatic testicular cancer. He reports that he has been having lower back pain over the last 2 months. He describes it is more on the right side of his back and radiating down his leg. He denies fevers or chills. He denies any urinary or fecal incontinence. He does report being constipated. He denies any urinary symptoms. Patient presented to the emergency room because of ongoing pain that was difficult to manage at home. ED Course: BP: 144/92, Pulse: 70, Resp: 16, Temp: 98.5 (Oral), Pain: 10, O2 sat: 99 on (Room Air), Time: 04/16/2020 09:05. Hospitalist ROS - Review of Systems Cardiovascular: denies: chest pain, palpitations, orthopnea, paroxysmal noc. dyspnea, edema, light headedness Gastrointestinal: reports: constipation. 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 Social history: Patient denies tobacco use, alcohol use or recreational drug use. Family history: No family history of premature coronary artery disease. - Exam General Appearance: awake alert Eye: anicteric sclera ENT: normocephalic atraumatic, no oropharyngeal lesions Neck: supple, symmetric, no thyromegaly Heart: RRR, no rubs Respiratory: CTAB, no rales, no ronchi, normal chest expansion Gastrointestinal: soft, non-tender, normal bowel sounds Extremities: no cyanosis Skin: no rashes Neurological - other findings: No saddle anesthesia, normal rectal sphincter tone Musculoskeletal: no muscle wasting Psychiatric: normal affect, normal behavior, oriented to person, oriented to place Hospitalist Results - Labs Result Diagrams: 04/16/20 10:02 04/16/20 10:02 Lab results: WBC 7.0 thou/uL (4.8-10.8) 04/16/20 10:02 Hgb 13.1 g/dL (14.0-18.0) L 04/16/20 10:02 Hct 37.6 % (42.0-52.0) L 04/16/20 10:02 MCV 93.7 fL (78.0-98.0) 04/16/20 10:02 Plt Count 238 thou/uL (130-400) 04/16/20 10:02 Neutrophils % 75.3 % (42.0-75.0) H 04/16/20 10:02 Sodium 138 mmol/L (136-145) 04/16/20 10:02 Potassium 3.2 mmol/L (3.5-5.1) L 04/16/20 10:02 Chloride 101 mmol/L (98-107) 04/16/20 10:02 Carbon Dioxide 20 mmol/L (22-29) L 04/16/20 10:02 BUN 15 mg/dL (8.9-20.6) 04/16/20 10:02 Creatinine 1.35 mg/dL (0.7-1.3) H 04/16/20 10:02 Glucose 88 mg/dL (70-105) 04/16/20 10:02 Lactic Acid 4.4 mmol/L (0.5-2.2) H* 04/16/20 10:02 Calcium 9.7 mg/dL (7.8-10.44) 04/16/20 10:02 Total Bilirubin 0.9 mg/dL (0.2-1.2) 04/16/20 10:02 AST 20 U/L (5-34) 04/16/20 10:02 ALT 17 U/L (8-55) 04/16/20 10:02 Alkaline Phosphatase 94 U/L (40-110) 04/16/20 10:02 Creatine Kinase 737 U/L (30-200) H 04/16/20 10:02 Serum Total Protein 7.8 g/dL (6.0-8.3) 04/16/20 10:02 Albumin 4.8 g/dL (3.5-5.0) 04/16/20 10:02 - Radiology Interpretation Other Additional Comment: CT OF LUMBAR SPINE PERFORMED WITHOUT CONTRAST ENHANCEMENT: HISTORY: Chronic back pain. History of metastatic testicular cancer. History of back fractures. COMPARISON: A 08/29/2019 exam. Review is also made of a CT of the chest, abdomen, and pelvis of 10/28/2019. FINDINGS: On the preliminary stringer up soldering machine film, the right middle lobe lung mass shows a definite increase in size. Th e compression changes and Schmorls node end plate changes involving the superior and inferior end pl ates of L1 are again noted. This is fairly stable. Compression changes and Schmorls node changes i nvolving the superior end plate of L3 are also unchanged. The bones appear demineralized. The mixed sclerotic and lytic changes along the right SI joint involving both the right side of the sacrum and iliac bone do not appear appreciably different than the October study. There is no significant periaortic adenopathy demonstrated. The visualized kidneys are normal. L1-2: Unremarkable. L2-3: Unremarkable. L3-4: Unremarkable. L4-5: Unremarkable. L5-S1: No signs of disk herniation, canal or foraminal stenosis. IMPRESSION: 1. The bony change involving L1, L3, and the right sacroiliac joint all appear stable. 2. Enlarging right middle lobe lung mass is viewed on the stringer up soldering machine image. Hospitalist H&P A/P - Problem (1) Back pain Code(s): M54.9 - DORSALGIA, UNSPECIFIED Status: Acute (2) CHAD (acute kidney injury) Code(s): N17.9 - ACUTE KIDNEY FAILURE, UNSPECIFIED Status: Acute (3) Rhabdomyolysis Code(s): M62.82 - RHABDOMYOLYSIS Status: Acute (4) Lactic acidosis Code(s): E87.2 - ACIDOSIS Status: Acute (5) Testicular malignancy Code(s): C62.90 - MALIG NEOPLASM OF UNSP TESTIS, UNSP DESCENDED OR UNDESCENDED Status: Chronic Qualifiers: Laterality: right - Plan Plan: Pain management with medications. IV fluids, recheck CK level. Check MRI of the lumbar spine to rule out cauda equina. If needed, consult pain service for management of pain. Replace potassium. Recheck creatinine and electrolytes after IV hydration. Bowel regimen. Level of risk: Moderate All of complexity: Moderate Estimated length of stay: Greater than 2 midnights Primary CARE provider: Dr. Suellen Arrieta
[2020-04-16 13:12] LABS: Lactic Acid 2.4 mmol/L (0.5-2.2)
[2020-04-16] MEDS ORDERED: Acetaminophen 325 MG TAB PO PRN (13:17)
[2020-04-16 13:20] LABS: Bilirubin Negative (Negative); Blood, Urine Negative (Negative); Clarity Clear (Clear); Glucose, Urine (Dipstick) Normal (Negative); Ketone, Urine 100 mg/dL (Negative); Leukocyte Negative Leu/uL (Negative); Nitrite Negative (Negative); Protein, Urine (Dipstick) 10 mg/dL (Neg-Trace); Specific Gravity, Urine 1.025 (1.002-1.036); Urobilinogen 3 mg/dL (Less than 2); pH, Urine 6.5 (5.0-9.0)
[2020-04-16] MEDS ORDERED: Magnesium Citrate 300 ML BOT PO SCH ×2 (13:30→15:30)
[2020-04-16 14:15] VITALS: BMI 25.6
[2020-04-16] MEDS: Morphine 2 MG/ML VIAL SLOW IVP PRN ×2 (15:51→19:55)
[2020-04-16] MEDS: Ondansetron PF 4 MG/2 ML Vial IVP PRN (20:10)
[2020-04-17] MEDS: Morphine 2 MG/ML VIAL SLOW IVP PRN ×6 (00:10→21:37)
[2020-04-17 04:58] LABS: #Eosinphils 0.1 thou/uL (0.0-0.7); #Lymphocytes 1.3 thou/uL (1.20-3.40); #Monocytes 0.6 thou/uL (0.11-0.59); #Neutrophils 3.9 thou/uL (1.40-6.50); %Basophils 0.3 % (0.0-1.0); %Eosinophils 1.5 % (0.0-10.0); %Lymphocytes 21.5 % (21.0-51.0); %Monocytes 10.2 % (0.0-10.0); %Neutrophils 66.4 % (42.0-75.0); Hemoglobin 12.6 g/dL (14.0-18.0); Mean Corpuscular HGB CONC 34.3 g/dL (32.0-36.0); Mean Corpuscular Hemoglobin 32.9 pg (27.0-31.0); Mean Corpuscular Volume 95.8 fL (78.0-98.0); Mean Platelet Volume 8.1 fL (7.4-10.4); Platelet Count 218 thou/uL (130-400); RBC Distribution Width 12.3 % (11.5-14.5); Red Blood Cell (RBC) Count 3.82 mill/uL (4.70-6.10); White Blood Cell (WBC) Count 5.9 thou/uL (4.8-10.8)
[2020-04-17 05:19] LABS: Anion Gap 14 mmol/L (10-20); BUN (Urea Nitrogen) 13 mg/dL (8.9-20.6); CK (CPK) 625 U/L (30-200); Calc. Creatinine Clearance 92 mL/min (70-130); Calcium 9.1 mg/dL (7.8-10.44); Carbon Dioxide 25 mmol/L (22-29); Chloride 100 mmol/L (98-107); Glucose 93 mg/dL (70-105); Potassium 3.3 mmol/L (3.5-5.1); Sodium 136 mmol/L (136-145)
[2020-04-17] MEDS: Enoxaparin Sodium 40 MG/0.4 ML SYRINGE SC SCH (08:45)
[2020-04-17] MEDS ORDERED: Prevnar 13-Val Conj/PF 0.5 ML SYRINGE IM ONE (09:00)
[2020-04-17] MEDS ORDERED: Magnevist 469MG/ML 20 ML VIAL ONE (10:50)
[2020-04-17] MEDS ORDERED: Morphine 4 MG/ML VIAL SLOW IVP SCH (11:15)
--- NOTE | 2020-04-17 11:53 | MRI ---
MRI of thelumbar spine with and without contrast: 04/17/2020 COMPARISON:08/30/2019 HISTORY:Metastatic testicular cancer TECHNIQUE: Multiplanar multisequence MR imaging of thelumbar spine with and without contrast Findings:The sagittal STIR imaging demonstrates increased signal intensity within the partially image d right sacral ala associated with a stable metastatic lesion. There is new increased STIR signal within the paraspinal musculature posterior to the L4-5 facet joints, right greater than left. Conus medullaris terminates at T12-L1. T12-L1: Disc space narrowing with disc desiccation and mild disc bulge. Mild bilateral facet hypertro phy with no significant central canal or neural foraminal stenosis. L1-2: Unremarkable L2-3: Unremarkable L3-4: Unremarkable L4-5: Unremarkable L5-S1: Unremarkable. There is a T2 hypointense lesion within the right sacral ala on coronal imaging demonstrates the exte nsion into the right S1, S2, and likely, the S3 neural foramina. There is an anterior and a posterior soft tissue component of this lesion within the right sacral ala. When compared to the 2019 examination, this lesion has not significantly changed. The postcontrast imaging demonstrates nonspecific enhancement involving the posterior paraspinal soft tissues posterior to bilateral L4-5 facet joints. As on the prior examination, the lesion within the right sacral ala demonstrates anterior extension i nto the region of the piriformis muscle on the right. Anterior soft tissue component does not appear significantly changed when taking into account differences in patient positioning. There is st randing and enhancement involving the partially imaged inferior aspect of the psoas muscle and iliacus muscle on the right as well, more prominent than on the prior exam. This is nonmass-like and likely associated with radiation change. There is extension of the metastatic lesion across the right sacroiliac joint as before, with enhancement involving the posterior aspect of the right iliac bone. There is a partially visualized enhancing lesion within the superior aspect of the iliac wing, better assessed on prior CT performed 10/28/2019. IMPRESSION:Osseous metastatic disease within the pelvis on the right. Increasing/new soft tissue romel a and enhancement in the right hemipelvis suggest radiation change.
--- NOTE | 2020-04-17 14:27 | PDOC.HOSPP ---
- Subjective Encounter Date: 04/17/20 Encounter Time: 07:00 Subjective: Patient seen for follow-up regarding back pain. He denies fevers or chills. Reports pain medication is helping. - Objective Vital Signs & Weight: Vital Signs (12 hours) Temp Pulse Resp BP Pulse Ox 04/17/20 12:00 99.5 F 98 20 126/84 100 04/17/20 08:00 98.4 F 64 20 133/88 100 04/17/20 07:04 100 04/17/20 04:00 99.0 F 84 16 158/96 H 100 Weight Weight 168 lb 9.6 oz Result Diagrams: 04/17/20 04:20 04/17/20 04:19 Additional Labs: Labs and MAR reviewed by sc Hospitalist ROS - Review of Systems Gastrointestinal: denies: nausea, vomiting, abdominal pain, diarrhea, constipation, melena, hematochezia Genitourinary: denies: dysuria, frequency, incontinence, hematuria, retention, other Musculoskeletal: reports: back pain. denies: neck pain, shoulder pain, arm pain, hand pain, leg pain, foot pain - Medication Medications: Active Medications Generic Name Dose Route Start Last Admin Trade Name Freq PRN Reason Stop Dose Admin Enoxaparin Sodium 40 mg 04/17/20 09:00 04/17/20 08:45 Enoxaparin Sodium 40 Mg/0.4 Ml Syringe SC 40 mg 0900 KIKE Administration Morphine Sulfate 2 mg 04/16/20 13:06 04/17/20 08:45 Morphine 2 Mg/Ml Vial SLOW IVP 2 mg Q4H PRN Administration Pain Ondansetron HCl 4 mg 04/16/20 20:02 04/16/20 20:10 Ondansetron Pf 4 Mg/2 Ml Vial IVP 4 mg Q6H PRN Administration Nausea/Vomiting - Exam General Appearance: awake alert Eye: anicteric sclera ENT: normocephalic atraumatic Neck: supple Heart: RRR Respiratory: CTAB Gastrointestinal: soft, non-tender Skin: no rashes Psychiatric: normal affect, normal behavior Hosp A/P (1) Back pain Code(s): M54.9 - DORSALGIA, UNSPECIFIED Status: Acute (2) CHAD (acute kidney injury) Code(s): N17.9 - ACUTE KIDNEY FAILURE, UNSPECIFIED Status: Acute (3) Rhabdomyolysis Code(s): M62.82 - RHABDOMYOLYSIS Status: Acute (4) Lactic acidosis Code(s): E87.2 - ACIDOSIS Status: Acute (5) Testicular malignancy Code(s): C62.90 - MALIG NEOPLASM OF UNSP TESTIS, UNSP DESCENDED OR UNDESCENDED Status: Chronic Qualifiers: Laterality: right - Plan Await MRI of the lumbar spine. Lactic acidosis and rhabdomyolysis are improving. Change morphine to 2 mg IV every 3 hours as needed. DVT prophylaxis with low molecular weight heparin.
[2020-04-18] MEDS: Morphine 2 MG/ML VIAL SLOW IVP PRN ×4 (00:28→09:01)
[2020-04-18 04:38] LABS: #Eosinphils 0.1 thou/uL (0.0-0.7); #Monocytes 0.6 thou/uL (0.11-0.59); #Neutrophils 5.5 thou/uL (1.40-6.50); %Basophils 0.4 % (0.0-1.0); %Eosinophils 1.9 % (0.0-10.0); %Lymphocytes 13.7 % (21.0-51.0); %Monocytes 7.8 % (0.0-10.0); %Neutrophils 76.2 % (42.0-75.0); Hemoglobin 12.6 g/dL (14.0-18.0); Mean Corpuscular HGB CONC 34.6 g/dL (32.0-36.0); Mean Corpuscular Hemoglobin 33.1 pg (27.0-31.0); Mean Corpuscular Volume 95.7 fL (78.0-98.0); Mean Platelet Volume 8.1 fL (7.4-10.4); Platelet Count 202 thou/uL (130-400); RBC Distribution Width 12.1 % (11.5-14.5); Red Blood Cell (RBC) Count 3.81 mill/uL (4.70-6.10); White Blood Cell (WBC) Count 7.2 thou/uL (4.8-10.8)
[2020-04-18 05:00] LABS: Anion Gap 13 mmol/L (10-20); BUN (Urea Nitrogen) 13 mg/dL (8.9-20.6); CK (CPK) 414 U/L (30-200); Calc. Creatinine Clearance 97 mL/min (70-130); Carbon Dioxide 28 mmol/L (22-29); Chloride 100 mmol/L (98-107); Glucose 90 mg/dL (70-105); Potassium 3.2 mmol/L (3.5-5.1); Sodium 138 mmol/L (136-145)
[2020-04-18] MEDS: Enoxaparin Sodium 40 MG/0.4 ML SYRINGE SC SCH (09:03)
[2020-04-18] MEDS: Ondansetron PF 4 MG/2 ML Vial IVP PRN ×2 (10:40→22:24)
[2020-04-18] MEDS ORDERED: Potassium Chloride 20 MEQ TAB PO SCH (12:00)
[2020-04-18] MEDS: Morphine 4 MG/ML VIAL SLOW IVP PRN ×3 (12:02→21:37)
[2020-04-18] MEDS: Lidocaine 5% Patch TD SCH (12:02)
[2020-04-18] MEDS: Ketorolac Tromethamine 30 MG/ML VIAL IVP SCH (12:10)
--- NOTE | 2020-04-18 17:04 | PDOC.HOSPP ---
- Subjective Encounter Date: 04/18/20 Encounter Time: 07:00 Subjective: Seen for follow-up regarding back pain. Reports mild relief with pain medications. - Objective Vital Signs & Weight: Vital Signs (12 hours) Temp Pulse Resp BP Pulse Ox 04/18/20 08:35 100 04/18/20 08:00 99.0 F 75 18 144/91 H 100 Weight Weight 168 lb 9.6 oz I&O: 04/17/20 04/18/20 04/19/20 06:59 06:59 06:59 Intake Total 1200 Balance 1200 Result Diagrams: 04/18/20 03:59 04/18/20 03:59 Additional Labs: I reviewed patient's labs and MAR Hospitalist ROS - Review of Systems Cardiovascular: denies: chest pain, palpitations, orthopnea, paroxysmal noc. dyspnea, edema, light headedness Gastrointestinal: denies: nausea, vomiting, abdominal pain, diarrhea, constipation, melena, hematochezia Musculoskeletal: reports: back pain - Medication Medications: Active Medications Generic Name Dose Route Start Last Admin Trade Name Freq PRN Reason Stop Dose Admin Enoxaparin Sodium 40 mg 04/17/20 09:00 04/18/20 09:03 Enoxaparin Sodium 40 Mg/0.4 Ml Syringe SC 40 mg 0900 KIKE Administration Ketorolac Tromethamine 30 mg 04/18/20 11:30 04/18/20 12:10 Ketorolac Tromethamine 30 Mg/Ml Vial IVP 04/23/20 13:30 30 mg NOW KIKE Administration Lidocaine 1 patch 04/18/20 11:15 04/18/20 12:02 Lidocaine 5% Patch TD 1 patch Q24H KIKE Administration Morphine Sulfate 4 mg 04/18/20 11:00 04/18/20 12:02 Morphine 4 Mg/Ml Vial SLOW IVP 4 mg Q4H PRN Administration Moderate to Severe Pain (6-10) Ondansetron HCl 4 mg 04/16/20 20:02 04/18/20 10:40 Ondansetron Pf 4 Mg/2 Ml Vial IVP 4 mg Q6H PRN Administration Nausea/Vomiting Tramadol HCl 100 mg 04/16/20 13:06 04/18/20 09:03 Tramadol Hcl 50 Mg Tab PO 100 mg Q6H PRN Administration Severe Pain (7-10) - Exam General Appearance: awake alert ENT: moist mucosa Neck: supple Heart: RRR Respiratory: CTAB Gastrointestinal: soft Skin: no rashes Psychiatric: normal affect, normal behavior Hosp A/P (1) Back pain Code(s): M54.9 - DORSALGIA, UNSPECIFIED Status: Acute (2) CHAD (acute kidney injury) Code(s): N17.9 - ACUTE KIDNEY FAILURE, UNSPECIFIED Status: Acute (3) Rhabdomyolysis Code(s): M62.82 - RHABDOMYOLYSIS Status: Acute (4) Lactic acidosis Code(s): E87.2 - ACIDOSIS Status: Acute (5) Testicular malignancy Code(s): C62.90 - MALIG NEOPLASM OF UNSP TESTIS, UNSP DESCENDED OR UNDESCENDED Status: Chronic Qualifiers: Laterality: right - Plan Consult oncology service for opinion and help with management. Lactic acidosis and rhabdomyolysis are improving. Change morphine to 4 mg IV every 4 hours as needed. DVT prophylaxis with low molecular weight heparin.
[2020-04-18] MEDS: Magnesium Citrate 300 ML BOT PO SCH (18:32)
[2020-04-18] MEDS: Ketorolac Tromethamine 30 MG/ML VIAL IVP PRN (18:34)
--- NOTE | 2020-04-18 18:44 | CON ---
DATE OF CONSULTATION: REASON FOR CONSULT: Testicular cancer. HISTORY OF PRESENT ILLNESS: Mr. 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 He was diagnosed in March 2018. He underwent an orchiectomy, then 4 cycles of chemotherapy with BEP. He then underwent a lung resection. He was having back pain and had radiation to the spine and ilium. He had recurrence in the right-sided sacroiliac region and again underwent radiation and was started on Gemzar, oxaliplatin. His last dose was in December. He has been struggling with financial issues and has been noncompliant with treatment. He has last been seen in December. He presented to the emergency room with worsening right leg pain and weakness. He underwent a lumbar spine MRI, which showed metastatic disease within the pelvis on the right. There was new soft tissue edema and enhancement in the right hemipelvis suggestive of the radiation changes. He was taking gabapentin at some point, but he has not taken in several months. His pain has been better controlled with morphine. He has also had intermittent nausea and constipation. Currently, he denies any chest pain or shortness of breath. No urinary problems. PAST MEDICAL HISTORY: Metastatic testicular cancer. PAST SURGICAL HISTORY: 1. Right radical orchiectomy. 2. MediPort placement. ALLERGIES: NO KNOWN DRUG ALLERGIES. HOME MEDICATIONS: None. FAMILY HISTORY: He had an uncle with colon cancer. SOCIAL HISTORY: Single. Former smoker. Marijuana use. REVIEW OF SYSTEMS: 12-point review of systems is negative except for noted in HPI. PHYSICAL EXAMINATION: VITAL SIGNS: Temperature is 99.0, pulse is 75, respiratory rate 18, blood pressure is 144/91, he is 100% on room air. GENERAL: A well-developed, well-nourished male, in no acute distress. HEENT: Normocephalic, atraumatic. Pupils are equal and reactive to light. NECK: Supple. CV: Regular rate and rhythm. LUNGS: Clear. ABDOMEN: Soft. Bowel sounds are positive. EXTREMITIES: No clubbing or cyanosis. SKIN: No rash. NEUROLOGIC: He has 5/5 left lower extremity strength, 4/5 right lower extremity strength. PERTINENT LABS AND X-RAYS: WBC is 7.2, hemoglobin 12.6, hematocrit 36.4, platelet count is 202,000, 76% neutrophils, 14% lymphocytes. Sodium 138, potassium 3.2, chloride 100, CO2 is 28, BUN is 13, creatinine 1.21, lactic acid 2.4, calcium 9, bilirubin 0.9, AST is 20, ALT 17, alkaline phosphatase is 94. Creatine kinase is . Serum total protein 7.8, albumin 4.8, globulin 3. Urine is negative. Radiology per HPI. ASSESSMENT: 1. Metastatic testicular cancer with right pelvic bone metastasis. 2. Right lower extremity pain secondary to cancer. DISCUSSION: The patient's pain is controlled with Toradol, morphine, and tramadol. He has taken gabapentin in the past with good results. We will resume that here. The patient can be discharged home once his pain is stable to follow up with Dr. Romo. He has an appointment with him next week on April 25 at 9:15 a.m. to further discuss treatment. I will check his tumor markers here. Thank you for the consult. Job ID: [id number]
[2020-04-18] MEDS: Gabapentin 300 MG CAP PO SCH (21:37)
[2020-04-19] MEDS: Ketorolac Tromethamine 30 MG/ML VIAL IVP PRN ×3 (00:46→11:38)
[2020-04-19] MEDS: Morphine 4 MG/ML VIAL SLOW IVP PRN ×2 (01:40→05:34)
[2020-04-19] MEDS: Ondansetron PF 4 MG/2 ML Vial IVP PRN (05:34)
[2020-04-19 07:20] LABS: #Eosinphils 0.1 thou/uL (0.0-0.7); #Lymphocytes 0.8 thou/uL (1.20-3.40); #Monocytes 0.4 thou/uL (0.11-0.59); #Neutrophils 3.4 thou/uL (1.40-6.50); %Basophils 0.4 % (0.0-1.0); %Eosinophils 3.1 % (0.0-10.0); %Lymphocytes 15.9 % (21.0-51.0); %Monocytes 8.7 % (0.0-10.0); %Neutrophils 71.9 % (42.0-75.0); Hemoglobin 12.3 g/dL (14.0-18.0); Mean Corpuscular HGB CONC 33.9 g/dL (32.0-36.0); Mean Corpuscular Hemoglobin 32.3 pg (27.0-31.0); Mean Corpuscular Volume 95.3 fL (78.0-98.0); Platelet Count 184 thou/uL (130-400); RBC Distribution Width 12.1 % (11.5-14.5); White Blood Cell (WBC) Count 4.7 thou/uL (4.8-10.8)
[2020-04-19 07:36] LABS: Anion Gap 15 mmol/L (10-20); BUN (Urea Nitrogen) 18 mg/dL (8.9-20.6); CK (CPK) 325 U/L (30-200); Calc. Creatinine Clearance 87 mL/min (70-130); Calcium 8.8 mg/dL (7.8-10.44); Carbon Dioxide 27 mmol/L (22-29); Chloride 100 mmol/L (98-107); Glucose 86 mg/dL (70-105); Potassium 3.5 mmol/L (3.5-5.1); Sodium 138 mmol/L (136-145)
[2020-04-19] MEDS: Ketorolac Tromethamine 30 MG/ML VIAL IVP SCH (07:58)
[2020-04-19] MEDS: Magnesium Citrate 300 ML BOT PO SCH (08:00)
[2020-04-19] MEDS: Enoxaparin Sodium 40 MG/0.4 ML SYRINGE SC SCH (09:17)
[2020-04-19] MEDS: Gabapentin 300 MG CAP PO SCH (09:17)
[2020-04-19] MEDS ORDERED: Morphine 2 MG/ML VIAL SLOW IVP PRN (10:15)
[2020-04-19] MEDS: Lidocaine 5% Patch TD SCH (11:38)
[2020-04-19] MEDS ORDERED: Acetaminophen/Codeine 30-300mg Tablet PO PRN (12:19)
--- NOTE | 2020-04-19 12:39 | PDOC.DS.DS ---
Provider - Provider Date of Admission: 04/16/20 12:31 Date of Discharge: 04/19/20 Admitting Provider: Melanie Whitlock MD Consultations: Oncology (Ms. Guevara) Primary Care Physician: [facility] Course - Hospital Course Hospital Course: Discharge diagnosis: 1. Acute kidney injury 2. Rhabdomyolysis 3. Lactic acidosis 4. Intractable back pain 5. Hypokalemia Hospital course: Patient is a pleasant 29-year-old gentleman who was admitted to the hospital on April 16, 2020 for intractable back pain. She was treated with pain medications. MRI of the lumbar spine showed osseous metastatic disease within the pelvis on the right. She had increasing/new soft tissue edema and enhancement in the right hemipelvis with suggested radiation change. He was seen by oncology service. He was started on gabapentin with improvement in his symptoms. Rhabdomyolysis improved. He is being discharged home in a stable condition. Many thanks for allowing me to participate in your patient's care. Please feel free to contact me with any questions or concerns. Discharge destination: Home. Total amount of time spent coordinating this discharge: 32 minutes - Labs Lab Results: 04/19/20 06:40 04/19/20 06:40 Abnormal Lab Results - Last 48 hrs 04/18/20 03:59: Potassium 3.2 L, Creatine Kinase 414 H 04/18/20 03:59: RBC 3.81 L, Hgb 12.6 L, Hct 36.4 L, MCH 33.1 H, Neutrophils % 76.2 H, Lymphocytes % 13.7 L, Lymphocytes # 1.0 L, Monocytes # 0.6 H 04/18/20 16:56: Tumor Marker AFP 1098.8 H 04/19/20 06:40: Creatinine 1.35 H, Creatine Kinase 325 H 04/19/20 06:40: WBC 4.7 L, RBC 3.80 L, Hgb 12.3 L, Hct 36.2 L, MCH 32.3 H, Lymphocytes % 15.9 L, Lymphocytes # 0.8 L - Physical Exam Vitals: Vital Signs (12 hours) Temp Pulse Resp BP Pulse Ox 04/19/20 08:00 98.2 F 68 16 133/84 99 Weight Weight 168 lb 9.6 oz Physical Exam: The patient was seen and examined on the day of discharge. Patient denies chest pain or shortness of breath. Vital signs are stable. S1 and S2 are heard. Lungs are clear to auscultation bilaterally. Problem - Problem (1) Back pain Code(s): M54.9 - DORSALGIA, UNSPECIFIED Status: Acute (2) CHAD (acute kidney injury) Code(s): N17.9 - ACUTE KIDNEY FAILURE, UNSPECIFIED Status: Acute (3) Rhabdomyolysis Code(s): M62.82 - RHABDOMYOLYSIS Status: Acute (4) Lactic acidosis Code(s): E87.2 - ACIDOSIS Status: Acute (5) Testicular malignancy Code(s): C62.90 - MALIG NEOPLASM OF UNSP TESTIS, UNSP DESCENDED OR UNDESCENDED Status: Chronic Qualifiers: Laterality: right Plan - Discharge Medications Prescriptions: Acetaminophen W/ Codeine [Acetaminophen/Codeine #3] 1 tab PO Q6H PRN #20 tab PRN Reason: Pain Gabapentin [Neurontin] 300 mg PO BID #60 cap Sennosides [Senokot] 1 tab PO BID #30 tab Home Medications: Medication Instructions Recorded Confirmed Type Acetaminophen W/ Codeine 1 tab PO Q6H PRN #20 tab 04/19/20 Rx [Acetaminophen/Codeine #3] Gabapentin [Neurontin] 300 mg PO BID #60 cap 04/19/20 Rx Sennosides [Senokot] 1 tab PO BID #30 tab 04/19/20 Rx Allergies: No Known Drug Allergies Allergy (Verified 04/16/20 14:20) - Discharge Instructions Activity:: Activity as Tolerated Nourishment:: Regular Diet - Follow up Plan Referrals: [facility] [Primary Care Provider] - 3 Days Luis Romo MD [Active] - Disposition: HOME Quality - Care Measures CORE MEASURES:: N/A
[2020-04-19 12:40] VITALS: BP 133/80; TEMP 98.8
== END 2020-04-19 13:50 | disposition home or self-care (01) | DRG 543 ==
LOC: ERS 09:04 → ONC 12:31
PROVIDERS: ADMIT Internal Medicine; ATTEND Internal Medicine
DX: C79.51 Secondary malignant neoplasm of bone (principal); N17.9 Acute kidney failure, unspecified; M62.82 Rhabdomyolysis; E87.2 Acidosis; C79.31 Secondary malignant neoplasm of brain; C79.89 Secondary malignant neoplasm of other specified sites; C62.90 Malignant neoplasm of unspecified testis, unspecified whether descended or undescended; Z92.21 Personal history of antineoplastic chemotherapy; Z87.891 Personal history of nicotine dependence; E87.6 Hypokalemia
CPT/HCPCS: 36415; 72131; 72158; 80048; 80053; 81003; 82105; 82550; 83605; 84702; 85025; 90471; 90670; 96374; 96375; 96376; A9579; G0009; J1170; J1650; J1885; J2270; J2405; J3010

== ENCOUNTER 2020-04-26 05:17 | Emergency (ER) | payer OTHER, SELFPAY ==
[2020-04-26] MEDS ORDERED: Lorazepam 1 MG TAB ONE (05:42)
[2020-04-26 06:36] LABS: #Eosinphils 0.1 thou/uL (0.0-0.7); #Monocytes 0.5 thou/uL (0.11-0.59); #Neutrophils 4.1 thou/uL (1.40-6.50); %Basophils 0.8 % (0.0-1.0); %Eosinophils 1.3 % (0.0-10.0); %Lymphocytes 16.9 % (21.0-51.0); %Monocytes 8.1 % (0.0-10.0); %Neutrophils 72.9 % (42.0-75.0); Hemoglobin 11.3 g/dL (14.0-18.0); Mean Corpuscular Hemoglobin 31.3 pg (27.0-31.0); Mean Corpuscular Volume 94.9 fL (78.0-98.0); Mean Platelet Volume 7.5 fL (7.4-10.4); Platelet Count 213 thou/uL (130-400); White Blood Cell (WBC) Count 5.7 thou/uL (4.8-10.8)
--- NOTE | 2020-04-29 11:50 | EKG ---
Test Reason : Blood Pressure : / mmHG Vent. Rate : 105 BPM Atrial Rate : 105 BPM P-R Int : 154 ms QRS Dur : 086 ms QT Int : 362 ms P-R-T Axes : 057 066 040 degrees QTc Int : 478 ms Sinus tachycardia Otherwise normal ECG Confirmed by MARITA CEBALLOS M.D. ([id number]), story editor CECILE GUTIERREZ ([id number]) on 04/29/2020 11:50:01 AM Referred By: Confirmed By:MARITA CEBALLOS M.D.
== END 2020-04-26 06:41 | disposition left against medical advice (07) ==
LOC: ERS 05:17
DX: M54.5 Low back pain (principal)
CPT/HCPCS: 36415; 85025; 93005; 94760

== ENCOUNTER 2020-05-17 11:50 | Day surgery (SDC) | payer OTHER ==
[~2020-05-17 11:50] MED LIST changes: +DEXTROSE 5% IVPB SCH; +Dexamethasone Sod Phosphate 10 MG, Ondansetron 2MG/ML MDV 10 MG in Sodium Chloride 0.9%... IVPB SCH; +OXALIPLATIN IVPB SCH; -Ondansetron 2MG/ML MDV 10 MG, Dexamethasone Sod Phosphate 10 MG in Sodium Chloride 0.9%... IVPB SCH; +WATER IVPB SCH
[2020-05-17 11:55] VITALS: BP 127/87
== END 2020-05-17 15:48 | disposition home or self-care (01) ==
LOC: ONC/OP 11:50
PROVIDERS: ATTEND Internal Medicine Hematology & Oncology
DX: Z51.11 Encounter for antineoplastic chemotherapy (principal); C62.11 Malignant neoplasm of descended right testis
CPT/HCPCS: 96375; 96413; 96415; 96417; J1100; J2405; J7050; J7070; J9201; J9263

== ENCOUNTER 2020-05-24 08:19 | Day surgery (SDC) | payer OTHER ==
[~2020-05-24 08:19] MED LIST changes: -DEXTROSE 5% IVPB SCH; -OXALIPLATIN IVPB SCH; -WATER IVPB SCH
[2020-05-24] MEDS ORDERED: Sodium Chloride 0.9% 20 ML ONE (08:25)
[2020-05-24 08:48] VITALS: BP 135/86; TEMP 98
[2020-05-24 08:52] LABS: #Eosinphils 0.1 thou/uL (0.0-0.7); #Lymphocytes 0.8 thou/uL (1.20-3.40); #Monocytes 0.2 thou/uL (0.11-0.59); #Neutrophils 1.3 thou/uL (1.40-6.50); %Basophils 1.3 % (0.0-1.0); %Eosinophils 2.6 % (0.0-10.0); %Lymphocytes 33.6 % (21.0-51.0); %Monocytes 7.4 % (0.0-10.0); %Neutrophils 55.1 % (42.0-75.0); Hemoglobin 11.9 g/dL (14.0-18.0); Mean Corpuscular HGB CONC 34.8 g/dL (32.0-36.0); Mean Corpuscular Hemoglobin 31.3 pg (27.0-31.0); Mean Corpuscular Volume 89.8 fL (78.0-98.0); Mean Platelet Volume 9.3 fL (7.4-10.4); Platelet Count 124 thou/uL (130-400); RBC Distribution Width 11.6 % (11.5-14.5); Red Blood Cell (RBC) Count 3.81 mill/uL (4.70-6.10); White Blood Cell (WBC) Count 2.4 thou/uL (4.8-10.8)
== END 2020-05-24 13:02 | disposition home or self-care (01) ==
LOC: ONC/OP 08:19
PROVIDERS: ATTEND Internal Medicine Hematology & Oncology
DX: Z51.11 Encounter for antineoplastic chemotherapy (principal); C62.11 Malignant neoplasm of descended right testis
CPT/HCPCS: 85025; 96375; 96413; J1100; J1642; J2405; J7050; J9201

== ENCOUNTER 2020-06-07 10:24 | Day surgery (SDC) | payer OTHER ==
[~2020-06-07 10:24] MED LIST changes: +DEXTROSE 5% IVPB SCH; +OXALIPLATIN IVPB SCH; +WATER IVPB SCH
[2020-06-07 10:38] VITALS: BP 132/62; TEMP 98
[2020-06-07] MEDS ORDERED: Sodium Chloride 0.9% 20 ML ONE (12:23)
== END 2020-06-07 14:06 | disposition home or self-care (01) ==
LOC: ONC/OP 10:24
PROVIDERS: ATTEND Internal Medicine Hematology & Oncology
DX: Z51.11 Encounter for antineoplastic chemotherapy (principal); C62.11 Malignant neoplasm of descended right testis
CPT/HCPCS: 96375; 96413; 96415; 96417; J1100; J1642; J2405; J7050; J7070; J9201; J9263

== ENCOUNTER 2020-06-28 10:55 | Day surgery (SDC) | payer OTHER ==
[2020-06-28 12:02] VITALS: BP 102/60; TEMP 98.4
== END 2020-06-28 15:23 | disposition home or self-care (01) ==
LOC: ONC/OP 10:55
PROVIDERS: ATTEND Internal Medicine Hematology & Oncology
DX: Z51.11 Encounter for antineoplastic chemotherapy (principal); C62.11 Malignant neoplasm of descended right testis
CPT/HCPCS: 96375; 96413; 96415; 96417; J1100; J2405; J7050; J7070; J9201; J9263

== ENCOUNTER 2020-07-05 09:41 | Day surgery (SDC) | payer OTHER ==
[~2020-07-05 09:41] MED LIST changes: -DEXTROSE 5% IVPB SCH; -OXALIPLATIN IVPB SCH; -WATER IVPB SCH
== END 2020-07-05 11:04 | disposition home or self-care (01) ==
LOC: ONC/OP 09:41
PROVIDERS: ATTEND Internal Medicine Hematology & Oncology
DX: Z51.11 Encounter for antineoplastic chemotherapy (principal); C62.11 Malignant neoplasm of descended right testis
CPT/HCPCS: 99211; G0463; J1100; J2405; J7050; J9201

== ENCOUNTER 2020-07-06 10:23 | Day surgery (SDC) | payer OTHER ==
[2020-07-06] MEDS ORDERED: Sodium Chloride 0.9% 20 ML ONE (10:35)
[2020-07-06 10:39] VITALS: BP 114/72; TEMP 98.6
== END 2020-07-06 12:37 | disposition home or self-care (01) ==
LOC: ONC/OP 10:23
PROVIDERS: ATTEND Internal Medicine Hematology & Oncology
DX: Z51.11 Encounter for antineoplastic chemotherapy (principal); C62.11 Malignant neoplasm of descended right testis
CPT/HCPCS: 96375; 96413; J1100; J1642; J2405; J7050; J9201

== ENCOUNTER 2020-07-18 09:19 | Outpatient (CLI) | payer OTHER ==
[~2020-07-18 09:19] MED LIST changes: -Dexamethasone Sod Phosphate 10 MG, Ondansetron 2MG/ML MDV 10 MG in Sodium Chloride 0.9%... IVPB SCH; -GEMCITABINE HCL IVPB SCH; +Iopamidol 370 76% 100 ML VIAL ONE; -SODIUM CHLORIDE 0.9% IVPB SCH
== END 2020-07-18 09:20 | disposition home or self-care (01) ==
LOC: CT 09:19
PROVIDERS: ATTEND Internal Medicine Hematology & Oncology
DX: C62.11 Malignant neoplasm of descended right testis (principal); C78.00 Secondary malignant neoplasm of unspecified lung; C79.51 Secondary malignant neoplasm of bone; R91.1 Solitary pulmonary nodule; R91.8 Other nonspecific abnormal finding of lung field; M89.8X8 Other specified disorders of bone, other site
CPT/HCPCS: 71260; 74177; 78306; A9503; Q9967

== ENCOUNTER 2020-07-19 09:56 | Day surgery (SDC) | payer OTHER ==
[~2020-07-19 09:56] MED LIST changes: +DEXTROSE 5% IVPB SCH; +Dexamethasone Sod Phosphate 10 MG, Ondansetron 2MG/ML MDV 10 MG in Sodium Chloride 0.9%... IVPB SCH; +GEMCITABINE HCL IVPB SCH; -Iopamidol 370 76% 100 ML VIAL ONE; +OXALIPLATIN IVPB SCH; +SODIUM CHLORIDE 0.9% IVPB SCH; +WATER IVPB SCH
[2020-07-19 10:16] VITALS: BP 109/58; TEMP 97.9
[2020-07-19] MEDS ORDERED: Potassium Chloride 20 MEQ in Sodium Chloride 0.9% 250 ML 250 ML IVPB SCH (11:30)
== END 2020-07-19 15:09 | disposition home or self-care (01) ==
LOC: ONC/OP 09:56
PROVIDERS: ATTEND Internal Medicine Hematology & Oncology
DX: Z51.11 Encounter for antineoplastic chemotherapy (principal); C62.11 Malignant neoplasm of descended right testis
CPT/HCPCS: 96375; 96413; 96415; 96417; J1100; J1453; J1642; J2405; J3480; J3490; J7050; J7070; J9201; J9263

== ENCOUNTER 2020-07-26 09:14 | Day surgery (SDC) | payer OTHER ==
[~2020-07-26 09:14] MED LIST changes: -DEXTROSE 5% IVPB SCH; -OXALIPLATIN IVPB SCH; -WATER IVPB SCH
[2020-07-26] MEDS ORDERED: Sodium Chloride 0.9% 20 ML ONE (09:25)
== END 2020-07-26 12:28 | disposition home or self-care (01) ==
LOC: ONC/OP 09:14
PROVIDERS: ATTEND Internal Medicine Hematology & Oncology
DX: Z51.11 Encounter for antineoplastic chemotherapy (principal); C62.11 Malignant neoplasm of descended right testis
CPT/HCPCS: 96367; 96375; 96413; J1100; J1453; J1642; J2405; J3490; J7050; J9201

== ENCOUNTER 2020-08-30 10:28 | Day surgery (SDC) | payer OTHER ==
[~2020-08-30 10:28] MED LIST changes: +DEXTROSE 5% IVPB SCH; +OXALIPLATIN IVPB SCH; +WATER IVPB SCH
[2020-08-30] MEDS ORDERED: Sodium Chloride 0.9% 20 ML ONE (10:31)
[2020-08-30 10:37] VITALS: BP 115/62; TEMP 98.1
== END 2020-08-30 14:37 | disposition home or self-care (01) ==
LOC: ONC/OP 10:28
PROVIDERS: ATTEND Internal Medicine Hematology & Oncology
DX: Z51.11 Encounter for antineoplastic chemotherapy (principal); C62.11 Malignant neoplasm of descended right testis
CPT/HCPCS: 96367; 96375; 96413; 96415; 96417; J1100; J1453; J1642; J2405; J3490; J7050; J7070; J9201; J9263

== ENCOUNTER 2020-09-06 10:02 | Day surgery (SDC) | payer OTHER ==
[~2020-09-06 10:02] MED LIST changes: -DEXTROSE 5% IVPB SCH; -OXALIPLATIN IVPB SCH; -WATER IVPB SCH
[2020-09-06] MEDS ORDERED: Sodium Chloride 0.9% 20 ML ONE (10:06)
[2020-09-06 10:22] VITALS: BP 125/76; TEMP 98.4
== END 2020-09-06 12:52 | disposition home or self-care (01) ==
LOC: ONC/OP 10:02
PROVIDERS: ATTEND Internal Medicine Hematology & Oncology
DX: Z51.11 Encounter for antineoplastic chemotherapy (principal); C62.11 Malignant neoplasm of descended right testis
CPT/HCPCS: 96367; 96375; 96413; J1100; J1453; J1642; J2405; J3490; J7050; J9201

== ENCOUNTER 2020-09-27 11:10 | Day surgery (SDC) | payer OTHER ==
[~2020-09-27 11:10] MED LIST changes: +DEXTROSE 5% IVPB SCH; +OXALIPLATIN IVPB SCH; +WATER IVPB SCH
[2020-09-27] MEDS ORDERED: Sodium Chloride 0.9% 20 ML ONE (11:16)
[2020-09-27 11:41] VITALS: BP 124/62; TEMP 99.7
[2020-09-27] MEDS ORDERED: GEMZAR IVPB SCH (13:15)
[2020-09-27] MEDS ORDERED: SODIUM CHLORIDE 0.9% IVPB SCH (13:15)
== END 2020-09-27 17:23 | disposition home or self-care (01) ==
LOC: ONC/OP 11:10
PROVIDERS: ATTEND Internal Medicine Hematology & Oncology
DX: Z51.11 Encounter for antineoplastic chemotherapy (principal); C62.11 Malignant neoplasm of descended right testis
CPT/HCPCS: 96367; 96375; 96413; 96415; 96417; J1100; J1453; J1642; J2405; J3490; J7050; J7070; J9201; J9263

== ENCOUNTER 2020-10-04 10:38 | Day surgery (SDC) | payer OTHER ==
[~2020-10-04 10:38] MED LIST changes: -DEXTROSE 5% IVPB SCH; -OXALIPLATIN IVPB SCH; +Sodium Chloride 0.9% 20 ML ONE; -WATER IVPB SCH
[2020-10-04 10:42] VITALS: BP 132/87; TEMP 98.6
== END 2020-10-04 12:32 | disposition home or self-care (01) ==
LOC: ONC/OP 10:38
PROVIDERS: ATTEND Internal Medicine Hematology & Oncology
DX: Z51.11 Encounter for antineoplastic chemotherapy (principal); C62.11 Malignant neoplasm of descended right testis
CPT/HCPCS: 96375; 96413; J1100; J1453; J1642; J2405; J3490; J7050; J9201

== ENCOUNTER 2021-01-04 10:14 | Inpatient (IN) | payer MEDICARE ==
[2021-01-04] MEDS ORDERED: Ondansetron ODT 4 MG TAB ONE (10:21)
[2021-01-04] MEDS ORDERED: Ondansetron PF 4 MG/2 ML Vial ONE ×2 (10:24→16:20)
[2021-01-04 11:20] LABS: ALT (SGPT) 8 U/L (8-55); AST (SGOT) 14 U/L (5-34); Albumin 4.2 g/dL (3.5-5.0); Alkaline Phosphatase 82 U/L (40-110); Anion Gap 17 mmol/L (10-20); BUN (Urea Nitrogen) 12 mg/dL (8.9-20.6); Bilirubin, Total 0.4 mg/dL (0.2-1.2); CK (CPK) 74 U/L (30-200); Calc. Creatinine Clearance 0 mL/min (70-130); Calcium 10.1 mg/dL (7.8-10.44); Carbon Dioxide 25 mmol/L (22-29); Chloride 99 mmol/L (98-107); Globulin 3.2 g/dL (2.4-3.5); Glucose 118 mg/dL (70-105); Potassium 3.1 mmol/L (3.5-5.1); Protein, Total 7.4 g/dL (6.0-8.3); Sodium 138 mmol/L (136-145)
[2021-01-04] MEDS ORDERED: Morphine 4 MG/ML VIAL ONE (11:26)
[2021-01-04 11:28] LABS: #Eosinphils 0.1 thou/uL (0.0-0.7); #Lymphocytes 1.3 thou/uL (1.20-3.40); #Monocytes 0.8 thou/uL (0.11-0.59); #Neutrophils 11.5 thou/uL (1.40-6.50); %Basophils 0.2 % (0.0-1.0); %Eosinophils 0.9 % (0.0-10.0); %Lymphocytes 9.6 % (21.0-51.0); %Monocytes 5.6 % (0.0-10.0); %Neutrophils 83.7 % (42.0-75.0); Hemoglobin 11.1 g/dL (14.0-18.0); Mean Corpuscular Hemoglobin 29.9 pg (27.0-31.0); Mean Corpuscular Volume 90.6 fL (78.0-98.0); Mean Platelet Volume 7.9 fL (7.4-10.4); Platelet Count 340 thou/uL (130-400); RBC Distribution Width 14.7 % (11.5-14.5); Red Blood Cell (RBC) Count 3.72 mill/uL (4.70-6.10); White Blood Cell (WBC) Count 13.7 thou/uL (4.8-10.8)
[2021-01-04 12:04] LABS: Actual Bicarbonate (HCO3v) 22 mEq/L (22-28); Analyzer IN Cardio ER; Base Excess -0.2 mEq/L (-2.0 to +3.0); Calcium, Ionized (venous) 1.07 mmol/L (1.16-1.32); Chloride (VBG) 99 mmol/L (98-106); Potassium (VBG) 3.36 mmol/L (3.70-5.30); Sodium 134.9 mmol/L (133-146); pH (venous) 7.51 (7.32-7.43)
[2021-01-04] MEDS ORDERED: Ondansetron PF 4 MG/2 ML Vial IVP PRN (12:56)
[2021-01-04] MEDS ORDERED: HYDROmorphone 0.5 MG/0.5 ML SYRINGE SLOW IVP SCH (13:00)
[2021-01-04] MEDS ORDERED: Acetaminophen 325 MG TAB PO PRN (13:05)
[2021-01-04] MEDS ORDERED: Bisacodyl 5 MG TAB PO PRN (13:05)
[2021-01-04] MEDS ORDERED: Acetaminophen 650 MG Suppository PR PRN (13:05)
[2021-01-04] MEDS ORDERED: Vancomycin 1 GM/200 ML BAG ONE (13:59)
[2021-01-04] MEDS ORDERED: Potassium Chloride 20 MEQ/100 ML PREMIX BAG ONE ×2 (13:59→16:34)
[2021-01-04] MEDS ORDERED: Enoxaparin Sodium 40 MG/0.4 ML SYRINGE ONE (13:59)
[2021-01-04] MEDS ORDERED: HYDROmorphone 0.5 MG/0.5 ML SYRINGE ONE (13:59)
[2021-01-04 14:06] LABS: Magnesium 1.5 mg/dL (1.6-2.6)
[2021-01-04] MEDS ORDERED: Magnesium Sulfate 4 GM in Sodium Chloride 0.9% 250 ML 250 ML IVPB SCH (14:30)
[2021-01-04] MEDS ORDERED: Pantoprazole 40 MG VIAL IVP SCH (14:45)
[2021-01-04] MEDS: Enoxaparin Sodium 40 MG/0.4 ML SYRINGE SC SCH (14:46)
[2021-01-04] MEDS: Potassium Chloride 20 MEQ in Premix Bag 1 BAG IVPB SCH ×2 (14:47→16:59)
[2021-01-04] MEDS: Sodium Chloride 0.9% 1,000 ML IV SCH ×2 (14:47→21:50)
[2021-01-04] MEDS: Vancomycin 1 GM in Premix Bag 1 BAG IVPB SCH (14:48)
[2021-01-04] MEDS ORDERED: Pantoprazole 40 MG VIAL ONE (15:14)
[2021-01-04 16:22] LABS: SARS-CoV-2 NAA Rapid Test Not Detected (NotDetected)
[2021-01-04 16:50] LABS: Bilirubin Negative (Negative); Blood, Urine Negative (Negative); Clarity Clear (Clear); Glucose, Urine (Dipstick) Normal (Negative); Ketone, Urine Negative (Negative); Leukocyte Negative Leu/uL (Negative); Nitrite Negative (Negative); Protein, Urine (Dipstick) Negative (Neg-Trace); Specific Gravity, Urine 1.012 (1.002-1.036); Urobilinogen Normal mg/dL (Less than 2); pH, Urine 7.5 (5.0-9.0)
[2021-01-04 17:56] LABS: Lactic Acid 1.3 mmol/L (0.5-2.2)
[2021-01-04] MEDS: Morphine 4 MG/ML VIAL SLOW IVP PRN ×2 (19:43→23:25)
[2021-01-04] MEDS: Metoclopramide HCl 10 MG/2 ML VIAL IVP PRN (20:23)
[2021-01-04] MEDS: Cefepime 1 GM in Sodium Chloride 0.9% 100 ML IVPB SCH (21:50)
[2021-01-04 21:52] VITALS: BMI 23.5
[2021-01-04 22:53] LABS: Bacteria/HPF None Seen HPF (None Seen); Bilirubin Negative (Negative); Blood, Urine Negative (Negative); Clarity Clear (Clear); Glucose, Urine (Dipstick) Normal (Negative); Ketone, Urine Negative (Negative); Leukocyte Negative Leu/uL (Negative); Nitrite Negative (Negative); Protein, Urine (Dipstick) Negative (Neg-Trace); RBC/HPF 0-3 HPF (0-3); Squamous Epithelial None Seen HPF (0-3); Urobilinogen Normal mg/dL (Less than 2); WBC/HPF 0-3 HPF (0-3)
[2021-01-04 22:56] LABS: Urine Culture Reflex No No
[2021-01-05] MEDS: Metoclopramide HCl 10 MG/2 ML VIAL IVP PRN ×3 (01:50→13:42)
[2021-01-05] MEDS: Vancomycin 1 GM in Premix Bag 1 BAG IVPB SCH ×2 (01:53→17:16)
[2021-01-05] MEDS ORDERED: Scopolamine 1.5 mg/72 hour Patch TOP PRN (02:11)
[2021-01-05] MEDS: Morphine 4 MG/ML VIAL SLOW IVP PRN (03:53)
[2021-01-05 04:09] LABS: #Lymphocytes 0.8 thou/uL (1.20-3.40); #Monocytes 0.9 thou/uL (0.11-0.59); #Neutrophils 7.1 thou/uL (1.40-6.50); %Basophils 0.3 % (0.0-1.0); %Eosinophils 0.4 % (0.0-10.0); %Lymphocytes 9.1 % (21.0-51.0); %Monocytes 9.7 % (0.0-10.0); %Neutrophils 80.5 % (42.0-75.0); Hemoglobin 9.7 g/dL (14.0-18.0); Mean Corpuscular HGB CONC 32.7 g/dL (32.0-36.0); Mean Corpuscular Hemoglobin 29.5 pg (27.0-31.0); Mean Corpuscular Volume 90.3 fL (78.0-98.0); Mean Platelet Volume 7.1 fL (7.4-10.4); Platelet Count 263 thou/uL (130-400); RBC Distribution Width 14.6 % (11.5-14.5); White Blood Cell (WBC) Count 8.8 thou/uL (4.8-10.8)
[2021-01-05 04:36] LABS: Anion Gap 13 mmol/L (10-20); BUN (Urea Nitrogen) 5 mg/dL (8.9-20.6); Calc. Creatinine Clearance 133 mL/min (70-130); Carbon Dioxide 26 mmol/L (22-29); Chloride 100 mmol/L (98-107); Glucose 104 mg/dL (70-105); Potassium 3.5 mmol/L (3.5-5.1); Sodium 135 mmol/L (136-145)
[2021-01-05] MEDS: Enoxaparin Sodium 40 MG/0.4 ML SYRINGE SC SCH (09:20)
[2021-01-05] MEDS: Pantoprazole 40 MG VIAL IVP SCH (09:20)
[2021-01-05] MEDS: Cefepime 1 GM in Sodium Chloride 0.9% 100 ML IVPB SCH ×2 (09:21→20:38)
[2021-01-05] MEDS: Potassium Chloride 20 MEQ in Premix Bag 1 BAG IVPB SCH ×2 (09:21→13:41)
[2021-01-05] MEDS: Sodium Chloride 0.9% 1,000 ML IV SCH ×3 (09:22→23:09)
[2021-01-05] MEDS: Amino Acids 4.25 %/Dextrose 5% 1,000 ML IV SCH (13:41)
[2021-01-05] MEDS: Ondansetron PF 4 MG/2 ML Vial IVP PRN (17:12)
[2021-01-05] MEDS: Promethazine 25 MG TAB PO PRN (19:40)
[2021-01-06] MEDS: Metoclopramide HCl 10 MG/2 ML VIAL IVP PRN ×2 (00:01→08:47)
[2021-01-06] MEDS: Amino Acids 4.25 %/Dextrose 5% 1,000 ML IV SCH ×2 (00:02→13:37)
[2021-01-06] MEDS: Morphine 4 MG/ML VIAL SLOW IVP PRN ×6 (00:05→23:22)
[2021-01-06] MEDS: Vancomycin 1 GM in Premix Bag 1 BAG IVPB SCH ×2 (03:57→18:10)
[2021-01-06] MEDS: Ondansetron PF 4 MG/2 ML Vial IVP PRN ×3 (05:06→23:22)
[2021-01-06 05:11] LABS: #Monocytes 0.9 thou/uL (0.11-0.59); #Neutrophils 4.8 thou/uL (1.40-6.50); %Basophils 0.4 % (0.0-1.0); %Eosinophils 0.7 % (0.0-10.0); %Lymphocytes 14.4 % (21.0-51.0); %Neutrophils 71.5 % (42.0-75.0); Mean Corpuscular Hemoglobin 28.9 pg (27.0-31.0); Mean Corpuscular Volume 90.3 fL (78.0-98.0); Mean Platelet Volume 7.1 fL (7.4-10.4); Platelet Count 295 thou/uL (130-400); RBC Distribution Width 14.6 % (11.5-14.5); Red Blood Cell (RBC) Count 3.11 mill/uL (4.70-6.10); White Blood Cell (WBC) Count 6.7 thou/uL (4.8-10.8)
[2021-01-06 05:30] LABS: Anion Gap 10 mmol/L (10-20); BUN (Urea Nitrogen) 10 mg/dL (8.9-20.6); Calc. Creatinine Clearance 136 mL/min (70-130); Carbon Dioxide 29 mmol/L (22-29); Chloride 101 mmol/L (98-107); Glucose 112 mg/dL (70-105); Magnesium 1.6 mg/dL (1.6-2.6); Potassium 3.3 mmol/L (3.5-5.1); Sodium 137 mmol/L (136-145)
[2021-01-06] MEDS: Cefepime 1 GM in Sodium Chloride 0.9% 100 ML IVPB SCH ×2 (08:47→20:29)
[2021-01-06] MEDS: Pantoprazole 40 MG VIAL IVP SCH (08:47)
[2021-01-06] MEDS ORDERED: Amino Acids 4.25 %/Dextrose 5% 2,000 ML BAG IV SCH (09:00)
[2021-01-06] MEDS: Sodium Chloride 0.9% 1,000 ML IV SCH ×2 (09:03→13:38)
[2021-01-06] MEDS: Enoxaparin Sodium 40 MG/0.4 ML SYRINGE SC SCH (09:38)
[2021-01-06] MEDS ORDERED: Magnesium Sulfate 3 GM in Sodium Chloride 0.9% 100 ML IVPB SCH (10:00)
[2021-01-06] MEDS: Potassium Chloride 20 MEQ in Premix Bag 1 BAG IVPB SCH ×3 (11:38→18:18)
[2021-01-06] MEDS: Promethazine 25 MG TAB PO PRN (18:18)
[2021-01-07] MEDS: Amino Acids 4.25 %/Dextrose 5% 1,000 ML IV SCH (03:25)
[2021-01-07] MEDS: Sodium Chloride 0.9% 1,000 ML IV SCH ×2 (03:25→12:55)
[2021-01-07 04:17] LABS: ALT (SGPT) 10 U/L (8-55); AST (SGOT) 15 U/L (5-34); Albumin 3.8 g/dL (3.5-5.0); Alkaline Phosphatase 65 U/L (40-110); Anion Gap 12 mmol/L (10-20); BUN (Urea Nitrogen) 13 mg/dL (8.9-20.6); Bilirubin, Total 0.3 mg/dL (0.2-1.2); Calc. Creatinine Clearance 119 mL/min (70-130); Calcium 8.6 mg/dL (7.8-10.44); Carbon Dioxide 26 mmol/L (22-29); Chloride 101 mmol/L (98-107); Globulin 2.2 g/dL (2.4-3.5); Glucose 98 mg/dL (70-105); Magnesium 1.8 mg/dL (1.6-2.6); Potassium 3.7 mmol/L (3.5-5.1); Sodium 135 mmol/L (136-145)
[2021-01-07] MEDS: Morphine 4 MG/ML VIAL SLOW IVP PRN ×2 (06:10→09:03)
[2021-01-07 06:16] LABS: #Eosinphils 0.1 thou/uL (0.0-0.7); #Lymphocytes 1.1 thou/uL (1.20-3.40); #Monocytes 0.8 thou/uL (0.11-0.59); #Neutrophils 5.6 thou/uL (1.40-6.50); %Basophils 0.2 % (0.0-1.0); %Eosinophils 0.9 % (0.0-10.0); %Lymphocytes 14.3 % (21.0-51.0); %Neutrophils 73.7 % (42.0-75.0); Hemoglobin 9.4 g/dL (14.0-18.0); Mean Corpuscular HGB CONC 32.7 g/dL (32.0-36.0); Mean Corpuscular Hemoglobin 29.1 pg (27.0-31.0); Mean Corpuscular Volume 89.1 fL (78.0-98.0); Mean Platelet Volume 7.9 fL (7.4-10.4); Platelet Count 223 thou/uL (130-400); RBC Distribution Width 14.7 % (11.5-14.5); Red Blood Cell (RBC) Count 3.23 mill/uL (4.70-6.10); White Blood Cell (WBC) Count 7.6 thou/uL (4.8-10.8)
[2021-01-07] MEDS: Enoxaparin Sodium 40 MG/0.4 ML SYRINGE SC SCH (08:36)
[2021-01-07] MEDS: Pantoprazole 40 MG VIAL IVP SCH (08:37)
[2021-01-07] MEDS ORDERED: Magnesium Sulfate 3 GM in Sodium Chloride 0.9% 100 ML IVPB SCH (09:30)
[2021-01-07 10:20] VITALS: BP 93/56; TEMP 98.6
[2021-01-07] MEDS ORDERED: Sodium Chloride 0.9% 20 ML ONE (14:18)
== END 2021-01-07 14:34 | disposition home or self-care (01) | DRG 640 ==
LOC: ERS 10:14 → ERHOLD 12:21 → ONC 18:27
PROVIDERS: ADMIT Family Medicine; ATTEND Internal Medicine
DX: E86.0 Dehydration (principal); E43 Unspecified severe protein-calorie malnutrition; C78.00 Secondary malignant neoplasm of unspecified lung; C79.51 Secondary malignant neoplasm of bone; C79.89 Secondary malignant neoplasm of other specified sites; R11.2 Nausea with vomiting, unspecified; E87.2 Acidosis; Z20.822 Contact with and (suspected) exposure to COVID-19; T45.1X5A Adverse effect of antineoplastic and immunosuppressive drugs, initial encounter; E87.6 Hypokalemia; E83.42 Hypomagnesemia; E86.9 Volume depletion, unspecified; C62.90 Malignant neoplasm of unspecified testis, unspecified whether descended or undescended; Z60.2 Problems related to living alone; Z79.899 Other long term (current) drug therapy; Z68.23 Body mass index [BMI] 23.0-23.9, adult; Z98.890 Other specified postprocedural states
CPT/HCPCS: 36415; 71045; 80048; 80053; 81003; 82550; 82805; 83605; 83735; 85025; 87040; 87804; 93005; 96374; 96375; C9113; J0692; J1170; J1642; J1650; J2270; J2405; J2765; J3370; J3475; J3480; J3490; J7050; Q0162; Q0169; U0002